=== PATIENT | female | born 1985 | race Caucasian/White ===

== ENCOUNTER 2024-04-17 02:21 | Inpatient (IN) | payer MEDICARE, MEDICAID, SELFPAY ==
[2024-04-17] VITALS (11 sets, daily range): BP systolic 101–150; BP diastolic 64–110; PULSE 50–86; RESP 12–20; TEMP 36.6–36.9; O2SAT 94–100; BMI 24.8
--- NOTE | ~2024-04-17 | XR_ITS ---
EXAMINATION: XR CHEST CLINICAL INFORMATION: Desaturation COMPARISON: None available. TECHNIQUE: AP upright portable (time stamp of 0640 hours) view of the chest was obtained. Clothing artifact overlies. Patient rotated. FINDINGS: No gross focal consolidation or effusion. No pneumothorax. Nonspecific increase in reticular markings predominating centrally, suggesting airways disease. Nonspecific hazy increased density at the bases likely due to overlapping chest wall shadows. Grossly normal heart and mediastinum. No overt pulmonary edema. Nonobstructive gas pattern. No acute osseous finding. XR/XR chest 1V IMPRESSION: Suspect airways disease. Technically limited film. Recommend short-term follow-up. Electronically signed by: Harshil Mcnair MD 04/17/2024 07:31 AM EDT
[2024-04-17 03:17] LABS: Appearance Urine Clear; Color Urine Yellow; Glucose Urine UA Negative (Negative); Leukocyte Esterase Urine Negative (Negative); Nitrite Urine Negative (Negative); PH 5.5 (5.0-9.0); Urine Blood Negative (Negative); Urine Ketones Negative (Negative); Urine Protein Negative (Neg-Trace)
[2024-04-17 03:18] LABS: UPreg QC Valid YES; Urine Pregnancy NEGATIVE (NEGATIVE)
--- NOTE | 2024-04-17 03:19 | PC.NURSE ---
Pt reports she is a difficult stick and requires ultrasound guide for labs/IV.
[2024-04-17 03:26] LABS: Amphetamine Screen Urine Not Detected (Not Detect); Barbiturates, Urine Not Detected (Not Detect); Benzodiazepines Screen Urine Not Detected (Not Detect); Buprenorphine Scr Not Detected (Not Detect); Cannabinoid Screen Urine Not Detected (Not Detect); Cocaine Screen Urine POSITIVE (Not Detect); Fentanyl, urine POSITIVE (Not Detect); Methadone Screen, Urine Positive (Not Detect); Opiate Screen Urine Not Detected (Not Detect); Oxycodone Screen Urine Not Detected (Not Detect); Phencyclidine Screen Urine Not Detected (Not Detect)
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
--- NOTE | 2024-04-17 06:31 | ED.GENADULT ---
HPI - General Adult General Chief complaint: General Medical Stated complaint: SOB/multiple complaints/dc from [facility] Time Seen by Provider: 04/17/24 06:28 Source: patient and EMS Mode of arrival: EMS Limitations: no limitations History of Present Illness ED Provider: Bertha Rhodes PA-C HPI narrative: 38 yo chronically ill female history of polysubstance use, EtOH use, severe hypothyroidism, CKD, recent admission to [facility] with severe hypothyroidism, elevated troponin, hypoxia and RSV bronchitis who presents to the ER via EMS for evaluation of flu-like symptoms, cough, SOB and chest pain. Patient reportedly called EMS from the parking lot of [facility]. She left without treatment there yesterday because the wait was too long. She states she has been having flu-like symptoms and central chest pains along with cough, SOB and not feeling well. She reports bringing up a lot of yellow phlegm. She states she recently had RSV. The pain is in the center of her chest, is constant. It does not radiate. She arrives to the ER lethargic and appears to be under the influence. She was demanding food. MD complaint: Chest pain Onset (ago): unknown Location: chest and lower extremity Radiation: non-radiation Severity: severe Quality: aching Pain Consistency: constant Relieving factors: none Exacerbating factors: none Associated symptoms: shortness of breath Treatments prior to arrival: none Related Data Home Medications ?Medication ?Instructions ?Recorded ?Confirmed methadone 10 mg/mL oral 80 mg PO DAILY 04/17/24 04/17/24 concentrate (Methadone Intensol) Allergies Allergy/AdvReac Type Severity Reaction Status Date / Time sulfamethoxazole Allergy Hives Verified 04/17/24 02:31 [From Bactrim] trimethoprim [From Bactrim] Allergy Hives Verified 04/17/24 02:31 Review of Systems Review of Systems: Yes all other systems are reviewed and are negative PMFSH Social History Social History Smoked in Last 30 Days: Yes Substance Use Type: Crack/Cocaine Advance Directives: No Advance Directives Information Provided: Yes Physical Exam ED Vital Signs: Vital Signs - 24 hr 04/17/24 02:30 04/17/24 04:23 04/17/24 06:00 Temperature 98.3 F 97.9 F 97.9 F Pulse Rate 86 72 69 Respiratory Rate 20 17 16 Blood Pressure 150/107 H 118/85 107/71 Pulse Oximetry 98 95 94 Oxygen Delivery Method Room Air Room Air Room Air Oxygen Flow Rate 04/17/24 07:25 04/17/24 10:00 04/17/24 11:05 Temperature 98.4 F 98.2 F Pulse Rate 59 59 58 Respiratory Rate 12 12 Blood Pressure 110/77 101/74 111/71 Pulse Oximetry 100 94 96 Oxygen Delivery Method Nasal Cannula Nasal Cannula Nasal Cannula Oxygen Flow Rate 2 2 2 04/17/24 12:00 Temperature Pulse Rate 55 Respiratory Rate Blood Pressure 104/64 Pulse Oximetry 95 Oxygen Delivery Method Room Air Oxygen Flow Rate 2 BMI result Body Mass Index 24.8 Appearance: Lethargic, appears older than stated age, chronically ill-appearing Oriented X3. No acute distress. Head: normocephalic, atraumatic. Eyes: Pupils equal, round and reactive to light. ENT: Poor dentition Pharynx normal. No tonsillar swelling or exudate. Neck: Normal inspection. Neck supple. CVS: Normal heart rate and rhythm. Pulses normal. Respiratory: No respiratory distress. Breath sounds coarse throughout, congested cough, no wheezing. Anterior chest wall tenderness Abdomen: Soft and nontender. +BS x4 Skin: Skin warm and dry. Normal skin color. Normal skin turgor. No rashes. Extremities: No lower extremity edema. No joint swelling. Neuro/psych: Oriented X 3. No motor deficit. No sensory deficit. CN II-XII intact. Normal speech and cognition. Medications Administered Discontinued Medications Generic Name Dose Route Start Last Admin Trade Name Freq PRN Reason Stop Dose Admin Levothyroxine Sodium 112 mcg 04/17/24 07:47 04/17/24 08:18 Levothyroxine Sodium 112 Mcg Tablet PO 04/17/24 07:48 112 mcg ONCE ONE Administration Levothyroxine Sodium 50 mcg 04/17/24 12:18 04/17/24 12:28 Levothyroxine Sodium 100 Mcg/5 Ml Vial IVPUSH 04/17/24 12:19 50 mcg ONCE ONE Administration Methadone HCl 80 mg 04/17/24 07:59 04/17/24 09:44 Methadone Hcl 20 Mg/2 Ml Oral.Conc PO 04/17/24 08:00 80 mg ONCE ONE Administration Potassium Chloride 40 meq 04/17/24 07:44 04/17/24 08:18 Potassium Chloride Er 20 Meq Tab.Er.Prt PO 04/17/24 07:45 40 meq ONCE ONE Administration Medical Decision Making Medical Decision Making [facility] Narrative: 38-year-old female with history of polysubstance use including cocaine and alcohol, on methadone maintenance 80 mg per day, history of severe hypothyroidism, who presents to the ER for evaluation of chest pain. She has a very poor historian. She was belligerent and yelling out on arrival demanding food. When sleeping she did drop her oxygen saturations to 87%, requiring 2 L nasal cannula. Lab workup done today shows mild hypokalemia, significantly elevated TSH greater than 100 and a T4 less than 0.42. She has normal thermic with heart rate of 60. She is lethargic however she may be under the influence of drugs and alcohol. Her urine toxicology is positive for fentanyl and methadone along with cocaine. Her alcohol level came back negative. After multiple attempts the recent admission from [facility] was obtained, she was admitted at [facility] from March 16 to March 25. She had severe hypothyroidism at that time, was treated with IV levothyroxine 50 mcg for 3 days and then started on levothyroxine 125 mcg daily. She was not in myxedema coma. She had elevated troponin levels of 200, she was seen by Cardiology. It appears as though she was seen by psych as well for psychosis. She required physical restraints. She was treated with p.r.n. Ativan and Haldol for probable withdrawal. She was also seen by pulmonology for hypoxia. Hypoxia was thought to be due to hypoventilation. There has been several attempts at weaning the patient's off of oxygen however she continues to have desaturations to the low 80s. She is bronchospastic and having coughing fits that she reports result in chest pain and headache. Lungs are coarse but no wheezing. She is afebrile. CBC is still pending, recollect sent. Chest x-ray does not have any evidence of pneumonia. Will hold off on antibiotics at this time. extended viral panel ordered. will admit to the hospital for further evaluation and treatment. Differential Diagnosis Differential Diagnoses: The differential diagnosis associated with the presentation includes Myxedema coma, polysubstance use, intoxication, severe hypothyroidism, pneumonia, viral syndrome, bronchitis, reactive airway disease, Admission/Observation Consideration of admission/observation: Escalation of care including admission/observation considered Consult Healthcare Provider Management of the patient was discussed with: Hospitalist Dr. soriano Lab Data MDM Lab Attestation statement: I reviewed the patient's lab results. Hypokalemia, severely elevated TSH and low free T4 04/17/24 11:56 04/17/24 06:26 Labs: Lab Results 04/17/24 04/17/24 04/17/24 Range/Units 03:04 06:26 06:33 WBC (4.8-10.8) X10*3/uL RBC (4.20-5.50) X10*6/uL Hgb (12.0-16.0) g/dl Hct (37.0-47.0) % MCV (80.0-98.0) fL MCH (27.0-33.0) pg MCHC (31.0-35.0) g/dl RDW (11.0-16.0) % Plt Count (160-400) X10*3/uL MPV (9.4-12.3) fL Immature Gran % (Auto) (0.0-0.4) % Neut % (Auto) (45-73) % Lymph % (Auto) (20-40) % [place] % (Auto) (2-11) % Eos % (Auto) (0-4) % Baso % (Auto) (0-2) % Lymph # (Auto) (1.2-4.9) X10*3/uL [place] # (Auto) (0.1-1.2) X10*3/uL Eos # (Auto) (0.0-0.4) X10*3/uL Baso # (Auto) (0.0-0.2) X10*3/uL Abs Immat Gran (auto) (0.00-0.03) X10*3/uL Absolute Neuts (auto) (2.0-8.3) x10*3/uL Absolute Nucleated RBC (0.0-0.012) X10*3/uL Nucleated RBC % (auto) (0.0-0.2) /100WBC VBG pH 7.45 H (7.32-7.43) VBG pCO2 47 mmHg VBG pO2 197 mmHg VBG HCO3 33 H (22-26) mmol/L VBG O2 Saturation 99.0 % VBG Base Excess 8.8 mmol/L Sodium 136 (135-145) mmol/L Potassium 3.2 L (3.3-5.1) mmol/L Chloride 100 (96-108) mmol/L Carbon Dioxide 26 (22-29) mmol/L Anion Gap 13 (12-20) BUN 14 (9-16) mg/dL Creatinine 1.25 (0.5-1.4) mg/dL Estim Creat Clear Calc 54.7 Estimated GFR 48 Random Glucose 173 H (60-115) mg/dL Calcium 8.8 (8.4-10.2) mg/dL Magnesium 1.9 (1.6-2.6) mg/dL Total Bilirubin 0.2 (0.0-1.0) mg/dL Direct Bilirubin < 0.2 (0.0-0.5) mg/dL AST 27 (5-31) U/L ALT 13 (0-31) U/L Alkaline Phosphatase 68 (39-117) U/L Troponin I High Sens < 2.7 (<3.5-17.0) ng/L B-Natriuretic Peptide 47 (<100) pg/mL Total Protein 6.8 (6.5-8.0) g/dL Albumin 3.7 (3.5-5.0) g/dL TSH > 100.00 H (0.32-4.0) uIU/mL Free T4 < 0.42 L (0.71-1.85) ng/dL Urine Color Yellow Urine Appearance Clear Urine pH 5.5 (5.0-9.0) Ur Specific [place] 1.010 (1.005-1.025) Urine Protein Negative (Neg-Trace) mg/dL Urine Glucose (UA) Negative (Negative) mg/dL Urine Ketones Negative (Negative) mg/dL Urine Blood Negative (Negative) Urine Nitrite Negative (Negative) Ur Leukocyte Esterase Negative (Negative) Urine Test NEGATIVE (NEGATIVE) Urine Opiates Screen Not Detected (Not Detect) Ur Buprenorphine Scrn Not Detected (Not Detect) ng/mL Ur Oxycodone Screen Not Detected (Not Detect) ng/mL Urine Methadone Screen Positive H (Not Detect) ng/mL Urine Fentanyl Screen POSITIVE H (Not Detect) Ur Barbiturates Screen Not Detected (Not Detect) Ur Phencyclidine Scrn Not Detected (Not Detect) Ur Amphetamines Screen Not Detected (Not Detect) U Benzodiazepines Scrn Not Detected (Not Detect) Urine Cocaine Screen POSITIVE H (Not Detect) U Marijuana (THC) Screen Not Detected (Not Detect) Ethyl Alcohol < 10 mg/dL Influenza Type A (PCR) NEGATIVE (Negative) Influenza Type B (PCR) NEGATIVE (Negative) RSV RNA Qual (PCR) NEGATIVE (Negative) SARS-CoV-2 RNA (RT-PCR) NEGATIVE (Negative) 04/17/24 Range/Units 11:56 WBC 7.6 (4.8-10.8) X10*3/uL RBC 3.07 L (4.20-5.50) X10*6/uL Hgb 10.3 L (12.0-16.0) g/dl Hct 30.9 L (37.0-47.0) % MCV 100.7 H (80.0-98.0) fL MCH 33.6 H (27.0-33.0) pg MCHC 33.3 (31.0-35.0) g/dl RDW 13.5 (11.0-16.0) % Plt Count 206 (160-400) X10*3/uL MPV 9.1 L (9.4-12.3) fL Immature Gran % (Auto) 0.4 (0.0-0.4) % Neut % (Auto) 42.3 L (45-73) % Lymph % (Auto) 45.2 H (20-40) % [place] % (Auto) 6.1 (2-11) % Eos % (Auto) 4.8 H (0-4) % Baso % (Auto) 1.2 (0-2) % Lymph # (Auto) 3.4 (1.2-4.9) X10*3/uL [place] # (Auto) 0.5 (0.1-1.2) X10*3/uL Eos # (Auto) 0.4 (0.0-0.4) X10*3/uL Baso # (Auto) 0.1 (0.0-0.2) X10*3/uL Abs Immat Gran (auto) 0.03 (0.00-0.03) X10*3/uL Absolute Neuts (auto) 3.2 (2.0-8.3) x10*3/uL Absolute Nucleated RBC 0.000 (0.0-0.012) X10*3/uL Nucleated RBC % (auto) 0.0 (0.0-0.2) /100WBC VBG pH (7.32-7.43) VBG pCO2 mmHg VBG pO2 mmHg VBG HCO3 (22-26) mmol/L VBG O2 Saturation % VBG Base Excess mmol/L Sodium (135-145) mmol/L Potassium (3.3-5.1) mmol/L Chloride (96-108) mmol/L Carbon Dioxide (22-29) mmol/L Anion Gap (12-20) BUN (9-16) mg/dL Creatinine (0.5-1.4) mg/dL Estim Creat Clear Calc Estimated GFR Random Glucose (60-115) mg/dL Calcium (8.4-10.2) mg/dL Magnesium (1.6-2.6) mg/dL Total Bilirubin (0.0-1.0) mg/dL Direct Bilirubin (0.0-0.5) mg/dL AST (5-31) U/L ALT (0-31) U/L Alkaline Phosphatase (39-117) U/L Troponin I High Sens (<3.5-17.0) ng/L B-Natriuretic Peptide (<100) pg/mL Total Protein (6.5-8.0) g/dL Albumin (3.5-5.0) g/dL TSH (0.32-4.0) uIU/mL Free T4 (0.71-1.85) ng/dL Urine Color Urine Appearance Urine pH (5.0-9.0) Ur Specific [place] (1.005-1.025) Urine Protein (Neg-Trace) mg/dL Urine Glucose (UA) (Negative) mg/dL Urine Ketones (Negative) mg/dL Urine Blood (Negative) Urine Nitrite (Negative) Ur Leukocyte Esterase (Negative) Urine Test (NEGATIVE) Urine Opiates Screen (Not Detect) Ur Buprenorphine Scrn (Not Detect) ng/mL Ur Oxycodone Screen (Not Detect) ng/mL Urine Methadone Screen (Not Detect) ng/mL Urine Fentanyl Screen (Not Detect) Ur Barbiturates Screen (Not Detect) Ur Phencyclidine Scrn (Not Detect) Ur Amphetamines Screen (Not Detect) U Benzodiazepines Scrn (Not Detect) Urine Cocaine Screen (Not Detect) U Marijuana (THC) Screen (Not Detect) Ethyl Alcohol mg/dL Influenza Type A (PCR) (Negative) Influenza Type B (PCR) (Negative) RSV RNA Qual (PCR) (Negative) SARS-CoV-2 RNA (RT-PCR) (Negative) ABG Data ABG Results: Independent Interpretation I performed an independent interpretation of an: EKG and Plain X-Ray Interpretation: EKG with normal sinus rhythm, ventricular rate 63 beats per minute, normal IA interval, normal QTC, no ST segment elevations or depressions. Chest x-ray with some increased reticular opacities at the bases bilaterally, agree with radiology read Radiology Impression Discussion of test interpretation with radiology: I have reviewed the radiologist's reading. Radiologist Impression: XR/XR chest 1V IMPRESSION: Suspect airways disease. Technically limited film. Recommend short-term follow-up. Independent Historian Clinical information obtained from an independent historian. History obtained from or confirmed by: EMS External Record Review External record reviewed: Inpatient record, Outpatient record, Prior outpatient labs and Prior outpatient radiology Tests considered The following testing was considered but not selected: CTA considered however low clinical suspicion for pulmonary embolism Prescription Management I considered prescription management with: Other (Synthroid, Narcan, antibiotics) Chronic Conditions Patient?s care impacted by: Other (Hypothyroidism, polysubstance use) Social Determinants Patient?s care significantly limited by Social Determinants of Health including: Inadequate housing, Alcoholism and drug addiction in family, Problems related to primary support group and Other Social Determinant of Health Critical Care Time Critical Care Time Critical Care Time: Yes Total Critical Care Time: 44 Attestation: I have personally provided critical care time exclusive of time spent on separately billable procedures. Time includes review of lab data, radiology results, discussion with consultants, and monitoring for potential decompensation. Intervention performed as documented. Discharge Plan Discharge Clinical Impression: Severe hypothyroidism, Bronchitis, Hypoxia Patient Disposition: Admitted As Inpatient Print Language: [place]
[2024-04-17 06:41] LABS: VBG Base Excess 8.8 mmol/L; VBG HCO3 33 mmol/L (22-26); VBG pCO2 47 mmHg; VBG pH 7.45 (7.32-7.43); VBG pO2 197 mmHg
[2024-04-17 06:43] LABS: Venous Blood Gas Refer to POC result
--- NOTE | 2024-04-17 06:44 | ECG_ITS ---
Test Reason : CHEST PAIN Blood Pressure : / mmHG Vent. Rate : 063 BPM Atrial Rate : 063 BPM P-R Int : 198 ms QRS Dur : 088 ms QT Int : 294 ms P-R-T Axes : 050 008 054 degrees QTc Int : 300 ms Normal sinus rhythm Nonspecific T wave abnormality Abnormal ECG No previous ECGs available Referred By: Hellen Rhodes Electronically Signed By:KARL MICHELLE
[2024-04-17 06:58] LABS: B Type Natriuretic Peptide 47 pg/mL (<100)
[2024-04-17 07:13] LABS: Alanine Aminotransferase 13 U/L (0-31); Albumin Level 3.7 g/dL (3.5-5.0); Alkaline Phosphatase 68 U/L (39-117); Anion Gap 13 (12-20); Aspartate Amino Transferase 27 U/L (5-31); Bilirubin Direct < 0.2 mg/dL (0.0-0.5); Bilirubin Total 0.2 mg/dL (0.0-1.0); Blood Urea Nitrogen 14 mg/dL (9-16); Calcium 8.8 mg/dL (8.4-10.2); Carbon Dioxide 26 mmol/L (22-29); Chloride 100 mmol/L (96-108); Creatinine Clr Calc Pharmacy 54.7; Estimated Glomerular Filt Rate 48; Ethanol < 10 mg/dL; Glucose Random 173 mg/dL (60-115); Magnesium 1.9 mg/dL (1.6-2.6); Potassium 3.2 mmol/L (3.3-5.1); Sodium 136 mmol/L (135-145); Total Protein 6.8 g/dL (6.5-8.0)
[2024-04-17 07:17] LABS: Influenza A PCR NEGATIVE (Negative); Influenza B PCR NEGATIVE (Negative); Resp Syncy Virus RNA Qual PCR NEGATIVE (Negative); SARS COV2 PCR INHOUSE NEGATIVE (Negative)
--- NOTE | 2024-04-17 07:34 | PC.NURSE ---
patient noted t be satting 87% on room air, patient placed on 2lNC now satting 95%. patient arousable to verbal stimuli, alert and oriented x3. patient drowsy, respirations equal and unlabored, skin noted to have various keith from IVDA- no open wounds noted. pupils equal and reactive.
[2024-04-17 07:41] LABS: TSH reflex Free T4 > 100.00 uIU/mL (0.32-4.0)
[2024-04-17] MEDS: Levothyroxine Sodium 112 MCG TABLET PO (08:18)
[2024-04-17] MEDS: Potassium Chloride ER 20 MEQ TAB.ER.PRT 40 MEQ PO (08:18)
--- NOTE | 2024-04-17 08:28 | HE.PHANOTE ---
RE METHADONE DOSE: LAST DOSE 80 MG AT [facility] ON 04/16/24
--- NOTE | 2024-04-17 08:31 | PC.NURSE ---
patient being verbally abusive to staff, patient educated by this RN that she has to wait to eat due to her medication administration and that she will get a tray soon.
[2024-04-17 08:43] LABS: Free T4 (Free Thyroxine) < 0.42 ng/dL (0.71-1.85)
--- NOTE | 2024-04-17 09:07 | MHC.EDTECH ---
attempt to draw labs couldn't obtain due to pt yelling saying to remove it. Rodrigo Quiñones tried to draw labs again shortly after, pt yelled about getting food and that she was over it . labs not drawn
[2024-04-17] MEDS: methADONE HCl 20 MG/2 ML ORAL.CONC 80 MG PO (09:44)
--- NOTE | 2024-04-17 09:47 | PC.NURSE ---
patient sitting up, awake and alert eating breakfast tray. patient dosed with methadone per MAR.
[2024-04-17 11:16] LABS: Troponin-I High Sensitivity < 2.7 ng/L (<3.5-17.0)
[2024-04-17 11:59] LABS: MANUAL DIFF FLAG NO
[2024-04-17 12:00] LABS: Basophils Absolute Auto 0.1 X10*3/uL (0.0-0.2); Basophils Percent Auto 1.2 % (0-2); Eosinophils Absolute Auto 0.4 X10*3/uL (0.0-0.4); Eosinophils Percent Auto 4.8 % (0-4); Hematocrit 30.9 % (37.0-47.0); Hemoglobin 10.3 g/dl (12.0-16.0); Imm Gran Abs Auto 0.03 X10*3/uL (0.00-0.03); Imm Gran Pct Auto 0.4 % (0.0-0.4); Lymphocytes Absolute Auto 3.4 X10*3/uL (1.2-4.9); Lymphocytes Percent Auto 45.2 % (20-40); Mean Corpuscular HGB Conc 33.3 g/dl (31.0-35.0); Mean Corpuscular Hemoglobin 33.6 pg (27.0-33.0); Mean Corpuscular Volume 100.7 fL (80.0-98.0); Mean Platelet Volume 9.1 fL (9.4-12.3); Monocytes Absolute Auto 0.5 X10*3/uL (0.1-1.2); Monocytes Percent Auto 6.1 % (2-11); Neutrophils Absolute Auto 3.2 x10*3/uL (2.0-8.3); Neutrophils Percent Auto 42.3 % (45-73); Platelet Count 206 X10*3/uL (160-400); Red Blood Count 3.07 X10*6/uL (4.20-5.50); Red Cell Distribution Width 13.5 % (11.0-16.0); White Blood Count 7.6 X10*3/uL (4.8-10.8)
[2024-04-17] MEDS: Levothyroxine Sodium 100 MCG/5 ML VIAL 50 MCG IVPUSH (12:28)
[2024-04-17 12:57] LABS: Procalcitonin 0.05 ng/mL
[2024-04-17 12:57] LABS: Glucose, Whole Blood 140 mg/dL (60-115)
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
--- NOTE | 2024-04-17 13:54 | PHA.MEDREC ---
Addendum entered by Berna Ibarra RPh 04/17/24 14:32: MED REC REVIEWED BY EMANUEL Original Note: Pharmacy Consult ? Medication Reconciliation Pharmacy has completed the medication reconciliation. Spoke with patient to confirm medications. Everything matched claim history she reported to me. She no longer takes olanzapine, ND'ed because she started to hear things, stopped taking about a month or two ago. She did not start or pick remover the lower dose of levothyroxine or antibiotics prescribed yesterday. Her most recent pick remover for levothyroxine was a 125 mcg dose in March so i will enter that dose since patient was unsure.
[2024-04-17] MEDS: Amoxicillin/Potassium Clav 875 MG TABLET PO (14:11)
[2024-04-17] MEDS: clonazePAM 0.5 MG TABLET PO ×2 (14:11→15:12)
[2024-04-17] MEDS: Folic Acid 1 MG TABLET PO (14:11)
[2024-04-17] MEDS: Gabapentin 400 MG CAPSULE PO ×2 (14:11→15:39)
[2024-04-17] MEDS: Thiamine HCL 100 MG TABLET PO (14:11)
[2024-04-17] MEDS: methylPREDNISolone Sod Succ 40 MG/ML VIAL IVPUSH (14:12)
[2024-04-17] MEDS: Potassium Chloride Packet 20 MEQ PACKET 40 MEQ PO (14:12)
[2024-04-17] MEDS: Nicotine 21 MG PATCH.TD24 TRANSDERMA (14:12)
--- NOTE | 2024-04-17 15:05 | PC.NURSE ---
patient belongings searched by this RN and security. patient found to have drug paraphenalia, knife and vape on her. patient belongings taken by security. patient controlled drugs sent to pharmacy. patient has multiple bags of clothes and belongings all searched by security.
[2024-04-17 15:21] LABS: Adenovirus PCR Not Detected (Not Detect.); Bordetella parapertussis PCR Not Detected (Not Detect.); Bordetella pertussis PCR Not Detected (Not Detect.); Chlamydia pneumoniae PCR Not Detected (Not Detect.); Coronavirus 229E PCR Not Detected (Not Detect.); Coronavirus HKU1 PCR Not Detected (Not Detect.); Coronavirus NL63 PCR Not Detected (Not Detect.); Coronavirus OC43 PCR Not Detected (Not Detect.); Human metapneumovirus PCR Not Detected (Not Detect.); Influenza A PCR Not Detected (Not Detect.); Influenza B PCR Not Detected (Not Detect.); Mycoplasma pneumoniae PCR Not Detected (Not Detect.); Parainfluenza 1 PCR Not Detected (Not Detect.); Parainfluenza 2 PCR Not Detected (Not Detect.); Parainfluenza 3 PCR Not Detected (Not Detect.); Parainfluenza 4 PCR Not Detected (Not Detect.); RSV PCR Not Detected (Not Detect.); Rhino/Enterovirus PCR Detected (Not Detect.)
[2024-04-17 15:28] LABS: SARS-CoV-2 PCR Not Detected (Not Detect.)
--- NOTE | 2024-04-17 15:37 | PC.NURSE ---
patient removed oxygen satting 97%
[2024-04-17] MEDS: Albuterol/Iprat 2.5/0.5MG 3 ML AMPUL.NEB INHALE (15:41)
--- NOTE | 2024-04-17 16:36 | PC.NURSE ---
patient states she is feeling as if she is withdrawing from alcohol. patient states she does not want anything to help her threw the withdrawals. patient is belligerent with staff, not following directions of safety. patient told to lay back in her bed, patient did follow directions to lay back in bed. inpatient provider aware.
--- NOTE | 2024-04-17 16:45 | PC.NURSE ---
patient sitting in plastic chair, rocking back and forth where all 4 legs are not on the floor, patient educated that she can not rock on the chair and is an unsafe behavior due to the chair being unsteady and risky of falling. patient now yelling at staff walking by, unredirectable. patient now pacing in room.
[2024-04-17] MEDS: Gabapentin 400 MG CAPSULE 800 MG PO (17:01)
--- NOTE | 2024-04-17 17:07 | PC.NURSE ---
gave patient jello and pudding for a snack. patient sitting quietly in bed, respirations equal and unlabored.
--- NOTE | 2024-04-17 17:35 | PC.NURSE ---
patient sitting on floor, patient asked to sit in chair. patient now sitting in chair in room.
--- NOTE | 2024-04-17 23:29 | PC.NURSE ---
pt sleeping. on continuous cardiac, BP and o2 monitoring. call gustafson within reach.
--- NOTE | 2024-04-17 23:37 | PC.NURSE ---
on heart monitor sinus comfort 44-55 bpm. MD aware no further orders at this time.
[2024-04-18] VITALS (7 sets, daily range): BP systolic 121–180; BP diastolic 89–110; PULSE 51–95; RESP 13–20; TEMP 36.6–37.1; O2SAT 95–100
[2024-04-18] MEDS: Amoxicillin/Potassium Clav 875 MG TABLET PO ×2 (02:01→13:23)
[2024-04-18] MEDS: methylPREDNISolone Sod Succ 40 MG/ML VIAL IVPUSH (02:01)
[2024-04-18 05:11] LABS: MANUAL DIFF FLAG NO
[2024-04-18 05:15] LABS: Basophils Percent Auto 0.2 % (0-2); Hematocrit 31.6 % (37.0-47.0); Hemoglobin 10.3 g/dl (12.0-16.0); Imm Gran Abs Auto 0.08 X10*3/uL (0.00-0.03); Imm Gran Pct Auto 0.6 % (0.0-0.4); Lymphocytes Absolute Auto 1.5 X10*3/uL (1.2-4.9); Lymphocytes Percent Auto 12.2 % (20-40); Mean Corpuscular HGB Conc 32.6 g/dl (31.0-35.0); Mean Corpuscular Hemoglobin 32.9 pg (27.0-33.0); Mean Platelet Volume 9.8 fL (9.4-12.3); Monocytes Absolute Auto 0.2 X10*3/uL (0.1-1.2); Monocytes Percent Auto 1.8 % (2-11); Neutrophils Absolute Auto 10.6 x10*3/uL (2.0-8.3); Neutrophils Percent Auto 85.2 % (45-73); Platelet Count 227 X10*3/uL (160-400); Red Blood Count 3.13 X10*6/uL (4.20-5.50); Red Cell Distribution Width 13.3 % (11.0-16.0); White Blood Count 12.4 X10*3/uL (4.8-10.8)
[2024-04-18 05:35] LABS: Anion Gap 13 (12-20); Blood Urea Nitrogen 13 mg/dL (9-16); Calcium 9.1 mg/dL (8.4-10.2); Carbon Dioxide 29 mmol/L (22-29); Chloride 100 mmol/L (96-108); Creatinine Clr Calc Pharmacy 62.2; Estimated Glomerular Filt Rate 56; Glucose Random 212 mg/dL (60-115); Potassium 4.5 mmol/L (3.3-5.1); Sodium 137 mmol/L (135-145)
[2024-04-18 06:11] LABS: Folate 14.5 ng/mL (> or = 4.0); Vitamin B12 428 pg/mL (200-900)
[2024-04-18] MEDS: Levothyroxine Sodium 100 MCG/5 ML VIAL 50 MCG IVPUSH (06:29)
[2024-04-18] MEDS: Folic Acid 1 MG TABLET PO (08:49)
[2024-04-18] MEDS: Thiamine HCL 100 MG TABLET PO (08:49)
[2024-04-18] MEDS: clonazePAM 1 MG TABLET PO ×3 (08:49→23:38)
[2024-04-18] MEDS: methADONE HCl 20 MG/2 ML ORAL.CONC 80 MG PO (08:50)
[2024-04-18] MEDS: Nicotine 21 MG PATCH.TD24 TRANSDERMA (08:50)
[2024-04-18] MEDS: Gabapentin 400 MG CAPSULE 800 MG PO ×4 (08:57→22:32)
[2024-04-18] MEDS: buPROPion HCL 75 MG TABLET PO (08:57)
[2024-04-18 09:38] LABS: CT PCR NOT DETECTED (Not Detect.); NG PCR NOT DETECTED (Not Detect.)
[2024-04-18] MEDS: Albuterol/Iprat 2.5/0.5MG 3 ML AMPUL.NEB INHALE ×2 (09:46→11:33)
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
--- NOTE | 2024-04-18 12:17 | PC.NURSE ---
patient frequently out of room pacing in hallways, states she does not want to take the steroids anymore as they are making her anxious, offered patient PRN anxiety medications. patient declined insteady asked for her gabapentin, educated patient that she is due for her gabapentin at 1300, patient stating that she is having 10/10 body pain and is asking for something for pain, patient offered PRN tylenol and refused stating she wants something stronger. patient telling this RN that she wants to speak with addiction medicine and social workers, and that she left [facility] because they werent sending her upstairs and they lied to me, i looked it up on the internet, there are beds upstairs, why arent they giving me a room this Rn educated patient that if there are no nurses to staff empty beds then she will not be going to the floor but the plan is still to admit. patient demanding to speak with social workers. demanding pain medications. this rn offered patient hospital stretcher for comfort, initially patient states she wants one, then changed her mind stating i dont want anyone doing all of that for me . yojana LEE will reach out to the admitting provider regariding patient concerns. safety maintained, plan of care ongoing.
--- NOTE | 2024-04-18 15:15 | PC.NURSE ---
pharmacy called for nelly
[2024-04-18] MEDS: Emtricitabin/Tenofovir DF 200/300 TABLET 1 TAB PO (15:25)
[2024-04-18] MEDS: 0.9 % Sodium Chloride Flush 3 ML SYRINGE IVFLUSH ×2 (15:43→23:39)
[2024-04-18] MEDS: cloNIDine HCL 0.2 MG TABLET PO (18:47)
[2024-04-18] MEDS: Raltegravir Potassium 400 MG TABLET PO (22:32)
[2024-04-19] VITALS (9 sets, daily range): BP systolic 117–142; BP diastolic 72–93; PULSE 60–95; RESP 15–20; TEMP 36.3–37.1; O2SAT 92–99
[2024-04-19] MEDS: Amoxicillin/Potassium Clav 875 MG TABLET PO ×2 (01:38→13:44)
[2024-04-19] MEDS: Gabapentin 400 MG CAPSULE 800 MG PO ×4 (06:35→21:59)
[2024-04-19] MEDS: methADONE HCl 20 MG/2 ML ORAL.CONC 80 MG PO (06:36)
[2024-04-19] MEDS: Levothyroxine Sodium 100 MCG/5 ML VIAL 50 MCG IVPUSH (06:37)
--- NOTE | 2024-04-19 07:42 | PC.NURSE ---
Patient admitted from the ED around 20:40 on 04/18/24. Patient is AAOX4 with no complaints. CIWA score=0. NSR on cardiac monitoring. Patient is oriented to unit routine, call light, bed control, Tv, Tel, bathroom, lights etc. Questions and concerns addressed. Patient verbalized understanding.
[2024-04-19] MEDS: Albuterol/Iprat 2.5/0.5MG 3 ML AMPUL.NEB INHALE ×2 (08:05→15:42)
[2024-04-19] MEDS: Nicotine 21 MG PATCH.TD24 TRANSDERMA (08:29)
[2024-04-19] MEDS: Raltegravir Potassium 400 MG TABLET PO ×2 (08:30→21:59)
[2024-04-19] MEDS: Emtricitabin/Tenofovir DF 200/300 TABLET 1 TAB PO (08:30)
[2024-04-19] MEDS: Thiamine HCL 100 MG TABLET PO (08:31)
[2024-04-19] MEDS: methylPREDNISolone Sod Succ 40 MG/ML VIAL IVPUSH (08:31)
[2024-04-19] MEDS: Folic Acid 1 MG TABLET PO (08:31)
[2024-04-19] MEDS: buPROPion HCL 75 MG TABLET PO (08:31)
[2024-04-19] MEDS: 0.9 % Sodium Chloride Flush 3 ML SYRINGE IVFLUSH ×3 (08:33→23:33)
[2024-04-19 08:43] LABS: Syphilis Screen Nonreactive (Nonreactive)
[2024-04-19 09:08] LABS: HBS Num1 289.38 mIU/mL (0-7.99); HBc Num1 0.09 S/CO (0.00-0.79); HBsAGNum1 0.23 S/CO (0.00-0.99); HIV AB/AG Nonreactive (Nonreactive); HIV Num 1 0.05 S/CO (0.00-0.99); Hepatitis B Core Antibody Nonreactive (Nonreactive); Hepatitis B Surface Antigen Negative (Negative); ~HepC Num1 12.42 S/CO (0.00-0.79); ~Hepatitis B Surface Antibody REACTIVE (Nonreactive); ~Hepatitis C Antibody Reactive (Nonreactive)
--- NOTE | 2024-04-19 11:05 | MHC.CM.PN ---
IMM 04/19. Pt reports she is homeless and living on the [address]. Pt states she would like to get into a detox program, recovery nurse in to see pt. This CM provided pt with a 413 resource guide. Educated on HCP's, but declined at this time. Pt has no PCP, declined a local list of PCP's.
--- NOTE | 2024-04-19 12:47 | MHC.RECOVRN ---
Patient seen at bedside, after consult placed for OUD. Patient was asleep with head on desk when I first arrived, needing loud verbal command and touch to rouse. Patient states she has been using heroine daily, and has been improving and decreasing use now that she has a split dose and take home doses from already established clinic. Patient expresses concerns with housing. She acknowledged that sleeping outside makes it hard to stay clean . We talked about harm reduction strategies, and shelters in the area, she acknowledged she has tried and beds are full. She agrees to keep checking in with local shelters and states that she has an social group worker Alonso from [facility] that is helpful with clothing and food. I left information and a backpack with simple clothing supplies at bedside for patient. Reviewed Pt with Krys Awan APRN
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
--- NOTE | 2024-04-19 16:01 | MHC.CM.PN ---
Addendum entered by Evelyne Wilson 04/19/24 16:06: [facility], and was told that there are no available beds there tonight, she was instructed by GELY to call them tomorrow to check on bed availability. Original Note: EMR reviewed and per MD rounds, pt is medically cleared for discharge. This CM met with pt to discuss discharge plan, pt states she will go to a homeless halfway, but does not feel well enough to discharge and would like to see the MD, hospitalist was notified. Per MD, pt would like to appeal the discharge. This CM did call a few local homeless shelters, but was unable to reach anyone to speak to about an available bed. This CM met with pt to discuss her decision to appeal the discharge, and offered the living room as an option for today until she can get into a homeless halfway. Pt decided to move forward with the appeal, this CM showed pt the number to call for [facility], and pt called and filed the appeal.
[2024-04-19] MEDS: clonazePAM 1 MG TABLET PO (22:01)
[2024-04-20] MEDS: Amoxicillin/Potassium Clav 875 MG TABLET PO ×2 (01:51→12:28)
[2024-04-20] MEDS: Melatonin 3 MG TABLET 6 MG PO (01:55)
[2024-04-20 03:35] VITALS: BP 127/76; PULSE 65; RESP 20; TEMP 37.4; O2SAT 95
--- NOTE | 2024-04-20 05:09 | PC.NURSE ---
Patient AAOX4 with complaints of insomnia relieved with 6 mg po of melatonin. CIWA score =0 x 3. NSR on print line tailer.. VS stable: CK=848/76, HR=65, 95% on RA, T=99.4 , R=18. No signs and symptoms of acute distress noted.
[2024-04-20 07:54] VITALS: BP 131/78; PULSE 66; RESP 16; TEMP 36.1; O2SAT 92
[2024-04-20] MEDS: methADONE HCl 20 MG/2 ML ORAL.CONC 80 MG PO (08:06)
[2024-04-20] MEDS: Thiamine HCL 100 MG TABLET PO (08:07)
[2024-04-20] MEDS: buPROPion HCL 75 MG TABLET PO (08:07)
[2024-04-20] MEDS: Gabapentin 400 MG CAPSULE 800 MG PO ×4 (08:08→20:42)
[2024-04-20] MEDS: Emtricitabin/Tenofovir DF 200/300 TABLET 1 TAB PO (08:08)
[2024-04-20] MEDS: Folic Acid 1 MG TABLET PO (08:08)
[2024-04-20] MEDS: clonazePAM 1 MG TABLET PO ×2 (08:08→16:53)
[2024-04-20] MEDS: Raltegravir Potassium 400 MG TABLET PO ×2 (08:08→20:41)
[2024-04-20] MEDS: Nicotine 21 MG PATCH.TD24 TRANSDERMA (08:08)
[2024-04-20] MEDS: 0.9 % Sodium Chloride Flush 3 ML SYRINGE IVFLUSH ×2 (08:10→16:54)
[2024-04-20 09:03] LABS: Triiodothyronine T3 Free 0.7 pg/mL (2.3-4.2)
[2024-04-20] MEDS: Levothyroxine Sodium 112 MCG TABLET PO (09:52)
[2024-04-20 11:25] VITALS: BP 132/90; PULSE 74; RESP 16; TEMP 36.7; O2SAT 96
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
--- NOTE | 2024-04-20 14:08 | MHC.CM.PN ---
Pts appeal was denied, pt has been notified. Alonso from [facility] met with pt today to complete paperwork in order to find her a place to stay, per Alonso he will be in touch with us.
--- NOTE | 2024-04-20 15:00 | CA_ITS ---
Transthoracic Echocardiogram Patient (Last, First, Middle): Delilah Calzada, Gender: Female Date of : 1985 Age: 38 Procedure Date: 04/20/2024 Procedure Type: Transthoracic Echocardiogram [place] [facility] [place] Height: 160.02 cm Weight: 63.5 kg BSA: 1.66 m2 Heart Rate: bpm BP: 132 / 72 mmHg Getter Operator: AN Referring MD: Destiny AGUILAR Insurance Advisor: Enrike Sanchez MD Symptoms: palpitations, intermittent cp, drug abuse Study Quality: Adequate ECG Rhythm: Sinus Conclusions: - Normal study Findings Left Ventricle Normal left ventricular size, thickness, and systolic function. The visually estimated ejection fraction is between 60-65%. Spectral Doppler is indicative of a normal filling pattern. Right Ventricle Normal right ventricular cavity size and systolic function. Atria Both atria are normal in size. There is no evidence of interatrial shunt. Aortic Valve Normal aortic valve structure and function. There is no aortic valve stenosis. There is no aortic valve regurgitation. Mitral Valve Normal mitral valve structure and function. There is trace mitral valve regurgitation. There is no mitral valve stenosis. Pulmonic Valve The pulmonic valve is likely normal. There is trace pulmonic valve regurgitation. Tricuspid Valve Normal tricuspid valve structure. There is trace tricuspid valve regurgitation. The right ventricular systolic pressure is normal. The right ventricular systolic pressure is 20 mmHg. Normal right atrial pressure. There is no evidence of pulmonary hypertension. Great Vessels All visible segments of the aorta are normal in size. The visualized portions of the pulmonary artery and branches are normal. Venous The inferior vena cava is normal in size and collapses greater than 50% with inspiration. Pericardium/Pleural There is no evidence of pericardial effusion. Prior Study Comparison No prior study available for comparison. Measurements 2D Linear Measurements IVSd: 1.01 0.6-0.9/0.6-1.0 cm LVIDd: 4.31 3.9-5.3/4.2-5.9 cm LVIDd Index: 2.60 2.4-3.2/2.2-3.1 cm/m2 LVIDs: 2.72 2.0-3.6 cm LVPWd: 1.23 0.7-1.1 cm LA Diam: 3.50 2.7-3.8/3.0-4.0 cm LAIDs Index: 2.11 1.5-2.3 cm/m2 LV Mass: 208.99 67-162/88-224 g LV Mass Index: 125.90 43-95/49-115 g/m2 LVOT Diam: 2.10 3.0+(-)1.3 cm 2D Systolic Function EF 4C: 60.30 >55% EF 2C: 67.30 >55% EF BiP: 63.00 >55% Mitral Valve MV Pk E: 1.13 MV PK A: 0.96 MV Decel Time: 232.00 E/A: 1.20 E'Lateral: 6.09 E'Medial: 5.66 E/E' Med: 20.00 E/E' Lat: 18.60 PHT: 68.00 MVA PHT: 3.24 Decel Bleckley: 4.87 Aortic Valve AoV Pk Otf: 1.53 AoV Mn Otf: 1.06 AoV VTI: 0.32 AoV Pk Grad: 9.00 Aov Mn Grad: 5.00 ALEJANDRA Cont.VTI: 2.71 LVOT LVOT Pk Otf: 1.20 LVOT Mn Otf: 0.86 LVOT VTI: 0.25 LVOT Pk Grad: 6.00 LVOT Mn Grad: 3.00 LVOT Diam: 2.10 LVOT Area: 3.46 Diastolic Function MV Pk E: 1.13 MV Pk A: 0.96 E/A: 1.20 E'Medial: 5.66 E/E' Med: 20.00 E' Laterial: 6.09 E/E' Lat: 18.60 Right Ventricle TAPSE (mm): 25.60 TVS' Otf: 11.50 Tricuspid Valve TR Pk Otf: 2.07 TR Pk Grad: 17.00 RA Press: 3.00 RVSP: 20.00 Great Vessels Aorta Sinus of Valsalva: 3.38 2.0-3.[address] Ridge: 2.05 1.7-3.4 cm Ao Asc: 3.10 2.1-3.4 cm Updated in Other Vendor System with Status of Final Enrike Sanchez MD electronically signed on 04/21/2024 12:20:28 PM with status of Final
[2024-04-20 15:21] VITALS: BP 132/72; PULSE 64; RESP 16; TEMP 36.1; O2SAT 91
--- NOTE | 2024-04-20 17:02 | PC.NURSE ---
Patient gave permission for pt's sister Maris Pimentel to talk to this RN . Pt's sister reported to RN that Delilah told her that she wants to kill herself. RN went to the pt's room and assessed pt for suicidal plans and ideation. Pt denied SI , pt stated that she would like to talk to somebody from behavioral health . Pt stated that her sister is trying to help her that she cam stay in the hospital longer on the psych unit . All was reported to DR Spangler and JEFF Otero. Order was placed for CARE team and chasity
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
--- NOTE | 2024-04-20 18:35 | PC.NURSE ---
Care team at the bedside
[2024-04-20 18:46] VITALS: BP 137/85; PULSE 73; RESP 16; TEMP 36.9; O2SAT 95
--- NOTE | 2024-04-20 19:11 | PC.NURSE ---
Fred from the CARE team evaluated pt and reported to RN that pt is cleared , that she is not suicidal and she doesn't need a sitter
[2024-04-20 20:42] VITALS: BP 137/85
[2024-04-20] MEDS: cloNIDine HCL 0.2 MG TABLET PO (20:42)
[2024-04-21] VITALS: BP 117/79; PULSE 60; RESP 18; TEMP 37.1; O2SAT 93
[2024-04-21] MEDS: Amoxicillin/Potassium Clav 875 MG TABLET PO (00:52)
[2024-04-21] MEDS: 0.9 % Sodium Chloride Flush 3 ML SYRINGE IVFLUSH (00:53)
[2024-04-21 03:45] VITALS: BP 110/76; PULSE 56; RESP 16; TEMP 36.1; O2SAT 94
[2024-04-21] MEDS: Levothyroxine Sodium 112 MCG TABLET PO (06:22)
[2024-04-21] MEDS: clonazePAM 1 MG TABLET PO ×2 (06:22→14:29)
[2024-04-21 07:36] VITALS: BP 93/55; PULSE 58; RESP 19; TEMP 36.7; O2SAT 96
[2024-04-21] MEDS: buPROPion HCL 75 MG TABLET PO (08:44)
[2024-04-21] MEDS: Nicotine 21 MG PATCH.TD24 TRANSDERMA (08:44)
[2024-04-21] MEDS: Raltegravir Potassium 400 MG TABLET PO (08:44)
[2024-04-21] MEDS: Gabapentin 400 MG CAPSULE 800 MG PO ×2 (08:44→12:07)
[2024-04-21] MEDS: Emtricitabin/Tenofovir DF 200/300 TABLET 1 TAB PO (08:44)
[2024-04-21] MEDS: Folic Acid 1 MG TABLET PO (08:44)
[2024-04-21] MEDS: Thiamine HCL 100 MG TABLET PO (08:44)
[2024-04-21] MEDS: methADONE HCl 20 MG/2 ML ORAL.CONC 80 MG PO (08:45)
--- NOTE | 2024-04-21 10:40 | MHC.CM.PN ---
Addendum entered by Apurva Perez 04/21/24 11:12: CM received a call back from [facility], they said that pt. is not eligible for the medical respite program, and there is a female bed available for this pt at the [facility]. CM gave this information to pt., she said that she is interested in this and was going to [facility] the [facility] herself. Original Note: CM met with pt to assist her at her request with calling [facility] to appeal her DC. Pt. was upset, saying that no one wants to help her, crying. She said she wants to have the recovery nurse, Amara here to help her. She was insisting that I call Amara right away to get her there immediately. I tried to explain that I could assist her with the phone call. She continued to yell. I then left, and messaged Amara, who is not available until later today. I returned to the room and pt said she is on the phone, making the call herself. I also contacted the [facility] medical respite program at [facility] on pt.'s behalf, am awaiting return call. Per rounds, pt. has been medically cleared for DC. She appealed the DC yesterday, it was denied, she is attempting a second appeal.
[2024-04-21 11:57] VITALS: BP 101/72; PULSE 95; RESP 19; TEMP 36.4; O2SAT 95
[2024-04-21] MEDS: cloNIDine HCL 0.2 MG TABLET PO (12:07)
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
--- NOTE | 2024-04-21 13:45 | MHC.CM.PN ---
Pt will DC today to long-term at [facility]. Last dose methadone letter in sealed envelope, bus passes were given to her, Lyft ride was set up for her. Pt very demanding, saying she will call [facility] clinic herself. CM had called and was told that she has to go there in person to complete paperwork. Pt. said she does not think that is correct, phone # to [facility] was given to her.
== END 2024-04-21 15:02 | disposition home or self-care (01) | DRG 202 ==
LOC: HO.ED 12:54 → HO.EDOVER 13:14 → HO.IMC 04-18 19:32
PROVIDERS: Emergency Medicine; Physician Assistant; Admitting Provider Physician Assistant; Emergency Provider Emergency Medicine; Visit Provider Hospitalist
DX: J20.6 Acute bronchitis due to rhinovirus (principal); J96.01 Acute respiratory failure with hypoxia; F11.20 Opioid dependence, uncomplicated; R45.851 Suicidal ideations; Z59.02 Unsheltered homelessness; E03.9 Hypothyroidism, unspecified; N18.30 Chronic kidney disease, stage 3 unspecified; E87.6 Hypokalemia; F19.10 Other psychoactive substance abuse, uncomplicated; F10.90 Alcohol use, unspecified, uncomplicated; D53.9 Nutritional anemia, unspecified; F17.210 Nicotine dependence, cigarettes, uncomplicated; Z20.822 Contact with and (suspected) exposure to COVID-19; T38.1X6A Underdosing of thyroid hormones and substitutes, initial encounter; Z91.128 Patient's intentional underdosing of medication regimen for other reason; Z91.410 Personal history of adult physical and sexual abuse; Z71.6 Tobacco abuse counseling; Z79.890 Hormone replacement therapy; Z79.899 Other long term (current) drug therapy
CPT/HCPCS: 0241U; 36415; 71045; 80048; 80076; 80307; 81003; 81025; 82607; 82746; 82803; 82947; 83735; 83880; 84145; 84439; 84443; 84481; 84484; 85025; 86704; 86706; 86780; 86803; 87340; 87389; 87491; 87591; 87633; 93005; 93306; 94640; 99285; J0651; J1650; J2919; Q9957; S9485

== ENCOUNTER 2024-04-17 12:47 | Outpatient (BNV) | payer MEDICARE, MEDICAID, SELFPAY | END 2024-04-20 15:00 | PROVIDERS: Admitting Provider Physician Assistant; Emergency Provider Emergency Medicine; Visit Provider Internal Medicine Cardiovascular Disease | DX: R07.9 Chest pain, unspecified (principal); R00.2 Palpitations | CPT/HCPCS: 93306 ==

== ENCOUNTER → 2024-04-17 12:47 | Outpatient (BNV) | payer MEDICARE, MEDICAID, SELFPAY | PROVIDERS: Admitting Provider Physician Assistant; Emergency Provider Emergency Medicine; Visit Provider Physician Assistant | DX: J96.01 Acute respiratory failure with hypoxia (principal); J40 Bronchitis, not specified as acute or chronic; E03.9 Hypothyroidism, unspecified | CPT/HCPCS: 99223; 99232; 99239; 99499 ==

== ENCOUNTER 2024-05-13 03:52 | Inpatient (IN) | payer MEDICARE, MEDICAID, SELFPAY ==
[2024-05-13] VITALS (7 sets, daily range): BP systolic 117–163; BP diastolic 91–111; PULSE 59–74; RESP 16–18; TEMP 36.2–36.7; O2SAT 93–97; BMI 28.3; BMI 21.8
--- NOTE | 2024-05-13 | ECG_ITS ---
Test Reason : CHEST PAIN Blood Pressure : / mmHG Vent. Rate : 068 BPM Atrial Rate : 068 BPM P-R Int : 186 ms QRS Dur : 084 ms QT Int : 362 ms P-R-T Axes : 065 013 065 degrees QTc Int : 384 ms Normal sinus rhythm Nonspecific T wave abnormality Abnormal ECG When compared with ECG of 17-APR-2024 06:44, Nonspecific T wave abnormality no longer evident in Inferior leads QT has lengthened Referred By: Sol Chen Electronically Signed By:CORETTA LOUIS MD
--- NOTE | ~2024-05-13 | CT_ITS ---
EXAMINATION: CT ABDOMEN AND PELVIS WITHOUT CONTRAST CLINICAL INFORMATION: Abdominal pain, distention COMPARISON: None available. TECHNIQUE: Multidetector volumetric imaging was performed from the superior aspect of the liver through the pubic symphysis. Sagittal and coronal reformatted images were obtained on the technologist's workstation. This CT examination was performed using dose optimization techniques as appropriate, variously including the following: *Automated exposure control *Adjustment of mA and/or kV according to patient size (this includes techniques or standardized protocols for targeted exams where dose is matched to indication/reason for exam; i.e. extremities or head) *Use of iterative reconstruction technique DLP: 485 mGy-cm FINDINGS: LUNG BASES: The visualized lung bases are unremarkable. LIVER, GALLBLADDER, AND BILIARY TREE: The liver is normal in size, shape, and attenuation. No focal hepatic lesion or biliary ductal dilatation is present. The gallbladder is unremarkable with no evidence of radiopaque gallstones, gallbladder wall thickening, or obvious pericholecystic inflammatory changes. PANCREAS: Numerous calcifications throughout the pancreatic head and body compatible with chronic calcific pancreatitis. No evidence of active pancreatitis or pancreatic pseudocyst. SPLEEN: Unremarkable. ADRENAL GLANDS: Unremarkable. KIDNEYS AND URETERS: The kidneys are normal in size, shape, and attenuation. No hydronephrosis, hydroureter, or calculi seen. No perinephric stranding. BLADDER: Unremarkable. GASTROINTESTINAL TRACT: Formed stool throughout the colon, with areas of mild distention which may represent an ileus. No small bowel dilatation to indicate an obstruction. No focal inflammatory process. The appendix is not definitively identified. No evidence to suggest appendicitis. ABDOMINAL WALL: Small fat-containing periumbilical hernia with adjacent subcutaneous inflammatory stranding. LYMPH NODES: Normal. VASCULAR: Unremarkable. PELVIC VISCERA: Unremarkable. OSSEOUS STRUCTURES: Unremarkable. CT/CT abdomen pelvis wo IV con IMPRESSION: 1. Formed stool throughout the colon with areas of mild distention which may represent an ileus. No small bowel dilatation to indicate an obstruction. 2. Chronic calcific pancreatitis. No evidence of active pancreatitis. 3. Small fat-containing periumbilical hernia with adjacent subcutaneous inflammatory stranding. Fleischner guidelines were followed. Electronically signed by: Sammy Angelo MD 05/23/2024 06:20 PM EDT
--- NOTE | ~2024-05-13 | XR_ITS ---
EXAMINATION: XR CHEST CLINICAL INFORMATION: Productive cough COMPARISON: Chest radiograph 04/17/2024. TECHNIQUE: Frontal view of the chest was obtained. FINDINGS: Normal appearance of the cardiomediastinal structures. No effusions or pneumothoraces. No focal pulmonary consolidation. Normal pattern of pulmonary vasculature. XR/XR chest 1V IMPRESSION: No cardiopulmonary abnormalities identified. Lungs clear. Electronically signed by: Heraclio Vences MD 05/13/2024 05:56 AM EDT
--- NOTE | 2024-05-13 04:14 | ED.GENADULT ---
HPI - General Adult General Chief complaint: Dyspnea Stated complaint: etoh Time Seen by Provider: 05/13/24 04:03 Source: patient and EMS Mode of arrival: EMS Limitations: no limitations History of Present Illness ED Provider: Dr. Sol Chen HPI narrative: Patient comes to the emergency room via ambulance. Patient complaining of shortness of breath and wheezing. Patient denies chest pain. Patient states that she feels very cold. Patient has been wandering out in the rain. Related Data Home Medications ?Medication ?Instructions ?Recorded ?Confirmed bupropion HCl 75 mg tablet 75 mg PO DAILY 04/17/24 05/13/24 clonazepam 1 mg tablet 1 mg PO TID PRN Agitation 04/17/24 05/13/24 clonidine HCl 0.2 mg tablet 0.2 mg PO TID PRN panic attack 04/17/24 05/13/24 gabapentin 800 mg tablet 800 mg PO QID 04/17/24 05/13/24 hydroxyzine HCl 25 mg tablet 25 mg PO BID PRN anxiety 04/17/24 04/17/24 levothyroxine 125 mcg tablet 125 mcg PO DAILY 04/17/24 05/13/24 methadone 10 mg/mL oral 80 mg PO DAILY 04/17/24 04/17/24 concentrate (Methadone Intensol) Previous Rx's ?Medication ?Instructions ?Recorded albuterol sulfate 90 mcg/actuation 2 inh inhalation Q6H PRN shortness 04/19/24 aerosol inhaler of breath or wheezing #8.5 grams emtricitabine 200 mg-tenofovir 1 tab PO DAILY #26 tabs 04/19/24 disoproxil fumarate 300 mg tablet (Truvada) raltegravir 400 mg tablet 400 mg PO BID #52 tabs 04/19/24 (Isentress) albuterol sulfate 90 mcg/actuation 2 puff inhalation Q4-6H PRN 05/13/24 aerosol inhaler shortness of breath or wheezing #8.5 grams ibuprofen 600 mg tablet 600 mg PO TID PRN fever or pain 05/13/24 #20 tabs prednisone 50 mg tablet 50 mg PO DAILY #5 tabs 05/13/24 Allergies Allergy/AdvReac Type Severity Reaction Status Date / Time sulfamethoxazole Allergy Hives Verified 05/13/24 04:13 [From Bactrim] trimethoprim [From Bactrim] Allergy Hives Verified 05/13/24 04:13 Review of Systems Review of Systems: Constitutional : No Weight loss, No Fever, No Chills, No Night Sweats, No Fatigue, No Malaise ENT/Mouth : No Hearing loss, No Ear Pain, No Nasal Congestion, No Sinus Pain, No Hoarseness, No sore throat, No Rhinorrhea, No Swallowing Difficulty Eyes: No Eye Pain, No Swelling, No Redness, No Foreign Body, No Discharge, No Vision Changes Cardiovascular : No Chest Pain, No SOB, No Dyspnea on Exertion, No Orthopnea, No Edema, No Palpitations Respiratory : Complaining of cough, wheezing and shortness of breath Gastrointestinal : No Nausea, No Vomiting, No Diarrhea, No Constipation, No abdominal Pain, No Hematochezia, No Melena Genitourinary : no irregular bleeding, No Dysuria, No Urinary Frequency, No Hematuria, No Urinary Incontinence, No Urgency, No Flank Pain, No Urinary Flow Changes, No Hesitancy Musculoskeletal : No joint pain, No Myalgias, No Joint Swelling Skin : No Skin Lesions, No rash Neuro : No Weakness, No Numbness, No Paresthesias, No Loss of Consciousness, No Dizziness, No Headache Psych : No Anxiety/Panic, No Depression, No SI/HI/AH/VH, No Social Issues, Heme/Lymph: No Bruising, No Bleeding,No Lymphadenopathy Endocrine : No Polyuria, No Polydipsia, No Temperature Intolerance [facility] Past Medical History Medical History Alcohol use disorder Polysubstance abuse Hypothyroidism Social History Social History Household Members: None Housing: Homeless Do you presently have visiting nurse or other home services: No Unable to assess alcohol history related to: Refusing to respond Patient Tobacco Use Status: Current everyday Tobacco user Tobacco use type: Cigarette Cigarette Packs Per Day: 1 Cigarettes Per Day: 20.0 Smoked in Last 30 Days: Yes e-Cigarette/Vaping Use: Never Used Use of substances other than those prescribed or required for medical reasons: Refusing to respond Substance Use Type: Crack/Cocaine Advance Directives: No Advance Directives Information Provided: Yes Do you have a plan to hurt others: No Plan Patient : No service: No Physical Exam ED Vital Signs: Vital Signs - 24 hr 05/13/24 04:10 05/13/24 05:13 Temperature 97.9 F 97.1 F Pulse Rate 74 63 Respiratory Rate 18 17 Blood Pressure 140/103 H 125/100 H Pulse Oximetry 93 96 Oxygen Delivery Method Room Air Room Air BMI result Body Mass Index 28.3 Const Other: Appearance: Alert. Oriented X3. No acute distress. Disheveled Eyes: Pupils equal, round and reactive to light. ENT: Pharynx normal. Neck: Normal inspection. Neck supple. No lymph nodes noted. No crepitus CVS: Normal heart rate and rhythm. Pulses normal. Normal S1 and S2 Respiratory: No respiratory distress. Bilateral wheezing, fairly good air movement Abdomen: Soft and nontender. No rigidity. No distention. Skin: Skin warm and dry. Normal skin color. Normal skin turgor. Extremities: No lower extremity edema. No Lacerations. No Rash Neuro: Oriented X 3. No motor deficit. No sensory deficit. Moving all extremities. No slurred speech. CN 2 through 12 grossly intact Psych: calm, cooperative, normal affect Course Course Course Narrative: Patient receiving an albuterol treatment, p.o. prednisone -chest x-ray and COVID swabs pending Medications Administered Discontinued Medications Generic Name Dose Route Start Last Admin Trade Name Freq PRN Reason Stop Dose Admin Albuterol/Ipratropium 3 ml 05/13/24 04:54 05/13/24 04:59 Albuterol/Iprat 2.5/0.5mg 3 Ml Ampul.Neb INHALE 05/13/24 04:55 Not Given ONCE ONE Nicotine 7 mg 05/13/24 06:12 05/13/24 06:22 Nicotine 7 Mg Patch.Td24 TRANSDERMA 05/13/24 06:13 7 mg ONCE ONE Administration Prednisone 60 mg 05/13/24 04:13 05/13/24 04:37 Prednisone 20 Mg Tablet PO 05/13/24 04:14 Not Given ONCE ONE Medical Decision Making Medical Decision Making MDM Narrative: Interpretation of EKG: Normal sinus rhythm, heart rate 68, no ST segment depression or elevation, no T-wave inversion, QTC 384 -I was informed by the patient nurses that patient refused to take prednisone -my interpretation of labs, normal white blood cell count, at baseline hemoglobin and hematocrit and platelets, no electrolyte abnormality, serology positive for COVID-19 -my interpretation of chest x-ray, no obvious infiltrates -patient's vitals stable. Oxygen saturation 96% on room air. Patient was able to ambulate to the bathroom, no oxygen desaturation, steady 96% on above. Patient ready for discharge - Differential Diagnosis Differential Diagnoses: The differential diagnosis associated with the presentation includes Admission/Observation Consideration of admission/observation: Escalation of care including admission/observation considered (Given patient's presentation, social situation, observation was considered.) Lab Data MDM Lab Attestation statement: I reviewed the patient's lab results. Labs: Lab Results 05/13/24 Range/Units 04:22 Influenza Type A (PCR) NEGATIVE (Negative) Influenza Type B (PCR) NEGATIVE (Negative) RSV RNA Qual (PCR) NEGATIVE (Negative) SARS-CoV-2 RNA (RT-PCR) POSITIVE A (Negative) Independent Interpretation I performed an independent interpretation of an: Plain X-Ray Radiology Impression Discussion of test interpretation with radiology: I have reviewed the radiologist's reading. Radiologist Impression: Normal appearance of the cardiomediastinal structures. No effusions or pneumothoraces. No focal pulmonary consolidation. Normal pattern of pulmonary vasculature. XR/XR chest 1V IMPRESSION: No cardiopulmonary abnormalities identified. Lungs clear. Critical Care Time Critical Care Time Critical Care Time: Yes Total Critical Care Time: 45 Attestation: I have personally provided critical care time. Time includes review of lab data, radiology results, discussion with consultants, and monitoring for potential decompensation. Intervention performed as documented. Discharge Plan Discharge Clinical Impression: COVID, Asthma Patient Disposition: Home, Self-Care Instructions: Asthma (ED), COVID-19 (Coronavirus Disease 2019) (ED) Additional Instructions: Please follow-up with your primary care physician tomorrow. If you have any worsening or new symptoms, please return to the emergency room or call 911 Prescriptions: New albuterol sulfate 90 mcg/actuation HFA aerosol inhaler 2 puff inhalation Q4-6H PRN (Reason: shortness of breath or wheezing) Qty: 8.5 1RF prednisone 50 mg tablet 50 mg PO DAILY Qty: 5 0RF ibuprofen 600 mg tablet 600 mg PO TID PRN (Reason: fever or pain) Qty: 20 0RF No Action methadone [Methadone Intensol] 10 mg/mL Concentrate 80 mg PO DAILY clonazepam 1 mg tablet 1 mg PO TID PRN (Reason: Agitation) clonidine HCl 0.2 mg tablet 0.2 mg PO TID PRN (Reason: panic attack) gabapentin 800 mg tablet 800 mg PO QID levothyroxine 125 mcg tablet 125 mcg PO DAILY bupropion HCl 75 mg tablet 75 mg PO DAILY hydroxyzine HCl 25 mg tablet 25 mg PO BID PRN (Reason: anxiety) emtricitabine-tenofovir (TDF) [Truvada] 200-300 mg Tablet 1 tab PO DAILY Qty: 26 0RF Isentress 400 mg Tablet 400 mg PO BID Qty: 52 0RF albuterol sulfate 90 mcg/actuation HFA aerosol inhaler 2 inh inhalation Q6H PRN (Reason: shortness of breath or wheezing) Qty: 8.5 0RF Print Language: Slovak
[2024-05-13 05:04] LABS: Influenza A PCR NEGATIVE (Negative); Influenza B PCR NEGATIVE (Negative); Resp Syncy Virus RNA Qual PCR NEGATIVE (Negative); SARS COV2 PCR INHOUSE POSITIVE (Negative)
[2024-05-13] MEDS: Nicotine 7 MG PATCH.TD24 TRANSDERMA (06:22)
--- NOTE | 2024-05-13 07:30 | MHC.EDTECH ---
patient incontinent of urine. Clean and change patient, as well as her linen.
[2024-05-13] MEDS: methADONE HCl 20 MG/2 ML ORAL.CONC 40 MG PO (09:51)
--- NOTE | 2024-05-13 10:45 | MHC.EDTECH ---
Patient rang to go to the bathroom. Ambulated to bathroom.
[2024-05-13 11:45] LABS: MANUAL DIFF FLAG NO
[2024-05-13 11:47] LABS: Basophils Absolute Auto 0.1 X10*3/uL (0.0-0.2); Basophils Percent Auto 0.9 % (0-2); Eosinophils Absolute Auto 0.2 X10*3/uL (0.0-0.4); Eosinophils Percent Auto 2.6 % (0-4); Hematocrit 34.8 % (37.0-47.0); Hemoglobin 11.9 g/dl (12.0-16.0); Imm Gran Abs Auto 0.02 X10*3/uL (0.00-0.03); Imm Gran Pct Auto 0.3 % (0.0-0.4); Lymphocytes Absolute Auto 2.1 X10*3/uL (1.2-4.9); Lymphocytes Percent Auto 36.6 % (20-40); Mean Corpuscular HGB Conc 34.2 g/dl (31.0-35.0); Mean Corpuscular Hemoglobin 32.9 pg (27.0-33.0); Mean Corpuscular Volume 96.1 fL (80.0-98.0); Monocytes Absolute Auto 0.4 X10*3/uL (0.1-1.2); Monocytes Percent Auto 6.6 % (2-11); Neutrophils Absolute Auto 3.1 x10*3/uL (2.0-8.3); Platelet Count 258 X10*3/uL (160-400); Red Blood Count 3.62 X10*6/uL (4.20-5.50); White Blood Count 5.8 X10*3/uL (4.8-10.8)
[2024-05-13 12:08] LABS: Alanine Aminotransferase 92 U/L (0-31); Albumin Level 4.1 g/dL (3.5-5.0); Alkaline Phosphatase 146 U/L (39-117); Anion Gap 11 (12-20); Aspartate Amino Transferase 251 U/L (5-31); Bilirubin Total 0.5 mg/dL (0.0-1.0); Blood Urea Nitrogen 13 mg/dL (9-16); Calcium 9.3 mg/dL (8.4-10.2); Carbon Dioxide 28 mmol/L (22-29); Chloride 97 mmol/L (96-108); Creatinine Clr Calc Pharmacy 57.1; Estimated Glomerular Filt Rate 54; Ethanol < 10 mg/dL; Glucose Random 148 mg/dL (60-115); Potassium 3.4 mmol/L (3.3-5.1); Sodium 133 mmol/L (135-145); Total Protein 7.6 g/dL (6.5-8.0)
[2024-05-13 13:06] LABS: T4 Thyroxine < 3.0 ug/dL (4.5-12.0); Thyroid Stimulating Hormone > 100.00 uIU/mL (0.32-4.0)
--- NOTE | 2024-05-13 15:42 | MHC.CARE ---
Pt seen by CARE team and will be a dual diagnosis bed search.
--- NOTE | 2024-05-13 16:21 | PC.NURSE ---
Assumed care of patient at 1615, patient demanding this RN bring her blankets and provide her with the TV remote. Patient aware that remote is shared between pts and can only be utilized by staff. Pt then demanded this RN get her medications. pt provided with warm blankets and TV turned on for pt
--- NOTE | 2024-05-13 18:01 | PHA.MEDREC ---
Addendum entered by Terence Sena 05/13/24 18:14: reviewed Original Note: Pharmacy Consult ? Medication Reconciliation Pharmacy has reviewed the medication reconciliation done by nursing.
--- NOTE | 2024-05-13 18:16 | HE.PHANOTE ---
Addendum entered by April Dunham RPh 05/13/24 18:51: Nursing never returned [place] Text request, asking for more information. This clinical writer called [facility], pt received from [facility]. Last dose was 05/05/24 @ 0943 for 80mg, 90 mg total dose on 05/05/24. (Pt received 80mg in the morning, and received a take home bottle of 10mg). This was a guest dose, as patient does not typically receive from there, and they are not her home facility. Not sure where the information the Nurse wrote on the methadone verification sheet came from. Original Note: Receives from [facility] ([phone]). Pt's home dose of 90mg. Pt was given 04/05/24 take home bottles. Waiting to hear from RN when pt last took take home bottle.
[2024-05-13] MEDS: clonazePAM 1 MG TABLET PO (20:20)
[2024-05-13] MEDS: Gabapentin 600 MG TABLET PO (20:20)
--- NOTE | 2024-05-13 22:32 | PC.NURSE ---
Nurse to nurse given to m3 RN
[2024-05-14 00:21] VITALS: BP 142/88; PULSE 57; RESP 18; TEMP 36.2; O2SAT 95
--- NOTE | 2024-05-14 00:39 | PC.NURSE ---
Delilah Calzada is a 38 year old female admitted to at 2255 on May 13. She is a CV on 5 minutes checks due to SI. She is COVID positive, and has a past medical history of asthma, severe hypothyroidism, alcohol use disorder, and polysubstance abuse. She is on Q shift COWS and Q4 hour CIWAs. Safety check completed; skin check unremarkable. Assessment was limited due to the patient's level of fatigue, exacerbated by medications given at approximately 2000; she refused further assessment part way through admission. Lola is in the anteroom due to her COVID positive status.
[2024-05-14 04:15] VITALS: BP 140/91; PULSE 63; RESP 12; TEMP 36.3; O2SAT 94
[2024-05-14] MEDS: clonazePAM 1 MG TABLET PO ×2 (05:50→09:48)
[2024-05-14 09:05] VITALS: BP 119/75; PULSE 70; RESP 16; TEMP 36.4; O2SAT 99
[2024-05-14] MEDS: buPROPion HCL 75 MG TABLET PO (09:08)
[2024-05-14] MEDS: Gabapentin 600 MG TABLET PO ×3 (09:08→21:31)
[2024-05-14] MEDS: Levothyroxine Sodium 125 MCG TABLET PO (09:08)
[2024-05-14 09:10] VITALS: PULSE 70
--- NOTE | 2024-05-14 09:26 | PC.NURSE ---
Declined flu vaccine offered, med education provided.
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
[2024-05-14] MEDS: Emtricitabin/Tenofovir DF 200/300 TABLET 1 TAB PO (09:48)
[2024-05-14] MEDS: methADONE HCl 20 MG/2 ML ORAL.CONC 50 MG PO (09:48)
[2024-05-14] MEDS: Nicotine 21 MG PATCH.TD24 TRANSDERMA (11:28)
[2024-05-14 13:57] LABS: Amphetamine Screen Urine Not Detected (Not Detect); Barbiturates, Urine Not Detected (Not Detect); Benzodiazepines Screen Urine Not Detected (Not Detect); Buprenorphine Scr Not Detected (Not Detect); Cannabinoid Screen Urine Not Detected (Not Detect); Cocaine Screen Urine POSITIVE (Not Detect); Fentanyl, urine POSITIVE (Not Detect); Methadone Screen, Urine Positive (Not Detect); Opiate Screen Urine POSITIVE (Not Detect); Oxycodone Screen Urine Not Detected (Not Detect); Phencyclidine Screen Urine Not Detected (Not Detect)
[2024-05-14 17:17] VITALS: PULSE 92
[2024-05-14 21:30] VITALS: BP 116/74; PULSE 80; RESP 18; TEMP 36.7; O2SAT 95
[2024-05-14] MEDS: clonazePAM 0.5 MG TABLET PO (21:37)
[2024-05-15] MEDS: Levothyroxine Sodium 125 MCG TABLET PO (07:06)
[2024-05-15] MEDS: methADONE HCl 20 MG/2 ML ORAL.CONC 40 MG PO (07:06)
[2024-05-15] MEDS: clonazePAM 0.5 MG TABLET PO ×4 (07:11→23:47)
[2024-05-15] MEDS: Gabapentin 600 MG TABLET PO ×3 (08:38→20:23)
[2024-05-15] MEDS: buPROPion HCL 75 MG TABLET PO (08:38)
[2024-05-15] MEDS: Nicotine 21 MG PATCH.TD24 TRANSDERMA (08:38)
[2024-05-15] MEDS: Nicotine Polacrilex Lozenge 4 MG LOZENGE BUCCAL ×4 (08:43→23:48)
[2024-05-15 12:30] VITALS: BP 143/68; PULSE 78; RESP 18; TEMP 37.3; O2SAT 98
[2024-05-15 14:45] LABS: COVID-19 Test Positive (Negative); IDNOW Serial# 152EDE1D
[2024-05-15] MEDS: methADONE HCl 20 MG/2 ML ORAL.CONC 10 MG PO (15:02)
--- NOTE | 2024-05-15 19:39 | P.PNPSI_ITS ---
Subjective Subjective Date of Service: 05/15/24 Reason For Visit: si Interim History: intense, irritable, demanding, entitled. critical of medication mgmt decisions, asking to increase methadone, klonopin, gabapentin. tempers expectations, reminds patient of the degree of sedation she was experiencing yesterday. agreement made to give an extra 10 of methadone today, and if pt tolerates it well increase gabapentin. per staff, COVIS POS. dep/anx. withdrawn. CIWA 8, 0, 0. taking meds. upset at klonopin reduction. Mental Status Exam Mental Status Exam Narrative: disheveled, hospital [facility]. cooperative. no PMA/PMR. cooperative. speech nml rate and amount, loudness. decr latency. thoughts linear, logical. affect constricted, normo-intense, min-labile. mood irritable. no SI/SIBI/HI/AVH expressed. Diagnostics Vital Signs (24Hr): Vital Signs - 24 hr 05/14/24 21:30 05/15/24 12:30 Temperature 98.0 F 99.1 F Pulse Rate 80 78 Respiratory Rate 18 18 Blood Pressure 116/74 143/68 H Pulse Oximetry 95 98 Oxygen Delivery Method Room Air Room Air BMI result Body Mass Index 21.8 Labs 05/13/24 11:38 05/13/24 11:38 Labs: Laboratory Results - last 48 hr 05/14/24 05/15/24 13:29 14:02 Urine Opiates Screen POSITIVE H Ur Buprenorphine Scrn Not Detected Ur Oxycodone Screen Not Detected Urine Methadone Screen Positive H Urine Fentanyl Screen POSITIVE H Ur Barbiturates Screen Not Detected Ur Phencyclidine Scrn Not Detected Ur Amphetamines Screen Not Detected U Benzodiazepines Scrn Not Detected Urine Cocaine Screen POSITIVE H U Marijuana (THC) Screen Not Detected COVID-19 ([facility]DA) Positive A COVID-19 Clin Com See Note Imaging Radiology Impressions: ITS Impressions Chest X-Ray 05/13/24 04:38 IMPRESSION: No cardiopulmonary abnormalities identified. Lungs clear. Electronically signed by: Heraclio Vences MD 05/13/2024 05:56 AM EDT Medications Medications Current Medications Acetaminophen (Acetaminophen 325 Mg Tablet) 650 mg PO Q6H PRN PRN Reason: Headache/Pain Mild Scale (1-3) Al Hydroxide/Mg Hydroxide (Magnesium Hydrox/Alum Hydrox 30 Ml Oral.Susp) 30 ml PO Q6H PRN PRN Reason: Heartburn/Nausea Bupropion HCl (Bupropion Hcl 75 Mg Tablet) 75 mg PO DAILY [facility] Last Admin: 05/15/24 08:38 Dose: 75 mg Clonazepam (Clonazepam 0.5 Mg Tablet) 0.5 mg PO TID PRN PRN Reason: Agitation Last Admin: 05/15/24 18:23 Dose: 0.5 mg Clonidine HCl (Clonidine Hcl 0.2 Mg Tablet) 0.2 mg PO TID PRN; Protocol PRN Reason: panic attack Gabapentin (Gabapentin 600 Mg Tablet) 600 mg PO TID [facility] Last Admin: 05/15/24 14:45 Dose: 600 mg Hydroxyzine HCl (Hydroxyzine Hcl 25 Mg Tablet) 25 mg PO Q6H PRN PRN Reason: Anxiety Levothyroxine Sodium (Levothyroxine Sodium 125 Mcg Tablet) 125 mcg PO DAILY@0600 [facility] Last Admin: 05/15/24 07:06 Dose: 125 mcg Lorazepam (Lorazepam 1 Mg Tablet) 1 mg PO Q2H PRN PRN Reason: CIWA > 16 Magnesium Hydroxide (Milk Of Magnesia 30 Ml Oral.Susp) 30 ml PO DAILY PRN PRN Reason: Constipation Methadone HCl (Methadone Hcl 20 Mg/2 Ml Oral.Conc) 40 mg PO DAILY@0600 [facility] Last Admin: 05/15/24 07:06 Dose: 40 mg Nicotine (Nicotine 21 Mg Patch.Td24) 21 mg TRANSDERMA DAILY [facility] Last Admin: 05/15/24 08:38 Dose: 21 mg Nicotine Polacrilex (Nicotine Polacrilex Lozenge 4 Mg Lozenge) 4 mg BUCCAL Q1H PRN PRN Reason: Nicotine Cravings Last Admin: 05/15/24 18:23 Dose: 4 mg Trazodone HCl (Trazodone Hcl 50 Mg Tablet) 50 mg PO BEDTIME MRX1 PRN PRN Reason: Insomnia Allergies Allergies Allergy/AdvReac Type Severity Reaction Status Date / Time sulfamethoxazole Allergy Hives Verified 05/13/24 04:13 [From Bactrim] trimethoprim [From Bactrim] Allergy Hives Verified 05/13/24 04:13 Assessment & Plan Assessment & Plan (1) Homeless single person: Status: Acute Code(s): Z59.00 - Homelessness unspecified (2) Severe hypothyroidism: Status: Acute Code(s): E03.9 - Hypothyroidism, unspecified (3) Cocaine use disorder: Status: Acute Code(s): F14.10 - Cocaine abuse, uncomplicated (4) Opioid use disorder: Status: Acute Code(s): F11.90 - Opioid use, unspecified, uncomplicated (5) Tobacco use disorder: Status: Acute Code(s): F17.200 - Nicotine dependence, unspecified, uncomplicated (6) Depressive disorder: Status: Acute Code(s): F32.A - Depression, unspecified Plan 05/14: restart most home meds, some at reduced dosing. titrate methadone as tolerated and indicated. comfort meds for withdrawal. ativan per CIWA protocol for alcohol withdrawal. 05/15: napped after additional 10 of methadone in the afternoon. increase methadone to 45 mg tomorrow, increase gabapentin to 600 QID. DC CIWA and ativan PRNs as no longer warranted. COVID POS again today. Reason for continued inpatient stay Substantial Risk for: harm to self, inability to function and rapid decompensation Time Spent With Patient Time: Total time managing care of this patient today __35__ minutes.
[2024-05-15 20:15] VITALS: BP 123/81; PULSE 75; RESP 16; TEMP 36.9; O2SAT 95
[2024-05-15] MEDS: Acetaminophen 325 MG TABLET 650 MG PO (20:23)
[2024-05-16] MEDS: methADONE HCl 20 MG/2 ML ORAL.CONC 45 MG PO (07:15)
[2024-05-16] MEDS: Levothyroxine Sodium 125 MCG TABLET PO (07:15)
[2024-05-16] MEDS: Acetaminophen 325 MG TABLET 650 MG PO ×2 (07:24→17:13)
[2024-05-16] MEDS: clonazePAM 0.5 MG TABLET PO ×3 (07:25→22:10)
[2024-05-16 07:33] VITALS: BP 145/95; PULSE 83; RESP 14; TEMP 36.7; O2SAT 97
[2024-05-16] MEDS: Nicotine Polacrilex Lozenge 4 MG LOZENGE BUCCAL ×3 (07:35→18:01)
[2024-05-16] MEDS: Gabapentin 600 MG TABLET PO ×4 (08:56→22:09)
[2024-05-16] MEDS: Nicotine 21 MG PATCH.TD24 TRANSDERMA (08:56)
[2024-05-16] MEDS: buPROPion HCL 75 MG TABLET PO (08:56)
[2024-05-16] MEDS: methADONE HCl 20 MG/2 ML ORAL.CONC 5 MG PO (12:49)
--- NOTE | 2024-05-16 17:27 | P.PNPSI_ITS ---
Subjective Subjective Date of Service: 05/16/24 Reason For Visit: si Interim History: labile, hyper-intense, demanding increases in controlled substances and gabapentin. c/o withdrawal Sx, demanding any number of accommodations due to her being in COVID isolation. per staff, de/anx, irritable. asking for clonidine. slept 8 hours. Mental Status Exam Mental Status Exam Narrative: disheveled, own attire. cooperative. mild PMA of rocking. cooperative. speech incr rate, amount, loudness. decr latency. thoughts linear, illogical. affect constricted, hyper-intense, min-labile. mood irritable. no SI/SIBI/HI/AVH expressed. Diagnostics Vital Signs (24Hr): Vital Signs - 24 hr 05/15/24 20:15 05/16/24 07:33 Temperature 98.4 F 98.0 F Pulse Rate 75 83 Respiratory Rate 16 14 Blood Pressure 123/81 145/95 H Pulse Oximetry 95 97 Oxygen Delivery Method Room Air Room Air BMI result Body Mass Index 21.8 Labs 05/13/24 11:38 05/13/24 11:38 Labs: Laboratory Results - last 48 hr 05/15/24 14:02 COVID-19 ([facility]DA) Positive A COVID-19 Clin Com See Note Imaging Radiology Impressions: ITS Impressions Chest X-Ray 05/13/24 04:38 IMPRESSION: No cardiopulmonary abnormalities identified. Lungs clear. Electronically signed by: Heraclio Vences MD 05/13/2024 05:56 AM EDT RP Medications Medications Current Medications Acetaminophen (Acetaminophen 325 Mg Tablet) 650 mg PO Q6H PRN PRN Reason: Headache/Pain Mild Scale (1-3) Last Admin: 05/16/24 17:13 Dose: 650 mg Al Hydroxide/Mg Hydroxide (Magnesium Hydrox/Alum Hydrox 30 Ml Oral.Susp) 30 ml PO Q6H PRN PRN Reason: Heartburn/Nausea Bupropion HCl (Bupropion Hcl 75 Mg Tablet) 75 mg PO DAILY [facility] Last Admin: 05/16/24 08:56 Dose: 75 mg Clonazepam (Clonazepam 0.5 Mg Tablet) 0.5 mg PO TID PRN PRN Reason: Agitation Last Admin: 05/16/24 17:13 Dose: 0.5 mg Clonidine HCl (Clonidine Hcl 0.2 Mg Tablet) 0.2 mg PO TID PRN; Protocol PRN Reason: panic attack Gabapentin (Gabapentin 600 Mg Tablet) 600 mg PO QID [facility] Last Admin: 05/16/24 17:14 Dose: 600 mg Hydroxyzine HCl (Hydroxyzine Hcl 25 Mg Tablet) 25 mg PO Q6H PRN PRN Reason: Anxiety Levothyroxine Sodium (Levothyroxine Sodium 125 Mcg Tablet) 125 mcg PO DAILY@0600 [facility] Last Admin: 05/16/24 07:15 Dose: 125 mcg Magnesium Hydroxide (Milk Of Magnesia 30 Ml Oral.Susp) 30 ml PO DAILY PRN PRN Reason: Constipation Methadone HCl (Methadone Hcl 20 Mg/2 Ml Oral.Conc) 50 mg PO DAILY@0600 [facility] Nicotine (Nicotine 21 Mg Patch.Td24) 21 mg TRANSDERMA DAILY [facility] Last Admin: 05/16/24 08:56 Dose: 21 mg Nicotine Polacrilex (Nicotine Polacrilex Lozenge 4 Mg Lozenge) 4 mg BUCCAL Q1H PRN PRN Reason: Nicotine Cravings Last Admin: 05/16/24 08:56 Dose: 4 mg Trazodone HCl (Trazodone Hcl 50 Mg Tablet) 50 mg PO BEDTIME MRX1 PRN PRN Reason: Insomnia Allergies Allergies Allergy/AdvReac Type Severity Reaction Status Date / Time fish derived Allergy Hives Verified 05/16/24 09:01 shellfish derived Allergy Anaphylaxis Verified 05/16/24 09:00 sulfamethoxazole Allergy Hives Verified 05/13/24 04:13 [From Bactrim] trimethoprim [From Bactrim] Allergy Hives Verified 05/13/24 04:13 Assessment & Plan Assessment & Plan (1) Homeless single person: Status: Acute Code(s): Z59.00 - Homelessness unspecified (2) Severe hypothyroidism: Status: Acute Code(s): E03.9 - Hypothyroidism, unspecified (3) Cocaine use disorder: Status: Acute Code(s): F14.10 - Cocaine abuse, uncomplicated (4) Opioid use disorder: Status: Acute Code(s): F11.90 - Opioid use, unspecified, uncomplicated (5) Tobacco use disorder: Status: Acute Code(s): F17.200 - Nicotine dependence, unspecified, uncomplicated (6) Depressive disorder: Status: Acute Code(s): F32.A - Depression, unspecified Plan 05/14: restart most home meds, some at reduced dosing. titrate methadone as tolerated and indicated. comfort meds for withdrawal. ativan per CIWA protocol for alcohol withdrawal. 05/15: napped after additional 10 of methadone in the afternoon. increase methadone to 45 mg tomorrow, increase gabapentin to 600 QID. DC CIWA and ativan PRNs as no longer warranted. COVID POS again today. 05/16: methadone 50 today; c/o withdrawal Sx. otherwise continue current mgmt. check COVID again tomorrow. Reason for continued inpatient stay Substantial Risk for: inability to function and rapid decompensation Time Spent With Patient Time: Total time managing care of this patient today __25__ minutes.
[2024-05-16 22:00] VITALS: BP 117/72; PULSE 69; RESP 16; TEMP 36.9; O2SAT 96
[2024-05-16 22:16] VITALS: BP 117/72
[2024-05-16] MEDS: cloNIDine HCL 0.2 MG TABLET PO (22:16)
[2024-05-16] MEDS: Ibuprofen 400 MG TABLET PO (22:45)
[2024-05-17] MEDS: Levothyroxine Sodium 125 MCG TABLET PO (06:27)
[2024-05-17] MEDS: methADONE HCl 20 MG/2 ML ORAL.CONC 50 MG PO (06:28)
[2024-05-17] MEDS: clonazePAM 0.5 MG TABLET PO ×3 (06:31→22:42)
[2024-05-17] MEDS: Ibuprofen 400 MG TABLET PO ×3 (06:31→22:32)
[2024-05-17 07:43] VITALS: BP 120/89; PULSE 73; RESP 16; TEMP 36.7; O2SAT 98
[2024-05-17] MEDS: buPROPion HCL 75 MG TABLET PO (08:05)
[2024-05-17] MEDS: Nicotine 21 MG PATCH.TD24 TRANSDERMA (08:05)
[2024-05-17] MEDS: Gabapentin 600 MG TABLET PO ×2 (08:05→12:00)
--- NOTE | 2024-05-17 10:04 | P.CONHOSP_ITS ---
History of Present Illness Data of Consult Service Date: 05/17/24 Requesting physician: Tony Lewis Primary Care Provider: Unknown Physician HPI Reason for consult: right jaw swelling/pain 38 yo f with a pmhx of Hashimotos, CKD III, and polysubstance abuse, consulted on adult psych for right sided jaw pain and swelling. currently has COVID and is in separate isolation room. asx from [facility]. she reports this right sided jaw pain is intermittent and likely due to her wisdom tooth. she will get severe swelling and need to go to the ED for abx to help with the swelling and pain. she has not seen a dentist for this. no warmth to the area, or drainage. ibuprofen helps with the pain. she also is concerned about her TSH >100 and hx of hasimotos. she reports she is immune to levothyroxine and when she is hospitalized she requires IV levothyroxine . she also reports swelling in her hands. she has been elevating her legs at night and has no LE edema. no cough or SOB. no documented hx of CHF. Review of Systems 2 Constitutional: Constitutional: Denies chills and Denies fever(s) ENT: Reports as per HPI, Denies nasal congestion, Denies nasal discharge and Denies post nasal drip Cardiovascular: Cardiovascular: Denies chest pain, Denies leg edema and Denies lightheadedness Respiratory: Respiratory: Reports cough ( chronic from smoking ) Gastrointestinal: Gastrointestinal: Denies constipation, Denies diarrhea, Denies nausea and Denies vomiting Musculoskeletal: Musculoskeletal: Denies myalgias Integumentary/Breasts: Skin/Breast: Denies rash [facility], [facility] Medical History (Updated 05/17/24 @ 10:28 by Kiesha Villarreal PA-C) Alcohol use disorder Polysubstance abuse Hypothyroidism Social History Household Members: Unknown / Unable to assess Housing: Homeless Do you presently have visiting nurse or other home services: No Unable to assess alcohol history related to: Refusing to respond Comment: Pt is not high fall risk Patient Tobacco Use Status: Current everyday Tobacco user Tobacco use type: Cigarette Cigarette Packs Per Day: 1 Cigarettes Per Day: 20.0 Smoked in Last 30 Days: Yes e-Cigarette/Vaping Use: Never Used Patient Interested in Nicotine Replacement: Yes Patient Given Instructions on How to Stop Smoking: Yes Date Education Initiated: 05/13/24 Use of substances other than those prescribed or required for medical reasons: Unknown Substance Use Type: Crack/Cocaine Currently Displaying Signs/Symptoms of Drug Intoxication Withdrawal: No Advance Directives: No Advance Directives Information Provided: Yes Do you have thoughts of harming others: None Do you have a plan to hurt others: No Plan Recently lost weight without trying: Unsure Nutrition Risks: Dental problems Patient : No : No Poor oral hygiene: Yes service: No Sexual orientation: Straight/Heterosexual Meds Allergies Allergy/AdvReac Type Severity Reaction Status Date / Time fish derived Allergy Hives Verified 05/16/24 09:01 shellfish derived Allergy Anaphylaxis Verified 05/16/24 09:00 sulfamethoxazole Allergy Hives Verified 05/13/24 04:13 [From Bactrim] trimethoprim [From Bactrim] Allergy Hives Verified 05/13/24 04:13 Active Medications: Current Medications Acetaminophen (Acetaminophen 325 Mg Tablet) 650 mg PO Q6H PRN PRN Reason: Headache/Pain Mild Scale (1-3) Last Admin: 05/16/24 17:13 Dose: 650 mg Al Hydroxide/Mg Hydroxide (Magnesium Hydrox/Alum Hydrox 30 Ml Oral.Susp) 30 ml PO Q6H PRN PRN Reason: Heartburn/Nausea Bupropion HCl (Bupropion Hcl 75 Mg Tablet) 75 mg PO DAILY [facility] Last Admin: 05/17/24 08:05 Dose: 75 mg Clonazepam (Clonazepam 0.5 Mg Tablet) 0.5 mg PO TID PRN PRN Reason: Agitation Last Admin: 05/17/24 06:31 Dose: 0.5 mg Clonidine HCl (Clonidine Hcl 0.2 Mg Tablet) 0.2 mg PO TID PRN; Protocol PRN Reason: panic attack Last Admin: 05/16/24 22:16 Dose: 0.2 mg Gabapentin (Gabapentin 600 Mg Tablet) 600 mg PO QID [facility] Last Admin: 05/17/24 08:05 Dose: 600 mg Hydroxyzine HCl (Hydroxyzine Hcl 25 Mg Tablet) 25 mg PO Q6H PRN PRN Reason: Anxiety Ibuprofen (Ibuprofen 400 Mg Tablet) 400 mg PO Q4H PRN PRN Reason: Pain, Moderate(Pain Scale 4-6) Last Admin: 05/17/24 06:31 Dose: 400 mg Levothyroxine Sodium (Levothyroxine Sodium 125 Mcg Tablet) 125 mcg PO DAILY@0600 [facility] Last Admin: 05/17/24 06:27 Dose: 125 mcg Magnesium Hydroxide (Milk Of Magnesia 30 Ml Oral.Susp) 30 ml PO DAILY PRN PRN Reason: Constipation Methadone HCl (Methadone Hcl 20 Mg/2 Ml Oral.Conc) 50 mg PO DAILY@0600 [facility] Last Admin: 05/17/24 06:28 Dose: 50 mg Nicotine (Nicotine 21 Mg Patch.Td24) 21 mg TRANSDERMA DAILY [facility] Last Admin: 05/17/24 08:05 Dose: 21 mg Nicotine Polacrilex (Nicotine Polacrilex Lozenge 4 Mg Lozenge) 4 mg BUCCAL Q1H PRN PRN Reason: Nicotine Cravings Last Admin: 05/16/24 18:01 Dose: 4 mg Trazodone HCl (Trazodone Hcl 50 Mg Tablet) 50 mg PO BEDTIME MRX1 PRN PRN Reason: Insomnia Home Medications ?Medication ?Instructions ?Recorded ?Confirmed ?Last Taken ?Type bupropion HCl 75 mg tablet 75 mg PO DAILY 04/17/24 05/13/24 Unknown History clonazepam 1 mg tablet 1 mg PO TID PRN Agitation 04/17/24 05/13/24 Unknown History clonidine HCl 0.2 mg tablet 0.2 mg PO TID PRN panic attack 04/17/24 05/13/24 Unknown History gabapentin 800 mg tablet 800 mg PO QID 04/17/24 05/13/24 Unknown History hydroxyzine HCl 25 mg tablet 25 mg PO BID PRN anxiety 04/17/24 05/13/24 Unknown History levothyroxine 125 mcg tablet 125 mcg PO DAILY 04/17/24 05/13/24 Unknown History methadone 10 mg/mL oral 90 mg PO DAILY 04/17/24 05/13/24 05/05/24 History concentrate (Methadone Intensol) olanzapine 5 mg tablet 5 mg PO BEDTIME 05/13/24 05/13/24 Unknown History Physical Exam 2 Vital Signs and Narrative: Vital Signs: Last Vital Signs Temp 98.0 F 05/17/24 07:43 Pulse 73 05/17/24 07:43 Resp 16 05/17/24 07:43 BP 120/89 05/17/24 07:43 Pulse Ox 98 05/17/24 07:43 O2 Del Method Room Air 05/17/24 07:43 BMI result Body Mass Index 21.8 General: AOx3, no acute distress ENT: poor dental hygiene, right bottom molar pushing forward, pt reports it is loose. mild swelling right mandibular region, not fluctuant, no pain with palpation Resp: CTA bilaterally CVS: S1, S2, RRR Skin: Warm, dry Neuro: Cranial nerves II-XII grossly intact bilaterally. Motor grossly intact bilaterally Extremities: mild edema in R hand, has 3 hair ties around wrist, edema improved when hair ties removed Psych: Appropriate affect Results Labs 05/13/24 11:38 05/13/24 11:38 Assessment and Plan (1) Abscess: Status: Acute Plan 38 yo f with a pmhx of Hashimotos, CKD III, and polysubstance abuse, consulted on adult psych for right sided jaw pain and swelling. hx of right sided perioral abscess recently seen at [facility] - has not seen oral surg yet - restart augmentin - will need outpt f/u with oral surgeon, referral was already given by [facility] - no leukocytosis or fever (taking ibuprofen and tylenol) - continue alternating ibuprofen and tylenol for pain hypothyroidism - chronic in nature non-compliant with medication, recent admission in April with similar labs upper extremity edema - no documented CHF - avoid any constricting wristbands or hair ties - continue to monitor for edema or SOB Thank you for allowing me to participate in the pt's care. Please contact the medical team if any questions or concerns.
[2024-05-17 10:17] LABS: COVID-19 Test Positive (Negative); IDNOW Serial# 152EDE1D
[2024-05-17] MEDS: Amoxicillin/Potassium Clav 875 MG TABLET PO ×2 (12:00→22:32)
[2024-05-17] MEDS: methADONE HCl 20 MG/2 ML ORAL.CONC 5 MG PO (12:22)
[2024-05-17] MEDS: Gabapentin 100 MG CAPSULE 200 MG PO (12:23)
[2024-05-17] MEDS: Gabapentin 400 MG CAPSULE 800 MG PO ×2 (17:02→22:31)
--- NOTE | 2024-05-17 18:09 | P.PNPSI_ITS ---
Subjective Subjective Date of Service: 05/17/24 Reason For Visit: si Interim History: labile, histrionic, demanding, entitled. demanding her klonopin and gabapentin and methadone dosing increases. agrees to increase methadone to 55 today and also gabapentin to 800 QID. reporting insomnia, anger/irritability, skin crawling, pain/aches, hot and cold, and diarrhea. per staff, slept about 10 hours (she reports insomnia). Mental Status Exam Mental Status Exam Narrative: disheveled, own attire. cooperative. PMA of rocking, yelling, crying. quasi- cooperative. speech incr rate, amount, loudness. decr latency. thoughts linear, illogical. affect constricted, hyper-intense, labile. mood irritable. no SI/SIBI/HI/AVH expressed. Diagnostics Vital Signs (24Hr): Vital Signs - 24 hr 05/16/24 22:00 05/16/24 22:16 05/17/24 07:43 Temperature 98.4 F 98.0 F Pulse Rate 69 73 Respiratory Rate 16 16 Blood Pressure 117/72 117/72 120/89 Pulse Oximetry 96 98 Oxygen Delivery Method Room Air Room Air BMI result Body Mass Index 21.8 Labs 05/13/24 11:38 05/13/24 11:38 Labs: Laboratory Results - last 48 hr 05/17/24 09:50 COVID-19 ([facility]) Positive A COVID-19 Clin Com See Note Imaging Radiology Impressions: ITS Impressions Chest X-Ray 05/13/24 04:38 IMPRESSION: No cardiopulmonary abnormalities identified. Lungs clear. Electronically signed by: Heraclio Vences MD 05/13/2024 05:56 AM EDT Medications Medications Current Medications Acetaminophen (Acetaminophen 325 Mg Tablet) 650 mg PO Q6H PRN PRN Reason: Headache/Pain Mild Scale (1-3) Last Admin: 05/16/24 17:13 Dose: 650 mg Al Hydroxide/Mg Hydroxide (Magnesium Hydrox/Alum Hydrox 30 Ml Oral.Susp) 30 ml PO Q6H PRN PRN Reason: Heartburn/Nausea Amoxicillin/Clavulanate Potassium (Amoxicillin/Potassium Clav 875 Mg Tablet) 875 mg PO BID [facility] Last Admin: 05/17/24 12:00 Dose: 875 mg Bupropion HCl (Bupropion Hcl 75 Mg Tablet) 75 mg PO DAILY [facility] Last Admin: 05/17/24 08:05 Dose: 75 mg Clonazepam (Clonazepam 0.5 Mg Tablet) 0.5 mg PO TID PRN PRN Reason: Agitation Last Admin: 05/17/24 12:00 Dose: 0.5 mg Clonidine HCl (Clonidine Hcl 0.2 Mg Tablet) 0.2 mg PO TID PRN; Protocol PRN Reason: panic attack Last Admin: 05/16/24 22:16 Dose: 0.2 mg Gabapentin (Gabapentin 400 Mg Capsule) 800 mg PO QID [facility] Last Admin: 05/17/24 17:02 Dose: 800 mg Hydroxyzine HCl (Hydroxyzine Hcl 25 Mg Tablet) 25 mg PO Q6H PRN PRN Reason: Anxiety Ibuprofen (Ibuprofen 400 Mg Tablet) 400 mg PO Q4H PRN PRN Reason: Pain, Moderate(Pain Scale 4-6) Last Admin: 05/17/24 17:03 Dose: 400 mg Levothyroxine Sodium (Levothyroxine Sodium 125 Mcg Tablet) 125 mcg PO DAILY@0600 [facility] Last Admin: 05/17/24 06:27 Dose: 125 mcg Magnesium Hydroxide (Milk Of Magnesia 30 Ml Oral.Susp) 30 ml PO DAILY PRN PRN Reason: Constipation Methadone HCl (Methadone Hcl 20 Mg/2 Ml Oral.Conc) 55 mg PO DAILY@0600 [facility] Nicotine (Nicotine 21 Mg Patch.Td24) 21 mg TRANSDERMA DAILY [facility] Last Admin: 05/17/24 08:05 Dose: 21 mg Nicotine Polacrilex (Nicotine Polacrilex Lozenge 4 Mg Lozenge) 4 mg BUCCAL Q1H PRN PRN Reason: Nicotine Cravings Last Admin: 05/16/24 18:01 Dose: 4 mg Trazodone HCl (Trazodone Hcl 50 Mg Tablet) 50 mg PO BEDTIME MRX1 PRN PRN Reason: Insomnia Allergies Allergies Allergy/AdvReac Type Severity Reaction Status Date / Time fish derived Allergy Hives Verified 05/16/24 09:01 shellfish derived Allergy Anaphylaxis Verified 05/16/24 09:00 sulfamethoxazole Allergy Hives Verified 05/13/24 04:13 [From Bactrim] trimethoprim [From Bactrim] Allergy Hives Verified 05/13/24 04:13 Assessment & Plan Assessment & Plan (1) Abscess: Status: Acute Code(s): L02.91 - Cutaneous abscess, unspecified Assessment and Plan: 38 yo f with a pmhx of Hashimotos, CKD III, and polysubstance abuse, consulted on adult psych for right sided jaw pain and swelling. hx of right sided perioral abscess recently seen at [facility] - has not seen oral surg yet - restart augmentin - will need outpt f/u with oral surgeon, referral was already given by [facility] - no leukocytosis or fever (taking ibuprofen and tylenol) - continue alternating ibuprofen and tylenol for pain hypothyroidism - chronic in nature non-compliant with medication, recent admission in April with similar labs upper extremity edema - no documented CHF - avoid any constricting wristbands or hair ties - continue to monitor for edema or SOB (2) CKD (chronic kidney disease), stage III: Status: Acute Code(s): N18.30 - Chronic kidney disease, stage 3 unspecified (3) Depressive disorder: Status: Acute Code(s): F32.A - Depression, unspecified (4) Opioid use disorder: Status: Acute Code(s): F11.90 - Opioid use, unspecified, uncomplicated (5) Cocaine use disorder: Status: Acute Code(s): F14.10 - Cocaine abuse, uncomplicated (6) Homeless single person: Status: Acute Code(s): Z59.00 - Homelessness unspecified (7) COVID: Status: Acute Code(s): U07.1 - COVID-19 (8) Severe hypothyroidism: Status: Acute Code(s): E03.9 - Hypothyroidism, unspecified Plan 05/14: restart most home meds, some at reduced dosing. titrate methadone as tolerated and indicated. comfort meds for withdrawal. ativan per CIWA protocol for alcohol withdrawal. 05/15: napped after additional 10 of methadone in the afternoon. increase methadone to 45 mg tomorrow, increase gabapentin to 600 QID. DC CIWA and ativan PRNs as no longer warranted. COVID POS again today. 05/16: methadone 50 today; c/o withdrawal Sx. otherwise continue current mgmt. check COVID again tomorrow. 05/17: COVID POS. increase methadone to 55 mg daily, gabapentin to 800 QID. per hospitalist, restart augmentin for perioral abscess. will need to F/U with oral surgeon, [facility] has already made the referral. Reason for continued inpatient stay Substantial Risk for: inability to function and rapid decompensation Time Spent With Patient Time: Total time managing care of this patient today __25__ minutes.
[2024-05-17 22:00] VITALS: BP 127/69; PULSE 69; RESP 16; TEMP 36.6; O2SAT 97
[2024-05-17] MEDS: traZODone HCL 50 MG TABLET PO (22:32)
[2024-05-17 22:39] VITALS: BP 127/69
[2024-05-17] MEDS: cloNIDine HCL 0.2 MG TABLET PO (22:39)
[2024-05-17] MEDS: Nicotine Polacrilex Lozenge 4 MG LOZENGE BUCCAL (22:42)
[2024-05-18] MEDS: methADONE HCl 20 MG/2 ML ORAL.CONC 55 MG PO (06:17)
[2024-05-18] MEDS: Levothyroxine Sodium 125 MCG TABLET PO (06:21)
[2024-05-18] MEDS: Ibuprofen 400 MG TABLET PO ×2 (06:35→13:43)
[2024-05-18 08:00] VITALS: BP 108/64; PULSE 67; RESP 18; TEMP 36.4; O2SAT 92
[2024-05-18] MEDS: Amoxicillin/Potassium Clav 875 MG TABLET PO ×2 (08:45→21:39)
[2024-05-18] MEDS: Gabapentin 400 MG CAPSULE 800 MG PO ×4 (08:45→21:39)
[2024-05-18] MEDS: buPROPion HCL 75 MG TABLET PO (08:45)
[2024-05-18] MEDS: Nicotine 21 MG PATCH.TD24 TRANSDERMA (08:46)
[2024-05-18] MEDS: clonazePAM 0.5 MG TABLET PO ×3 (08:58→21:39)
[2024-05-18] MEDS: Nicotine Polacrilex Lozenge 4 MG LOZENGE BUCCAL ×2 (08:59→13:43)
--- NOTE | 2024-05-18 14:46 | PC.NURSE ---
Delilah reported back and hip pain that she states she forgot to report to the medical doctor. She relates this to a vacuuming of her hips when she stands up causing her abdomen to pop out. She denies possibility of it being from odd sleeping positions, as these sleeping positions (eg hunched over in a chair for elongated periods of time) are congenital. Angelika Begum MD notified. No further recommendations made.
--- NOTE | 2024-05-18 15:39 | P.PNPSI_ITS ---
Subjective Subjective Date of Service: 05/18/24 Reason For Visit: si Interim History: pt found sprawled supine limbs akimbo on her bed, at an angle, asleep. once awakened, irritable, labile, demanding, entitled. demanding a second opinion remigio KINGSTON declines to increase her klonopin. MD informs her that due to sedation today, methadone dosing will be kept at 55 mg for tomorrow. gabapentin already at max dose. c/o cramping, agrees to start Mg supplement. per staff, c/o insomnia. c/o dep/anx. angry, labile. Mental Status Exam Mental Status Exam Narrative: disheveled, own attire. PMA of rocking, yelling, crying. quasi-cooperative. speech incr rate, amount, loudness. decr latency. thoughts linear, illogical. affect constricted, hyper-intense, labile. mood irritable. no SI/SIBI/HI/AVH expressed. Diagnostics Vital Signs (24Hr): Vital Signs - 24 hr 05/17/24 22:00 05/17/24 22:39 05/18/24 08:00 Temperature 98 F 97.5 F Pulse Rate 69 67 Respiratory Rate 16 18 Blood Pressure 127/69 127/69 108/64 Pulse Oximetry 97 92 Oxygen Delivery Method Room Air Room Air BMI result Body Mass Index 21.8 Labs 05/13/24 11:38 05/13/24 11:38 Labs: Laboratory Results - last 48 hr 05/17/24 09:50 COVID-19 ([facility]) Positive A COVID-19 Clin Com See Note Imaging Radiology Impressions: ITS Impressions Chest X-Ray 05/13/24 04:38 IMPRESSION: No cardiopulmonary abnormalities identified. Lungs clear. Electronically signed by: Heraclio Vences MD 05/13/2024 05:56 AM EDT RP Medications Medications Current Medications Acetaminophen (Acetaminophen 325 Mg Tablet) 650 mg PO Q6H PRN PRN Reason: Headache/Pain Mild Scale (1-3) Last Admin: 05/16/24 17:13 Dose: 650 mg Al Hydroxide/Mg Hydroxide (Magnesium Hydrox/Alum Hydrox 30 Ml Oral.Susp) 30 ml PO Q6H PRN PRN Reason: Heartburn/Nausea Amoxicillin/Clavulanate Potassium (Amoxicillin/Potassium Clav 875 Mg Tablet) 875 mg PO BID [facility] Last Admin: 05/18/24 08:45 Dose: 875 mg Bupropion HCl (Bupropion Hcl 75 Mg Tablet) 75 mg PO DAILY [facility] Last Admin: 05/18/24 08:45 Dose: 75 mg Clonazepam (Clonazepam 0.5 Mg Tablet) 0.5 mg PO TID PRN PRN Reason: Agitation Last Admin: 05/18/24 15:05 Dose: 0.5 mg Clonidine HCl (Clonidine Hcl 0.2 Mg Tablet) 0.2 mg PO TID PRN; Protocol PRN Reason: panic attack Last Admin: 05/17/24 22:39 Dose: 0.2 mg Gabapentin (Gabapentin 400 Mg Capsule) 800 mg PO QID [facility] Last Admin: 05/18/24 13:40 Dose: 800 mg Hydroxyzine HCl (Hydroxyzine Hcl 25 Mg Tablet) 25 mg PO Q6H PRN PRN Reason: Anxiety Ibuprofen (Ibuprofen 400 Mg Tablet) 400 mg PO Q4H PRN PRN Reason: Pain, Moderate(Pain Scale 4-6) Last Admin: 05/18/24 13:43 Dose: 400 mg Levothyroxine Sodium (Levothyroxine Sodium 125 Mcg Tablet) 125 mcg PO DAILY@0600 [facility] Last Admin: 05/18/24 06:21 Dose: 125 mcg Magnesium Hydroxide (Milk Of Magnesia 30 Ml Oral.Susp) 30 ml PO DAILY PRN PRN Reason: Constipation Methadone HCl (Methadone Hcl 20 Mg/2 Ml Oral.Conc) 55 mg PO DAILY@0600 [facility] Last Admin: 05/18/24 06:17 Dose: 55 mg Nicotine (Nicotine 21 Mg Patch.Td24) 21 mg TRANSDERMA DAILY [facility] Last Admin: 05/18/24 08:46 Dose: 21 mg Nicotine Polacrilex (Nicotine Polacrilex Lozenge 4 Mg Lozenge) 4 mg BUCCAL Q1H PRN PRN Reason: Nicotine Cravings Last Admin: 05/18/24 13:43 Dose: 4 mg Trazodone HCl (Trazodone Hcl 50 Mg Tablet) 50 mg PO BEDTIME MRX1 PRN PRN Reason: Insomnia Last Admin: 05/17/24 22:32 Dose: 50 mg Allergies Allergies Allergy/AdvReac Type Severity Reaction Status Date / Time fish derived Allergy Hives Verified 05/16/24 09:01 shellfish derived Allergy Anaphylaxis Verified 05/16/24 09:00 sulfamethoxazole Allergy Hives Verified 05/13/24 04:13 [From Bactrim] trimethoprim [From Bactrim] Allergy Hives Verified 05/13/24 04:13 Assessment & Plan Assessment & Plan (1) Abscess: Status: Acute Code(s): L02.91 - Cutaneous abscess, unspecified Assessment and Plan: 38 yo f with a pmhx of Hashimotos, CKD III, and polysubstance abuse, consulted on adult psych for right sided jaw pain and swelling. hx of right sided perioral abscess recently seen at [facility] - has not seen oral surg yet - restart augmentin - will need outpt f/u with oral surgeon, referral was already given by [facility] - no leukocytosis or fever (taking ibuprofen and tylenol) - continue alternating ibuprofen and tylenol for pain hypothyroidism - chronic in nature non-compliant with medication, recent admission in April with similar labs upper extremity edema - no documented CHF - avoid any constricting wristbands or hair ties - continue to monitor for edema or SOB (2) CKD (chronic kidney disease), stage III: Status: Acute Code(s): N18.30 - Chronic kidney disease, stage 3 unspecified (3) Depressive disorder: Status: Acute Code(s): F32.A - Depression, unspecified (4) Opioid use disorder: Status: Acute Code(s): F11.90 - Opioid use, unspecified, uncomplicated (5) Cocaine use disorder: Status: Acute Code(s): F14.10 - Cocaine abuse, uncomplicated (6) Homeless single person: Status: Acute Code(s): Z59.00 - Homelessness unspecified (7) COVID: Status: Acute Code(s): U07.1 - COVID-19 (8) Severe hypothyroidism: Status: Acute Code(s): E03.9 - Hypothyroidism, unspecified Plan 05/14: restart most home meds, some at reduced dosing. titrate methadone as tolerated and indicated. comfort meds for withdrawal. ativan per CIWA protocol for alcohol withdrawal. 05/15: napped after additional 10 of methadone in the afternoon. increase methadone to 45 mg tomorrow, increase gabapentin to 600 QID. DC CIWA and ativan PRNs as no longer warranted. COVID POS again today. 05/16: methadone 50 today; c/o withdrawal Sx. otherwise continue current mgmt. check COVID again tomorrow. 05/17: COVID POS. increase methadone to 55 mg daily, gabapentin to 800 QID. per hospitalist, restart augmentin for perioral abscess. will need to F/U with oral surgeon, [facility] has already made the referral. 05/18: various somatic complaints. start Mg supplementation. do NOT increase klonopin dosing. titrate methadone up as tolerated. sedated mid-morning 05/18, dosing for 05/19 not increased from the present 55 mg daily. Reason for continued inpatient stay Substantial Risk for: inability to function and rapid decompensation Time Spent With Patient Time: Total time managing care of this patient today __25__ minutes.
[2024-05-18] MEDS: Magnesium Oxide 400 MG TABLET PO (18:00)
[2024-05-18 21:38] VITALS: BP 102/60; PULSE 73; RESP 18; TEMP 36.7; O2SAT 98
[2024-05-18] MEDS: traZODone HCL 50 MG TABLET PO (21:39)
[2024-05-18] MEDS: cloNIDine HCL 0.2 MG TABLET PO (21:42)
[2024-05-19] MEDS: methADONE HCl 20 MG/2 ML ORAL.CONC 55 MG PO (06:12)
[2024-05-19] MEDS: Ibuprofen 400 MG TABLET PO ×2 (06:15→20:47)
[2024-05-19] MEDS: Levothyroxine Sodium 125 MCG TABLET PO (06:15)
[2024-05-19] MEDS: buPROPion HCL 75 MG TABLET PO (08:37)
[2024-05-19] MEDS: Magnesium Oxide 400 MG TABLET PO ×2 (08:38→16:59)
[2024-05-19] MEDS: Gabapentin 400 MG CAPSULE 800 MG PO ×4 (08:38→20:46)
[2024-05-19] MEDS: Amoxicillin/Potassium Clav 875 MG TABLET PO ×2 (08:39→20:47)
--- NOTE | 2024-05-19 09:18 | P.PNPSI_ITS ---
Subjective Subjective Date of Service: 05/19/24 Reason For Visit: si Subjective Notes: Conditional Voluntary Interim History: Pt reports sleeping better. She initially reports concern in terms of hip pain for the past 4 years. She reports comes and goes. She also reports tooth pain- currently on augmentin- recommend she sees dentist on discharge. Pt upset about the fact that methadone has not been increased. Pt remided of observation in terms of oversedation, which she disagrees with. Discussed that primary team can revisit increasing methadone assuring other medications such as benzos and gabapentin not contributing to severe sedation. Pt encouraged to discuss with attending tomorrow. Medication Compliance: Yes Review of Systems Review of Systems Constitutional : No Weight loss, No Fever, No Chills, No Night Sweats, No Fatigue, No Malaise ENT/Mouth : No Hearing loss, No Ear Pain, No Nasal Congestion, No Sinus Pain, No Hoarseness, No sore throat, No Rhinorrhea, No Swallowing Difficulty Eyes: No Eye Pain, No Swelling, No Redness, No Foreign Body, No Discharge, No Vision Changes Cardiovascular : No Chest Pain, No SOB, No Dyspnea on Exertion, No Orthopnea, No Edema, No Palpitations Respiratory : Complaining of cough, wheezing and shortness of breath Gastrointestinal : No Nausea, No Vomiting, No Diarrhea, No Constipation, No abdominal Pain, No Hematochezia, No Melena Genitourinary : no irregular bleeding, No Dysuria, No Urinary Frequency, No Hematuria, No Urinary Incontinence, No Urgency, No Flank Pain, No Urinary Flow Changes, No Hesitancy Musculoskeletal : No joint pain, No Myalgias, No Joint Swelling Skin : No Skin Lesions, No rash Neuro : No Weakness, No Numbness, No Paresthesias, No Loss of Consciousness, No Dizziness, No Headache Psych : No Anxiety/Panic, No Depression, No SI/HI/AH/VH, No Social Issues, Heme/Lymph: No Bruising, No Bleeding,No Lymphadenopathy Endocrine : No Polyuria, No Polydipsia, No Temperature Intolerance Constitutional: Denies chills and Denies fever(s) Reports as per HPI, Denies nasal congestion, Denies nasal discharge and Denies post nasal drip Cardiovascular: Denies chest pain, Denies leg edema and Denies lightheadedness Respiratory: Reports cough ( chronic from smoking ) Gastrointestinal: Denies constipation, Denies diarrhea, Denies nausea and Denies vomiting Musculoskeletal: Denies myalgias Skin/Breast: Denies rash Mental Status Exam Mental Status Exam Narrative: Improved hygiene. speech incr rate, amount, loudness. decr latency. TC: wanting increase in methadone and benzo. TP: mostly linear. affect dysphoric. mood irritable. no SI/SIBI/HI/AVH expressed. Diagnostics Vital Signs (24Hr): Vital Signs - 24 hr 05/18/24 21:38 Temperature 98.1 F Pulse Rate 73 Respiratory Rate 18 Blood Pressure 102/60 Pulse Oximetry 98 BMI result Body Mass Index 21.8 Labs 05/13/24 11:38 05/13/24 11:38 Labs: Laboratory Results - last 48 hr 05/17/24 09:50 COVID-19 (LINDA) Positive A COVID-19 Clin Com See Note Imaging Radiology Impressions: ITS Impressions Chest X-Ray 05/13/24 04:38 IMPRESSION: No cardiopulmonary abnormalities identified. Lungs clear. Electronically signed by: Heraclio Vences MD 05/13/2024 05:56 AM EDT Medications Medications Current Medications Acetaminophen (Acetaminophen 325 Mg Tablet) 650 mg PO Q6H PRN PRN Reason: Headache/Pain Mild Scale (1-3) Last Admin: 05/16/24 17:13 Dose: 650 mg Al Hydroxide/Mg Hydroxide (Magnesium Hydrox/Alum Hydrox 30 Ml Oral.Susp) 30 ml PO Q6H PRN PRN Reason: Heartburn/Nausea Amoxicillin/Clavulanate Potassium (Amoxicillin/Potassium Clav 875 Mg Tablet) 875 mg PO BID [facility] Last Admin: 05/19/24 08:39 Dose: 875 mg Bupropion HCl (Bupropion Hcl 75 Mg Tablet) 75 mg PO DAILY [facility] Last Admin: 05/19/24 08:37 Dose: 75 mg Clonazepam (Clonazepam 0.5 Mg Tablet) 0.5 mg PO TID PRN PRN Reason: Agitation Last Admin: 05/18/24 21:39 Dose: 0.5 mg Clonidine HCl (Clonidine Hcl 0.2 Mg Tablet) 0.2 mg PO TID PRN; Protocol PRN Reason: panic attack Last Admin: 05/18/24 21:42 Dose: 0.2 mg Gabapentin (Gabapentin 400 Mg Capsule) 800 mg PO QID [facility] Last Admin: 05/19/24 08:38 Dose: 800 mg Hydroxyzine HCl (Hydroxyzine Hcl 25 Mg Tablet) 25 mg PO Q6H PRN PRN Reason: Anxiety Ibuprofen (Ibuprofen 400 Mg Tablet) 400 mg PO Q4H PRN PRN Reason: Pain, Moderate(Pain Scale 4-6) Last Admin: 05/19/24 06:15 Dose: 400 mg Levothyroxine Sodium (Levothyroxine Sodium 125 Mcg Tablet) 125 mcg PO DAILY@0600 [facility] Last Admin: 05/19/24 06:15 Dose: 125 mcg Magnesium Hydroxide (Milk Of Magnesia 30 Ml Oral.Susp) 30 ml PO DAILY PRN PRN Reason: Constipation Magnesium Oxide (Magnesium Oxide 400 Mg Tablet) 400 mg PO BIDPC [facility] Last Admin: 05/19/24 08:38 Dose: 400 mg Methadone HCl (Methadone Hcl 20 Mg/2 Ml Oral.Conc) 55 mg PO DAILY@0600 [facility] Last Admin: 05/19/24 06:12 Dose: 55 mg Nicotine (Nicotine 21 Mg Patch.Td24) 21 mg TRANSDERMA DAILY [facility] Last Admin: 05/18/24 08:46 Dose: 21 mg Nicotine Polacrilex (Nicotine Polacrilex Lozenge 4 Mg Lozenge) 4 mg BUCCAL Q1H PRN PRN Reason: Nicotine Cravings Last Admin: 05/18/24 13:43 Dose: 4 mg Trazodone HCl (Trazodone Hcl 50 Mg Tablet) 50 mg PO BEDTIME MRX1 PRN PRN Reason: Insomnia Last Admin: 05/18/24 21:39 Dose: 50 mg Allergies Allergies Allergy/AdvReac Type Severity Reaction Status Date / Time fish derived Allergy Hives Verified 05/16/24 09:01 shellfish derived Allergy Anaphylaxis Verified 05/16/24 09:00 sulfamethoxazole Allergy Hives Verified 05/13/24 04:13 [From Bactrim] trimethoprim [From Bactrim] Allergy Hives Verified 05/13/24 04:13 Assessment & Plan Assessment & Plan (1) Depressive disorder: Status: Acute Code(s): F32.A - Depression, unspecified (2) Opioid use disorder: Status: Acute Code(s): F11.90 - Opioid use, unspecified, uncomplicated (3) Cocaine use disorder: Status: Acute Code(s): F14.10 - Cocaine abuse, uncomplicated (4) Homeless single person: Status: Acute Code(s): Z59.00 - Homelessness unspecified (5) COVID: Status: Acute Code(s): U07.1 - COVID-19 (6) Severe hypothyroidism: Status: Acute Code(s): E03.9 - Hypothyroidism, unspecified Plan 05/14: restart most home meds, some at reduced dosing. titrate methadone as tolerated and indicated. comfort meds for withdrawal. ativan per CIWA protocol for alcohol withdrawal. 05/15: napped after additional 10 of methadone in the afternoon. increase methadone to 45 mg tomorrow, increase gabapentin to 600 QID. DC CIWA and ativan PRNs as no longer warranted. COVID POS again today. 05/16: methadone 50 today; c/o withdrawal Sx. otherwise continue current mgmt. check COVID again tomorrow. 05/17: COVID POS. increase methadone to 55 mg daily, gabapentin to 800 QID. per hospitalist, restart augmentin for perioral abscess. will need to F/U with oral surgeon, [facility] has already made the referral. 05/18: various somatic complaints. start Mg supplementation. do NOT increase klonopin dosing. titrate methadone up as tolerated. sedated mid-morning 05/18, dosing for 05/19 not increased from the present 55 mg daily. 05/19 continue current tx. hospitalist consult for hip pain -although chronic per pt with no prior follow up. Reason for continued inpatient stay Substantial Risk for: harm to self and inability to function Time Spent With Patient Time: Total time managing care of this patient today ____ minutes.
[2024-05-19] MEDS: Nicotine 21 MG PATCH.TD24 TRANSDERMA (09:40)
[2024-05-19] MEDS: Nicotine Polacrilex Lozenge 4 MG LOZENGE BUCCAL (10:00)
[2024-05-19] MEDS: Acetaminophen 325 MG TABLET 650 MG PO (17:35)
[2024-05-19] MEDS: clonazePAM 0.5 MG TABLET PO ×3 (18:00→23:41)
[2024-05-19 20:00] VITALS: BP 100/60; PULSE 76; RESP 16; TEMP 36.1; O2SAT 97
[2024-05-19 23:28] VITALS: BP 120/58
[2024-05-19] MEDS: cloNIDine HCL 0.2 MG TABLET PO (23:28)
[2024-05-20] MEDS: methADONE HCl 20 MG/2 ML ORAL.CONC 55 MG PO (06:24)
[2024-05-20] MEDS: Ibuprofen 400 MG TABLET PO ×3 (06:43→20:41)
[2024-05-20] MEDS: Levothyroxine Sodium 125 MCG TABLET PO (06:43)
[2024-05-20 07:00] VITALS: BMI 26.3
[2024-05-20 08:00] VITALS: BP 112/68; PULSE 78; RESP 18; TEMP 36.8; O2SAT 98
[2024-05-20] MEDS: buPROPion HCL 75 MG TABLET PO (08:51)
[2024-05-20] MEDS: Gabapentin 400 MG CAPSULE 800 MG PO ×4 (08:52→20:41)
[2024-05-20] MEDS: Magnesium Oxide 400 MG TABLET PO ×2 (08:52→18:01)
[2024-05-20] MEDS: Amoxicillin/Potassium Clav 875 MG TABLET PO ×2 (08:52→20:40)
[2024-05-20] MEDS: Nicotine 21 MG PATCH.TD24 TRANSDERMA (08:53)
[2024-05-20] MEDS: clonazePAM 0.5 MG TABLET PO ×2 (09:04→20:40)
[2024-05-20 09:39] LABS: TSH reflex Free T4 > 100.00 uIU/mL (0.32-4.0)
[2024-05-20 10:41] LABS: Free T4 (Free Thyroxine) < 0.42 ng/dL (0.71-1.85)
--- NOTE | 2024-05-20 15:12 | P.PNPSI_ITS ---
Subjective Subjective Date of Service: 05/20/24 Reason For Visit: si Interim History: irritable, reactive, variably sedated, defensive, argumentative, entitled, demanding. c/o being in withdrawal from opioids; presentation and VS not c/w withdrawal. asking for more methadone. informs pt we will restart the COWs and see how she scores. per staff, dep/anx 9. lots of PRNs. sedated. Mental Status Exam Mental Status Exam Narrative: Improved hygiene. speech incr rate, amount, loudness. decr latency. TC: wanting increase in methadone and benzo. TP: mostly linear. affect dysphoric. mood irritable. no SI/SIBI/HI/AVH expressed. Diagnostics Vital Signs (24Hr): Vital Signs - 24 hr 05/19/24 20:00 05/19/24 23:28 05/20/24 08:00 Temperature 97 F 98.2 F Pulse Rate 76 78 Respiratory Rate 16 18 Blood Pressure 100/60 120/58 L 112/68 Pulse Oximetry 97 98 Oxygen Delivery Method Room Air Room Air BMI result Body Mass Index 21.8 Labs 05/13/24 11:38 05/13/24 11:38 Labs: Laboratory Results - last 48 hr 05/20/24 07:52 TSH > 100.00 H Free T4 < 0.42 L Imaging Radiology Impressions: ITS Impressions Chest X-Ray 05/13/24 04:38 IMPRESSION: No cardiopulmonary abnormalities identified. Lungs clear. Electronically signed by: Heraclio Vences MD 05/13/2024 05:56 AM EDT Medications Medications Current Medications Acetaminophen (Acetaminophen 325 Mg Tablet) 650 mg PO Q6H PRN PRN Reason: Headache/Pain Mild Scale (1-3) Last Admin: 05/19/24 17:35 Dose: 650 mg Al Hydroxide/Mg Hydroxide (Magnesium Hydrox/Alum Hydrox 30 Ml Oral.Susp) 30 ml PO Q6H PRN PRN Reason: Heartburn/Nausea Amoxicillin/Clavulanate Potassium (Amoxicillin/Potassium Clav 875 Mg Tablet) 875 mg PO BID [facility] Last Admin: 05/20/24 08:52 Dose: 875 mg Bupropion HCl (Bupropion Hcl 75 Mg Tablet) 75 mg PO DAILY [facility] Last Admin: 05/20/24 08:51 Dose: 75 mg Clonazepam (Clonazepam 0.5 Mg Tablet) 0.5 mg PO TID PRN PRN Reason: Agitation Last Admin: 05/20/24 09:04 Dose: 0.5 mg Clonidine HCl (Clonidine Hcl 0.2 Mg Tablet) 0.2 mg PO TID PRN; Protocol PRN Reason: panic attack Last Admin: 05/19/24 23:28 Dose: 0.2 mg Gabapentin (Gabapentin 400 Mg Capsule) 800 mg PO QID [facility] Last Admin: 05/20/24 15:02 Dose: 800 mg Hydroxyzine HCl (Hydroxyzine Hcl 25 Mg Tablet) 25 mg PO Q6H PRN PRN Reason: Anxiety Ibuprofen (Ibuprofen 400 Mg Tablet) 400 mg PO Q4H PRN PRN Reason: Pain, Moderate(Pain Scale 4-6) Last Admin: 05/20/24 06:43 Dose: 400 mg Levothyroxine Sodium (Levothyroxine Sodium 125 Mcg Tablet) 125 mcg PO DAILY@0600 [facility] Last Admin: 05/20/24 06:43 Dose: 125 mcg Magnesium Hydroxide (Milk Of Magnesia 30 Ml Oral.Susp) 30 ml PO DAILY PRN PRN Reason: Constipation Magnesium Oxide (Magnesium Oxide 400 Mg Tablet) 400 mg PO BIDPC [facility] Last Admin: 05/20/24 08:52 Dose: 400 mg Methadone HCl (Methadone Hcl 20 Mg/2 Ml Oral.Conc) 55 mg PO DAILY@0600 [facility] Last Admin: 05/20/24 06:24 Dose: 55 mg Nicotine (Nicotine 21 Mg Patch.Td24) 21 mg TRANSDERMA DAILY [facility] Last Admin: 05/20/24 08:53 Dose: 21 mg Nicotine Polacrilex (Nicotine Polacrilex Lozenge 4 Mg Lozenge) 4 mg BUCCAL Q1H PRN PRN Reason: Nicotine Cravings Last Admin: 05/19/24 10:00 Dose: 4 mg Trazodone HCl (Trazodone Hcl 50 Mg Tablet) 50 mg PO BEDTIME MRX1 PRN PRN Reason: Insomnia Last Admin: 05/18/24 21:39 Dose: 50 mg Allergies Allergies Allergy/AdvReac Type Severity Reaction Status Date / Time fish derived Allergy Hives Verified 05/16/24 09:01 shellfish derived Allergy Anaphylaxis Verified 05/16/24 09:00 sulfamethoxazole Allergy Hives Verified 05/13/24 04:13 [From Bactrim] trimethoprim [From Bactrim] Allergy Hives Verified 05/13/24 04:13 Assessment & Plan Assessment & Plan (1) Depressive disorder: Status: Acute Code(s): F32.A - Depression, unspecified (2) Opioid use disorder: Status: Acute Code(s): F11.90 - Opioid use, unspecified, uncomplicated (3) Cocaine use disorder: Status: Acute Code(s): F14.10 - Cocaine abuse, uncomplicated (4) Homeless single person: Status: Acute Code(s): Z59.00 - Homelessness unspecified (5) COVID: Status: Acute Code(s): U07.1 - COVID-19 (6) Severe hypothyroidism: Status: Acute Code(s): E03.9 - Hypothyroidism, unspecified Plan 05/14: restart most home meds, some at reduced dosing. titrate methadone as tolerated and indicated. comfort meds for withdrawal. ativan per CIWA protocol for alcohol withdrawal. 05/15: napped after additional 10 of methadone in the afternoon. increase methadone to 45 mg tomorrow, increase gabapentin to 600 QID. DC CIWA and ativan PRNs as no longer warranted. COVID POS again today. 05/16: methadone 50 today; c/o withdrawal Sx. otherwise continue current mgmt. check COVID again tomorrow. 05/17: COVID POS. increase methadone to 55 mg daily, gabapentin to 800 QID. per hospitalist, restart augmentin for perioral abscess. will need to F/U with oral surgeon, [facility] has already made the referral. 05/18: various somatic complaints. start Mg supplementation. do NOT increase klonopin dosing. titrate methadone up as tolerated. sedated mid-morning 05/18, dosing for 05/19 not increased from the present 55 mg daily. 05/19 continue current tx. hospitalist consult for hip pain -although chronic per pt with no prior follow up. 05/20: continues overtly sedated variably throughout the day. c/o opioid withdrawal despite lack of objective symptoms and signs. restart COWS for quantitative approach. continue current mgmt. Reason for continued inpatient stay Substantial Risk for: harm to self and inability to function Time Spent With Patient Time: Total time managing care of this patient today __25__ minutes.
[2024-05-20 16:00] VITALS: PULSE 88
[2024-05-20 20:05] VITALS: BP 130/85; PULSE 87; RESP 18; TEMP 36.9; O2SAT 97
[2024-05-21] MEDS: methADONE HCl 20 MG/2 ML ORAL.CONC 55 MG PO (06:38)
[2024-05-21] MEDS: Levothyroxine Sodium 125 MCG TABLET PO (06:38)
[2024-05-21] MEDS: Ibuprofen 400 MG TABLET PO ×3 (06:38→22:05)
[2024-05-21 07:44] VITALS: BP 99/59; PULSE 70; RESP 18; TEMP 36.6; O2SAT 93
[2024-05-21 08:00] VITALS: PULSE 83
[2024-05-21] MEDS: Nicotine 21 MG PATCH.TD24 TRANSDERMA (09:06)
[2024-05-21] MEDS: buPROPion HCL 75 MG TABLET PO (09:07)
[2024-05-21] MEDS: Magnesium Oxide 400 MG TABLET PO ×2 (09:07→16:51)
[2024-05-21] MEDS: Gabapentin 400 MG CAPSULE 800 MG PO ×4 (09:08→21:54)
[2024-05-21] MEDS: Amoxicillin/Potassium Clav 875 MG TABLET PO ×2 (09:08→21:55)
[2024-05-21 09:12] VITALS: BP 139/81; PULSE 83
[2024-05-21] MEDS: clonazePAM 0.5 MG TABLET PO ×3 (14:08→22:19)
--- NOTE | 2024-05-21 15:08 | HO.PSYCHPN ---
Subjective Subjective Date of Service: 05/21/24 Reason For Visit: si Interim History: less irritable and labile than prior. doesn't mention klonopin today. c/o being in opioid withdrawal asking for more methadone. per staff, c/o dep/anx. taking meds. attended a couple groups. perseverative re wanting meds increased. sleeping in chair. Mental Status Exam Mental Status Exam Narrative: Improved hygiene. speech incr rate, amount, loudness. decr latency. TC: wanting increase in methadone. TP: mostly linear. affect dysphoric. mood irritable. no SI/SIBI/HI/AVH expressed. Diagnostics Vital Signs (24Hr): Vital Signs - 24 hr 05/20/24 20:05 05/21/24 07:44 05/21/24 09:12 Temperature 98.5 F 97.9 F Pulse Rate 87 70 83 Respiratory Rate 18 18 Blood Pressure 130/85 99/59 L 139/81 Pulse Oximetry 97 93 Oxygen Delivery Method Room Air Room Air BMI result Body Mass Index 26.3 Labs 05/13/24 11:38 05/13/24 11:38 Labs: Laboratory Results - last 48 hr 05/20/24 07:52 TSH > 100.00 H Free T4 < 0.42 L Imaging Radiology Impressions: ITS Impressions Chest X-Ray 05/13/24 04:38 IMPRESSION: No cardiopulmonary abnormalities identified. Lungs clear. Electronically signed by: Heraclio Vences MD 05/13/2024 05:56 AM EDT Medications Medications Current Medications Acetaminophen (Acetaminophen 325 Mg Tablet) 650 mg PO Q6H PRN PRN Reason: Headache/Pain Mild Scale (1-3) Last Admin: 05/19/24 17:35 Dose: 650 mg Al Hydroxide/Mg Hydroxide (Magnesium Hydrox/Alum Hydrox 30 Ml Oral.Susp) 30 ml PO Q6H PRN PRN Reason: Heartburn/Nausea Amoxicillin/Clavulanate Potassium (Amoxicillin/Potassium Clav 875 Mg Tablet) 875 mg PO BID [facility] Last Admin: 05/21/24 09:08 Dose: 875 mg Bupropion HCl (Bupropion Hcl 75 Mg Tablet) 75 mg PO DAILY [facility] Last Admin: 05/21/24 09:07 Dose: 75 mg Clonazepam (Clonazepam 0.5 Mg Tablet) 0.5 mg PO TID PRN PRN Reason: Agitation Last Admin: 05/21/24 14:08 Dose: 0.5 mg Clonidine HCl (Clonidine Hcl 0.2 Mg Tablet) 0.2 mg PO TID PRN; Protocol PRN Reason: panic attack Last Admin: 05/19/24 23:28 Dose: 0.2 mg Gabapentin (Gabapentin 400 Mg Capsule) 800 mg PO QID [facility] Last Admin: 05/21/24 14:08 Dose: 800 mg Hydroxyzine HCl (Hydroxyzine Hcl 25 Mg Tablet) 25 mg PO Q6H PRN PRN Reason: Anxiety Ibuprofen (Ibuprofen 400 Mg Tablet) 400 mg PO Q4H PRN PRN Reason: Pain, Moderate(Pain Scale 4-6) Last Admin: 05/21/24 06:38 Dose: 400 mg Levothyroxine Sodium (Levothyroxine Sodium 125 Mcg Tablet) 125 mcg PO DAILY@0600 [facility] Last Admin: 05/21/24 06:38 Dose: 125 mcg Magnesium Hydroxide (Milk Of Magnesia 30 Ml Oral.Susp) 30 ml PO DAILY PRN PRN Reason: Constipation Magnesium Oxide (Magnesium Oxide 400 Mg Tablet) 400 mg PO BIDPC [facility] Last Admin: 05/21/24 09:07 Dose: 400 mg Methadone HCl (Methadone Hcl 20 Mg/2 Ml Oral.Conc) 60 mg PO DAILY@0600 [facility] Nicotine (Nicotine 21 Mg Patch.Td24) 21 mg TRANSDERMA DAILY [facility] Last Admin: 05/21/24 09:06 Dose: 21 mg Nicotine Polacrilex (Nicotine Polacrilex Lozenge 4 Mg Lozenge) 4 mg BUCCAL Q1H PRN PRN Reason: Nicotine Cravings Last Admin: 05/19/24 10:00 Dose: 4 mg Trazodone HCl (Trazodone Hcl 50 Mg Tablet) 50 mg PO BEDTIME MRX1 PRN PRN Reason: Insomnia Last Admin: 05/18/24 21:39 Dose: 50 mg Allergies Allergies Allergy/AdvReac Type Severity Reaction Status Date / Time fish derived Allergy Hives Verified 05/16/24 09:01 shellfish derived Allergy Anaphylaxis Verified 05/16/24 09:00 sulfamethoxazole Allergy Hives Verified 05/13/24 04:13 [From Bactrim] trimethoprim [From Bactrim] Allergy Hives Verified 05/13/24 04:13 Assessment & Plan Assessment & Plan (1) Depressive disorder: Status: Acute Code(s): F32.A - Depression, unspecified (2) Opioid use disorder: Status: Acute Code(s): F11.90 - Opioid use, unspecified, uncomplicated (3) Cocaine use disorder: Status: Acute Code(s): F14.10 - Cocaine abuse, uncomplicated (4) Homeless single person: Status: Acute Code(s): Z59.00 - Homelessness unspecified (5) COVID: Status: Acute Code(s): U07.1 - COVID-19 (6) Severe hypothyroidism: Status: Acute Code(s): E03.9 - Hypothyroidism, unspecified Plan 05/14: restart most home meds, some at reduced dosing. titrate methadone as tolerated and indicated. comfort meds for withdrawal. ativan per CIWA protocol for alcohol withdrawal. 05/15: napped after additional 10 of methadone in the afternoon. increase methadone to 45 mg tomorrow, increase gabapentin to 600 QID. DC CIWA and ativan PRNs as no longer warranted. COVID POS again today. 05/16: methadone 50 today; c/o withdrawal Sx. otherwise continue current mgmt. check COVID again tomorrow. 05/17: COVID POS. increase methadone to 55 mg daily, gabapentin to 800 QID. per hospitalist, restart augmentin for perioral abscess. will need to F/U with oral surgeon, [facility] has already made the referral. 05/18: various somatic complaints. start Mg supplementation. do NOT increase klonopin dosing. titrate methadone up as tolerated. sedated mid-morning 05/18, dosing for 05/19 not increased from the present 55 mg daily. 05/19 continue current tx. hospitalist consult for hip pain -although chronic per pt with no prior follow up. 05/20: continues overtly sedated variably throughout the day. c/o opioid withdrawal despite lack of objective symptoms and signs. restart COWS for quantitative approach. continue current mgmt. 05/21: COWS 5 yesterday afternoon. increase methadone by 5 mg daily to 60 mg daily as of today. otherwise continue current mgmt. Reason for continued inpatient stay Substantial Risk for: inability to function and rapid decompensation Time Spent With Patient Time: Total time managing care of this patient today _35___ minutes.
[2024-05-21] MEDS: methADONE HCl 20 MG/2 ML ORAL.CONC 5 MG PO (15:49)
[2024-05-21 16:00] VITALS: PULSE 80
--- NOTE | 2024-05-21 16:15 | PM.EVENT ---
Event Note Date of Service: 05/21/24 Event Note: Patient is a 38-year-old female with a PMH significant for Renato's who was seen for follow-up for hypothyroidism. Patient's repeat labs on 05/20/2024 significant for TSH >100.00 and Free T4 <0.42 despite being on levothyroxine 125 mcg since 05/14. Patient has had similar labs in the past requiring IV levothyroxine. Patient reports she does not have a prescription for levothyroxine outpatient as she has yet to establish with a PCP due to difficulties with transportation. It is unclear how long patient has been without p.o. thyroid medication. Contacted Dr. Cassidy in endocrinology and plan is to give IV levothyroxine 75 mcg today and tomorrow while trending free T4. Once T4 starts improving can resume 125 mcg p.o. daily. Patient currently is asymptomatic. If patient becomes bradycardic, hypothermic, or with acute encephalopathy, please contact hospitalists and will evaluate to bring to the floor for myxedema coma. Time Spent With Patient Time: Total time managing care of this patient today ____ minutes.
[2024-05-21] MEDS: Levothyroxine Sodium 100 MCG/5 ML VIAL 75 MCG IVPUSH (17:16)
[2024-05-21 20:00] VITALS: BP 136/88; PULSE 73; RESP 14; TEMP 36.6; O2SAT 96
[2024-05-21] MEDS: Acetaminophen 325 MG TABLET 650 MG PO (22:06)
[2024-05-21 23:19] VITALS: BP 137/107
[2024-05-21] MEDS: cloNIDine HCL 0.2 MG TABLET PO (23:19)
[2024-05-22] MEDS: methADONE HCl 20 MG/2 ML ORAL.CONC 60 MG PO (06:23)
[2024-05-22 08:00] VITALS: PULSE 59
[2024-05-22 08:11] VITALS: BP 121/74; PULSE 59; RESP 16; TEMP 36.9; O2SAT 94
[2024-05-22] MEDS: Amoxicillin/Potassium Clav 875 MG TABLET PO ×2 (09:01→20:12)
[2024-05-22] MEDS: clonazePAM 0.5 MG TABLET PO ×3 (09:02→20:13)
[2024-05-22] MEDS: buPROPion HCL 75 MG TABLET PO (09:02)
[2024-05-22] MEDS: Ibuprofen 400 MG TABLET PO (09:02)
[2024-05-22] MEDS: Gabapentin 400 MG CAPSULE 800 MG PO ×4 (09:03→20:13)
[2024-05-22 09:04] LABS: Free T4 (Free Thyroxine) 0.49 ng/dL (0.71-1.85)
[2024-05-22] MEDS: Nicotine 21 MG PATCH.TD24 TRANSDERMA (09:07)
[2024-05-22] MEDS: methADONE HCl 20 MG/2 ML ORAL.CONC 5 MG PO (09:20)
--- NOTE | 2024-05-22 09:29 | HO.PSYCHPN ---
Subjective Subjective Date of Service: 05/22/24 Reason For Visit: si Interim History: The nursing staff reported the patient had been on 5 minute checks, she is irritable, hyperverbal intrusive at times. She slept 7 hours. On interview the patient was advocating to get more methadone since she reports withdrawal symptoms. Yesterday she received 60 mg her usual dose and 5 in the afternoon. We discussed options and she agreed to take 65 mg during the day. Yesterday she received her IV levothyroxine. Mental Status Exam Mental Status Exam Patient Appearance: Appropriate Patient Orientation: Person and Situation Level of Consciousness: Awake Patient Behavior: Guarded Mood Description: Withdrawn Affect Description: Constricted Ability to Follow Directions: Fair Speech Pattern: Clear and Rapid Hallucinations: None Delusions: Ideas of Reference Thought Process: Racing and Distracted Thought Content: positive for [place], positive for [place] Oriented and positive for Perseveration Judgement: Poor Diagnostics Vital Signs (24Hr): Vital Signs - 24 hr 05/21/24 20:00 05/21/24 23:19 05/22/24 08:11 Temperature 97.8 F 98.5 F Pulse Rate 73 59 Respiratory Rate 14 16 Blood Pressure 136/88 137/107 H 121/74 Pulse Oximetry 96 94 Oxygen Delivery Method Room Air Room Air BMI result Body Mass Index 26.3 Labs 05/13/24 11:38 05/13/24 11:38 Labs: Laboratory Results - last 48 hr 05/20/24 05/22/24 07:52 08:02 TSH > 100.00 H Free T4 < 0.42 L 0.49 L Imaging Radiology Impressions: ITS Impressions Chest X-Ray 05/13/24 04:38 IMPRESSION: No cardiopulmonary abnormalities identified. Lungs clear. Electronically signed by: Heraclio Vences MD 05/13/2024 05:56 AM EDT Medications Medications Current Medications Acetaminophen (Acetaminophen 325 Mg Tablet) 650 mg PO Q6H PRN PRN Reason: Headache/Pain Mild Scale (1-3) Last Admin: 05/21/24 22:06 Dose: 650 mg Al Hydroxide/Mg Hydroxide (Magnesium Hydrox/Alum Hydrox 30 Ml Oral.Susp) 30 ml PO Q6H PRN PRN Reason: Heartburn/Nausea Amoxicillin/Clavulanate Potassium (Amoxicillin/Potassium Clav 875 Mg Tablet) 875 mg PO BID [facility] Last Admin: 05/22/24 09:01 Dose: 875 mg Bupropion HCl (Bupropion Hcl 75 Mg Tablet) 75 mg PO DAILY [facility] Last Admin: 05/22/24 09:02 Dose: 75 mg Clonazepam (Clonazepam 0.5 Mg Tablet) 0.5 mg PO TID PRN PRN Reason: Agitation Last Admin: 05/22/24 09:02 Dose: 0.5 mg Clonidine HCl (Clonidine Hcl 0.2 Mg Tablet) 0.2 mg PO TID PRN; Protocol PRN Reason: panic attack Last Admin: 05/21/24 23:19 Dose: 0.2 mg Gabapentin (Gabapentin 400 Mg Capsule) 800 mg PO QID [facility] Last Admin: 05/22/24 09:03 Dose: 800 mg Hydroxyzine HCl (Hydroxyzine Hcl 25 Mg Tablet) 25 mg PO Q6H PRN PRN Reason: Anxiety Ibuprofen (Ibuprofen 400 Mg Tablet) 400 mg PO Q4H PRN PRN Reason: Pain, Moderate(Pain Scale 4-6) Last Admin: 05/22/24 09:02 Dose: 400 mg Levothyroxine Sodium (Levothyroxine Sodium 125 Mcg Tablet) 125 mcg PO DAILY@0600 [facility] Last Admin: 05/21/24 06:38 Dose: 125 mcg Levothyroxine Sodium (Levothyroxine Sodium 100 Mcg/5 Ml Vial) 75 mcg IVPUSH ONCE ONE Stop: 05/22/24 12:01 Magnesium Hydroxide (Milk Of Magnesia 30 Ml Oral.Susp) 30 ml PO DAILY PRN PRN Reason: Constipation [facility] ([facility] 400 Mg [facility]) [facility] Last Admin: 05/21/24 16:51 Dose: 400 mg Methadone HCl (Methadone Hcl 20 Mg/2 Ml Oral.Conc) 65 mg PO DAILY@0600 [facility] Nicotine (Nicotine 21 Mg Patch.Td24) 21 mg TRANSDERMA DAILY [facility] Last Admin: 05/22/24 09:07 Dose: 21 mg Nicotine Polacrilex (Nicotine Polacrilex Lozenge 4 Mg Lozenge) 4 mg BUCCAL Q1H PRN PRN Reason: Nicotine Cravings Last Admin: 05/19/24 10:00 Dose: 4 mg Trazodone HCl (Trazodone Hcl 50 Mg Tablet) 50 mg PO BEDTIME MRX1 PRN PRN Reason: Insomnia Last Admin: 05/18/24 21:39 Dose: 50 mg Allergies Allergies Allergy/AdvReac Type Severity Reaction Status Date / Time fish derived Allergy Hives Verified 05/16/24 09:01 shellfish derived Allergy Anaphylaxis Verified 05/16/24 09:00 sulfamethoxazole Allergy Hives Verified 05/13/24 04:13 [From Bactrim] trimethoprim [From Bactrim] Allergy Hives Verified 05/13/24 04:13 Assessment & Plan Assessment & Plan (1) Depressive disorder: Status: Acute Code(s): F32.A - Depression, unspecified (2) Opioid use disorder: Status: Acute Code(s): F11.90 - Opioid use, unspecified, uncomplicated (3) Cocaine use disorder: Status: Acute Code(s): F14.10 - Cocaine abuse, uncomplicated (4) Homeless single person: Status: Acute Code(s): Z59.00 - Homelessness unspecified (5) COVID: Status: Acute Code(s): U07.1 - COVID-19 (6) Severe hypothyroidism: Status: Acute Code(s): E03.9 - Hypothyroidism, unspecified Plan 05/14: restart most home meds, some at reduced dosing. titrate methadone as tolerated and indicated. comfort meds for withdrawal. ativan per CIWA protocol for alcohol withdrawal. 05/15: napped after additional 10 of methadone in the afternoon. increase methadone to 45 mg tomorrow, increase gabapentin to 600 QID. DC CIWA and ativan PRNs as no longer warranted. COVID POS again today. 05/16: methadone 50 today; c/o withdrawal Sx. otherwise continue current mgmt. check COVID again tomorrow. 05/17: COVID POS. increase methadone to 55 mg daily, gabapentin to 800 QID. per hospitalist, restart augmentin for perioral abscess. will need to F/U with oral surgeon, [facility] has already made the referral. 05/18: various somatic complaints. start Mg supplementation. do NOT increase klonopin dosing. titrate methadone up as tolerated. sedated mid-morning 05/18, dosing for 05/19 not increased from the present 55 mg daily. 05/19 continue current tx. hospitalist consult for hip pain -although chronic per pt with no prior follow up. 05/20: continues overtly sedated variably throughout the day. c/o opioid withdrawal despite lack of objective symptoms and signs. restart COWS for quantitative approach. continue current mgmt. 05/21: COWS 5 yesterday afternoon. increase methadone by 5 mg daily to 60 mg daily as of today. otherwise continue current mgmt. 05/22 methadone 65 mg daily. Rest the same continue same treatment Reason for continued inpatient stay Substantial Risk for: inability to function, rapid decompensation and med/psych decompensation Time Spent With Patient Time: Total time managing care of this patient today __20__ minutes.
[2024-05-22] MEDS: Levothyroxine Sodium 100 MCG/5 ML VIAL 75 MCG IVPUSH (12:37)
[2024-05-22] MEDS: Acetaminophen 325 MG TABLET 650 MG PO ×2 (12:51→20:13)
[2024-05-22] MEDS: 0.9 % Sodium Chloride Flush 3 ML SYRINGE IVFLUSH (15:44)
[2024-05-22 16:00] VITALS: PULSE 60
[2024-05-22] MEDS: Magnesium Oxide 400 MG TABLET PO (17:14)
[2024-05-22 20:20] VITALS: BP 114/77; PULSE 70; RESP 16; TEMP 36.8; O2SAT 95
[2024-05-23] VITALS: PULSE 65
[2024-05-23] MEDS: 0.9 % Sodium Chloride Flush 3 ML SYRINGE IVFLUSH ×2 (00:22→08:37)
[2024-05-23] MEDS: methADONE HCl 20 MG/2 ML ORAL.CONC 65 MG PO (06:55)
[2024-05-23 08:00] VITALS: BP 148/93; PULSE 78; TEMP 36.4; O2SAT 98
--- NOTE | 2024-05-23 08:03 | P.PNPSI_ITS ---
Subjective Subjective Date of Service: 05/23/24 Reason For Visit: si Interim History: The nursing staff reported the patient had been sedated in the afternoon, she was falling sleeping for aunt of his food. She requested to change her methadone to b.i.d. but unfortunately she took already are 65 mg in the morning. She also requested a hospitalist consult yesterday since she was stating that her gallbladder was not feeling well. On interview the patient denies new symptoms demanding several consults and care. Mental Status Exam Mental Status Exam Patient Appearance: Appropriate Patient Orientation: Person and Situation Level of Consciousness: Awake Patient Behavior: Guarded and Restless Mood Description: Calm Affect Description: Constricted and Labile Ability to Follow Directions: Fair Speech Pattern: Clear Hallucinations: None Delusions: Ideas of Reference Thought Process: Distracted and Slowed Thinking Thought Content: positive for [place] and positive for Circumstantial Judgement: Poor Diagnostics Vital Signs (24Hr): Vital Signs - 24 hr 05/22/24 08:11 05/22/24 20:20 Temperature 98.5 F 98.2 F Pulse Rate 59 70 Respiratory Rate 16 16 Blood Pressure 121/74 114/77 Pulse Oximetry 94 95 Oxygen Delivery Method Room Air Room Air BMI result Body Mass Index 26.3 Labs 05/13/24 11:38 05/13/24 11:38 Labs: Laboratory Results - last 48 hr 05/22/24 08:02 Free T4 0.49 L Imaging Radiology Impressions: ITS Impressions Chest X-Ray 05/13/24 04:38 IMPRESSION: No cardiopulmonary abnormalities identified. Lungs clear. Electronically signed by: Heraclio Vences MD 05/13/2024 05:56 AM EDT Medications Medications Current Medications Acetaminophen (Acetaminophen 325 Mg Tablet) 650 mg PO Q6H PRN PRN Reason: Headache/Pain Mild Scale (1-3) Last Admin: 05/22/24 20:13 Dose: 650 mg Al Hydroxide/Mg Hydroxide (Magnesium Hydrox/Alum Hydrox 30 Ml Oral.Susp) 30 ml PO Q6H PRN PRN Reason: Heartburn/Nausea Amoxicillin/Clavulanate Potassium (Amoxicillin/Potassium Clav 875 Mg Tablet) 875 mg PO BID [facility] Last Admin: 05/22/24 20:12 Dose: 875 mg Bupropion HCl (Bupropion Hcl 75 Mg Tablet) 75 mg PO DAILY [facility] Last Admin: 05/22/24 09:02 Dose: 75 mg Clonazepam (Clonazepam 0.5 Mg Tablet) 0.5 mg PO TID PRN PRN Reason: Agitation Last Admin: 05/22/24 20:13 Dose: 0.5 mg Clonidine HCl (Clonidine Hcl 0.2 Mg Tablet) 0.2 mg PO TID PRN; Protocol PRN Reason: panic attack Last Admin: 05/21/24 23:19 Dose: 0.2 mg Gabapentin (Gabapentin 400 Mg Capsule) 800 mg PO QID [facility] Last Admin: 05/22/24 20:13 Dose: 800 mg Hydroxyzine HCl (Hydroxyzine Hcl 25 Mg Tablet) 25 mg PO Q6H PRN PRN Reason: Anxiety Ibuprofen (Ibuprofen 400 Mg Tablet) 400 mg PO Q4H PRN PRN Reason: Pain, Moderate(Pain Scale 4-6) Last Admin: 05/22/24 09:02 Dose: 400 mg Levothyroxine Sodium (Levothyroxine Sodium 125 Mcg Tablet) 125 mcg PO DAILY@0600 [facility] Last Admin: 05/21/24 06:38 Dose: 125 mcg Magnesium Hydroxide (Milk Of Magnesia 30 Ml Oral.Susp) 30 ml PO DAILY PRN PRN Reason: Constipation Magnesium Oxide (Magnesium Oxide 400 Mg Tablet) 400 mg PO BIDPC [facility] Last Admin: 05/22/24 17:14 Dose: 400 mg Methadone HCl (Methadone Hcl 20 Mg/2 Ml Oral.Conc) 65 mg PO DAILY@0600 [facility] Last Admin: 05/23/24 06:55 Dose: 65 mg Nicotine (Nicotine 21 Mg Patch.Td24) 21 mg TRANSDERMA DAILY [facility] Last Admin: 05/22/24 09:07 Dose: 21 mg Nicotine Polacrilex (Nicotine Polacrilex Lozenge 4 Mg Lozenge) 4 mg BUCCAL Q1H PRN PRN Reason: Nicotine Cravings Last Admin: 05/19/24 10:00 Dose: 4 mg Sodium Chloride (0.9 % Sodium Chloride Flush 3 Ml Syringe) 3 ml IVFLUSH QSHIFT [facility] Last Admin: 05/23/24 00:22 Dose: 3 ml Trazodone HCl (Trazodone Hcl 50 Mg Tablet) 50 mg PO BEDTIME MRX1 PRN PRN Reason: Insomnia Last Admin: 05/18/24 21:39 Dose: 50 mg Allergies Allergies Allergy/AdvReac Type Severity Reaction Status Date / Time fish derived Allergy Hives Verified 05/16/24 09:01 shellfish derived Allergy Anaphylaxis Verified 05/16/24 09:00 sulfamethoxazole Allergy Hives Verified 05/13/24 04:13 [From Bactrim] trimethoprim [From Bactrim] Allergy Hives Verified 05/13/24 04:13 Assessment & Plan Assessment & Plan (1) Depressive disorder: Status: Acute Code(s): F32.A - Depression, unspecified (2) Opioid use disorder: Status: Acute Code(s): F11.90 - Opioid use, unspecified, uncomplicated (3) Cocaine use disorder: Status: Acute Code(s): F14.10 - Cocaine abuse, uncomplicated (4) Homeless single person: Status: Acute Code(s): Z59.00 - Homelessness unspecified (5) COVID: Status: Acute Code(s): U07.1 - COVID-19 (6) Severe hypothyroidism: Status: Acute Code(s): E03.9 - Hypothyroidism, unspecified Plan 05/14: restart most home meds, some at reduced dosing. titrate methadone as tolerated and indicated. comfort meds for withdrawal. ativan per CIWA protocol for alcohol withdrawal. 05/15: napped after additional 10 of methadone in the afternoon. increase methadone to 45 mg tomorrow, increase gabapentin to 600 QID. DC CIWA and ativan PRNs as no longer warranted. COVID POS again today. 05/16: methadone 50 today; c/o withdrawal Sx. otherwise continue current mgmt. check COVID again tomorrow. 05/17: COVID POS. increase methadone to 55 mg daily, gabapentin to 800 QID. per hospitalist, restart augmentin for perioral abscess. will need to F/U with oral surgeon, [facility] has already made the referral. 05/18: various somatic complaints. start Mg supplementation. do NOT increase klonopin dosing. titrate methadone up as tolerated. sedated mid-morning 05/18, dosing for 05/19 not increased from the present 55 mg daily. 05/19 continue current tx. hospitalist consult for hip pain -although chronic per pt with no prior follow up. 05/20: continues overtly sedated variably throughout the day. c/o opioid withdrawal despite lack of objective symptoms and signs. restart COWS for quantitative approach. continue current mgmt. 05/21: COWS 5 yesterday afternoon. increase methadone by 5 mg daily to 60 mg daily as of today. otherwise continue current mgmt. 05/22 methadone 65 mg daily. Rest the same continue same treatment. 05/23 keep same treatment. Yesterday we put a hospitalist consult and today we are going to add an addiction medicine consult. Reason for continued inpatient stay Substantial Risk for: inability to function, rapid decompensation and med/psych decompensation Time Spent With Patient Time: Total time managing care of this patient today __20__ minutes.
[2024-05-23] MEDS: Ibuprofen 400 MG TABLET PO (08:36)
[2024-05-23] MEDS: Amoxicillin/Potassium Clav 875 MG TABLET PO ×2 (08:37→22:52)
[2024-05-23] MEDS: buPROPion HCL 75 MG TABLET PO (08:37)
[2024-05-23] MEDS: Gabapentin 400 MG CAPSULE 800 MG PO ×4 (08:37→22:52)
[2024-05-23] MEDS: Magnesium Oxide 400 MG TABLET PO ×2 (08:37→18:00)
[2024-05-23] MEDS: Nicotine 21 MG PATCH.TD24 TRANSDERMA (08:37)
[2024-05-23] MEDS: clonazePAM 0.5 MG TABLET PO ×3 (08:37→22:51)
[2024-05-23] MEDS: Acetaminophen 325 MG TABLET 650 MG PO (11:58)
--- NOTE | 2024-05-23 13:30 | PM.EVENT ---
Event Note Date of Service: 05/23/24 Event Note: Patient is a 38-year-old female with PMH significant for Renato's, CKD 3, polysubstance use disorder, IVDU, and depression who is admitted to [facility] for increasing depression, hopelessness, and vague SI. Hospitalist consult for abdominal pain and question cholecystitis. Patient seen and examined in her room where she is seen sitting comfortably in a chair and eating her 2nd tray of food for lunch. When asked what medical complaints she had, she replied ?where do I start?. Patient then endorses a long and diffuse list complaints, including headache, toothache, difficulty swallowing, throat swelling, back pain leg pain, abdominal distention, diffuse abdominal pain, as well as ?gallbladder pain?. Patient denies nausea, vomiting, diarrhea. Last bowel movement was earlier this morning. Patient also was able to and tolerate her breakfast this morning. Vital signs have been stable and WNL. Patient also reports she ?almost? had her gallbladder removed twice before. Physical exam: General: AOx3, no acute distress GI: +BS, diffuse abd tenderness, especially to RUQ and epigastric region. Negative Mariano sign Skin: Warm, dry Neuro: Cranial nerves II-XII grossly intact bilaterally. Motor grossly intact bilaterally Extremities: No edema Psych: Somatically fixated Clinically patient does not appear in any acute distress. Coupled with the fact patient has been able to eat and tolerate her diet without nausea, vomiting, or diarrhea, and has had recent bowel movement this morning, these are all reassuring that patient does not have an acute abdomen. Patient appears somatically oriented and repeatedly asks for narcotic pain meds. However, will err on the side of caution and get a dry CT of abdomen and pelvis to rule out acute abdomen. Pain management as per Psychiatry and/or Addiction medicine. As for question of dysphagia, patient was seen to eat and drink on the unit without difficulties. Time Spent With Patient Time: Total time managing care of this patient today ____ minutes.
[2024-05-23 14:25] LABS: Free T4 (Free Thyroxine) 0.59 ng/dL (0.71-1.85); HCG Quantitative < 2 mIU/mL
--- NOTE | 2024-05-23 14:38 | PM.EVENT ---
Event Note Date of Service: 05/23/24 Event Note: Follow-up for patient admitted on [facility] psych unit for T4 monitoring. Patient has been noncompliant with her levothyroxine while in the community, and was admitted to [facility] with undetectable free T4 levels. Patient has been given levothyroxine IV 75 mcg x2 doses with improvement to T4 levels, which increased to 0.49 yesterday and 0.59 today. Will administer 1 more dose levothyroxine IV 75 mcg, and resume patient's p.o. 125 mcg tomorrow. Patient's IV can be removed after administering today's dose. Will repeat free T4 in 5 day's time. Pt needs to followup outpatient with PCP and/or endocrinology for proper management of her Renato's. Patient has a long history of noncompliance in the community that has required hospital-administered IV levothyroxine. No hx of myxedema coma, but is high risk for this if continues to be noncompliant. Time Spent With Patient Time: Total time managing care of this patient today ____ minutes.
[2024-05-23] MEDS: Levothyroxine Sodium 100 MCG/5 ML VIAL 75 MCG IVPUSH (15:52)
--- NOTE | 2024-05-23 15:58 | PC.NURSE ---
Addendum entered by Antonietta Marmolejo RN 05/23/24 16:41: Correction: IV removed from right forearm Original Note: IV removed from left forearm after 75mcg levothyroxine administration, per Ashkan AGUILAR, via tiger text.
[2024-05-23 16:00] VITALS: PULSE 76
[2024-05-23 19:47] VITALS: BP 124/81; PULSE 69; TEMP 36.9; O2SAT 94
[2024-05-23 23:00] VITALS: BP 121/75
[2024-05-23] MEDS: cloNIDine HCL 0.2 MG TABLET PO (23:00)
[2024-05-24] MEDS: Levothyroxine Sodium 125 MCG TABLET PO (06:48)
[2024-05-24] MEDS: methADONE HCl 20 MG/2 ML ORAL.CONC 65 MG PO (06:50)
[2024-05-24 08:00] VITALS: PULSE 78; RESP 18
[2024-05-24] MEDS: Nicotine 21 MG PATCH.TD24 TRANSDERMA (08:46)
[2024-05-24] MEDS: Gabapentin 400 MG CAPSULE 800 MG PO (08:47)
[2024-05-24] MEDS: Magnesium Oxide 400 MG TABLET PO ×2 (08:48→18:11)
[2024-05-24] MEDS: buPROPion HCL 75 MG TABLET PO (08:48)
[2024-05-24] MEDS: Amoxicillin/Potassium Clav 875 MG TABLET PO ×2 (08:48→20:46)
[2024-05-24] MEDS: Ibuprofen 400 MG TABLET PO ×2 (08:56→18:14)
[2024-05-24] MEDS: clonazePAM 0.5 MG TABLET PO ×3 (08:56→18:14)
--- NOTE | 2024-05-24 10:23 | PM.EVENT ---
Event Note Date of Service: 05/24/24 Event Note: checked in with nursing regarding pt saw pt walking on the unit. no complaints of abd pain or constipation. pt appeared A+Ox3, in no acute distress. Time Spent With Patient Time: Total time managing care of this patient today ____ minutes.
[2024-05-24] MEDS: Gabapentin 300 MG CAPSULE 600 MG PO ×3 (13:07→20:47)
--- NOTE | 2024-05-24 15:12 | P.PNPSI_ITS ---
Subjective Subjective Date of Service: 05/24/24 Reason For Visit: si Interim History: irritable, labile. upset methadone dosing not being increased. states she is experiencing withdrawal and MD is not treating her properly. per staff, slept well. falling asleep in her cereal at dining table yesterday morning, nodding off in her food tray on friday. Mental Status Exam Mental Status Exam Narrative: Improved hygiene. speech incr rate, amount, loudness. decr latency. TC: wanting increase in methadone. TP: mostly linear. affect dysphoric. mood irritable. no SI/SIBI/HI/AVH expressed. Diagnostics Vital Signs (24Hr): Vital Signs - 24 hr 05/23/24 19:47 05/23/24 23:00 05/24/24 08:00 Temperature 98.5 F Pulse Rate 69 78 Respiratory Rate 18 Blood Pressure 124/81 121/75 Pulse Oximetry 94 Oxygen Delivery Method Room Air BMI result Body Mass Index 26.3 Labs 05/13/24 11:38 05/13/24 11:38 Labs: Laboratory Results - last 48 hr 05/22/24 05/23/24 08:02 13:32 Free T4 0.59 L Beta HCG, Quant Cancelled < 2 Imaging Radiology Impressions: ITS Impressions Chest X-Ray 05/13/24 04:38 IMPRESSION: No cardiopulmonary abnormalities identified. Lungs clear. Electronically signed by: Heraclio Vences MD 05/13/2024 05:56 AM EDT Abdomen/Pelvis CT 05/23/24 14:55 IMPRESSION: 1. Formed stool throughout the colon with areas of mild distention which may represent an ileus. No small bowel dilatation to indicate an obstruction. 2. Chronic calcific pancreatitis. No evidence of active pancreatitis. 3. Small fat-containing periumbilical hernia with adjacent subcutaneous inflammatory stranding. Fleischner guidelines were followed. Electronically signed by: Sammy Angelo MD 05/23/2024 06:20 PM EDT Medications Medications Current Medications Acetaminophen (Acetaminophen 325 Mg Tablet) 650 mg PO Q6H PRN PRN Reason: Headache/Pain Mild Scale (1-3) Last Admin: 05/23/24 11:58 Dose: 650 mg Al Hydroxide/Mg Hydroxide (Magnesium Hydrox/Alum Hydrox 30 Ml Oral.Susp) 30 ml PO Q6H PRN PRN Reason: Heartburn/Nausea Amoxicillin/Clavulanate Potassium (Amoxicillin/Potassium Clav 875 Mg Tablet) 875 mg PO BID [facility] Last Admin: 05/24/24 08:48 Dose: 875 mg Bupropion HCl (Bupropion Hcl 75 Mg Tablet) 75 mg PO DAILY [facility] Last Admin: 05/24/24 08:48 Dose: 75 mg Clonazepam (Clonazepam 0.5 Mg Tablet) 0.5 mg PO TID PRN PRN Reason: Agitation Last Admin: 05/24/24 13:09 Dose: 0.5 mg Clonidine HCl (Clonidine Hcl 0.2 Mg Tablet) 0.2 mg PO TID PRN; Protocol PRN Reason: panic attack Last Admin: 05/23/24 23:00 Dose: 0.2 mg Gabapentin (Gabapentin 300 Mg Capsule) 600 mg PO QID [facility] Last Admin: 05/24/24 13:07 Dose: 600 mg Hydroxyzine HCl (Hydroxyzine Hcl 25 Mg Tablet) 25 mg PO Q6H PRN PRN Reason: Anxiety Ibuprofen (Ibuprofen 400 Mg Tablet) 400 mg PO Q4H PRN PRN Reason: Pain, Moderate(Pain Scale 4-6) Last Admin: 05/24/24 08:56 Dose: 400 mg Levothyroxine Sodium (Levothyroxine Sodium 125 Mcg Tablet) 125 mcg PO DAILY@0600 [facility] Last Admin: 05/24/24 06:48 Dose: 125 mcg Magnesium Hydroxide (Milk Of Magnesia 30 Ml Oral.Susp) 30 ml PO DAILY PRN PRN Reason: Constipation Magnesium Oxide ([facility] 400 Mg Tablet) [facility] Last Admin: 05/24/24 08:48 Dose: 400 mg Methadone HCl (Methadone Hcl 20 Mg/2 Ml Oral.Conc) 60 mg PO DAILY@0600 [facility] Nicotine (Nicotine 21 Mg Patch.Td24) 21 mg TRANSDERMA DAILY [facility] Last Admin: 05/24/24 08:46 Dose: 21 mg Nicotine Polacrilex (Nicotine Polacrilex Lozenge 4 Mg Lozenge) 4 mg BUCCAL Q1H PRN PRN Reason: Nicotine Cravings Last Admin: 05/19/24 10:00 Dose: 4 mg Trazodone HCl (Trazodone Hcl 50 Mg Tablet) 50 mg PO BEDTIME MRX1 PRN PRN Reason: Insomnia Last Admin: 05/18/24 21:39 Dose: 50 mg Allergies Allergies Allergy/AdvReac Type Severity Reaction Status Date / Time fish derived Allergy Hives Verified 05/16/24 09:01 shellfish derived Allergy Anaphylaxis Verified 05/16/24 09:00 sulfamethoxazole Allergy Hives Verified 05/13/24 04:13 [From Bactrim] trimethoprim [From Bactrim] Allergy Hives Verified 05/13/24 04:13 Assessment & Plan Assessment & Plan (1) Depressive disorder: Status: Acute Code(s): F32.A - Depression, unspecified (2) Opioid use disorder: Status: Acute Code(s): F11.90 - Opioid use, unspecified, uncomplicated (3) Cocaine use disorder: Status: Acute Code(s): F14.10 - Cocaine abuse, uncomplicated (4) Homeless single person: Status: Acute Code(s): Z59.00 - Homelessness unspecified (5) COVID: Status: Acute Code(s): U07.1 - COVID-19 (6) Severe hypothyroidism: Status: Acute Code(s): E03.9 - Hypothyroidism, unspecified Plan 05/14: restart most home meds, some at reduced dosing. titrate methadone as tolerated and indicated. comfort meds for withdrawal. ativan per CIWA protocol for alcohol withdrawal. 05/15: napped after additional 10 of methadone in the afternoon. increase methadone to 45 mg tomorrow, increase gabapentin to 600 QID. DC CIWA and ativan PRNs as no longer warranted. COVID POS again today. 05/16: methadone 50 today; c/o withdrawal Sx. otherwise continue current mgmt. check COVID again tomorrow. 05/17: COVID POS. increase methadone to 55 mg daily, gabapentin to 800 QID. per hospitalist, restart augmentin for perioral abscess. will need to F/U with oral surgeon, [facility] has already made the referral. 05/18: various somatic complaints. start Mg supplementation. do NOT increase klonopin dosing. titrate methadone up as tolerated. sedated mid-morning 05/18, dosing for 05/19 not increased from the present 55 mg daily. 05/19 continue current tx. hospitalist consult for hip pain -although chronic per pt with no prior follow up. 10/17: continues overtly sedated variably throughout the day. c/o opioid withdrawal despite lack of objective symptoms and signs. restart COWS for quantitative approach. continue current mgmt. 05/21: COWS 5 yesterday afternoon. increase methadone by 5 mg daily to 60 mg daily as of today. otherwise continue current mgmt. 05/22 methadone 65 mg daily. Rest the same continue same treatment. 05/23 keep same treatment. Yesterday we put a hospitalist consult and today we are going to add an addiction medicine consult. 05/24: decrease methadone back to 60 mg daily due to continued oversedation throughout the day. decrease gabapentin from 800 QID to 600 QID for the same reason. Reason for continued inpatient stay Substantial Risk for: inability to function and rapid decompensation Time Spent With Patient Time: Total time managing care of this patient today __25__ minutes.
--- NOTE | 2024-05-24 15:48 | MHC.RECOVRN ---
Met with pt on M3 (sensory room) after receiving Addiction Medicine Consult for recovery resources. Pt reports prior to admission she was using heroin/fentanyl, 2 bundles daily, IV; cocaine, $100 daily, INH; alcohol, 6 24 ounce beers plus 1/2 pint vodka. Pt has been restarted on methadone, currently at 60 mg daily. Pt reports she had missed days at her [facility]TP prior to admission so was restarted here. Pt reports she had been comfortable with a split dose, 80 mg/50 mg. Pt reports her dose needs to be increased due to withdrawal. Pt does not appear to be experiencing withdrawal symptoms, appears comfortable. 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 Pt reports she has applications in to [employer], among others and has completed phone intakes. Pt reports she is advocating for placement upon discharge. Discussed other recovery resources and supports and provided written information. Pt denies other questions or concerns at this time. Provided with t/w contact information if needed. Discussed with Krys Awan APRN.
[2024-05-24 16:00] VITALS: PULSE 75
[2024-05-24 20:12] VITALS: BP 127/87; PULSE 74; RESP 16; TEMP 36.4; O2SAT 98
[2024-05-24] MEDS: Acetaminophen 325 MG TABLET 650 MG PO (20:47)
[2024-05-24] MEDS: Nicotine Polacrilex Lozenge 4 MG LOZENGE BUCCAL (20:47)
[2024-05-24] MEDS: cloNIDine HCL 0.2 MG TABLET PO (20:47)
[2024-05-24] MEDS: traZODone HCL 50 MG TABLET PO (20:47)
[2024-05-25] MEDS: Levothyroxine Sodium 125 MCG TABLET PO (06:34)
[2024-05-25] MEDS: methADONE HCl 20 MG/2 ML ORAL.CONC 60 MG PO (06:35)
[2024-05-25 08:00] VITALS: BP 115/66; PULSE 60; RESP 14; TEMP 36.8; O2SAT 95
[2024-05-25] MEDS: Magnesium Oxide 400 MG TABLET PO (08:47)
[2024-05-25] MEDS: Gabapentin 300 MG CAPSULE 600 MG PO ×2 (08:47→13:23)
[2024-05-25] MEDS: Amoxicillin/Potassium Clav 875 MG TABLET PO (08:47)
[2024-05-25] MEDS: Nicotine 21 MG PATCH.TD24 TRANSDERMA (08:47)
[2024-05-25] MEDS: buPROPion HCL 75 MG TABLET PO (08:47)
[2024-05-25] MEDS: clonazePAM 0.5 MG TABLET PO (09:00)
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
[2024-05-25] MEDS: Ibuprofen 400 MG TABLET PO (13:25)
== END 2024-05-25 14:45 | disposition home or self-care (01) | DRG 881 ==
LOC: HO.ED 16:16 → HO.PADLT16 17:21
PROVIDERS: Physician Assistant Medical; Student in an Organized Health Care Education/Training Program; Admitting Provider Psychiatry & Neurology Psychiatry; Emergency Provider Emergency Medicine; Visit Provider Psychiatry & Neurology Psychiatry
DX: F32.A Depression, unspecified (principal); U07.1 COVID-19; R45.851 Suicidal ideations; F11.20 Opioid dependence, uncomplicated; Z59.02 Unsheltered homelessness; F14.10 Cocaine abuse, uncomplicated; E06.3 Autoimmune thyroiditis; N18.30 Chronic kidney disease, stage 3 unspecified; F19.10 Other psychoactive substance abuse, uncomplicated; F17.210 Nicotine dependence, cigarettes, uncomplicated; Z91.51 Personal history of suicidal behavior; Z71.6 Tobacco abuse counseling; Z79.890 Hormone replacement therapy; Z79.899 Other long term (current) drug therapy
CPT/HCPCS: 0241U; 36415; 71045; 74176; 80053; 80307; 84436; 84439; 84443; 84702; 85025; 87635; 93005; 99285; J0651; S9485

== ENCOUNTER → 2024-05-13 04:08 | Outpatient (BNV) | payer MEDICARE, MEDICAID, SELFPAY | PROVIDERS: Emergency Provider Emergency Medicine; Visit Provider Internal Medicine Cardiovascular Disease | DX: R94.31 Abnormal electrocardiogram [ECG] [EKG] (principal) | CPT/HCPCS: 93010 ==

== ENCOUNTER → 2024-05-13 17:15 | Outpatient (BNV) | payer MEDICARE, MEDICAID, SELFPAY | PROVIDERS: Admitting Provider Psychiatry & Neurology Psychiatry; Emergency Provider Emergency Medicine; Visit Provider Student in an Organized Health Care Education/Training Program | DX: Z02.2 Encounter for examination for admission to residential institution (principal) | CPT/HCPCS: 99429; 99499 ==

== ENCOUNTER → 2024-05-13 17:15 | Outpatient (BNV) | payer MEDICARE, MEDICAID, SELFPAY | PROVIDERS: Admitting Provider Psychiatry & Neurology Psychiatry; Emergency Provider Emergency Medicine; Visit Provider Psychiatry & Neurology Psychiatry | DX: F32.2 Major depressive disorder, single episode, severe without psychotic features (principal); F14.10 Cocaine abuse, uncomplicated; F11.90 Opioid use, unspecified, uncomplicated; Z59.00 Homelessness unspecified | CPT/HCPCS: 90792; 99231; 99232; 99239 ==

== ENCOUNTER 2025-03-16 12:07 | Inpatient (IN) | payer MEDICARE, MEDICAID, SELFPAY ==
[2025-03-16] VITALS (8 sets, daily range): BP systolic 145–164; BP diastolic 91–105; PULSE 51–78; RESP 16–20; TEMP 37–37.1; O2SAT 85–98; BMI 24.6
--- NOTE | ~2025-03-16 | XR_ITS ---
EXAMINATION: XR CHEST CLINICAL INFORMATION: Cough, shortness of breath, R/O pneumonia COMPARISON: May 13, 2024 TECHNIQUE: Frontal view of the chest was obtained. FINDINGS: No hyperinflation. No consolidation, pleural effusion or pneumothorax. Cardiomediastinal silhouette size is normal. Osseous structures are grossly intact with limited field of view of the thoracic spine. XR/XR chest 1V IMPRESSION: No acute airspace disease. Stable chest. Electronically signed by: Luis Singh MD 03/16/2025 02:31 PM EDT
--- NOTE | ~2025-03-16 | CT_ITS ---
CLINICAL HISTORY: Hypoxia, chest pain, SOB, IV drug use CT ANGIOGRAPHY CHEST WITH CONTRAST. 3D POSTPROCESSING. Comparison: None provided Findings: The heart is normal size. RV/LV ratio is normal. Unremarkable thoracic aorta and great vessels. No aneurysm. No acute pulmonary embolus. The thyroid gland is not well-visualized and may be atrophic. No lymphadenopathy. Nonspecific [id number] gaseous distention of the esophagus. No significant wall thickening. There is bilateral central/paracentral and lower lobe bronchial wall thickening. No consolidation, pleural effusion or pneumothorax. There are dense parenchymal calcifications in the pancreas which can be seen with chronic pancreatitis. No acute fractures. IMPRESSION: 1. No pulmonary embolus. 2. Bronchial wall thickening, which can be seen with asthma, reactive airways process or viral illness. 3. No superimposed infiltrate or consolidation. This document has been electronically signed by: Candy Gross DO on 03/16/2025 19:51:04
--- NOTE | 2025-03-16 12:28 | ED_ITS ---
HPI - Psych General Chief Complaint: ETOH/Substance Use Stated Complaint: CP/SOB X2D,BENZO/HEROIN WITHDRAWAL PER EMS Time Seen by Provider: 03/16/25 12:19 Source: patient Mode of arrival: EMS Limitations: no limitations History of Present Illness ED Provider: Dr. Mc Cook HPI Narrative: 39-year-old female with a history of congestive heart failure, COPD, hypothyroidism, atrial fibrillation, heroin use disorder, alcohol use disorder, DTs, withdrawal seizures who presents emergency department for evaluation of opiate and alcohol withdrawal. Patient states that she has been injecting 40 bags of heroin per day. Her last dose was yesterday. She states that she has also drinks daily with her last drink being last night. She states she feels like she is ?dope sick?. She also states she feels like she is withdrawing from alcohol. Patient states she was in a methadone program but he has not received methadone in over a month. She states she would be interested in getting back into a methadone program. Patient states she is feeling suicidal and that she does not want to live anymore. She does not have a plan to kill herself. She states however she needs to go into the psychiatric service. Patient states that she was at the [facility] in [place] 1 month prior for SI and depression. She states she has had delirium tremors with the hallucinations and withdrawal seizures in the past. She believes that she may have had 2 seizures yesterday. While she was waiting to be seen in the emergency department, she became agitated and put her head down and ran into a wall. She did strike her head on the wall but had no loss of consciousness. Patient states she has been noncompliant with the medications however she did come to the emergency department with all of her medication bottles. Related Data Home Medications ?Medication ?Instructions ?Recorded ?Confirmed clonazepam 1 mg tablet 1 mg PO TID PRN anxiety corinna ck 03/17/25 03/17/25 clonidine HCl 0.2 mg tablet 0.2 mg PO TID PRN panic at tack 03/17/25 03/17/25 gabapentin 800 mg tablet 800 mg PO QID depressive dis order 03/17/25 03/17/25 Allergies Allergy/AdvReac Type Severity Reaction Status Date / Time sulfamethoxazole (From Allergy Hives Verified 03/16/25 12:19 Bactrim) trimethoprim (From Bactrim) Allergy Hives Verified 03/16/25 12:19 [facility] Social History Social History Alcohol intake: current Alcohol intake frequency: 3 or more drinks per day Alcohol type: beer and hard liquor Use of substances other than those prescribed or required for medical reasons: Yes Substance Use Type: Heroin Advance Directives: No Advance Directives Information Provided: No Physical Exam 2 Vital Signs: Vital Signs: Last Vital Signs Temp 98.7 F 03/16/25 16:03 Pulse 53 03/17/25 04:00 Resp 19 03/17/25 04:00 BP 136/94 H 03/17/25 04:22 Pulse Ox 90 L 03/17/25 04:00 O2 Del Method Nasal Cannula 03/17/25 04:00 O2 Flow Rate 4 03/17/25 04:00 BMI result Body Mass Index 24.6 Vital signs revealed an elevated blood pressure of 150/102 otherwise unremarkable Exam: General: Awake, agitated, diaphoretic, would not stay in the stretcher, disheveled Head: Normocephalic, atraumatic EENT: PERRL, Lids normal, sclera normal, conjunctiva normal, nose normal , ears normal, throat without erythema or exudates Neck: Supple, no adenopathy Lung: breath sounds symmetric, no wheezing, rales or rhonchi Chest: symmetric movement, nontender Heart: regular rate and rhythm, normal S1, S2 no murmurs or rubs Abdomen: soft, non-tender, nondistended, normal bowel sounds Back: no vertebral tenderness, no CVAT Extremities: no deformities, moves all extremities symmetrically Skin: Multiple track keith on her arms, no cellulitis Neuro: Awake, alert, oriented, normal speech, cranial nerves intact, moves all extremities symmetrically Psych: Agitated Medications Administered Generic Name Dose Route Start Last Admin Trade Name Freq PRN Reason Stop Dose Admin Acetaminophen 975 mg 03/16/25 21:22 03/16/25 22:06 Acetaminophen 325 Mg Tablet PO 975 mg Q6H PRN Administration Pain, Mild 1-3,fever,headache Potassium Chloride/Dextrose/Sod Cl 40 meq in 1,000 mls @ 150 mls/hr 03/16/25 22:00 03/16/25 22:22 Kcl 40 Meq In 5% Dex/0.9% Sod IVCONT 03/17/25 04:39 150 mls/hr .Q6H40M GREGOR Administration Ondansetron HCl 4 mg 03/16/25 21:53 03/16/25 22:06 Ondansetron Hcl 4 Mg/2 Ml Vial IVPUSH 4 mg Q6H PRN Administration Nausea and Vomiting Sodium Chloride 3 ml 03/17/25 00:00 03/17/25 00:01 0.9 % Sodium Chloride Flush 3 Ml Syringe IVFLUSH Not Given QSHIFT GREGOR Discontinued Medications Generic Name Dose Route Start Last Admin Trade Name Freq PRN Reason Stop Dose Admin Clonidine HCl 0.2 mg 03/16/25 18:15 03/16/25 18:20 Clonidine Hcl 0.2 Mg Tablet PO 03/16/25 18:16 0.2 mg ONCE ONE Administration Protocol Gabapentin 800 mg 03/16/25 17:51 03/16/25 17:59 Gabapentin 400 Mg Capsule PO 03/16/25 17:52 800 mg ONCE ONE Administration Lactated Ringer's 1,000 mls @ 150 mls/hr 03/16/25 21:30 03/16/25 22:40 Lr IVCONT 03/17/25 04:09 Infused .Q6H40M GREGOR Infusion Thiamine HCl 100 mg/ Sodium 101 mls @ 202 mls/hr 03/16/25 21:52 03/16/25 22:27 Chloride IV 03/16/25 22:21 Infused ONCE STA Infusion Iohexol 65 ml 03/16/25 19:12 03/16/25 19:13 Iohexol 350 Mg/Ml 100 Ml Infus..Btl IV 03/16/25 19:13 65 ml ONCE ONE Administration Levothyroxine Sodium 100 mcg 03/16/25 21:24 03/16/25 21:38 Levothyroxine Sodium 100 Mcg/5 Ml Vial IVPUSH 03/16/25 21:25 100 mcg ONCE STA Administration Methadone HCl 40 mg 03/16/25 12:28 03/16/25 12:38 Methadone Hcl 20 Mg/2 Ml Oral.Conc PO 03/16/25 12:29 40 mg ONCE ONE Administration Nicotine 21 mg 03/16/25 17:20 03/16/25 17:27 Nicotine 21 Mg Patch.Td24 TRANSDERMA 03/16/25 17:21 21 mg ONCE ONE Administration Medical Decision Making Medical Decision Making MDM Narrative: 39-year-old female with a history of congestive heart failure, COPD, hypothyroidism, atrial fibrillation, heroin use disorder, alcohol use disorder, DTs, withdrawal seizures who presents emergency department for evaluation of opiate and alcohol withdrawal. Patient states that she has been injecting 40 bags of heroin per day. Her last dose was yesterday. She states that she has also drinks daily with her last drink being last night. She states she feels like she is ?dope sick?. She also states she feels like she is withdrawing from alcohol. Patient states she was in a methadone program but he has not received methadone in over a month. She states she would be interested in getting back into a methadone program. Patient states she is feeling suicidal and that she does not want to live anymore. She does not have a plan to kill herself. She states however she needs to go into the psychiatric service. Patient states that she was at the [facility] in [place] 1 [place] prior for SI and depression. She states she has had delirium tremors with the hallucinations and withdrawal seizures in the past. She believes that she may have had 2 seizures yesterday. While she was waiting to be seen in the emergency department, she became agitated and put her head down and ran into a wall. She did strike her head on the wall but had no loss of consciousness. Vital signs revealed an elevated blood pressure. Patient was diaphoretic and agitated. The patient did have track keith on her arms but no evidence of cellulitis. Differential diagnosis: ?Includes but is not limited to opiate withdrawal, alcohol withdrawal, polysubstance use disorder, anxiety, depression, suicidal ideation, noncompliance with the medications Course: 16:03 Given the patient's daily heroin use, I did think that she was withdrawing from opiates therefore she was given methadone 40 mg orally here in the emergency department. This significantly improved the patient's symptoms and she has been resting comfortably. While the patient is sleeping her O2 saturation did drop to 88% and she was placed on 2 L of oxygen via nasal cannula with O2 saturations in the 92-96 range. My independent interpretation patient's laboratory evaluation is as follows: CBC was normal. Potassium was low 3.2. AST elevated 42. Alk-phos elevated 208. Magnesium was normal. Quantitative beta-hCG was below detectable limits. Chest x-ray revealed no acute disease. The patient is awake and alert. Drug screen urine is pending collection but the patient states she will give us a sample now. The patient is medically cleared and I will put in a care team/recovery team consult. I did add a TSH with reflex T4 to her blood work. 17:20 nursing staff reported that the patient had episodes of hypoxia with O2 saturation dropping below 88% therefore she was placed on oxygen 2 L via nasal cannula O2 saturation chest x-ray did not reveal any clear cause for her hypoxia therefore I or CT pulmonary angiogram PE protocol. 18:20 Patient was evaluated by the care team and met inpatient level of care. The patient told the care team that I don't want to live anymore and I feel I'ld be better of . Care Team recommended inpatient level of care bed, however the patient is not medically cleared yet pending CT pulmonary angiogram for persistent hypoxia. 20:21 Patient's TSH was high at 53.38 with undetectable T4, this is most likely secondary to her hypothyroidism and noncompliance with her medications. Patient's urine tox screen was positive for opiates, methadone, fentanyl, cocaine The patient's CT pulmonary angiogram did not reveal any acute findings except for bronchial wall thickening which does not explain her hypoxia. On room air the patient's O2 saturation dropped to 85%. Given this new hypoxia, I do not think that the patient can be medically cleared to be treated on an inpatient psychiatric service. therefore the patient for further workup of her hypoxia. I did inform the care team regarding the patient's requirement for inpatient medical evaluation prior to considering psychiatric admission. The patient will need to remain on a one-to-one observation on the medical service. Patient was placed on a Section 12. I did discuss admission with the covering hospitalist, Dr.Gomez De Paz and the patient will be admitted for further workup of her hypoxia. Admission/Observation Consideration of admission/observation: Escalation of care including admission/observation considered (Yes) Consult Healthcare Provider Management of the patient was discussed with: [employer] (Care team and recovery team) and Behavioral Health Provider Lab Data MDM Lab Attestation statement: I reviewed the patient's lab results. 03/16/25 13:29 03/16/25 13:29 Labs: Lab Results 03/16/25 03/16/25 03/16/25 Range/Units 13: 16:06 21:15 WBC 8.0 (4.8-10.8) X10*3/uL RBC 3.97 L (4.20-5.50) X10*6/uL Hgb 12.4 (12.0-16.0) g/dl Hct 37.1 (37.0-47.0) % MCV 93.5 (80.0-98.0) fL MCH 31.2 (27.0-33.0) pg MCHC 33.4 (31.0-35.0) g/dl RDW 13.3 (11.0-16.0) % Plt Count 215 (160-400) X10*3/uL MPV 9.4 (9.4-12.3) fL Immature Gran % (Auto) 0.4 (0.0-0.4) % Neut % (Auto) 72.6 (45-73) % Lymph % (Auto) 20.2 (20-40) % [place] % (Auto) 5.1 (2-11) % Eos % (Auto) 0.9 (0-4) % Baso % (Auto) 0.8 (0-2) % Lymph # (Auto) 1.6 (1.2-4.9) X10*3/uL [place] # (Auto) 0.4 (0.1-1.2) X10*3/uL Eos # (Auto) 0.1 (0.0-0.4) X10*3/uL Baso # (Auto) 0.1 (0.0-0.2) X10*3/uL Abs Immat Gran (auto) 0.03 (0.00-0.03) X10*3/uL Absolute Neuts (auto) 5.8 (2.0-8.3) x10*3/uL Absolute Nucleated RBC 0.000 (0.0-0.012) X10*3/uL Nucleated RBC % (auto) 0.0 (0.0-0.2) /100WBC VBG pH 7.51 H (7.32-7.43) VBG pCO2 44 mmHg VBG pO2 85 mmHg VBG HCO3 35 H (22-26) mmol/L VBG O2 Saturation 98.0 % VBG Base Excess 11.2 mmol/L Sodium 140 (135-145) mmol/L Potassium 3.2 L (3.3-5.1) mmol/L Chloride 99 (96-108) mmol/L Carbon Dioxide 25 (22-29) mmol/L Anion Gap 19 (12-20) BUN 11 (9-16) mg/dL Creatinine 1.04 (0.5-1.4) mg/dL Estim Creat Clear Calc 62.6 Estimated GFR 59 Random Glucose 99 (60-115) mg/dL Calcium 9.2 (8.4-10.2) mg/dL Magnesium 2.0 (1.6-2.6) mg/dL Total Bilirubin 0.4 (0.0-1.0) mg/dL AST 42 H (5-31) U/L ALT 21 (0-31) U/L Alkaline Phosphatase 208 H (39-117) U/L Total Protein 8.0 (6.5-8.0) g/dL Albumin 4.6 (3.5-5.0) g/dL Lipase 4 L (8-78) U/L TSH 53.38 H (0.32-4.0) uIU/mL Free T4 < 0.42 L (0.71-1.85) ng/dL Beta HCG, Quant < 2 mIU/mL Urine Opiates Screen POSITIVE H (Not Detect) Ur Buprenorphine Scrn Not Detected (Not Detect) ng/mL Ur Oxycodone Screen Not Detected (Not Detect) ng/mL Urine Methadone Screen Positive H (Not Detect) ng/mL Urine Fentanyl Screen POSITIVE H (Not Detect) Ur Barbiturates Screen Not Detected (Not Detect) Ur Phencyclidine Scrn Not Detected (Not Detect) Ur Amphetamines Screen Not Detected (Not Detect) U Benzodiazepines Scrn Not Detected (Not Detect) Urine Cocaine Screen POSITIVE H (Not Detect) U Marijuana (THC) Screen Not Detected (Not Detect) Ethyl Alcohol < 10 mg/dL Independent Interpretation I performed an independent interpretation of an: Plain X-Ray Interpretation: My independent interpretation patient's one-view chest x-ray is as follows: No acute disease Radiology Impression Discussion of test interpretation with radiology: I have reviewed the radiologist's reading. Radiologist Impression: XR chest 1V IMPRESSION: No acute airspace disease. Stable chest. Electronically signed by: Luis Singh MD 03/16/2025 02:[address] ANGIOGRAPHY CHEST WITH CONTRAST. 3D POSTPROCESSING. Comparison: None provided Findings: The heart is normal size. RV/LV ratio is normal. Unremarkable thoracic aorta and great vessels. No aneurysm. No acute pulmonary embolus. The thyroid gland is not well-visualized and may be atrophic. No lymphadenopathy. Nonspecific [id number] gaseous distention of the esophagus. No significant wall thickening. There is bilateral central/paracentral and lower lobe bronchial wall thickening. No consolidation, pleural effusion or pneumothorax. There are dense parenchymal calcifications in the pancreas which can be seen with chronic pancreatitis. No acute fractures. IMPRESSION: 1. No pulmonary embolus. 2. Bronchial wall thickening, which can be seen with asthma, reactive airways process or viral illness. 3. No superimposed infiltrate or consolidation. This document has been electronically signed by: Candy Gross DO on 03/16/2025 19:51:04 Chronic Conditions Patient?s care impacted by: Other (COPD, congestive heart failure, hypothyroidism, polysubstance use disorder) Critical Care Time Critical Care Time Critical Care Time: Yes Total Critical Care Time: 85 Attestation: Critical Care: The patient was critically ill with a high probability of imminent or life threatening deterioration. I spent greater than 30 minutes of discontinuous time evaluating the patient,delivering critical care at the bedside, discussing and evaluating pertinent data with consultants. Critical care time does not include time spent performing separately billable procedures or teaching. Total time spent performing critical care was 85 minutes. Discharge Plan Discharge Clinical Impression: Hypoxia, Opiate withdrawal, Cocaine use disorder, Suicidal ideation Hypothyroidism Qualifiers: Hypothyroidism type: unspecified Qualified Code(s): E03.9 - Hypothyroidism, unspecified Patient Disposition: Admitted As Inpatient
--- NOTE | 2025-03-16 12:29 | ECG_ITS ---
Test Reason : ETOH Blood Pressure : */* mmHG Vent. Rate : 64 BPM Atrial Rate : 64 BPM P-R Int : 170 ms QRS Dur : 94 ms QT Int : 402 ms P-R-T Axes : 47 31 35 degrees QTcB Int : 414 ms Normal sinus rhythm with sinus arrhythmia T wave abnormality, consider anterior ischemia Abnormal ECG No previous ECGs available Referred By: Mc Cook Electronically Signed By: Beto Biggs
[2025-03-16] MEDS: methADONE HCl 20 MG/2 ML ORAL.CONC 40 MG PO (12:38)
[2025-03-16 13:34] LABS: MANUAL DIFF FLAG NO
[2025-03-16 13:36] LABS: Hematocrit 37.1 % (37.0-47.0); Hemoglobin 12.4 g/dl (12.0-16.0); Imm Gran Abs Auto 0.03 X10*3/uL (0.00-0.03); Imm Gran Pct Auto 0.4 % (0.0-0.4); Lymphocytes Absolute Auto 1.6 X10*3/uL (1.2-4.9); Mean Corpuscular HGB Conc 33.4 g/dl (31.0-35.0); Mean Corpuscular Hemoglobin 31.2 pg (27.0-33.0); Mean Corpuscular Volume 93.5 fL (80.0-98.0); NRBC Abs Auto 0.000 X10*3/uL (0.0-0.012); NRBC Pct Auto 0.0 /100WBC (0.0-0.2); Platelet Count 215 X10*3/uL (160-400); Red Blood Count 3.97 X10*6/uL (4.20-5.50); White Blood Count 8.0 X10*3/uL (4.8-10.8)
[2025-03-16 13:55] LABS: Alanine Aminotransferase 21 U/L (0-31); Albumin Level 4.6 g/dL (3.5-5.0); Alkaline Phosphatase 208 U/L (39-117); Anion Gap 19 (12-20); Aspartate Amino Transferase 42 U/L (5-31); Blood Urea Nitrogen 11 mg/dL (9-16); Calcium 9.2 mg/dL (8.4-10.2); Carbon Dioxide 25 mmol/L (22-29); Chloride 99 mmol/L (96-108); Creatinine Clr Calc Pharmacy 62.6; Estimated Glomerular Filt Rate 59; Lipase 4 U/L (8-78); Magnesium 2.0 mg/dL (1.6-2.6); Potassium 3.2 mmol/L (3.3-5.1); Sodium 140 mmol/L (135-145); Total Protein 8.0 g/dL (6.5-8.0)
--- NOTE | 2025-03-16 14:07 | PC.NURSE ---
pt was hypoxic on RA while sleeping. Pt put on 2l NC with EtCO2 monitoring. Improvement to low 90s,
--- NOTE | 2025-03-16 16:12 | PC.NURSE ---
pt O2 level continues to dip when sleeping. plan to trial off O2 and get pt something to eat. Pt stating she has all over body pain
[2025-03-16 16:22] LABS: Cannabinoid Screen Urine Not Detected (Not Detect)
[2025-03-16] MEDS: Nicotine 21 MG PATCH.TD24 TRANSDERMA (17:27)
[2025-03-16 18:07] LABS: Free T4 (Free Thyroxine) < 0.42 ng/dL (0.71-1.85)
[2025-03-16] MEDS: iohexoL 350 MG/ML 100 ML INFUS..BTL 65 ML IV (19:13)
--- NOTE | 2025-03-16 20:21 | PC.NURSE ---
pt MD trial on room air, pt dropped to 85% while resting with eyes closed. placed back on 2L NC. back above 90%. primary RN made aware
[2025-03-16 21:19] LABS: Venous Blood Gas Refer to POC result
[2025-03-16 21:21] LABS: VBG HCO3 35 mmol/L (22-26); VBG O2 % Saturation 98.0 %
[2025-03-16] MEDS: Lactated Ringers 1,000 ML 150 ML IVCONT (21:38)
--- NOTE | 2025-03-16 21:41 | P.HPHOSP_ITS ---
History of Present Illness Date of Service: 03/16/25 Attending physician on admission: Man De Paz Chief Complaint: Withdrawal Delilah Calzada is a 39 years old woman with past medical history significant for hypothyroidism, polysubstance abuse/IVDU heroin, alcohol abuse presents to the emergency department for evaluation of opiate and alcohol withdrawal symptoms. It was very difficult to obtain the HPI the early from the patient since she was quite sedated after receiving treatment with gabapentin and methadone in the emergency department. According to ED provider patient drinks daily and injects 40 bags of heroin daily -last dose was yesterday. She was experiencing diaphoresis and agitation. Subsequently it was noted that her oxygen saturation dropped to 85% and currently is requiring 2 L/min supplemental oxygen via nasal cannula. It was also mentioned that the patient has a history of delirium tremens with a hallucination withdrawal seizures and that believed that she may have 2 seizures yesterday. In the ED, she was found to have stable vital signs except for low O2 saturation 85%. Blood workup showed no leukocytosis. Hemoglobin and platelets are normal. VBG shows pH of 7.51, pCO2 44 and HC03 35. There is mild hypokalemia, 3.1 but no other electrolyte imbalances. Renal function is normal. AST is 42, ALT 21 alk-phos 208 and normal bilirubin. Lipase is 4. TSH is 53.38 and free T4 < 0.42. Chest CTA showed no PE, bronchial wall thickening which can be seen with asthma, reactive airway process or viral illness. There are no superimposed infiltrates or consolidations. ECG showed normal sinus rhythm with sinus arrhythmia and nonspecific T-wave abnormalities. ED tx: Methadone 40 mg p.o., nicotine 20 mg transdermal Neurontin 800 mg and clonidine 0.2 mg p.o. Review of Systems 2 Review of Systems: Yes Unobtainable due to mental status PMFSH Social History Alcohol intake: current Alcohol intake frequency: 3 or more drinks per day Alcohol type: beer and hard liquor Use of substances other than those prescribed or required for medical reasons: Yes Substance Use Type: Heroin Advance Directives: No Advance Directives Information Provided: No Meds Allergies Allergy/AdvReac Type Severity Reaction Status Date / Time sulfamethoxazole (From Allergy Hives Verified 03/16/25 12:19 Bactrim) trimethoprim (From Bactrim) Allergy Hives Verified 03/16/25 12:19 Active Medications: Current Medications Acetaminophen (Acetaminophen 325 Mg Tablet) 975 mg PO Q6H PRN PRN Reason: Pain, Mild 1-3,fever,headache Calcium Carbonate (Calcium Carbonate 750 Mg Tab.Chew) 750 mg PO Q4H PRN PRN Reason: Heartburn Enoxaparin Sodium (Enoxaparin Sodium 40 Mg/0.4 Ml Syringe) 40 mg SUBCUT Q24H [facility] Lactated Ringer's (Lr) 1,000 mls @ 150 mls/hr IVCONT .Q6H40M [facility] Stop: 03/17/25 04:09 Last Admin: 03/16/25 21:38 Dose: 150 mls/hr Magnesium Hydroxide (Milk Of Magnesia 30 Ml Oral.Susp) 30 ml PO DAILY PRN PRN Reason: Constipation Sodium Chloride (0.9 % Sodium Chloride Flush 3 Ml Syringe) 3 ml IVFLUSH QSHIFT [facility] Physical Exam 2 Vital Signs and Narrative: Vital Signs: Last Vital Signs Temp 98.7 F 03/16/25 16:03 Pulse 60 03/16/25 16:03 Resp 16 03/16/25 16:03 BP 164/105 H 03/16/25 18:20 Pulse Ox 85 L 03/16/25 20:20 O2 Del Method Room Air 03/16/25 20:20 BMI result Body Mass Index 24.6 Constitutional - Lethargic. Sedated. HEENT - PER, normal oropharynx, moist oral mucosa. Heart - RRR, No murmurs. Lungs - Normal lung expansion, poor respiratory effort, No respiratory distress, CTA bilaterally Abdomen - NT / ND; +BS; No rebound or guarding Extremities - no calf tenderness bilaterally, no swelling Musculoskeletal - Normal inspection, normal ROM Skin - Warm/Dry Neurological - lethargic, awakes upon calling her name. No facial droop noted. Psychological - Appropriate affect Results Labs 03/16/25 13:29 03/16/25 13:29 Labs: Laboratory Results - last 24 hr 03/16/25 03/16/25 03/16/25 13:29 16:06 21:15 MCV 93.5 MCH 31.2 MCHC 33.4 RDW 13.3 Plt Count 215 MPV 9.4 Immature Gran % (Auto) 0.4 Neut % (Auto) 72.6 Lymph % (Auto) 20.2 [place] % (Auto) 5.1 Eos % (Auto) 0.9 Baso % (Auto) 0.8 Lymph # (Auto) 1.6 [place] # (Auto) 0.4 Eos # (Auto) 0.1 Baso # (Auto) 0.1 Abs Immat Gran (auto) 0.03 Absolute Neuts (auto) 5.8 Absolute Nucleated RBC 0.000 Nucleated RBC % (auto) 0.0 VBG pH 7.51 H VBG pCO2 44 VBG pO2 85 VBG HCO3 35 H VBG O2 Saturation 98.0 VBG Base Excess 11.2 Anion Gap 19 Estim Creat Clear Calc 62.6 Estimated GFR 59 Random Glucose 99 Calcium 9.2 Magnesium 2.0 Total Bilirubin 0.4 AST 42 H ALT 21 Alkaline Phosphatase 208 H Total Protein 8.0 Albumin 4.6 Lipase 4 L TSH 53.38 H Free T4 < 0.42 L Beta HCG, Quant < 2 Urine Opiates Screen POSITIVE H Ur Buprenorphine Scrn Not Detected Ur Oxycodone Screen Not Detected Urine Methadone Screen Positive H Urine Fentanyl Screen POSITIVE H Ur Barbiturates Screen Not Detected Ur Phencyclidine Scrn Not Detected Ur Amphetamines Screen Not Detected U Benzodiazepines Scrn Not Detected Urine Cocaine Screen POSITIVE H U Marijuana (THC) Screen Not Detected Ethyl Alcohol < 10 Imaging Radiologist's Impressions: Impressions Chest X-Ray 03/16/25 14:08 IMPRESSION: No acute airspace disease. Stable chest. Electronically signed by: Luis Singh MD 03/16/2025 02:31 PM EDT RP Assessment and Plan (1) Hypoxia: Status: Acute (2) Hypothyroidism: Qualifiers: Hypothyroidism type: unspecified Qualified Code(s): E03.9 - Hypothyroidism, unspecified Status: Acute (3) Opiate withdrawal: Status: Acute (4) Cocaine use disorder: Status: Acute (5) Suicidal ideation: Status: Acute Plan Delilah Calzada is a 39 y/o woman presents with: Lethargy and hypoxia due to medications --> hypoventilation. Aspiration precautions. NPO until mental status improves. Telemetry. Pulse oximetry. Continue supplemental O2 to keep O2 sats > 90%. Alcohol withdrawal syndrome. Alcohol abstinence. CIWA. Thiamine IV now. IV fluid with D5. Folic acid and multivitamins when able. Phenobarbital protocol as needed. Social work consult. Mild hypokalemia, secondary to above. IV KCl. Continue to monitor K level. Polysubstance abuse: Cocaine + heroin. Supportive therapy/symptom control. COWS q shift. Received methadone in ED. Addiction medicine consult. Suicide ideation. Observation one-to-one. Sectioned 12 by ED. Care team consult placed by ED. Elevated LFTs secondary to alcohol abuse. Continue to monitor. Check lipid panel. Overt hypothyroidism. Noncompliant with medications. Levothyroxine 100 mcg IV now then continue levothyroxine per home doses. Tobacco dependence. Tobacco cessation education. Nicotine patch. DVT prophylaxis: Lovenox Code status: Full Patient needs hospitalization for at least 2 midnights for hypoxia secondary to hypoventilation due to medications and continuous monitoring of symptoms and vital signs. Quality Stroke Does the patient have a stroke diagnosis?: No VTE Prior VTE?: No VTE Risk Level:: Medical - moderate - high VTE Device Contraindication: Treatment Not Indicated VTE Drug Contraindication: N/A - Med Ordered
--- NOTE | 2025-03-16 21:43 | PC.NURSE ---
pt medicated per HOLGER, sitter at bedside, CIWA at a 3.
[2025-03-16] MEDS: Thiamine HCL 100 MG in 0.9 % Sodium Chloride 100 ML 202 MG IV (22:07)
[2025-03-16] MEDS: KCl 40 mEq in 5% Dex/0.9% Sod 40 MEQ/1,000 ML IV.SOLN 150 MEQ IVCONT (22:22)
--- NOTE | 2025-03-16 22:41 | PC.NURSE ---
LR d/c per order, new fluids hung.
[2025-03-17] VITALS (8 sets, daily range): BP systolic 94–150; BP diastolic 66–97; PULSE 53–66; RESP 14–20; TEMP 36.8; O2SAT 90–95
--- NOTE | 2025-03-17 04:29 | PM.EVENT ---
Event Note Date of Service: 03/17/25 Event Note: Patient just workup and seems to be very agitated. Constantly requesting her home medications: Clonazepam, gabapentin and clonidine. She is also asking for food. Diet has been ordered. She was informed about the plan and aware that she has been sectioned 12. Time Spent With Patient Time: Total time managing care of this patient today ____ minutes.
[2025-03-17] MEDS: diazePAM 10 MG/2 ML CARTRIDGE 5 MG IVPUSH (04:55)
--- NOTE | 2025-03-17 04:59 | PC.NURSE ---
pt medicated per MAR.
--- NOTE | 2025-03-17 05:25 | PC.NURSE ---
pt medicated per mar.
--- NOTE | 2025-03-17 06:01 | PC.NURSE ---
pt b/p elevated (see vitals), provider Dr Chen advised.
--- NOTE | 2025-03-17 07:53 | PHA.MEDREC ---
Pharmacy Consult ? Medication Reconciliation Pharmacy has completed the medication reconciliation. Spoke to patient at bedside, she was drowsy but able to tell me her meds, she didn't really states the doses. There were only recent claims for Gabapentin and Clonazepam on PDMP. States she hasn't taken her meds in a couple of days.
[2025-03-17 08:32] LABS: MANUAL DIFF FLAG NO
[2025-03-17 08:33] LABS: Hematocrit 37.4 % (37.0-47.0); Hemoglobin 12.6 g/dl (12.0-16.0); Imm Gran Abs Auto 0.03 X10*3/uL (0.00-0.03); Imm Gran Pct Auto 0.3 % (0.0-0.4); Lymphocytes Absolute Auto 2.6 X10*3/uL (1.2-4.9); Mean Corpuscular HGB Conc 33.7 g/dl (31.0-35.0); Mean Corpuscular Hemoglobin 31.7 pg (27.0-33.0); Mean Corpuscular Volume 94.2 fL (80.0-98.0); NRBC Abs Auto 0.000 X10*3/uL (0.0-0.012); NRBC Pct Auto 0.0 /100WBC (0.0-0.2); Platelet Count 213 X10*3/uL (160-400); Red Blood Count 3.97 X10*6/uL (4.20-5.50); White Blood Count 10.7 X10*3/uL (4.8-10.8)
[2025-03-17] MEDS: methADONE HCl 20 MG/2 ML ORAL.CONC 40 MG PO (08:50)
[2025-03-17] MEDS: Nicotine 21 MG PATCH.TD24 TRANSDERMA (08:54)
[2025-03-17 08:57] LABS: Blood Urea Nitrogen 10 mg/dL (9-16); Calcium 8.5 mg/dL (8.4-10.2); Cholesterol 175 mg/dL (<200); Creatinine Clr Calc Pharmacy 54.3; Estimated Glomerular Filt Rate 50; HDL Cholesterol 59 mg/dL (>40); Triglycerides 89 mg/dL (<150)
[2025-03-17 09:08] LABS: Anion Gap 12 (12-20); Carbon Dioxide 28 mmol/L (22-29); Chloride 103 mmol/L (96-108); Potassium 3.8 mmol/L (3.3-5.1); Sodium 139 mmol/L (135-145)
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
[2025-03-17] MEDS: methADONE HCl 20 MG/2 ML ORAL.CONC 15 MG PO (10:16)
[2025-03-17] MEDS: 0.9 % Sodium Chloride Flush 3 ML SYRINGE IVFLUSH ×2 (10:20→16:33)
[2025-03-17 10:27] LABS: Reflex LDLD? No
--- NOTE | 2025-03-17 11:23 | P.PNIM_ITS ---
Subjective Subjective Date of Service: 03/17/25 Interval History: cough, sob Physical Exam 2 Exam: Exam: General: AO X 3, flat Resp: mild exp wheezes bilateral, no accessory muscles used CVS: S1,S2,RRR GI: soft, non tender, non distended Neuro: motor grossly intact, alert Psych: flat affect, appropriate insight Vital Signs: Vital Signs: Last Vital Signs Temp 98.3 F 03/17/25 05:59 Pulse 58 03/17/25 07:04 Resp 20 03/17/25 07:04 BP 94/66 03/17/25 07:04 Pulse Ox 95 03/17/25 07:04 O2 Del Method Nasal Cannula 03/17/25 07:04 O2 Flow Rate 2 03/17/25 07:04 BMI result Body Mass Index 24.6 Objective Data Active Medications Acetaminophen (Acetaminophen 325 Mg Tablet) 975 mg PO Q6H PRN PRN Reason: Pain, Mild 1-3,fever,headache Last Admin: 03/16/25 22:06 Dose: 975 mg Documented By: RENE Albuterol Sulfate (Albuterol Sulfate 90 Mcg 8 Gm Inhaler) 1 puff INHALE QID PRN PRN Reason: shortness of breath or wheezing Bupropion HCl (Bupropion Hcl 75 Mg Tablet) 75 mg PO DAILY [facility] Last Admin: 03/17/25 08:56 Dose: Not Given Documented By: CULLEN Non-Admin Reason: Patient Refused Calcium Carbonate (Calcium Carbonate 750 Mg Tab.Chew) 750 mg PO Q4H PRN PRN Reason: Heartburn Clonazepam (Clonazepam 1 Mg Tablet) 1 mg PO TID PRN PRN Reason: anxiety attack Last Admin: 03/17/25 08:57 Dose: 1 mg Documented By: CULLEN Clonidine HCl (Clonidine Hcl 0.2 Mg Tablet) 0.2 mg PO TID PRN; Protocol PRN Reason: panic attack Last Admin: 03/17/25 05:20 Dose: 0.2 mg Documented By: RENE Enoxaparin Sodium (Enoxaparin Sodium 40 Mg/0.4 Ml Syringe) 40 mg SUBCUT Q24H [facility] Last Admin: 03/17/25 08:55 Dose: Not Given Documented By: CULLEN Non-Admin Reason: Patient Refused Folic Acid (Folic Acid 1 Mg Tablet) 1 mg PO DAILY [facility] Last Admin: 03/17/25 08:51 Dose: 1 mg Documented By: CULLEN Gabapentin (Gabapentin 400 Mg Capsule) 800 mg PO QID [facility] Last Admin: 03/17/25 05:19 Dose: 800 mg Documented By: RENE Hydroxyzine HCl (Hydroxyzine Hcl 25 Mg Tablet) 25 mg PO BID PRN PRN Reason: Anxiety Last Admin: 03/17/25 08:57 Dose: 25 mg Documented By: CULLEN Levothyroxine Sodium (Levothyroxine Sodium 125 Mcg Tablet) 125 mcg PO DAILY@0600 [facility] Last Admin: 03/17/25 10:14 Dose: 125 mcg Documented By: CULLEN Magnesium Hydroxide (Milk Of Magnesia 30 Ml Oral.Susp) 30 ml PO DAILY PRN PRN Reason: Constipation Methadone HCl (Methadone Hcl 20 Mg/2 Ml Oral.Conc) 40 mg PO DAILY@0800 [facility] Last Admin: 03/17/25 08:50 Dose: 40 mg Documented By: CULLEN Co-signed By: ALESSIA Multivitamins/Vitamin C (Multivitamin Tablet) 1 tab PO DAILY [facility] Last Admin: 03/17/25 08:51 Dose: 1 tab Documented By: CULLEN Multivitamins/Vitamin C (Multivitamin Tablet) 1 tab PO DAILY [facility] Last Admin: 03/17/25 09:01 Dose: Not Given Documented By: CULLEN Non-Admin Reason: Duplicate Order Nicotine (Nicotine 21 Mg Patch.Td24) 21 mg TRANSDERMA DAILY [facility] Last Admin: 03/17/25 08:54 Dose: 21 mg Documented By: CULLEN Nicotine Polacrilex (Nicotine Polacrilex Lozenge 4 Mg Lozenge) 4 mg BUCCAL Q1H PRN PRN Reason: Nicotine Cravings Ondansetron HCl (Ondansetron Hcl 4 Mg/2 Ml Vial) 4 mg IVPUSH Q6H PRN PRN Reason: Nausea and Vomiting Last Admin: 03/16/25 22:06 Dose: 4 mg Documented By: RENE Sodium Chloride (0.9 % Sodium Chloride Flush 3 Ml Syringe) 3 ml IVFLUSH QSHIFT [facility] Last Admin: 03/17/25 10:20 Dose: 3 ml Documented By: CULLEN Trazodone HCl (Trazodone Hcl 50 Mg Tablet) 50 mg PO BEDTIME PRN PRN Reason: Insomnia Labs 03/17/25 08:20 03/17/25 08:20 Labs: Laboratory Results - last 24 hr 03/16/25 03/16/25 03/16/25 13:29 16:06 21:15 MCV 93.5 MCH 31.2 MCHC 33.4 RDW 13.3 Plt Count 215 MPV 9.4 Immature Gran % (Auto) 0.4 Neut % (Auto) 72.6 Lymph % (Auto) 20.2 [place] % (Auto) 5.1 Eos % (Auto) 0.9 Baso % (Auto) 0.8 Lymph # (Auto) 1.6 [place] # (Auto) 0.4 Eos # (Auto) 0.1 Baso # (Auto) 0.1 Abs Immat Gran (auto) 0.03 Absolute Neuts (auto) 5.8 Absolute Nucleated RBC 0.000 Nucleated RBC % (auto) 0.0 VBG pH 7.51 H VBG pCO2 44 VBG pO2 85 VBG HCO3 35 H VBG O2 Saturation 98.0 VBG Base Excess 11.2 Anion Gap 19 Estim Creat Clear Calc 62.6 Estimated GFR 59 Random Glucose 99 Calcium 9.2 Magnesium 2.0 Total Bilirubin 0.4 AST 42 H ALT 21 Alkaline Phosphatase 208 H Total Protein 8.0 Albumin 4.6 Triglycerides Cholesterol LDL Cholesterol, Calc HDL Cholesterol Lipase 4 L TSH 53.38 H Free T4 < 0.42 L Beta HCG, Quant < 2 Urine Opiates Screen POSITIVE H Ur Buprenorphine Scrn Not Detected Ur Oxycodone Screen Not Detected Urine Methadone Screen Positive H Urine Fentanyl Screen POSITIVE H Ur Barbiturates Screen Not Detected Ur Phencyclidine Scrn Not Detected Ur Amphetamines Screen Not Detected U Benzodiazepines Scrn Not Detected Urine Cocaine Screen POSITIVE H U Marijuana (THC) Screen Not Detected Ethyl Alcohol < 10 03/17/25 08:20 MCV 94.2 MCH 31.7 MCHC 33.7 RDW 13.3 Plt Count 213 MPV 9.9 Immature Gran % (Auto) 0.3 Neut % (Auto) 66.5 Lymph % (Auto) 24.6 [place] % (Auto) 4.3 Eos % (Auto) 3.8 Baso % (Auto) 0.5 Lymph # (Auto) 2.6 [place] # (Auto) 0.5 Eos # (Auto) 0.4 Baso # (Auto) 0.1 Abs Immat Gran (auto) 0.03 Absolute Neuts (auto) 7.1 Absolute Nucleated RBC 0.000 Nucleated RBC % (auto) 0.0 VBG pH VBG pCO2 VBG pO2 VBG HCO3 VBG O2 Saturation VBG Base Excess Anion Gap 12 Estim Creat Clear Calc 54.3 Estimated GFR 50 Random Glucose 97 Calcium 8.5 D Magnesium Total Bilirubin AST ALT Alkaline Phosphatase Total Protein Albumin Triglycerides 89 Cholesterol 175 LDL Cholesterol, Calc 99 HDL Cholesterol 59 Lipase TSH Free T4 Beta HCG, Quant Urine Opiates Screen Ur Buprenorphine Scrn Ur Oxycodone Screen Urine Methadone Screen Urine Fentanyl Screen Ur Barbiturates Screen Ur Phencyclidine Scrn Ur Amphetamines Screen U Benzodiazepines Scrn Urine Cocaine Screen U Marijuana (THC) Screen Ethyl Alcohol Assessment and Plan (1) Opiate withdrawal: Status: Acute Plan 39F PMH mood disorder, polysubstance dependence including IV drug use and alcohol, hypothyroid with noncompliance presented with shortness breath, cough, symptoms of withdrawal Acute bronchitis Prednisone, DuoNebs, doxy Polysubstance dependence with withdrawal Methadone, addiction eval Hypokalemia Acute, replace and monitor Suicide ideation Sectioned 12, care team prior to discharge Hypothyroid Due to noncompliance, restart levothyroxine DVT prophylaxis Lovenox Full Code reason for continued hospitalization: Withdrawal Quality Stroke Does the patient have a stroke diagnosis?: No VTE Prior VTE?: No VTE Risk Level:: Medical - moderate - high VTE Device Contraindication: Treatment Not Indicated VTE Drug Contraindication: N/A - Med Ordered
--- NOTE | 2025-03-17 12:32 | PC.NURSE ---
Pt with increase lethargy. VSS. Arouses to verbal stimuli. Will hold off on gabapentin for now. Plan of care ongoing.
--- NOTE | 2025-03-17 13:24 | PC.NURSE ---
1:1 at bedside, patient remains drowsy but arousable to verbal stimulation.
--- NOTE | 2025-03-17 14:22 | MHC.CM.PN ---
IMM 03/17/25, Pt. is homeless, she said she goes to [facility] in [facility] for PCP, she does not remember which provider. She has gone to [facility] in [place] for Methadone in the past, she was not currently going there, and she said she will be able to go back there. She said she is here looking to get into [facility] and from there a program. Pt. to be evaluated by Care team to help determine disposition. CM to follow for DC needs.
--- NOTE | 2025-03-17 19:30 | PC.NURSE ---
assumed care of pt, 1:1 present. Pt sleeping. Respirations even and unlabored.
--- NOTE | 2025-03-17 23:19 | PC.NURSE ---
02 dropped to 88 on RA, pt placed on 2 L nasal canula
--- NOTE | 2025-03-17 23:38 | PC.NURSE ---
pt medicated per OCT. pt extremely sleepy.
--- NOTE | 2025-03-17 23:50 | PC.NURSE ---
pt now placed on 4L as pt was not responding to 2 L, provider advised.
[2025-03-18] VITALS (8 sets, daily range): BP systolic 116–144; BP diastolic 79–99; PULSE 56–67; RESP 16–21; TEMP 36.2–36.8; O2SAT 84–95; BMI 28.0
--- NOTE | 2025-03-18 02:43 | PC.NURSE ---
pt sleeping, able to answer questions for CIWA and COWS, states mild anxiety and pain. Back to sleep immediately after questions finished. 1:1 at bedside
[2025-03-18] MEDS: 0.9 % Sodium Chloride Flush 3 ML SYRINGE IVFLUSH (03:22)
[2025-03-18 04:23] LABS: Anion Gap 16 (12-20); Blood Urea Nitrogen 18 mg/dL (9-16); Calcium 8.7 mg/dL (8.4-10.2); Carbon Dioxide 23 mmol/L (22-29); Chloride 100 mmol/L (96-108); Creatinine Clr Calc Pharmacy 62.1; Estimated Glomerular Filt Rate 58; Magnesium 2.2 mg/dL (1.6-2.6); Potassium 4.9 mmol/L (3.3-5.1); Sodium 134 mmol/L (135-145)
[2025-03-18 07:22] LABS: Hematocrit 36.8 % (37.0-47.0); Hemoglobin 11.8 g/dl (12.0-16.0); Mean Corpuscular HGB Conc 32.1 g/dl (31.0-35.0); Mean Corpuscular Hemoglobin 31.0 pg (27.0-33.0); Mean Corpuscular Volume 96.6 fL (80.0-98.0); NRBC Abs Auto 0.000 X10*3/uL (0.0-0.012); NRBC Pct Auto 0.0 /100WBC (0.0-0.2); Platelet Count 188 X10*3/uL (160-400); Red Blood Count 3.81 X10*6/uL (4.20-5.50); White Blood Count 8.1 X10*3/uL (4.8-10.8)
[2025-03-18 08:05] LABS: Hemoglobin A1C 115.9016 umol/L; Total Hemoglobin (HGBA1C) 3090.7831 umol/L
[2025-03-18] MEDS: methADONE HCl 20 MG/2 ML ORAL.CONC 50 MG PO (08:35)
[2025-03-18] MEDS: Nicotine 21 MG PATCH.TD24 TRANSDERMA (08:37)
--- NOTE | 2025-03-18 08:44 | PC.NURSE ---
Pt is awake, sitting up eating. Was arousable to light touch. skin PWD. nsr on monitor. Pt requesting PRN klonapin. speech clear. nad. sitter at bedside.
--- NOTE | 2025-03-18 09:02 | PC.NURSE ---
pt still endorses SI by stating goran suicidal given PRN klonapin at her request.
--- NOTE | 2025-03-18 11:13 | P.PNIM_ITS ---
Subjective Subjective Date of Service: 03/18/25 Review of Systems Review of Systems: Yes Unobtainable due to mental condition Physical Exam 2 Exam: Exam: General: AO X 3, flat Resp: mild exp wheezes bilateral, no accessory muscles used CVS: S1,S2,RRR GI: soft, non tender, non distended Neuro: motor grossly intact, alert Psych: flat affect, appropriate insight Vital Signs: Vital Signs: Last Vital Signs Temp 98.3 F 03/18/25 01:05 Pulse 60 03/18/25 01:05 Resp 17 03/18/25 01:05 BP 116/86 03/18/25 01:05 Pulse Ox 92 03/18/25 01:05 O2 Del Method Nasal Cannula 03/18/25 01:05 O2 Flow Rate 4 03/18/25 01:05 BMI result Body Mass Index 24.6 Objective Data Active Medications Acetaminophen (Acetaminophen 325 Mg Tablet) 975 mg PO Q6H PRN PRN Reason: Pain, Mild 1-3,fever,headache Last Admin: 03/16/25 22:06 Dose: 975 mg Documented By: RENE Albuterol Sulfate (Albuterol Sulfate 90 Mcg 8 Gm Inhaler) 1 puff INHALE QID PRN PRN Reason: shortness of breath or wheezing Albuterol/Ipratropium (Albuterol/Iprat 2.5/0.5mg 3 Ml Ampul.Neb) 3 ml INHALE RQ4H WHILE AWAKE PRN PRN Reason: sob Bupropion HCl (Bupropion Hcl 75 Mg Tablet) 75 mg PO DAILY [facility] Last Admin: 03/18/25 08:38 Dose: 75 mg Documented By: BEAR Calcium Carbonate (Calcium Carbonate 750 Mg Tab.Chew) 750 mg PO Q4H PRN PRN Reason: Heartburn Clonazepam (Clonazepam 1 Mg Tablet) 1 mg PO TID PRN PRN Reason: anxiety attack Last Admin: 03/18/25 09:00 Dose: 1 mg Documented By: BEAR Clonidine HCl (Clonidine Hcl 0.2 Mg Tablet) 0.2 mg PO TID PRN; Protocol PRN Reason: panic attack Last Admin: 03/17/25 22:04 Dose: 0.2 mg Documented By: RENE Doxycycline Monohydrate (Doxycycline Monohydrate 100 Mg Capsule) 100 mg PO Q12H [facility] Last Admin: 03/17/25 23:35 Dose: 100 mg Documented By: RENE Enoxaparin Sodium (Enoxaparin Sodium 40 Mg/0.4 Ml Syringe) 40 mg SUBCUT Q24H [facility] Last Admin: 03/18/25 08:39 Dose: Not Given Documented By: BEAR Non-Admin Reason: Patient Refused Folic Acid (Folic Acid 1 Mg Tablet) 1 mg PO DAILY [facility] Last Admin: 03/18/25 08:38 Dose: 1 mg Documented By: BEAR Gabapentin (Gabapentin 400 Mg Capsule) 800 mg PO QID [facility] Last Admin: 03/18/25 08:41 Dose: 800 mg Documented By: BEAR Hydroxyzine HCl (Hydroxyzine Hcl 25 Mg Tablet) 25 mg PO BID PRN PRN Reason: Anxiety Last Admin: 03/17/25 08:57 Dose: 25 mg Documented By: CULLEN Levothyroxine Sodium (Levothyroxine Sodium 125 Mcg Tablet) 125 mcg PO DAILY@0600 [facility] Last Admin: 03/18/25 06:15 Dose: 125 mcg Documented By: RENE Magnesium Hydroxide (Milk Of Magnesia 30 Ml Oral.Susp) 30 ml PO DAILY PRN PRN Reason: Constipation Methadone HCl (Methadone Hcl 20 Mg/2 Ml Oral.Conc) 50 mg PO DAILY@0800 [facility] Last Admin: 03/18/25 08:35 Dose: 50 mg Documented By: BEAR Co-signed By: ALDAIR Multivitamins/Vitamin C (Multivitamin Tablet) 1 tab PO DAILY [facility] Last Admin: 03/18/25 08:38 Dose: 1 tab Documented By: BEAR Multivitamins/Vitamin C (Multivitamin Tablet) 1 tab PO DAILY [facility] Last Admin: 03/18/25 08:39 Dose: Not Given Documented By: BEAR Non-Admin Reason: Duplicate Order Nicotine (Nicotine 21 Mg Patch.Td24) 21 mg TRANSDERMA DAILY [facility] Last Admin: 03/18/25 08:37 Dose: 21 mg Documented By: BEAR Nicotine Polacrilex (Nicotine Polacrilex Lozenge 4 Mg Lozenge) 4 mg BUCCAL Q1H PRN PRN Reason: Nicotine Cravings Ondansetron HCl (Ondansetron Hcl 4 Mg/2 Ml Vial) 4 mg IVPUSH Q6H PRN PRN Reason: Nausea and Vomiting Last Admin: 03/16/25 22:06 Dose: 4 mg Documented By: RENE Prednisone (Prednisone 20 Mg Tablet) 40 mg PO DAILY [facility] Last Admin: 03/18/25 08:38 Dose: 40 mg Documented By: BEAR Sodium Chloride (0.9 % Sodium Chloride Flush 3 Ml Syringe) 3 ml IVFLUSH QSHIFT [facility] Last Admin: 03/18/25 08:34 Dose: Not Given Documented By: BEAR Non-Admin Reason: Med Not Available Trazodone HCl (Trazodone Hcl 50 Mg Tablet) 50 mg PO BEDTIME PRN PRN Reason: Insomnia Last Admin: 03/17/25 22:04 Dose: 50 mg Documented By: RENE Labs 03/18/25 07:02 03/18/25 03:51 Labs: Laboratory Results - last 24 hr 03/18/25 03/18/25 03:51 07:02 MCV 96.6 MCH 31.0 MCHC 32.1 RDW 13.6 Plt Count 188 MPV 10.2 Absolute Nucleated RBC 0.000 Nucleated RBC % (auto) 0.0 Anion Gap 16 Estim Creat Clear Calc 62.1 Estimated GFR 58 Random Glucose 243 H Estimat Average Glucose 114 Hemoglobin A1c % 5.6 Calcium 8.7 Magnesium 2.2 Assessment and Plan (1) Opiate withdrawal: Status: Acute Plan 39F PMH mood disorder, polysubstance dependence including IV drug use and alcohol, hypothyroid with noncompliance presented with shortness breath, cough, symptoms of withdrawal acute hypoxic respiratory failure due to Acute bronchitis Prednisone, DuoNebs, doxy, wean o2 Polysubstance dependence with withdrawal Methadone, addiction eval Hypokalemia Acute, replace and monitor Suicide ideation Sectioned 12, care team prior to discharge Hypothyroid Due to noncompliance, restarted levothyroxine DVT prophylaxis Lovenox Full Code reason for continued hospitalization: Withdrawal Quality Stroke Does the patient have a stroke diagnosis?: No VTE Prior VTE?: No VTE Risk Level:: Medical - moderate - high VTE Device Contraindication: Treatment Not Indicated VTE Drug Contraindication: N/A - Med Ordered
--- NOTE | 2025-03-18 15:54 | PC.NURSE ---
Pt repeatedly removed O2. Drops to mid 80's while asleep.
--- NOTE | 2025-03-18 17:25 | MHC.RECOVRN ---
TW attempted to meet with pt several times today. On approach pt is obtunded, in no apparent distress, respirations are even and unlabored. PT has 1:1 staff at bedside who reports pt has remained sleeping for most of the day, only briefly waking to consume small portions of her meals. TW available for questions or concerns and to offer support & resources as needed ACS staff to attempt to meet with pt later in the day or tomorrow.
--- NOTE | 2025-03-18 18:40 | MHC.RECOVRN ---
TW met with pt in 457 for consult to Addiction Medicine for alcohol and opioid use and to offer support and resources. On approach pt was laying in bed w/ eyes closed. Pt awoke to name being called and was agreeable to meeting. Pt was initially pleasant but became increasingly agitated when her meal arrived as she reports It's not what I ordered . Pt also agitated when she explained her phone was missing. Her belongings were located at her bedside and she reports looking through them but stated, my phone isnt here, I looked already . Pt noted to be mildly tremulous and diaphoretic. She reports experiencing alcohol withdrawal symptoms of nausea, headache, crawling out of my skin and was visible anxious and irritable. Pt reports drinking alcohol since the age of 88 years old. She states she was most recently consuming 1-2 pinks of vodka daily and 5-6 22oz [employer]'s . 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 She reports she's has 2 previous overdoses requiring the use of Narcan. Pt states states she's had numerous lengths of abstinence from all substances and has attended AA and attended several programs including [facility], [facility], [facility] & [facility]. 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 Pt goes on to state her entire family, aunts, uncles, and 30+ cousins all have JOHN and she has suffered from delirium tremens and withdrawals seizures in the past. Pt's phone was locatedi n her belongings by her assigned nurse but taken from room as pt is currently on 1:1 for safety concerns. ACS team is available for further quetions, concerns, and support and will visit pt again in the morning for follow-up
[2025-03-18] MEDS: Nicotine Polacrilex Lozenge 4 MG LOZENGE BUCCAL (21:28)
[2025-03-19 08:00] VITALS: BP 130/87; PULSE 59; PULSE 67; RESP 16; TEMP 36.3; O2SAT 93
[2025-03-19 08:12] LABS: Hematocrit 35.2 % (37.0-47.0); Hemoglobin 11.3 g/dl (12.0-16.0); Mean Corpuscular HGB Conc 32.1 g/dl (31.0-35.0); Mean Corpuscular Hemoglobin 31.2 pg (27.0-33.0); Mean Corpuscular Volume 97.2 fL (80.0-98.0); NRBC Abs Auto 0.000 X10*3/uL (0.0-0.012); NRBC Pct Auto 0.0 /100WBC (0.0-0.2); Platelet Count 218 X10*3/uL (160-400); Red Blood Count 3.62 X10*6/uL (4.20-5.50); White Blood Count 12.0 X10*3/uL (4.8-10.8)
[2025-03-19] MEDS: methADONE HCl 20 MG/2 ML ORAL.CONC 50 MG PO (08:27)
[2025-03-19] MEDS: Nicotine 21 MG PATCH.TD24 TRANSDERMA (08:28)
[2025-03-19 08:43] LABS: Anion Gap 18 (12-20); Blood Urea Nitrogen 21 mg/dL (9-16); Calcium 9.1 mg/dL (8.4-10.2); Carbon Dioxide 28 mmol/L (22-29); Chloride 97 mmol/L (96-108); Creatinine Clr Calc Pharmacy 45.9; Estimated Glomerular Filt Rate 35; Potassium 3.7 mmol/L (3.3-5.1); Sodium 139 mmol/L (135-145)
--- NOTE | 2025-03-19 08:58 | P.PNIM_ITS ---
Subjective Subjective Date of Service: 03/19/25 Review of Systems Review of Systems: Yes Unobtainable due to mental condition Physical Exam 2 Exam: Exam: General: AO X 3, flat Resp: mild exp wheezes bilateral, no accessory muscles used CVS: S1,S2,RRR GI: soft, non tender, non distended Neuro: motor grossly intact, alert Psych: flat affect, appropriate insight Vital Signs: Vital Signs: Last Vital Signs Temp 97.4 F 03/19/25 08:00 Pulse 59 03/19/25 08:00 Resp 16 03/19/25 08:00 BP 130/87 03/19/25 08:00 Pulse Ox 93 03/19/25 08:00 O2 Del Method Room Air 03/19/25 08:00 O2 Flow Rate 2 03/18/25 20:00 BMI result Body Mass Index 28.0 Objective Data Active Medications Acetaminophen (Acetaminophen 325 Mg Tablet) 975 mg PO Q6H PRN PRN Reason: Pain, Mild 1-3,fever,headache Last Admin: 03/16/25 22:06 Dose: 975 mg Documented By: RENE Albuterol Sulfate (Albuterol Sulfate 90 Mcg 8 Gm Inhaler) 1 puff INHALE QID PRN PRN Reason: shortness of breath or wheezing Albuterol/Ipratropium (Albuterol/Iprat 2.5/0.5mg 3 Ml Ampul.Neb) 3 ml INHALE RQ4H WHILE AWAKE PRN PRN Reason: sob Bupropion HCl (Bupropion Hcl 75 Mg Tablet) 75 mg PO DAILY [facility] Last Admin: 03/19/25 08:27 Dose: 75 mg Documented By: TAMMI Calcium Carbonate (Calcium Carbonate 750 Mg Tab.Chew) 750 mg PO Q4H PRN PRN Reason: Heartburn Clonazepam (Clonazepam 1 Mg Tablet) 1 mg PO TID PRN PRN Reason: anxiety attack Last Admin: 03/19/25 06:35 Dose: 1 mg Documented By: ISAI Clonidine HCl (Clonidine Hcl 0.2 Mg Tablet) 0.2 mg PO TID PRN; Protocol PRN Reason: panic attack Last Admin: 03/19/25 08:30 Dose: 0.2 mg Documented By: TAMMI Doxycycline Monohydrate (Doxycycline Monohydrate 100 Mg Capsule) 100 mg PO Q12H [facility] Last Admin: 03/19/25 00:42 Dose: 100 mg Documented By: ISAI Enoxaparin Sodium (Enoxaparin Sodium 40 Mg/0.4 Ml Syringe) 40 mg SUBCUT Q24H [facility] Last Admin: 03/19/25 08:37 Dose: Not Given Documented By: TAMMI Non-Admin Reason: Patient Refused Folic Acid (Folic Acid 1 Mg Tablet) 1 mg PO DAILY [facility] Last Admin: 03/19/25 08:27 Dose: 1 mg Documented By: TAMMI Gabapentin (Gabapentin 400 Mg Capsule) 800 mg PO QID [facility] Last Admin: 03/19/25 08:27 Dose: 800 mg Documented By: TAMMI Hydroxyzine HCl (Hydroxyzine Hcl 25 Mg Tablet) 25 mg PO BID PRN PRN Reason: Anxiety Last Admin: 03/18/25 17:12 Dose: 25 mg Documented By: LAM Levothyroxine Sodium (Levothyroxine Sodium 125 Mcg Tablet) 125 mcg PO DAILY@0600 [facility] Last Admin: 03/19/25 06:35 Dose: 125 mcg Documented By: ISAI Magnesium Hydroxide (Milk Of Magnesia 30 Ml Oral.Susp) 30 ml PO DAILY PRN PRN Reason: Constipation Methadone HCl (Methadone Hcl 20 Mg/2 Ml Oral.Conc) 50 mg PO DAILY@0800 [facility] Last Admin: 03/19/25 08:27 Dose: 50 mg Documented By: TAMMI Co-signed By: PHILIPPE Methadone HCl (Methadone Hcl 20 Mg/2 Ml Oral.Conc) 10 mg PO DAILY PRN PRN Reason: Opiate Withdrawal Multivitamins/Vitamin C (Multivitamin Tablet) 1 tab PO DAILY [facility] Last Admin: 03/19/25 08:27 Dose: 1 tab Documented By: TAMMI Multivitamins/Vitamin C (Multivitamin Tablet) 1 tab PO DAILY [facility] Last Admin: 03/19/25 08:37 Dose: Not Given Documented By: TAMMI Non-Admin Reason: Duplicate Order Nicotine (Nicotine 21 Mg Patch.Td24) 21 mg TRANSDERMA DAILY [facility] Last Admin: 03/19/25 08:28 Dose: 21 mg Documented By: TAMMI Nicotine Polacrilex (Nicotine Polacrilex Lozenge 4 Mg Lozenge) 4 mg BUCCAL Q1H PRN PRN Reason: Nicotine Cravings Last Admin: 03/18/25 21:28 Dose: 4 mg Documented By: ISAI Ondansetron HCl (Ondansetron Hcl 4 Mg/2 Ml Vial) 4 mg IVPUSH Q6H PRN PRN Reason: Nausea and Vomiting Last Admin: 03/16/25 22:06 Dose: 4 mg Documented By: RENE Prednisone (Prednisone 20 Mg Tablet) 40 mg PO DAILY [facility] Last Admin: 03/19/25 08:27 Dose: 40 mg Documented By: TAMMI Sodium Chloride (0.9 % Sodium Chloride Flush 3 Ml Syringe) 3 ml IVFLUSH QSHIFT [facility] Last Admin: 03/19/25 08:36 Dose: Not Given Documented By: TAMMI Non-Admin Reason: No Access Trazodone HCl (Trazodone Hcl 50 Mg Tablet) 50 mg PO BEDTIME PRN PRN Reason: Insomnia Last Admin: 03/18/25 21:29 Dose: 50 mg Documented By: ISAI Labs 03/19/25 07:23 03/19/25 07:23 Labs: Laboratory Results - last 24 hr 03/19/25 07:23 MCV 97.2 MCH 31.2 MCHC 32.1 RDW 13.5 Plt Count 218 MPV 10.7 Absolute Nucleated RBC 0.000 Nucleated RBC % (auto) 0.0 Anion Gap 18 Estim Creat Clear Calc 45.9 Estimated GFR 35 Random Glucose 155 H Calcium 9.1 Assessment and Plan (1) Suicidal ideation: Status: Acute (2) Opiate withdrawal: Status: Acute Plan 39F PMH mood disorder, polysubstance dependence including IV drug use and alcohol, hypothyroid with noncompliance presented with shortness breath, cough, symptoms of withdrawal acute hypoxic respiratory failure due to Acute bronchitis Prednisone, DuoNebs, doxy, wean o2 trini will start ivf, monitor Polysubstance dependence with withdrawal Methadone, addiction eval Hypokalemia Acute, replace and monitor Suicide ideation Sectioned 12, care team prior to discharge Hypothyroid Due to noncompliance, restarted levothyroxine DVT prophylaxis Lovenox Full Code reason for continued hospitalization: trini Quality Stroke Does the patient have a stroke diagnosis?: No VTE Prior VTE?: No VTE Risk Level:: Medical - moderate - high VTE Device Contraindication: Treatment Not Indicated VTE Drug Contraindication: N/A - Med Ordered
[2025-03-19] MEDS: methADONE HCl 20 MG/2 ML ORAL.CONC 10 MG PO (10:54)
--- NOTE | 2025-03-19 11:29 | MHC.RECOVRN ---
Met with Delilah for follow-up. Pt was laying in bed calmly and 1:1 patient observer present d/t SI statements previously expressed. Pt is currently on 50mg of methadone daily and reported feeling that her dose is insufficient/requested a higher amount. She was informed that the Addiction Medicine provider Dora Awan had prescribed an additional 10mg PRN dose of methadone that she would have to request from her primary RN should she felt like she needed it. Pt verbalized understanding. Pt expressed that she wants to be admitted to [facility] ([facility]) and that she had a positive experience there in the past. Pt stated that she was told she may get a bed on [facility] on Friday. Pt was provided with recovery resources, educational materials, and a recovery workbook for support. Pt was receptive and engaged in discussion. No acute distress was noted. No other questions or concerns offered at this time. Will continue to monitor and follow up with pt as needed. Discussed with Dora Awan NP.
--- NOTE | 2025-03-19 11:40 | MHC.RECOVRN ---
Met with Delilah for follow-up. Pt was laying in bed calmly and 1:1 patient observer present d/t SI statements previously expressed. Pt is currently on 50mg of methadone daily and reported feeling that her dose is insufficient/requested a higher amount. Pt was informed that the Addiction Medicine provider Dora Awan had prescribed an additional 10mg PRN dose of methadone that she would have to request from her primary RN should she felt like she needed it. Pt verbalized understanding. Pt expressed that she wants to be admitted to [facility] ([facility]) and that she had a positive experience there in the past. Pt stated that she was told she may get a bed on [facility] on Friday. Pt was provided with recovery resources, educational materials, and a recovery workbook for support. Pt was receptive and engaged in discussion. No acute distress noted. No other questions or concerns offered at this time. Will continue to monitor and follow up with pt as needed. Discussed with Dora Awan NP.
[2025-03-19 12:00] VITALS: BP 153/99; PULSE 69; RESP 20; TEMP 36.2; O2SAT 96
[2025-03-19 15:34] VITALS: BP 140/92; PULSE 60; RESP 20; TEMP 36.3; O2SAT 96
[2025-03-19 16:45] VITALS: BP 154/68
[2025-03-19] MEDS: 0.9 % Sodium Chloride Flush 3 ML SYRINGE IVFLUSH (16:45)
--- NOTE | 2025-03-19 19:51 | PC.NURSE ---
Notified Overnight ROSA Felipe taking over care, the patient refused the 219 mg IM once dose of Phenobarbital.
[2025-03-19 21:19] VITALS: BP 160/99; PULSE 57; RESP 17; TEMP 36.9; O2SAT 94
[2025-03-19 21:20] VITALS: BP 160/99
[2025-03-19] MEDS: Nicotine Polacrilex Lozenge 4 MG LOZENGE BUCCAL (21:20)
[2025-03-19] MEDS: PHENobarbitaL sodium 130 MG/ML IM ONCE 219 MG IM (21:45)
[2025-03-20] VITALS: BP 157/95; PULSE 56; PULSE 68; RESP 18; TEMP 36.7; O2SAT 90
[2025-03-20] MEDS: 0.9 % Sodium Chloride Flush 3 ML SYRINGE IVFLUSH ×3 (00:26→20:43)
[2025-03-20] MEDS: PHENobarbitaL sodium 130 MG/ML VIAL IM Q3Hx2 164 MG IM ×2 (00:58→04:20)
[2025-03-20 03:05] VITALS: BP 115/77; PULSE 61; RESP 18; TEMP 36.4; O2SAT 96
[2025-03-20 07:30] VITALS: BP 140/82; PULSE 62; RESP 17; TEMP 36.3; O2SAT 98
[2025-03-20 07:52] LABS: Hematocrit 36.8 % (37.0-47.0); Hemoglobin 11.6 g/dl (12.0-16.0); Mean Corpuscular HGB Conc 31.5 g/dl (31.0-35.0); Mean Corpuscular Hemoglobin 30.9 pg (27.0-33.0); Mean Corpuscular Volume 98.1 fL (80.0-98.0); NRBC Abs Auto 0.000 X10*3/uL (0.0-0.012); NRBC Pct Auto 0.0 /100WBC (0.0-0.2); Platelet Count 227 X10*3/uL (160-400); Red Blood Count 3.75 X10*6/uL (4.20-5.50); White Blood Count 12.6 X10*3/uL (4.8-10.8)
[2025-03-20 08:13] LABS: Anion Gap 16 (12-20); Blood Urea Nitrogen 24 mg/dL (9-16); Calcium 9.2 mg/dL (8.4-10.2); Carbon Dioxide 25 mmol/L (22-29); Chloride 102 mmol/L (96-108); Creatinine Clr Calc Pharmacy 59.1; Estimated Glomerular Filt Rate 47; Potassium 3.9 mmol/L (3.3-5.1); Sodium 139 mmol/L (135-145)
[2025-03-20] MEDS: methADONE HCl 20 MG/2 ML ORAL.CONC 60 MG PO (08:41)
[2025-03-20] MEDS: Nicotine 21 MG PATCH.TD24 TRANSDERMA (08:44)
[2025-03-20 11:11] VITALS: BP 141/83; PULSE 63; RESP 18; TEMP 36.4; O2SAT 94
--- NOTE | 2025-03-20 11:16 | HO.PM.IMPN ---
Subjective Subjective Date of Service: 03/20/25 Interval History: non participatory Physical Exam Exam: Exam: General: AO X 3, no acute distress Resp: CTA bilateral, no accessory muscles used CVS: S1,S2,RRR GI: soft, non tender, non distended Neuro: motor grossly intact, alert Vital Signs: Vital Signs: Last Vital Signs Temp 97.5 F 03/20/25 11:11 Pulse 63 03/20/25 11:11 Resp 18 03/20/25 11:11 BP 141/83 H 03/20/25 11:11 Pulse Ox 94 03/20/25 11:11 O2 Del Method Room Air 03/20/25 11:11 O2 Flow Rate 2 03/18/25 20:00 BMI result Body Mass Index 28.0 Objective Data Active Medications Acetaminophen (Acetaminophen 325 Mg Tablet) 975 mg PO Q6H PRN PRN Reason: Pain, Mild 1-3,fever,headache Last Admin: 03/16/25 22:06 Dose: 975 mg Documented By: RENE Albuterol Sulfate (Albuterol Sulfate 90 Mcg 8 Gm Inhaler) 1 puff INHALE QID PRN PRN Reason: shortness of breath or wheezing Albuterol/Ipratropium (Albuterol/Iprat 2.5/0.5mg 3 Ml Ampul.Neb) 3 ml INHALE RQ4H WHILE AWAKE PRN PRN Reason: sob Bupropion HCl (Bupropion Hcl 75 Mg Tablet) 75 mg PO DAILY [facility] Last Admin: 03/20/25 08:41 Dose: 75 mg Documented By: LARISSA Calcium Carbonate (Calcium Carbonate 750 Mg Tab.Chew) 750 mg PO Q4H PRN PRN Reason: Heartburn Clonazepam (Clonazepam 1 Mg Tablet) 1 mg PO TID PRN PRN Reason: anxiety attack Last Admin: 03/19/25 21:21 Dose: 1 mg Documented By: ISAI Clonidine HCl (Clonidine Hcl 0.2 Mg Tablet) 0.2 mg PO TID PRN; Protocol PRN Reason: panic attack Last Admin: 03/19/25 21:20 Dose: 0.2 mg Documented By: ISAI Doxycycline Monohydrate (Doxycycline Monohydrate 100 Mg Capsule) 100 mg PO Q12H [facility] Last Admin: 03/20/25 00:26 Dose: 100 mg Documented By: ISAI Enoxaparin Sodium (Enoxaparin Sodium 40 Mg/0.4 Ml Syringe) 40 mg SUBCUT Q24H [facility] Last Admin: 03/20/25 08:55 Dose: Not Given Documented By: LARISSA Non-Admin Reason: Patient Refused Folic Acid (Folic Acid 1 Mg Tablet) 1 mg PO DAILY [facility] Last Admin: 03/20/25 08:43 Dose: 1 mg Documented By: LARISSA Gabapentin (Gabapentin 400 Mg Capsule) 800 mg PO QID [facility] Last Admin: 03/20/25 08:42 Dose: 800 mg Documented By: LARISSA Hydroxyzine HCl (Hydroxyzine Hcl 25 Mg Tablet) 25 mg PO BID PRN PRN Reason: Anxiety Last Admin: 03/20/25 01:03 Dose: 25 mg Documented By: ISAI Levothyroxine Sodium (Levothyroxine Sodium 125 Mcg Tablet) 125 mcg PO DAILY@0600 [facility] Last Admin: 03/20/25 05:59 Dose: 125 mcg Documented By: ISAI Magnesium Hydroxide (Milk Of Magnesia 30 Ml Oral.Susp) 30 ml PO DAILY PRN PRN Reason: Constipation Methadone HCl (Methadone Hcl 20 Mg/2 Ml Oral.Conc) 60 mg PO DAILY@0800 [facility] Last Admin: 03/20/25 08:41 Dose: 60 mg Documented By: LARISSA Co-signed By: PHILIPPE Methadone HCl (Methadone Hcl 20 Mg/2 Ml Oral.Conc) 10 mg PO DAILY@1600 [facility] Multivitamins/Vitamin C (Multivitamin Tablet) 1 tab PO DAILY [facility] Last Admin: 03/20/25 08:42 Dose: 1 tab Documented By: LARISSA Multivitamins/Vitamin C (Multivitamin Tablet) 1 tab PO DAILY [facility] Last Admin: 03/20/25 09:59 Dose: 1 tab Documented By: LARISSA Nicotine (Nicotine 21 Mg Patch.Td24) 21 mg TRANSDERMA DAILY [facility] Last Admin: 03/20/25 08:44 Dose: 21 mg Documented By: LARISSA Nicotine Polacrilex (Nicotine Polacrilex Lozenge 4 Mg Lozenge) 4 mg BUCCAL Q1H PRN PRN Reason: Nicotine Cravings Last Admin: 03/19/25 21:20 Dose: 4 mg Documented By: ISAI Ondansetron HCl (Ondansetron Hcl 4 Mg/2 Ml Vial) 4 mg IVPUSH Q6H PRN PRN Reason: Nausea and Vomiting Last Admin: 03/16/25 22:06 Dose: 4 mg Documented By: RENE Pharmacy Consult (Consult Rx Etoh Phenob Im/Po) 1 each MISCELLANE ONCE PRN; Protocol PRN Reason: Consult order Phenobarbital (Phenobarbital 15 Mg Tablet) 45 mg PO BID [facility]; Protocol Stop: 03/21/25 21:01 Last Admin: 03/20/25 08:42 Dose: 45 mg Documented By: LARISSA Phenobarbital (Phenobarbital 15 Mg Tablet) 15 mg PO BID [facility]; Protocol Stop: 03/23/25 21:01 Phenobarbital (Phenobarbital 15 Mg Tablet) 15 mg PO DAILY [facility]; Protocol Stop: 03/25/25 09:01 Prednisone (Prednisone 20 Mg Tablet) 40 mg PO DAILY [facility] Last Admin: 03/20/25 08:43 Dose: 40 mg Documented By: LARISSA Sodium Chloride (0.9 % Sodium Chloride Flush 3 Ml Syringe) 3 ml IVFLUSH QSHIFT [facility] Last Admin: 03/20/25 09:38 Dose: Not Given Documented By: LARISSA Non-Admin Reason: IV Running Trazodone HCl (Trazodone Hcl 50 Mg Tablet) 50 mg PO BEDTIME PRN PRN Reason: Insomnia Last Admin: 03/19/25 21:20 Dose: 50 mg Documented By: ISAI Labs 03/20/25 07:22 03/20/25 07:22 Labs: Laboratory Results - last 24 hr 03/20/25 07:22 MCV 98.1 H MCH 30.9 MCHC 31.5 RDW 13.4 Plt Count 227 MPV 10.3 Absolute Nucleated RBC 0.000 Nucleated RBC % (auto) 0.0 Anion Gap 16 Estim Creat Clear Calc 59.1 Estimated GFR 47 Random Glucose 163 H Calcium 9.2 Assessment and Plan (1) Suicidal ideation: Status: Acute (2) Opiate withdrawal: Status: Acute Plan 39F PMH mood disorder, polysubstance dependence including IV drug use and alcohol, hypothyroid with noncompliance presented with shortness breath, cough, symptoms of withdrawal acute hypoxic respiratory failure due to Acute bronchitis Prednisone, DuoNebs, doxy, now on room air trini Resolved with IV fluids Polysubstance dependence with withdrawal Methadone, addiction eval, phenobarb Hypokalemia Acute, replace and monitor Suicide ideation Sectioned 12, care team recommending inpatient psych Hypothyroid Due to noncompliance, restarted levothyroxine DVT prophylaxis Lovenox Full Code reason for continued hospitalization: Medically cleared awaiting for psych bed Quality Stroke Does the patient have a stroke diagnosis?: No VTE Prior VTE?: No VTE Risk Level:: Medical - moderate - high VTE Device Contraindication: Treatment Not Indicated VTE Drug Contraindication: N/A - Med Ordered
--- NOTE | 2025-03-20 15:12 | P.PNADD_ITS ---
Subjective Subjective Date of Service: 03/20/25 Reason For Visit: Hypoxia,opiate withdrawal Interim History: Patient seen in follow up for OUD and AUD Patient sleeping soundly when seen by this senior underwriter Per RN, patient has periods of being awake, irritable, somewhat demanding AM klonopin held due to level sedation observed --difficulty remaining awake while eating breakfast Review of Systems Constitutional: Reports as per HPI (patient sleeping--appeared comfortable) Mental Status Exam Mental Status Exam Level of Consciousness: Drowsy Diagnostics Vital Signs (24Hr): Vital Signs - 24 hr 03/19/25 15:34 03/19/25 16:45 03/19/25 21:19 Temperature 97.4 F 98.4 F Pulse Rate 60 57 Respiratory Rate 20 17 Blood Pressure 140/92 H 154/68 H 160/99 H Pulse Oximetry 96 94 Oxygen Delivery Method Room Air Room Air 03/19/25 21:20 03/20/25 00:00 03/20/25 03:05 Temperature 98.0 F 97.5 F Pulse Rate 56 61 Respiratory Rate 18 18 Blood Pressure 160/99 H 157/95 H 115/77 Pulse Oximetry 90 L 96 Oxygen Delivery Method Room Air Room Air 03/20/25 07:30 03/20/25 11:11 Temperature 97.3 F 97.5 F Pulse Rate 62 63 Respiratory Rate 17 18 Blood Pressure 140/82 H 141/83 H Pulse Oximetry 98 94 Oxygen Delivery Method Room Air Room Air BMI result Body Mass Index 28.0 Labs 03/20/25 07:22 03/20/25 07:22 Labs: Laboratory Results - last 48 hr 03/19/25 03/20/25 07:23 07:22 WBC 12.0 H 12.6 H RBC 3.62 L 3.75 L Hgb 11.3 L 11.6 L Hct 35.2 L 36.8 L MCV 97.2 98.1 H MCH 31.2 30.9 MCHC 32.1 31.5 RDW 13.5 13.4 Plt Count 218 227 MPV 10.7 10.3 Absolute Nucleated RBC 0.000 0.000 Nucleated RBC % (auto) 0.0 0.0 Sodium 139 139 Potassium 3.7 D 3.9 Chloride 97 102 Carbon Dioxide 28 25 Anion Gap 18 16 BUN 21 H 24 H Creatinine 1.62 H 1.26 Estim Creat Clear Calc 45.9 59.1 Estimated GFR 35 47 Random Glucose 155 H 163 H Calcium 9.1 9.2 Imaging Radiology Impressions: ITS Impressions Chest X-Ray 03/16/25 14:08 IMPRESSION: No acute airspace disease. Stable chest. Electronically signed by: Luis Singh MD 03/16/2025 02:31 PM EDT RP Medications Medications Current Medications Acetaminophen (Acetaminophen 325 Mg Tablet) 975 mg PO Q6H PRN PRN Reason: Pain, Mild 1-3,fever,headache Last Admin: 03/16/25 22:06 Dose: 975 mg Albuterol Sulfate (Albuterol Sulfate 90 Mcg 8 Gm Inhaler) 1 puff INHALE QID PRN PRN Reason: shortness of breath or wheezing Albuterol/Ipratropium (Albuterol/Iprat 2.5/0.5mg 3 Ml Ampul.Neb) 3 ml INHALE RQ4H WHILE AWAKE PRN PRN Reason: sob Bupropion HCl (Bupropion Hcl 75 Mg Tablet) 75 mg PO DAILY [facility] Last Admin: 03/20/25 08:41 Dose: 75 mg Calcium Carbonate (Calcium Carbonate 750 Mg Tab.Chew) 750 mg PO Q4H PRN PRN Reason: Heartburn Clonazepam (Clonazepam 1 Mg Tablet) 1 mg PO TID PRN PRN Reason: anxiety attack Last Admin: 03/19/25 21:21 Dose: 1 mg Clonidine HCl (Clonidine Hcl 0.2 Mg Tablet) 0.2 mg PO TID PRN; Protocol PRN Reason: panic attack Last Admin: 03/19/25 21:20 Dose: 0.2 mg Doxycycline Monohydrate (Doxycycline Monohydrate 100 Mg Capsule) 100 mg PO Q12H [facility] Last Admin: 03/20/25 12:57 Dose: 100 mg Enoxaparin Sodium (Enoxaparin Sodium 40 Mg/0.4 Ml Syringe) 40 mg SUBCUT Q24H [facility] Last Admin: 03/20/25 08:55 Dose: Not Given Folic Acid (Folic Acid 1 Mg Tablet) 1 mg PO DAILY [facility] Last Admin: 03/20/25 08:43 Dose: 1 mg Gabapentin (Gabapentin 400 Mg Capsule) 800 mg PO QID [facility] Last Admin: 03/20/25 15:08 Dose: Not Given Hydroxyzine HCl (Hydroxyzine Hcl 25 Mg Tablet) 25 mg PO BID PRN PRN Reason: Anxiety Last Admin: 03/20/25 01:03 Dose: 25 mg Levothyroxine Sodium (Levothyroxine Sodium 125 Mcg Tablet) 125 mcg PO DAILY@0600 [facility] Last Admin: 03/20/25 05:59 Dose: 125 mcg Magnesium Hydroxide (Milk Of Magnesia 30 Ml Oral.Susp) 30 ml PO DAILY PRN PRN Reason: Constipation Methadone HCl (Methadone Hcl 20 Mg/2 Ml Oral.Conc) 60 mg PO DAILY@0800 [facility] Last Admin: 03/20/25 08:41 Dose: 60 mg Methadone HCl (Methadone Hcl 20 Mg/2 Ml Oral.Conc) 10 mg PO DAILY@1600 [facility] Multivitamins/Vitamin C (Multivitamin Tablet) 1 tab PO DAILY [facility] Last Admin: 03/20/25 08:42 Dose: 1 tab Multivitamins/Vitamin C (Multivitamin Tablet) 1 tab PO DAILY [facility] Last Admin: 03/20/25 09:59 Dose: 1 tab Nicotine (Nicotine 21 Mg Patch.Td24) 21 mg TRANSDERMA DAILY [facility] Last Admin: 03/20/25 08:44 Dose: 21 mg Nicotine Polacrilex (Nicotine Polacrilex Lozenge 4 Mg Lozenge) 4 mg BUCCAL Q1H PRN PRN Reason: Nicotine Cravings Last Admin: 03/19/25 21:20 Dose: 4 mg Ondansetron HCl (Ondansetron Hcl 4 Mg/2 Ml Vial) 4 mg IVPUSH Q6H PRN PRN Reason: Nausea and Vomiting Last Admin: 03/16/25 22:06 Dose: 4 mg Pharmacy Consult (Consult Rx Etoh Phenob Im/Po) 1 each MISCELLANE ONCE PRN; Protocol PRN Reason: Consult order Phenobarbital (Phenobarbital 15 Mg Tablet) 45 mg PO BID [facility]; Protocol Stop: 03/21/25 21:01 Last Admin: 03/20/25 08:42 Dose: 45 mg Phenobarbital (Phenobarbital 15 Mg Tablet) 15 mg PO BID [facility]; Protocol Stop: 03/23/25 21:01 Phenobarbital (Phenobarbital 15 Mg Tablet) 15 mg PO DAILY [facility]; Protocol Stop: 03/25/25 09:01 Prednisone (Prednisone 20 Mg Tablet) 40 mg PO DAILY [facility] Last Admin: 03/20/25 08:43 Dose: 40 mg Sodium Chloride (0.9 % Sodium Chloride Flush 3 Ml Syringe) 3 ml IVFLUSH QSHIFT [facility] Last Admin: 03/20/25 09:38 Dose: Not Given Trazodone HCl (Trazodone Hcl 50 Mg Tablet) 50 mg PO BEDTIME PRN PRN Reason: Insomnia Last Admin: 03/19/25 21:20 Dose: 50 mg Allergies Allergies Allergy/AdvReac Type Severity Reaction Status Date / Time fish derived Allergy Hives Verified 03/17/25 06:55 shellfish derived Allergy Anaphylaxis Verified 03/17/25 06:55 sulfamethoxazole (From Allergy Hives Verified 03/17/25 06:55 Bactrim) trimethoprim (From Bactrim) Allergy Hives Verified 03/17/25 06:55 Assessment & Plan Assessment & Plan (1) Opioid use disorder: Status: Acute Code(s): F11.90 - Opioid use, unspecified, uncomplicated Assessment and Plan: * methadone 50mg AM and 10mg late afternoon ---home dosing was previously 75mg AM and 25mg evening * titration to continue as tolerated by patient * pending admission Total time managing care of this patient today _15___ minutes.
[2025-03-20 15:35] VITALS: BP 141/89; PULSE 65; RESP 19; TEMP 36.4; O2SAT 93
[2025-03-20 20:00] VITALS: BP 143/98; PULSE 61; RESP 16; TEMP 36.3; O2SAT 92
[2025-03-21] VITALS: BP 158/110; PULSE 59; RESP 18; TEMP 36.3; O2SAT 98
[2025-03-21 04:00] VITALS: BP 158/100; PULSE 69; RESP 18; TEMP 36.8; O2SAT 97
[2025-03-21] MEDS: methADONE HCl 20 MG/2 ML ORAL.CONC 60 MG PO (05:29)
[2025-03-21 07:12] VITALS: BP 160/100; PULSE 58; RESP 20; TEMP 36.4; O2SAT 94
[2025-03-21 08:00] VITALS: BP 137/84; PULSE 61
[2025-03-21] MEDS: Nicotine 21 MG PATCH.TD24 TRANSDERMA (09:55)
[2025-03-21] MEDS: 0.9 % Sodium Chloride Flush 3 ML SYRINGE IVFLUSH (09:57)
[2025-03-21 10:23] VITALS: PULSE 61
--- NOTE | 2025-03-21 10:27 | P.PNIM_ITS ---
Subjective Subjective Date of Service: 03/21/25 Interval History: non participatory Physical Exam 2 Exam: Exam: General: AO X 3, no acute distress Resp: CTA bilateral, no accessory muscles used CVS: S1,S2,RRR GI: soft, non tender, non distended Neuro: motor grossly intact, alert Vital Signs: Vital Signs: Last Vital Signs Temp 97.5 F 03/21/25 07:12 Pulse 58 03/21/25 07:12 Resp 20 03/21/25 07:12 BP 160/100 H 03/21/25 07:12 Pulse Ox 94 03/21/25 07:12 O2 Del Method Room Air 03/21/25 07:12 O2 Flow Rate 2 03/18/25 20:00 BMI result Body Mass Index 28.0 Objective Data Active Medications Acetaminophen (Acetaminophen 325 Mg Tablet) 975 mg PO Q6H PRN PRN Reason: Pain, Mild 1-3,fever,headache Last Admin: 03/21/25 04:00 Dose: 975 mg Documented By: SEEMA Albuterol Sulfate (Albuterol Sulfate 90 Mcg 8 Gm Inhaler) 1 puff INHALE QID PRN PRN Reason: shortness of breath or wheezing Albuterol/Ipratropium (Albuterol/Iprat 2.5/0.5mg 3 Ml Ampul.Neb) 3 ml INHALE RQ4H WHILE AWAKE PRN PRN Reason: sob Bupropion HCl (Bupropion Hcl 75 Mg Tablet) 75 mg PO DAILY [facility] Last Admin: 03/21/25 09:48 Dose: Not Given Documented By: LANA Non-Admin Reason: Patient Refused Calcium Carbonate (Calcium Carbonate 750 Mg Tab.Chew) 750 mg PO Q4H PRN PRN Reason: Heartburn Clonazepam (Clonazepam 1 Mg Tablet) 1 mg PO TID PRN PRN Reason: anxiety attack Last Admin: 03/20/25 20:40 Dose: 1 mg Documented By: SEEMA Clonidine HCl (Clonidine Hcl 0.2 Mg Tablet) 0.2 mg PO TID PRN; Protocol PRN Reason: panic attack Last Admin: 03/20/25 20:41 Dose: 0.2 mg Documented By: SEEMA Doxycycline Monohydrate (Doxycycline Monohydrate 100 Mg Capsule) 100 mg PO Q12H [facility] Last Admin: 03/21/25 01:15 Dose: Not Given Documented By: SEEMA Non-Admin Reason: Patient Refused Enoxaparin Sodium (Enoxaparin Sodium 40 Mg/0.4 Ml Syringe) 40 mg SUBCUT Q24H [facility] Last Admin: 03/21/25 09:59 Dose: Not Given Documented By: LANA Non-Admin Reason: Patient Refused Folic Acid (Folic Acid 1 Mg Tablet) 1 mg PO DAILY [facility] Last Admin: 03/21/25 09:48 Dose: 1 mg Documented By: LANA Gabapentin (Gabapentin 400 Mg Capsule) 800 mg PO QID [facility] Last Admin: 03/21/25 09:48 Dose: 800 mg Documented By: LANA Hydroxyzine HCl (Hydroxyzine Hcl 25 Mg Tablet) 25 mg PO BID PRN PRN Reason: Anxiety Last Admin: 03/20/25 01:03 Dose: 25 mg Documented By: ISAI Levothyroxine Sodium (Levothyroxine Sodium 125 Mcg Tablet) 125 mcg PO DAILY@0600 [facility] Last Admin: 03/21/25 04:01 Dose: 125 mcg Documented By: SEEMA Magnesium Hydroxide (Milk Of Magnesia 30 Ml Oral.Susp) 30 ml PO DAILY PRN PRN Reason: Constipation Methadone HCl (Methadone Hcl 20 Mg/2 Ml Oral.Conc) 60 mg PO DAILY@0800 [facility] Last Admin: 03/21/25 05:29 Dose: 60 mg Documented By: SEEMA Co-signed By: JEYSON Comments: PT. REQUESTING METHADONE NOW; STATES HAS BODY/JOINTS ACHING. PER DR. HILARIO GIVE NOW. 05/13 PER PT. METHADONE WILL HELP . Methadone HCl (Methadone Hcl 20 Mg/2 Ml Oral.Conc) 10 mg PO DAILY@1600 [facility] Last Admin: 03/20/25 17:12 Dose: Not Given Documented By: LARISSA Non-Admin Reason: Patient Asleep Multivitamins/Vitamin C (Multivitamin Tablet) 1 tab PO DAILY [facility] Last Admin: 03/21/25 09:48 Dose: 1 tab Documented By: LANA Multivitamins/Vitamin C (Multivitamin Tablet) 1 tab PO DAILY [facility] Last Admin: 03/21/25 09:52 Dose: Not Given Documented By: LANA Non-Admin Reason: Duplicate Order Nicotine (Nicotine 21 Mg Patch.Td24) 21 mg TRANSDERMA DAILY [facility] Last Admin: 03/21/25 09:55 Dose: 21 mg Documented By: LANA Nicotine Polacrilex (Nicotine Polacrilex Lozenge 4 Mg Lozenge) 4 mg BUCCAL Q1H PRN PRN Reason: Nicotine Cravings Last Admin: 03/19/25 21:20 Dose: 4 mg Documented By: ISAI Ondansetron HCl (Ondansetron Hcl 4 Mg/2 Ml Vial) 4 mg IVPUSH Q6H PRN PRN Reason: Nausea and Vomiting Last Admin: 03/16/25 22:06 Dose: 4 mg Documented By: RENE Pharmacy Consult (Consult Rx Etoh Phenob Im/Po) 1 each MISCELLANE ONCE PRN; Protocol PRN Reason: Consult order Phenobarbital (Phenobarbital 15 Mg Tablet) 45 mg PO BID [facility]; Protocol Stop: 03/21/25 21:01 Last Admin: 03/21/25 09:51 Dose: 45 mg Documented By: LANA Phenobarbital (Phenobarbital 15 Mg Tablet) 15 mg PO BID [facility]; Protocol Stop: 03/23/25 21:01 Phenobarbital (Phenobarbital 15 Mg Tablet) 15 mg PO DAILY [facility]; Protocol Stop: 03/25/25 09:01 Prednisone (Prednisone 20 Mg Tablet) 40 mg PO DAILY [facility] Last Admin: 03/21/25 09:48 Dose: 40 mg Documented By: LANA Sodium Chloride (0.9 % Sodium Chloride Flush 3 Ml Syringe) 3 ml IVFLUSH QSHIFT [facility] Last Admin: 03/21/25 09:57 Dose: 3 ml Documented By: LANA Trazodone HCl (Trazodone Hcl 50 Mg Tablet) 50 mg PO BEDTIME PRN PRN Reason: Insomnia Last Admin: 03/19/25 21:20 Dose: 50 mg Documented By: ISAI Labs 03/20/25 07:22 03/20/25 07:22 Assessment and Plan (1) Suicidal ideation: Status: Acute (2) Opiate withdrawal: Status: Acute Plan 39F PMH mood disorder, polysubstance dependence including IV drug use and alcohol, hypothyroid with noncompliance presented with shortness breath, cough, symptoms of withdrawal acute hypoxic respiratory failure due to Acute bronchitis Prednisone, DuoNebs, doxy, now on room air trini Resolved with IV fluids Polysubstance dependence with withdrawal Methadone, addiction eval, phenobarb Hypokalemia Acute, replace and monitor Suicide ideation Sectioned 12, care team recommending inpatient psych Hypothyroid Due to noncompliance, restarted levothyroxine DVT prophylaxis Lovenox Full Code reason for continued hospitalization: Medically cleared awaiting for psych bed Quality Stroke Does the patient have a stroke diagnosis?: No VTE Prior VTE?: No VTE Risk Level:: Medical - moderate - high VTE Device Contraindication: Treatment Not Indicated VTE Drug Contraindication: N/A - Med Ordered
--- NOTE | 2025-03-21 10:27 | PC.NURSE ---
Patient sitting up in chair - falling asleep mid-conversation and sentences, sitting up in chair. Insisted to patient to lay in bed, but patient refused at this time. Patient requesting Clonazepam, but due to sleepiness nursing is holding at this time. 1:[address]
[2025-03-21 11:11] VITALS: BP 123/84; PULSE 66; RESP 18; TEMP 36.7; O2SAT 95
--- NOTE | 2025-03-21 12:05 | MHC.CM.PN ---
Addendum entered by Adrianne Lees 03/21/25 12:56: Patient is medically cleared for dc to [facility]. CM attempted to meet with Patient at bedside but she was sound asleep; IMM was left at bedside. Original Note: Per ROUNDS discussion, Patient is medically cleared for dc, pending the availability of an [facility] bed. CM will follow.
--- NOTE | 2025-03-21 12:42 | PM.DS ---
DS: Providers Provider Date of Service: 03/21/25 Date of admission: 03/16/25 21:22 Date of discharge: 03/21/25 Primary care physician: Unknown Physician Consults: 03/16/25 16:01 ED CARE Team Crisis Consult Stat Comment: Reason for consultation: Polysubstance use, SI, opiate withdrawal, given methadone 40 mg orally ED Recovery Team Consult Stat Comment: Reason for consultation: Polysubstance use, SI, opiate withdrawal, given methadone 40 mg orally 03/16/25 22:15 Addiction Medicine Provider Routine Consulting Provider: Addiction Covering Reason for consultation: Alcohol and heroin abuse Has provider been notified: No 03/18/25 17:22 Addiction Medicine Provider Routine Consulting Provider: Addiction Covering Reason for consultation: alcohol drug withdrawel 03/19/25 14:28 Inpt CARE Team Crisis Consult Routine Comment: Reason for consultation: medically cleared, SI DS: Diagnosis Discharge Diagnosis (1) Suicidal ideation: Status: Acute (2) Opiate withdrawal: Status: Acute DS: Summary Hospital Course Hospital Course: from initial hpi: 39 years old woman with past medical history significant for hypothyroidism, polysubstance abuse/IVDU heroin, alcohol abuse presents to the emergency department for evaluation of opiate and alcohol withdrawal symptoms. It was very difficult to obtain the HPI the early from the patient since she was quite sedated after receiving treatment with gabapentin and methadone in the emergency department. According to ED provider patient drinks daily and injects 40 bags of heroin daily -last dose was yesterday. She was experiencing diaphoresis and agitation. Subsequently it was noted that her oxygen saturation dropped to 85% and currently is requiring 2 L/min supplemental oxygen via nasal cannula. It was also mentioned that the patient has a history of delirium tremens with a hallucination withdrawal seizures and that believed that she may have 2 seizures yesterday. In the ED, she was found to have stable vital signs except for low O2 saturation 85%. Blood workup showed no leukocytosis. Hemoglobin and platelets are normal. VBG shows pH of 7.51, pCO2 44 and HC03 35. There is mild hypokalemia, 3.1 but no other electrolyte imbalances. Renal function is normal. AST is 42, ALT 21 alk-phos 208 and normal bilirubin. Lipase is 4. TSH is 53.38 and free T4 < 0.42. Chest CTA showed no PE, bronchial wall thickening which can be seen with asthma, reactive airway process or viral illness. There are no superimposed infiltrates or consolidations. ECG showed normal sinus rhythm with sinus arrhythmia and nonspecific T-wave abnormalities. ED tx: Methadone 40 mg p.o., nicotine 20 mg transdermal Neurontin 800 mg and clonidine 0.2 mg p.o. hospital course: Patient was admitted for acute hypoxic respiratory failure due to acute bronchitis. Was treated prednisone DuoNebs and doxycycline and was weaned to room air feeling much better will be discharged on 2 more days of prednisone and doxycycline. Course complicated by acute kidney injury which resolved with IV fluids. For polysubstance dependence with withdrawal was treated with methadone and phenobarbital protocol. Patient is no longer in withdrawal. For acute hypokalemia received replacement. For suicide ideation was admitted under section 12 was seen by care team who recommended inpatient psychiatric admission to which patient will be discharged. For hypothyroid patient noted to have elevated TSH due to noncompliance. She has been restarted on levothyroxine and TSH should be repeated in 3 weeks. Time Attestation Discharge Coordination Time (in mins): 37 Quality: Safe Use of Opioids Does Pt have an Active Cancer Diagnosis on the Problem List?: No Quality: Stroke Does the patient have a stroke diagnosis?: No Physical Exam Exam: Exam: General: AO X 3, no acute distress Resp: CTA bilateral, no accessory muscles used CVS: S1,S2,RRR GI: soft, non tender, non distended Neuro: motor grossly intact, alert Vital Signs: Vital Signs: Last Vital Signs Temp 98.0 F 03/21/25 11:11 Pulse 66 03/21/25 11:11 Resp 18 03/21/25 11:11 BP 123/84 03/21/25 11:11 Pulse Ox 95 03/21/25 11:11 O2 Del Method Room Air 03/21/25 11:11 O2 Flow Rate 2 03/18/25 20:00 BMI result Body Mass Index 28.0 Discharge Plan Discharge Anticipated Discharge Date/Time: 03/21/25 12:37 Patient Disposition: Xfer Psychiatric Hosp Discharge Diagnosis: bronchitis, si Referrals: [facility] [Other] - 1 Week Physician,Unknown J [Primary Care Provider, Medical] - 1 Week Discharge Medications: New multivitamin [Daily-Boris] Tablet 1 tab PO DAILY Qty: 0 0RF prednisone 20 mg Tablet 40 mg PO DAILY 2 Days Qty: 4 0RF doxycycline monohydrate 100 mg Capsule 100 mg PO Q12H 2 Days Qty: 0 0RF folic acid 1 mg Tablet 1 mg PO DAILY Qty: 0 0RF gabapentin 400 mg Capsule 400 mg PO QID Qty: 90 0RF Continued clonazepam 1 mg tablet 1 mg PO TID PRN (Reason: anxiety attack) gabapentin 800 mg tablet 800 mg PO QID clonidine HCl 0.2 mg tablet 0.2 mg PO TID PRN (Reason: panic attack) levothyroxine 125 mcg tablet 125 mcg PO DAILY@0600 ibuprofen 600 mg tablet 600 mg PO TID PRN (Reason: fever or pain) Qty: 20 0RF nicotine 21 mg/24 hr Patch 24 Hour 21 mg transdermal DAILY 28 Days Qty: 28 0RF nicotine (polacrilex) 4 mg Lozenge 4 mg buccal Q1H PRN (Reason: Nicotine Cravings) 30 Days Qty: 108 0RF methadone [Methadose] 10 mg/mL Concentrate 60 mg PO DAILY@0600 Qty: 0 0RF Rx Instructions: Partial Fill upon patient request. albuterol sulfate 90 mcg/actuation HFA aerosol inhaler 1 inh inhalation QID PRN (Reason: shortness of breath or wheezing) 30 Days Qty: 6.7 0RF trazodone 50 mg Tablet 50 mg PO BEDTIME PRN (Reason: Insomnia) 30 Days Qty: 30 0RF vitamin B complex Capsule 1 cap PO DAILY 30 Days Qty: 30 0RF bupropion HCl 75 mg tablet 75 mg PO DAILY 30 Days Qty: 30 0RF hydroxyzine HCl 25 mg tablet 25 mg PO BID PRN (Reason: anxiety) 30 Days Qty: 60 0RF Discharge Orders: Discharge Order (Routine); Ordered 03/21/25 Ordered By: Paco Garduno Diet: Advance to usual diet Activity on Discharge: As tolerated Stand Alone Forms: Patient Portal Discharge page Print Language: Nigerien Care Plan Goals: recovery Health Concerns: bronchitis, si Plan of Treatment: 2 more days prednisone, doxy Assessment: see above
--- NOTE | 2025-03-21 13:31 | P.PNADD_ITS ---
Subjective Subjective Date of Service: 03/21/25 Reason For Visit: Hypoxia,opiate withdrawal Interim History: Patient seen in follow up Wakes briefly, then falls back to sleep Nursing documentation reviewed --patient continues to present as sedated Review of Systems Medical Review of Systems: unchanged Mental Status Exam Mental Status Exam Level of Consciousness: Drowsy and Sedated Diagnostics Vital Signs (24Hr): Vital Signs - 24 hr 03/20/25 15:35 03/20/25 20:00 03/21/25 00:00 Temperature 97.5 F 97.3 F 97.3 F Pulse Rate 65 61 59 Respiratory Rate 19 16 18 Blood Pressure 141/89 H 143/98 H 158/110 H Pulse Oximetry 93 92 98 Oxygen Delivery Method Room Air Room Air Room Air 03/21/25 04:00 03/21/25 07:12 03/21/25 08:00 Temperature 98.2 F 97.5 F Pulse Rate 69 58 61 Respiratory Rate 18 20 Blood Pressure 158/100 H 160/100 H 137/84 Pulse Oximetry 97 94 Oxygen Delivery Method Room Air Room Air 03/21/25 11:11 Temperature 98.0 F Pulse Rate 66 Respiratory Rate 18 Blood Pressure 123/84 Pulse Oximetry 95 Oxygen Delivery Method Room Air BMI result Body Mass Index 28.0 Labs 03/20/25 07:22 03/20/25 07:22 Labs: Laboratory Results - last 48 hr 03/20/25 07:22 WBC 12.6 H RBC 3.75 L Hgb 11.6 L Hct 36.8 L MCV 98.1 H MCH 30.9 MCHC 31.5 RDW 13.4 Plt Count 227 MPV 10.3 Absolute Nucleated RBC 0.000 Nucleated RBC % (auto) 0.0 Sodium 139 Potassium 3.9 Chloride 102 Carbon Dioxide 25 Anion Gap 16 BUN 24 H Creatinine 1.26 Estim Creat Clear Calc 59.1 Estimated GFR 47 Random Glucose 163 H Calcium 9.2 Imaging Radiology Impressions: ITS Impressions Chest X-Ray 03/16/25 14:08 IMPRESSION: No acute airspace disease. Stable chest. Electronically signed by: Luis Singh MD 03/16/2025 02:31 PM EDT Medications Medications Current Medications Acetaminophen (Acetaminophen 325 Mg Tablet) 975 mg PO Q6H PRN PRN Reason: Pain, Mild 1-3,fever,headache Last Admin: 03/21/25 04:00 Dose: 975 mg Albuterol Sulfate (Albuterol Sulfate 90 Mcg 8 Gm Inhaler) 1 puff INHALE QID PRN PRN Reason: shortness of breath or wheezing Albuterol/Ipratropium (Albuterol/Iprat 2.5/0.5mg 3 Ml Ampul.Neb) 3 ml INHALE RQ4H WHILE AWAKE PRN PRN Reason: sob Bupropion HCl (Bupropion Hcl 75 Mg Tablet) 75 mg PO DAILY [facility] Last Admin: 03/21/25 09:48 Dose: Not Given Calcium Carbonate (Calcium Carbonate 750 Mg Tab.Chew) 750 mg PO Q4H PRN PRN Reason: Heartburn Clonazepam (Clonazepam 1 Mg Tablet) 1 mg PO TID PRN PRN Reason: anxiety attack Last Admin: 03/20/25 20:40 Dose: 1 mg Clonidine HCl (Clonidine Hcl 0.2 Mg Tablet) 0.2 mg PO TID PRN; Protocol PRN Reason: panic attack Last Admin: 03/20/25 20:41 Dose: 0.2 mg Doxycycline Monohydrate (Doxycycline Monohydrate 100 Mg Capsule) 100 mg PO Q12H [facility] Last Admin: 03/21/25 13:02 Dose: 100 mg Enoxaparin Sodium (Enoxaparin Sodium 40 Mg/0.4 Ml Syringe) 40 mg SUBCUT Q24H [facility] Last Admin: 03/21/25 09:59 Dose: Not Given Folic Acid (Folic Acid 1 Mg Tablet) 1 mg PO DAILY [facility] Last Admin: 03/21/25 09:48 Dose: 1 mg Gabapentin (Gabapentin 400 Mg Capsule) 800 mg PO QID [facility] Last Admin: 03/21/25 13:02 Dose: 800 mg Hydroxyzine HCl (Hydroxyzine Hcl 25 Mg Tablet) 25 mg PO BID PRN PRN Reason: Anxiety Last Admin: 03/20/25 01:03 Dose: 25 mg Levothyroxine Sodium (Levothyroxine Sodium 125 Mcg Tablet) 125 mcg PO DAILY@0600 [facility] Last Admin: 03/21/25 04:01 Dose: 125 mcg Magnesium Hydroxide (Milk Of Magnesia 30 Ml Oral.Susp) 30 ml PO DAILY PRN PRN Reason: Constipation Methadone HCl (Methadone Hcl 20 Mg/2 Ml Oral.Conc) 60 mg PO DAILY@0800 [facility] Last Admin: 03/21/25 05:29 Dose: 60 mg Methadone HCl (Methadone Hcl 20 Mg/2 Ml Oral.Conc) 10 mg PO DAILY@1600 [facility] Last Admin: 03/20/25 17:12 Dose: Not Given Multivitamins/Vitamin C (Multivitamin Tablet) 1 tab PO DAILY [facility] Last Admin: 03/21/25 09:48 Dose: 1 tab Multivitamins/Vitamin C (Multivitamin Tablet) 1 tab PO DAILY [facility] Last Admin: 03/21/25 09:52 Dose: Not Given Nicotine (Nicotine 21 Mg Patch.Td24) 21 mg TRANSDERMA DAILY [facility] Last Admin: 03/21/25 09:55 Dose: 21 mg Nicotine Polacrilex (Nicotine Polacrilex Lozenge 4 Mg Lozenge) 4 mg BUCCAL Q1H PRN PRN Reason: Nicotine Cravings Last Admin: 03/19/25 21:20 Dose: 4 mg Ondansetron HCl (Ondansetron Hcl 4 Mg/2 Ml Vial) 4 mg IVPUSH Q6H PRN PRN Reason: Nausea and Vomiting Last Admin: 03/16/25 22:06 Dose: 4 mg Pharmacy Consult (Consult Rx Etoh Phenob Im/Po) 1 each MISCELLANE ONCE PRN; Protocol PRN Reason: Consult order Phenobarbital (Phenobarbital 15 Mg Tablet) 45 mg PO BID [facility]; Protocol Stop: 03/21/25 21:01 Last Admin: 03/21/25 09:51 Dose: 45 mg Phenobarbital (Phenobarbital 15 Mg Tablet) 15 mg PO BID [facility]; Protocol Stop: 03/23/25 21:01 Phenobarbital (Phenobarbital 15 Mg Tablet) 15 mg PO DAILY [facility]; Protocol Stop: 03/25/25 09:01 Prednisone (Prednisone 20 Mg Tablet) 40 mg PO DAILY [facility] Last Admin: 03/21/25 09:48 Dose: 40 mg Sodium Chloride (0.9 % Sodium Chloride Flush 3 Ml Syringe) 3 ml IVFLUSH QSHIFT [facility] Last Admin: 03/21/25 09:57 Dose: 3 ml Trazodone HCl (Trazodone Hcl 50 Mg Tablet) 50 mg PO BEDTIME PRN PRN Reason: Insomnia Last Admin: 03/19/25 21:20 Dose: 50 mg Allergies Allergies Allergy/AdvReac Type Severity Reaction Status Date / Time fish derived Allergy Hives Verified 03/17/25 06:55 shellfish derived Allergy Anaphylaxis Verified 03/17/25 06:55 sulfamethoxazole (From Allergy Hives Verified 03/17/25 06:55 Bactrim) trimethoprim (From Bactrim) Allergy Hives Verified 03/17/25 06:55 Assessment & Plan Assessment & Plan (1) Opioid use disorder: Status: Acute Code(s): F11.90 - Opioid use, unspecified, uncomplicated Assessment and Plan: * no change to methadone dose * rec: decreasing gabapentin dose as it is currently 800mg QID Total time managing care of this patient today __15__ minutes.
--- NOTE | 2025-03-21 13:55 | PC.NURSE ---
Report given to ROSA Almonte for psychiatric unit via telephone.
--- NOTE | 2025-03-21 14:50 | PC.NURSE ---
PAtient being discharged to [facility] - IV removed - 3 bags of belongings from locker room handed to ROSA Almonte. Patient escorted off unit with [facility] staff.
== END 2025-03-21 14:54 | DRG 202 ==
LOC: HO.ED 20:34 → HO.EDOVER 22:12 → HO.IMC 03-18 15:59
PROVIDERS: Admitting Provider Internal Medicine; Emergency Provider Emergency Medicine Emergency Medical Services; Visit Provider Internal Medicine
DX: J20.9 Acute bronchitis, unspecified (principal); J96.01 Acute respiratory failure with hypoxia; F10.139 Alcohol abuse with withdrawal, unspecified; F11.20 Opioid dependence, uncomplicated; Z59.02 Unsheltered homelessness; R45.851 Suicidal ideations; N17.9 Acute kidney failure, unspecified; F19.239 Other psychoactive substance dependence with withdrawal, unspecified; N18.30 Chronic kidney disease, stage 3 unspecified; E87.6 Hypokalemia; E03.9 Hypothyroidism, unspecified; F17.210 Nicotine dependence, cigarettes, uncomplicated; Z71.6 Tobacco abuse counseling; Z91.148 Patient's other noncompliance with medication regimen for other reason; Z79.890 Hormone replacement therapy; Z79.899 Other long term (current) drug therapy
CPT/HCPCS: 36415; 71045; 71275; 80048; 80053; 80061; 80307; 82803; 83036; 83690; 83735; 84439; 84443; 84702; 85025; 85027; 93005; 99285; J0651; J1650; J2405; J2560; J3360; J3411; J3480; J7120; Q9967; S9485

== ENCOUNTER → 2025-03-16 12:29 | Outpatient (BNV) | payer MEDICARE, MEDICAID, SELFPAY | PROVIDERS: Admitting Provider Internal Medicine; Emergency Provider Emergency Medicine Emergency Medical Services; Visit Provider Internal Medicine Cardiovascular Disease | DX: I49.9 Cardiac arrhythmia, unspecified (principal) | CPT/HCPCS: 93010 ==

== ENCOUNTER → 2025-03-16 14:01 | Outpatient (BNV) | payer MEDICARE, MEDICAID, SELFPAY | PROVIDERS: Emergency Provider Emergency Medicine Emergency Medical Services; Visit Provider Radiology Diagnostic Radiology | DX: J45.909 Unspecified asthma, uncomplicated (principal); R05.9 Cough, unspecified | CPT/HCPCS: 71045 ==

== ENCOUNTER → 2025-03-16 21:22 | Outpatient (BNV) | payer MEDICARE, MEDICAID, SELFPAY | PROVIDERS: Admitting Provider Internal Medicine; Emergency Provider Emergency Medicine Emergency Medical Services; Visit Provider Internal Medicine | DX: R45.851 Suicidal ideations (principal); F11.93 Opioid use, unspecified with withdrawal; J96.01 Acute respiratory failure with hypoxia; J20.9 Acute bronchitis, unspecified | CPT/HCPCS: 99232 ==

== ENCOUNTER → 2025-03-16 21:22 | Outpatient (BNV) | payer MEDICARE, MEDICAID, SELFPAY | PROVIDERS: Admitting Provider Internal Medicine; Emergency Provider Emergency Medicine Emergency Medical Services; Visit Provider Nurse Practitioner Psychiatric/Mental Health | DX: F11.90 Opioid use, unspecified, uncomplicated (principal) | CPT/HCPCS: 99231 ==

== ENCOUNTER 2025-03-21 14:57 | Inpatient (IN) | payer MEDICARE, MEDICAID, SELFPAY ==
[2025-03-21 15:10] VITALS: BP 167/90; PULSE 67; RESP 18; TEMP 36.4; O2SAT 95
--- NOTE | 2025-03-21 18:27 | PC.ADMIT ---
Delilah comes to , on a CV, after being medically hospitalized on the [facility] for acute hypoxic respiratory failure, bronchitis, acute kidney injury & treatment of polysubstance withdrawal. She was brought in by EMS five days ago for evaluation/treatment of opiate & alcohol withdrawal. Delilah has an extensive medical history including hypothyroidism, CKD, CHF, COPD & withdrawal seizures. Today she is medically cleared and now admitted to for treatment of suicidal ideation. Delilah denies current SI/HI/AVH and is able to contract for safety here on the unit. She is A&O x 4, calm and cooperative with the admission process. Delilah is homeless & feeling hopeless, stating that she needs a program to become sober again, stating ?I was sober once for six years.? She endorses daily use of alcohol, cocaine & heroin. Skin check is remarkable for dry scaly feet with extremely thick, long toenails which are curling around into the skin. THESE NEED TO BE TAKEN CARE OF! Delilah states that she used to see a laboratory sampler & doesn?t have one anymore. She was oriented to the unit & placed on 15 min safety checks.
[2025-03-21] MEDS: methADONE HCl 20 MG/2 ML ORAL.CONC 10 MG PO (19:03)
[2025-03-21 20:09] VITALS: BP 176/106; PULSE 71; RESP 16; TEMP 37.1; O2SAT 97
[2025-03-21 20:52] VITALS: BP 176/104
[2025-03-21 21:16] VITALS: BP 176/106; PULSE 71; RESP 16; TEMP 37.1; O2SAT 98
[2025-03-22] MEDS: methADONE HCl 20 MG/2 ML ORAL.CONC 60 MG PO (05:07)
[2025-03-22 08:33] LABS: Hemoglobin A1C 121.0541 umol/L; Total Hemoglobin (HGBA1C) 3082.8318 umol/L
[2025-03-22] MEDS: Nicotine 21 MG PATCH.TD24 TRANSDERMA (08:39)
[2025-03-22 08:42] LABS: Alanine Aminotransferase 24 U/L (0-31); Albumin Level 4.2 g/dL (3.5-5.0); Alkaline Phosphatase 157 U/L (39-117); Anion Gap 14 (12-20); Aspartate Amino Transferase 23 U/L (5-31); Blood Urea Nitrogen 31 mg/dL (9-16); Calcium 8.8 mg/dL (8.4-10.2); Carbon Dioxide 29 mmol/L (22-29); Chloride 98 mmol/L (96-108); Cholesterol 183 mg/dL (<200); Estimated Glomerular Filt Rate 48; HDL Cholesterol 63 mg/dL (>40); Potassium 4.2 mmol/L (3.3-5.1); Sodium 137 mmol/L (135-145); Total Protein 7.4 g/dL (6.5-8.0); Triglycerides 318 mg/dL (<150)
[2025-03-22 08:46] VITALS: BP 134/96; PULSE 76; TEMP 36.9; O2SAT 97
[2025-03-22 09:37] LABS: Free T4 (Free Thyroxine) 0.54 ng/dL (0.71-1.85)
--- NOTE | 2025-03-22 10:13 | PM.EVENT ---
Event Note Date of Service: 03/22/25 Event Note: hypothyroid due to non compliance, has been restarted on levothryoxine, recheck in 3 weeks Time Spent With Patient Time: Total time managing care of this patient today ____ minutes.
[2025-03-22 12:04] VITALS: BP 143/86; PULSE 67; RESP 20; TEMP 36.8; O2SAT 98
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
[2025-03-22 16:00] VITALS: BP 162/86; PULSE 70; RESP 16; TEMP 36.6; O2SAT 96
--- NOTE | 2025-03-22 16:37 | PM.EVENT ---
Event Note Date of Service: 03/22/25 Event Note: Addiction follow up: Case discussed with attending provider on and chart reviewed -advised provider that recommendation was made to decrease gababpentin due level of sedation -noted that CIWA in place and PRN lorazepam ordered--patient completed pheno taper on medical floor. no need for lorazepam or CIWA. -no change to methadone dose at this time. can revisit once sedation improves. Time Spent With Patient Time: Total time managing care of this patient today ____ minutes.
[2025-03-22] MEDS: methADONE HCl 20 MG/2 ML ORAL.CONC 10 MG PO (17:01)
[2025-03-22 20:00] VITALS: BP 145/89; PULSE 73; RESP 16; TEMP 37.1; O2SAT 97
[2025-03-23] MEDS: methADONE HCl 20 MG/2 ML ORAL.CONC 60 MG PO (06:15)
[2025-03-23 08:47] VITALS: BP 147/90; PULSE 65; RESP 16; TEMP 36.3; O2SAT 94
[2025-03-23] MEDS: Nicotine 21 MG PATCH.TD24 TRANSDERMA (08:53)
--- NOTE | 2025-03-23 10:01 | HO.PSYCHPN ---
Subjective Subjective Date of Service: 03/23/25 Reason For Visit: SI Subjective Notes: Conditional Voluntary Healthcare Proxy: No Guardianship: No Medical Problems Affecting Mental Status: No Interim History: CIWA, Lorazepam discontinued. Pt is perseverative that she is detoxing from phenobarbital and needing lorazepam. Asks for Levoxyl, not syntrhoid and gabapentin tablet, not capsule, however, these are not available at this time per pharmacy discussion. Team reports she still appears somewhat overmedicated Several requests addressed by team Continue to allow pt time to clear. Medication Compliance: Yes Side effects from medications: Yes (believes she is in phenobarbital withdrawal) Attending Groups: Intermittent Review of Systems Medical Review of Systems: unchanged Review of Systems Review of Systems pt feels she continues to detox. We are cutting meds due to sedation and mild confusion Mental Status Exam Mental Status Exam Patient Appearance: Fatigued and Disheveled Patient Orientation: Person, Place, Time and Situation Level of Consciousness: Sedated and Alert Patient Behavior: Talkative, Cooperative, Anxious and Crying Mood Description: Sad Affect Description: Flat Patient Cognition Impaired: No Ability to Follow Directions: Good Speech Pattern: Spontaneous Speech Memory Description: Episodic Impaired Hallucinations: None Delusions: Not Present Perceptual Disturbances: Depersonalization and Derealization Thought Process: Rumination Thought Content: positive for Circumstantial, positive for Perseveration, positive for Tangential and positive for Suicidal Ideation (denies) Depressive Symptoms: Increased Anxiety, Diff. Making Decisions, Increased Irritability, Crying Spells, Unhappiness, Increased Fatigue, Thoughts of /Suicide (denies), Low Self Esteem and Loss of Energy Judgement: Poor Diagnostics Vital Signs (24Hr): Vital Signs - 24 hr 03/22/25 12:04 03/22/25 16:00 03/22/25 20:00 Temperature 98.2 F 98 F 98.8 F Pulse Rate 67 70 73 Respiratory Rate 20 16 16 Blood Pressure 143/86 H 162/86 H 145/89 H Pulse Oximetry 98 96 97 Oxygen Delivery Method Room Air Room Air Room Air 03/23/25 08:47 Temperature 97.3 F Pulse Rate 65 Respiratory Rate 16 Blood Pressure 147/90 H Pulse Oximetry 94 Oxygen Delivery Method Room Air Labs 03/22/25 07:56 Labs: Laboratory Results - last 48 hr 03/22/25 07:56 Sodium 137 Potassium 4.2 Chloride 98 Carbon Dioxide 29 Anion Gap 14 BUN 31 H Creatinine 1.25 Estim Creat Clear Calc TNP Estimated GFR 48 Random Glucose 77 Estimat Average Glucose 117 Hemoglobin A1c % 5.7 Calcium 8.8 Total Bilirubin 0.2 AST 23 ALT 24 Alkaline Phosphatase 157 H Total Protein 7.4 Albumin 4.2 Triglycerides 318 H Cholesterol 183 LDL Cholesterol, Calc 57 HDL Cholesterol 63 TSH > 100.00 H Free T4 0.54 L Medications Medications Current Medications Acetaminophen (Acetaminophen 325 Mg Tablet) 650 mg PO Q6H PRN PRN Reason: Headache/Pain, Scale 1-10 Al Hydroxide/Mg Hydroxide (Magnesium Hydrox/Alum Hydrox 30 Ml Oral.Susp) 30 ml PO Q6H PRN PRN Reason: Heartburn/Nausea Albuterol Sulfate (Albuterol Sulfate 90 Mcg 8 Gm Inhaler) 1 puff INHALE QID PRN PRN Reason: shortness of breath or wheezing Bupropion HCl (Bupropion Hcl 75 Mg Tablet) 75 mg PO DAILY [facility] Last Admin: 03/23/25 08:50 Dose: Not Given Clonazepam (Clonazepam 1 Mg Tablet) 1 mg PO TID PRN PRN Reason: anxiety attack Last Admin: 03/22/25 19:32 Dose: 1 mg Clonidine HCl (Clonidine Hcl 0.2 Mg Tablet) 0.2 mg PO TID PRN; Protocol PRN Reason: panic attack Last Admin: 03/21/25 20:52 Dose: 0.2 mg Doxycycline Monohydrate (Doxycycline Monohydrate 100 Mg Capsule) 100 mg PO Q12H [facility] Last Admin: 03/23/25 06:14 Dose: 100 mg Folic Acid (Folic Acid 1 Mg Tablet) 1 mg PO DAILY [facility] Last Admin: 03/23/25 08:51 Dose: 1 mg Gabapentin (Gabapentin 400 Mg Capsule) 800 mg PO QID [facility] Last Admin: 03/23/25 08:50 Dose: 800 mg Hydroxyzine HCl (Hydroxyzine Hcl 25 Mg Tablet) 25 mg PO Q6H PRN PRN Reason: mild anxiety Hydroxyzine HCl (Hydroxyzine Hcl 25 Mg Tablet) 25 mg PO BID PRN PRN Reason: Anxiety Ibuprofen (Ibuprofen 600 Mg Tablet) 600 mg PO TID PRN PRN Reason: fever or pain Levothyroxine Sodium (Levothyroxine Sodium 125 Mcg Tablet) 125 mcg PO DAILY@0600 [facility] Last Admin: 03/23/25 06:14 Dose: 125 mcg Magnesium Hydroxide (Milk Of Magnesia 30 Ml Oral.Susp) 30 ml PO DAILY PRN PRN Reason: Constipation Methadone HCl (Methadone Hcl 20 Mg/2 Ml Oral.Conc) 60 mg PO DAILY@0600 [facility] Last Admin: 03/23/25 06:15 Dose: 60 mg Methadone HCl (Methadone Hcl 20 Mg/2 Ml Oral.Conc) 10 mg PO 1600 [facility] Last Admin: 03/22/25 17:01 Dose: 10 mg Multivitamins/Vitamin C (Multivitamin Tablet) 1 tab PO DAILY [facility] Last Admin: 03/23/25 08:51 Dose: 1 tab Nicotine (Nicotine 21 Mg Patch.Td24) 21 mg TRANSDERMA DAILY [facility] Last Admin: 03/23/25 08:53 Dose: 21 mg Nicotine Polacrilex (Nicotine Polacrilex 2 Mg Gum) 4 mg BUCCAL Q2H PRN PRN Reason: Nicotine Cravings Nicotine Polacrilex (Nicotine Polacrilex Lozenge 4 Mg Lozenge) 4 mg BUCCAL Q1H PRN PRN Reason: Nicotine Cravings Olanzapine (Olanzapine 5 Mg Tablet) 5 mg PO TID PRN PRN Reason: agitation Prednisone (Prednisone 20 Mg Tablet) 40 mg PO DAILY [facility] Last Admin: 03/23/25 08:51 Dose: 40 mg Thiamine HCl (Thiamine Hcl 100 Mg Tablet) 100 mg PO DAILY [facility] Last Admin: 03/23/25 08:50 Dose: 100 mg Trazodone HCl (Trazodone Hcl 50 Mg Tablet) 50 mg PO BEDTIME MRX1 PRN PRN Reason: Insomnia Last Admin: 03/21/25 20:52 Dose: 50 mg Trazodone HCl (Trazodone Hcl 50 Mg Tablet) 50 mg PO BEDTIME PRN PRN Reason: Insomnia Last Admin: 03/22/25 20:30 Dose: 50 mg Allergies Allergies Allergy/AdvReac Type Severity Reaction Status Date / Time fish derived Allergy Hives Verified 03/17/25 06:55 shellfish derived Allergy Anaphylaxis Verified 03/17/25 06:55 sulfamethoxazole (From Allergy Hives Verified 03/17/25 06:55 Bactrim) trimethoprim (From Bactrim) Allergy Hives Verified 03/17/25 06:55 Assessment & Plan Assessment & Plan (1) Depressive disorder: Status: Acute Code(s): F32.A - Depression, unspecified (2) Polysubstance abuse: Status: Acute Code(s): F19.10 - Other psychoactive substance abuse, uncomplicated (3) Opioid use disorder: Status: Acute Code(s): F11.90 - Opioid use, unspecified, uncomplicated (4) Cocaine use disorder: Status: Acute Code(s): F14.10 - Cocaine abuse, uncomplicated Plan Admit to [facility], CV, 15 minute checks Medical Mgt of current issues Collateral contact Diagnostics as indicated Medication adjustments as care progresses- today, continue current regime. On 03/23, DC CIWA and Lorazepam Pt is looking to be placed in a [facility] container terminal rehab 03/23: DC CIWA DC Lorazepam Reason for continued inpatient stay Substantial Risk for: rapid decompensation and med/psych decompensation Time Spent With Patient Time: Total time managing care of this patient today ____ minutes.
[2025-03-23] MEDS: methADONE HCl 20 MG/2 ML ORAL.CONC 10 MG PO (16:04)
[2025-03-23 20:00] VITALS: BP 150/86; PULSE 82; RESP 16; TEMP 36.4; O2SAT 97
[2025-03-23 21:39] VITALS: BP 150/86
[2025-03-24] MEDS: methADONE HCl 20 MG/2 ML ORAL.CONC 60 MG PO (06:20)
[2025-03-24 08:00] VITALS: BP 136/88; PULSE 72; RESP 16; TEMP 36.5; O2SAT 97
[2025-03-24] MEDS: Nicotine 21 MG PATCH.TD24 TRANSDERMA (08:25)
--- NOTE | 2025-03-24 12:44 | P.PNPSI_ITS ---
Subjective Subjective Date of Service: 03/24/25 Reason For Visit: SI Subjective Notes: Conditional Voluntary Healthcare Proxy: No Guardianship: No Medical Problems Affecting Mental Status: No Interim History: Asked for special order for gabapentin tablets and levoxyl vs synthroid. Asks to use cell to gather more recovery contacts, reports experiencing cravings. Team reports she continues with sedation and at times does appear to be overmedicated. Call to pt's sister Jens to discuss treatment planning-she was unable to discuss, gave a call back time, then did not answer the phone when team called back. Medication Compliance: Yes Side effects from medications: Yes (sedation at times) Attending Groups: Intermittent Review of Systems Acute medical concerns: No Medical Review of Systems: unchanged Review of Systems Review of Systems cravings needing levoxyl vs synthroid, gabapentin tablets vs capsules Mental Status Exam Mental Status Exam Patient Appearance: Fatigued and Disheveled Patient Orientation: Person, Place, Time and Situation Level of Consciousness: Sedated and Alert Patient Behavior: Talkative, Cooperative, Anxious and Crying Mood Description: Sad Affect Description: Flat Patient Cognition Impaired: No Ability to Follow Directions: Good Speech Pattern: Spontaneous Speech Memory Description: Episodic Impaired Hallucinations: None Delusions: Not Present Perceptual Disturbances: Depersonalization and Derealization Thought Process: Rumination Thought Content: positive for Circumstantial, positive for Perseveration, positive for Tangential and positive for Suicidal Ideation (denies) Depressive Symptoms: Increased Anxiety, Diff. Making Decisions, Increased Irritability, Crying Spells, Unhappiness, Increased Fatigue, Thoughts of /Suicide (denies), Low Self Esteem and Loss of Energy Judgement: Poor Diagnostics Vital Signs (24Hr): Vital Signs - 24 hr 03/23/25 20:00 03/23/25 21:39 03/24/25 08:00 Temperature 97.5 F 97.7 F Pulse Rate 82 72 Respiratory Rate 16 16 Blood Pressure 150/86 H 150/86 H 136/88 Pulse Oximetry 97 97 Oxygen Delivery Method Room Air Room [facility] Labs 03/22/25 07:56 Medications Medications Current Medications Acetaminophen (Acetaminophen 325 Mg Tablet) 650 mg PO Q6H PRN PRN Reason: Headache/Pain, Scale 1-10 Al Hydroxide/Mg Hydroxide (Magnesium Hydrox/Alum Hydrox 30 Ml Oral.Susp) 30 ml PO Q6H PRN PRN Reason: Heartburn/Nausea Albuterol Sulfate (Albuterol Sulfate 90 Mcg 8 Gm Inhaler) 1 puff INHALE QID PRN PRN Reason: shortness of breath or wheezing Clonazepam (Clonazepam 1 Mg Tablet) 1 mg PO TID PRN PRN Reason: anxiety attack Last Admin: 03/24/25 08:32 Dose: 1 mg Clonidine HCl (Clonidine Hcl 0.2 Mg Tablet) 0.2 mg PO TID PRN; Protocol PRN Reason: panic attack Last Admin: 03/23/25 21:39 Dose: 0.2 mg Doxycycline Monohydrate (Doxycycline Monohydrate 100 Mg Capsule) 100 mg PO Q12H [facility] Last Admin: 03/24/25 06:20 Dose: 100 mg Folic Acid (Folic Acid 1 Mg Tablet) 1 mg PO DAILY [facility] Last Admin: 03/24/25 08:22 Dose: 1 mg Gabapentin (Gabapentin 400 Mg Capsule) 800 mg PO QID [facility] Last Admin: 03/24/25 08:22 Dose: 800 mg Hydroxyzine HCl (Hydroxyzine Hcl 25 Mg Tablet) 25 mg PO Q6H PRN PRN Reason: mild anxiety Last Admin: 03/23/25 23:18 Dose: 25 mg Hydroxyzine HCl (Hydroxyzine Hcl 25 Mg Tablet) 25 mg PO BID PRN PRN Reason: Anxiety Ibuprofen (Ibuprofen 600 Mg Tablet) 600 mg PO TID PRN PRN Reason: fever or pain Levothyroxine Sodium (Levothyroxine Sodium 125 Mcg Tablet) 125 mcg PO DAILY@0600 [facility] Last Admin: 03/24/25 06:20 Dose: 125 mcg Magnesium Hydroxide (Milk Of Magnesia 30 Ml Oral.Susp) 30 ml PO DAILY PRN PRN Reason: Constipation Methadone HCl (Methadone Hcl 20 Mg/2 Ml Oral.Conc) 60 mg PO DAILY@0600 [facility] Last Admin: 03/24/25 06:20 Dose: 60 mg Methadone HCl (Methadone Hcl 20 Mg/2 Ml Oral.Conc) 10 mg PO 1600 [facility] Last Admin: 03/23/25 16:04 Dose: 10 mg Multivitamins/Vitamin C (Multivitamin Tablet) 1 tab PO DAILY [facility] Last Admin: 03/24/25 08:25 Dose: 1 tab Nicotine (Nicotine 21 Mg Patch.Td24) 21 mg TRANSDERMA DAILY [facility] Last Admin: 03/24/25 08:25 Dose: 21 mg Nicotine Polacrilex (Nicotine Polacrilex 2 Mg Gum) 4 mg BUCCAL Q2H PRN PRN Reason: Nicotine Cravings Nicotine Polacrilex (Nicotine Polacrilex Lozenge 4 Mg Lozenge) 4 mg BUCCAL Q1H PRN PRN Reason: Nicotine Cravings Olanzapine (Olanzapine 5 Mg Tablet) 5 mg PO TID PRN PRN Reason: agitation Prednisone (Prednisone 20 Mg Tablet) 40 mg PO DAILY [facility] Last Admin: 03/24/25 08:24 Dose: 40 mg Thiamine HCl (Thiamine Hcl 100 Mg Tablet) 100 mg PO DAILY [facility] Last Admin: 03/24/25 08:24 Dose: 100 mg Trazodone HCl (Trazodone Hcl 50 Mg Tablet) 50 mg PO BEDTIME MRX1 PRN PRN Reason: Insomnia Last Admin: 03/21/25 20:52 Dose: 50 mg Trazodone HCl (Trazodone Hcl 50 Mg Tablet) 50 mg PO BEDTIME PRN PRN Reason: Insomnia Last Admin: 03/22/25 20:30 Dose: 50 mg Allergies Allergies Allergy/AdvReac Type Severity Reaction Status Date / Time fish derived Allergy Hives Verified 03/17/25 06:55 shellfish derived Allergy Anaphylaxis Verified 03/17/25 06:55 sulfamethoxazole (From Allergy Hives Verified 03/17/25 06:55 Bactrim) trimethoprim (From Bactrim) Allergy Hives Verified 03/17/25 06:55 Assessment & Plan Assessment & Plan (1) Depressive disorder: Status: Acute Code(s): F32.A - Depression, unspecified (2) Polysubstance abuse: Status: Acute Code(s): F19.10 - Other psychoactive substance abuse, uncomplicated (3) Opioid use disorder: Status: Acute Code(s): F11.90 - Opioid use, unspecified, uncomplicated (4) Cocaine use disorder: Status: Acute Code(s): F14.10 - Cocaine abuse, uncomplicated Plan Admit to M5, CV, 15 minute checks Medical Mgt of current issues Collateral contact Diagnostics as indicated Medication adjustments as care progresses- today, continue current regime. 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
--- NOTE | 2025-03-24 13:36 | PC.NURSE ---
Patient requested to get a long sleeve black t-shirt, a pair of sandals, and retrieve telephone numbers from her phone. No black t-shirt or sandals found in her belongings. Patient became upset stating this place always looses my stuff and I want to leave now . Brush Worker then offered to sit with patient while she went through her phone to get numbers. Upon opening her phone, patient immediately opened her face book bernard. Brush Worker re-directed patient and explained that she had permission to retrieve telephone numbers and she needed to access her contacts. After accessing her contacts, she opened then opened sy[place] bernard stating I'm leaving and I need to check if I have money . Patient was re-directed again that she had permission to retrieve telephone numbers and underwriter mortgage loan then returned patients phone to secured belongings area.
[2025-03-24] MEDS: methADONE HCl 20 MG/2 ML ORAL.CONC 10 MG PO (17:08)
[2025-03-24 17:12] VITALS: BP 140/81
[2025-03-24 20:00] VITALS: BP 149/94; PULSE 88; RESP 16; TEMP 36.8; O2SAT 98
[2025-03-25] MEDS: methADONE HCl 20 MG/2 ML ORAL.CONC 60 MG PO (07:15)
[2025-03-25 08:39] VITALS: BP 157/98
[2025-03-25 09:14] VITALS: BP 152/94; PULSE 67; TEMP 36.4; O2SAT 97
--- NOTE | 2025-03-25 09:59 | HO.PSYCHPN ---
Subjective Subjective Date of Service: 03/25/25 Reason For Visit: SI Subjective Notes: Conditional Voluntary Healthcare Proxy: No Guardianship: No Medical Problems Affecting Mental Status: No Interim History: Met with pt and More Guerra LCSW to discuss treatment planning. Team reports pt is med seeking, demanding, continues sedate. She had an episode this a.m. where she told team she was having an MS which was an anxiety attack. Reports her family will not want to be involved in her DC planning, they have had it with me. Reviewed what she will need in a program moving forward-she identife structure, stability, positive reenforcement, consistency and not too many rules . Reports [facility] was very helpful. Medication Compliance: Yes Side effects from medications: Yes (intermittent sedation) Attending Groups: No Review of Systems Acute medical concerns: No Medical Review of Systems: unchanged Review of Systems Review of Systems Cravings Mental Status Exam Mental Status Exam Patient Appearance: Fatigued and Disheveled Patient Orientation: Person, Place, Time and Situation Level of Consciousness: Sedated and Alert Patient Behavior: Talkative, Cooperative and Anxious Mood Description: Constricted Affect Description: Constricted Patient Cognition Impaired: No Ability to Follow Directions: Good Speech Pattern: Spontaneous Speech Memory Description: Episodic Impaired Hallucinations: None Delusions: Not Present Perceptual Disturbances: Depersonalization and Derealization Thought Process: Rumination Thought Content: positive for Circumstantial, positive for Perseveration, positive for Tangential and positive for Suicidal Ideation (denies) Depressive Symptoms: Increased Anxiety, Diff. Making Decisions, Increased Irritability, Crying Spells, Unhappiness, Increased Fatigue, Thoughts of /Suicide (denies), Low Self Esteem and Loss of Energy Judgement: Poor Diagnostics Vital Signs (24Hr): Vital Signs - 24 hr 03/24/25 17:12 03/24/25 20:00 03/25/25 08:39 Temperature 98.2 F Pulse Rate 88 Respiratory Rate 16 Blood Pressure 140/81 H 149/94 H 157/98 H Pulse Oximetry 98 Oxygen Delivery Method Room Air 03/25/25 09:14 Temperature 97.6 F Pulse Rate 67 Respiratory Rate Blood Pressure 152/94 H Pulse Oximetry 97 Oxygen Delivery Method Room Air Labs 03/22/25 07:56 Medications Medications Current Medications Acetaminophen (Acetaminophen 325 Mg Tablet) 650 mg PO Q6H PRN PRN Reason: Headache/Pain, Scale 1-10 Al Hydroxide/Mg Hydroxide (Magnesium Hydrox/Alum Hydrox 30 Ml Oral.Susp) 30 ml PO Q6H PRN PRN Reason: Heartburn/Nausea Albuterol Sulfate (Albuterol Sulfate 90 Mcg 8 Gm Inhaler) 1 puff INHALE QID PRN PRN Reason: shortness of breath or wheezing Clonazepam (Clonazepam 1 Mg Tablet) 1 mg PO TID PRN PRN Reason: anxiety attack Last Admin: 03/25/25 07:22 Dose: 1 mg Clonidine HCl (Clonidine Hcl 0.2 Mg Tablet) 0.2 mg PO TID PRN; Protocol PRN Reason: panic attack Last Admin: 03/25/25 08:39 Dose: 0.2 mg Doxycycline Monohydrate (Doxycycline Monohydrate 100 Mg Capsule) 100 mg PO Q12H [facility] Last Admin: 03/25/25 07:22 Dose: 100 mg Folic Acid (Folic Acid 1 Mg Tablet) 1 mg PO DAILY [facility] Last Admin: 03/25/25 08:38 Dose: 1 mg Gabapentin (Gabapentin 400 Mg Capsule) 800 mg PO QID [facility] Last Admin: 03/25/25 08:37 Dose: 800 mg Hydroxyzine HCl (Hydroxyzine Hcl 25 Mg Tablet) 25 mg PO Q6H PRN PRN Reason: mild anxiety Last Admin: 03/23/25 23:18 Dose: 25 mg Hydroxyzine HCl (Hydroxyzine Hcl 25 Mg Tablet) 25 mg PO BID PRN PRN Reason: Anxiety Ibuprofen (Ibuprofen 600 Mg Tablet) 600 mg PO TID PRN PRN Reason: fever or pain Last Admin: 03/24/25 20:25 Dose: 600 mg Levothyroxine Sodium (Levothyroxine Sodium 125 Mcg Tablet) 125 mcg PO DAILY@0600 [facility] Last Admin: 03/25/25 07:17 Dose: 125 mcg Magnesium Hydroxide (Milk Of Magnesia 30 Ml Oral.Susp) 30 ml PO DAILY PRN PRN Reason: Constipation Methadone HCl (Methadone Hcl 20 Mg/2 Ml Oral.Conc) 60 mg PO DAILY@0600 [facility] Last Admin: 03/25/25 07:15 Dose: 60 mg Methadone HCl (Methadone Hcl 20 Mg/2 Ml Oral.Conc) 10 mg PO 1600 [facility] Last Admin: 03/24/25 17:08 Dose: 10 mg Multivitamins/Vitamin C (Multivitamin Tablet) 1 tab PO DAILY [facility] Last Admin: 03/25/25 08:38 Dose: 1 tab Nicotine (Nicotine 21 Mg Patch.Td24) 21 mg TRANSDERMA DAILY [facility] Last Admin: 03/25/25 08:47 Dose: Not Given Nicotine Polacrilex (Nicotine Polacrilex 2 Mg Gum) 4 mg BUCCAL Q2H PRN PRN Reason: Nicotine Cravings Nicotine Polacrilex (Nicotine Polacrilex Lozenge 4 Mg Lozenge) 4 mg BUCCAL Q1H PRN PRN Reason: Nicotine Cravings Olanzapine (Olanzapine 5 Mg Tablet) 5 mg PO TID PRN PRN Reason: agitation Prednisone (Prednisone 20 Mg Tablet) 40 mg PO DAILY [facility] Last Admin: 03/25/25 08:38 Dose: 40 mg Thiamine HCl (Thiamine Hcl 100 Mg Tablet) 100 mg PO DAILY [facility] Last Admin: 03/25/25 08:37 Dose: 100 mg Trazodone HCl (Trazodone Hcl 50 Mg Tablet) 50 mg PO BEDTIME MRX1 PRN PRN Reason: Insomnia Last Admin: 03/24/25 20:25 Dose: 50 mg Trazodone HCl (Trazodone Hcl 50 Mg Tablet) 50 mg PO BEDTIME PRN PRN Reason: Insomnia Last Admin: 03/22/25 20:30 Dose: 50 mg Allergies Allergies Allergy/AdvReac Type Severity Reaction Status Date / Time fish derived Allergy Hives Verified 03/17/25 06:55 shellfish derived Allergy Anaphylaxis Verified 03/17/25 06:55 sulfamethoxazole (From Allergy Hives Verified 03/17/25 06:55 Bactrim) trimethoprim (From Bactrim) Allergy Hives Verified 03/17/25 06:55 Assessment & Plan Assessment & Plan (1) Depressive disorder: Status: Acute Code(s): F32.A - Depression, unspecified (2) Polysubstance abuse: Status: Acute Code(s): F19.10 - Other psychoactive substance abuse, uncomplicated (3) Opioid use disorder: Status: Acute Code(s): F11.90 - Opioid use, unspecified, uncomplicated (4) Cocaine use disorder: Status: Acute Code(s): F14.10 - Cocaine abuse, uncomplicated Plan Admit to M5, CV, 15 minute checks Medical Mgt of current issues Collateral contact Diagnostics as indicated Medication adjustments as care progresses- today, continue current regime. 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
[2025-03-25] MEDS: methADONE HCl 20 MG/2 ML ORAL.CONC 10 MG PO (16:12)
[2025-03-25 20:23] VITALS: BP 142/81; PULSE 101; RESP 16; TEMP 36.8; O2SAT 97
[2025-03-25 21:23] VITALS: BP 142/81
[2025-03-26] MEDS: methADONE HCl 20 MG/2 ML ORAL.CONC 60 MG PO (06:02)
[2025-03-26 08:17] VITALS: BP 156/97; PULSE 68; TEMP 35.9; O2SAT 96
[2025-03-26] MEDS: Nicotine 21 MG PATCH.TD24 TRANSDERMA (08:59)
--- NOTE | 2025-03-26 09:34 | MHC.RECOVRN ---
late entry: TW attempted to meet w/ pt on M5 on 03/25/25 following consult placed to Addiction Medicine for AA/NA resources and recovery coaching. On approach to the unit, TW met with pt's assigned SW in the hallway. SW relayed that the pt already has a resource recovery specialist and is well aware of many community based resources for AUD/JOHN. TW then entered the unit and spoke to primary RN who stated the pt has been irritable, dismissive, demanding and circumstantial. TW did not meet directly with pt due to pt's reported mental status but is available for further concerns related to addiction and recovery. TW to return today (03/26/25) and provide AA/NA meeting list for pt to utilize at discharge.
--- NOTE | 2025-03-26 10:39 | HO.PSYCHPN ---
Subjective Subjective Date of Service: 03/26/25 Reason For Visit: SI Subjective Notes: Conditional Voluntary Healthcare Proxy: No Guardianship: No Medical Problems Affecting Mental Status: No Interim History: Labile, medicine seeking, angers easily. Poor boundaries with peers, I used to work at [employer], I know more about this than all of you. Discussed her CVA and recovery. Discussed her experiences with illness and how this has helped her to offer advice to others. Encouraged to focus on herself and her plan of care. Medication Compliance: Yes Side effects from medications: No Attending Groups: Intermittent Review of Systems Acute medical concerns: No Medical Review of Systems: unchanged Review of Systems Review of Systems Medication seeking Mental Status Exam Mental Status Exam Patient Appearance: Appropriate Patient Orientation: Person, Place, Time and Situation Level of Consciousness: Sedated and Alert Patient Behavior: Talkative, Cooperative and Anxious Mood Description: Constricted Affect Description: Constricted Patient Cognition Impaired: No Ability to Follow Directions: Good Speech Pattern: Spontaneous Speech Memory Description: Episodic Impaired Hallucinations: None Delusions: Not Present Perceptual Disturbances: Depersonalization and Derealization Thought Process: Rumination Thought Content: positive for Circumstantial, positive for Perseveration, positive for Tangential and positive for Suicidal Ideation (denies) Depressive Symptoms: Increased Anxiety, Diff. Making Decisions, Increased Irritability, Crying Spells, Unhappiness, Thoughts of /Suicide (denies) and Low Self Esteem Judgement: Fair Diagnostics Vital Signs (24Hr): Vital Signs - 24 hr 03/25/25 20:23 03/25/25 21:23 03/26/25 08:17 Temperature 98.2 F 96.7 F L Pulse Rate 101 H 68 Respiratory Rate 16 Blood Pressure 142/81 H 142/81 H 156/97 H Pulse Oximetry 97 96 Oxygen Delivery Method Room Air Room Air Labs 03/27/25 10:28 Medications Medications Current Medications Acetaminophen (Acetaminophen 325 Mg Tablet) 650 mg PO Q6H PRN PRN Reason: Headache/Pain, Scale 1-10 Al Hydroxide/Mg Hydroxide (Magnesium Hydrox/Alum Hydrox 30 Ml Oral.Susp) 30 ml PO Q6H PRN PRN Reason: Heartburn/Nausea Albuterol Sulfate (Albuterol Sulfate 90 Mcg 8 Gm Inhaler) 1 puff INHALE QID PRN PRN Reason: shortness of breath or wheezing Clonazepam (Clonazepam 1 Mg Tablet) 1 mg PO TID PRN PRN Reason: anxiety attack Last Admin: 03/26/25 06:05 Dose: 1 mg Clonidine HCl (Clonidine Hcl 0.2 Mg Tablet) 0.2 mg PO TID PRN; Protocol PRN Reason: panic attack Last Admin: 03/25/25 21:23 Dose: 0.2 mg Doxycycline Monohydrate (Doxycycline Monohydrate 100 Mg Capsule) 100 mg PO Q12H [facility] Last Admin: 03/26/25 06:02 Dose: 100 mg Folic Acid (Folic Acid 1 Mg Tablet) 1 mg PO DAILY [facility] Last Admin: 03/26/25 08:59 Dose: 1 mg Gabapentin (Gabapentin 400 Mg Capsule) 800 mg PO QID [facility] Last Admin: 03/26/25 08:59 Dose: 800 mg Hydroxyzine HCl (Hydroxyzine Hcl 25 Mg Tablet) 25 mg PO Q6H PRN PRN Reason: mild anxiety Last Admin: 03/25/25 21:24 Dose: 25 mg Hydroxyzine HCl (Hydroxyzine Hcl 25 Mg Tablet) 25 mg PO BID PRN PRN Reason: Anxiety Ibuprofen (Ibuprofen 600 Mg Tablet) 600 mg PO TID PRN PRN Reason: fever or pain Last Admin: 03/26/25 06:05 Dose: 600 mg Levothyroxine Sodium (Levothyroxine Sodium 125 Mcg Tablet) 125 mcg PO DAILY@0600 [facility] Last Admin: 03/26/25 06:02 Dose: 125 mcg Magnesium Hydroxide (Milk Of Magnesia 30 Ml Oral.Susp) 30 ml PO DAILY PRN PRN Reason: Constipation Methadone HCl (Methadone Hcl 20 Mg/2 Ml Oral.Conc) 60 mg PO DAILY@0600 [facility] Last Admin: 03/26/25 06:02 Dose: 60 mg Methadone HCl (Methadone Hcl 20 Mg/2 Ml Oral.Conc) 10 mg PO 1600 [facility] Last Admin: 03/25/25 16:12 Dose: 10 mg Multivitamins/Vitamin C (Multivitamin Tablet) 1 tab PO DAILY [facility] Last Admin: 03/26/25 08:59 Dose: 1 tab Nicotine (Nicotine 21 Mg Patch.Td24) 21 mg TRANSDERMA DAILY [facility] Last Admin: 03/26/25 08:59 Dose: 21 mg Nicotine Polacrilex (Nicotine Polacrilex 2 Mg Gum) 4 mg BUCCAL Q2H PRN PRN Reason: Nicotine Cravings Nicotine Polacrilex (Nicotine Polacrilex Lozenge 4 Mg Lozenge) 4 mg BUCCAL Q1H PRN PRN Reason: Nicotine Cravings Olanzapine (Olanzapine 5 Mg Tablet) 5 mg PO TID PRN PRN Reason: agitation Prednisone (Prednisone 20 Mg Tablet) 40 mg PO DAILY [facility] Last Admin: 03/26/25 08:59 Dose: 40 mg Thiamine HCl (Thiamine Hcl 100 Mg Tablet) 100 mg PO DAILY [facility] Last Admin: 03/26/25 08:59 Dose: 100 mg Trazodone HCl (Trazodone Hcl 50 Mg Tablet) 50 mg PO BEDTIME MRX1 PRN PRN Reason: Insomnia Last Admin: 03/24/25 20:25 Dose: 50 mg Trazodone HCl (Trazodone Hcl 50 Mg Tablet) 50 mg PO BEDTIME PRN PRN Reason: Insomnia Last Admin: 03/22/25 20:30 Dose: 50 mg Allergies Allergies Allergy/AdvReac Type Severity Reaction Status Date / Time fish derived Allergy Hives Verified 03/17/25 06:55 shellfish derived Allergy Anaphylaxis Verified 03/17/25 06:55 sulfamethoxazole (From Allergy Hives Verified 03/17/25 06:55 Bactrim) trimethoprim (From Bactrim) Allergy Hives Verified 03/17/25 06:55 Assessment & Plan Assessment & Plan (1) Depressive disorder: Status: Acute Code(s): F32.A - Depression, unspecified (2) Polysubstance abuse: Status: Acute Code(s): F19.10 - Other psychoactive substance abuse, uncomplicated (3) Opioid use disorder: Status: Acute Code(s): F11.90 - Opioid use, unspecified, uncomplicated (4) Cocaine use disorder: Status: Acute Code(s): F14.10 - Cocaine abuse, uncomplicated Plan Admit to M5, CV, 15 minute checks Medical Mgt of current issues Collateral contact Diagnostics as indicated Medication adjustments as care progresses- today, continue current regime. On 03/23, DC CIWA and Lorazepam Pt is looking to be placed in a longterm rehab 03/23: DC CIWA DC Lorazepam 03/24: Continue tx 03/26: Continue tx Disposition planning Reason for continued inpatient stay Substantial Risk for: rapid decompensation Time Spent With Patient Time: Total time managing care of this patient today ____ minutes.
--- NOTE | 2025-03-26 10:53 | MHC.RECOVRN ---
pt provided aa/na meeting lists
[2025-03-26] MEDS: methADONE HCl 20 MG/2 ML ORAL.CONC 10 MG PO (16:51)
[2025-03-26 20:00] VITALS: BP 147/86; PULSE 78; RESP 16; TEMP 36.1; O2SAT 97
[2025-03-26 21:33] VITALS: BP 140/84
[2025-03-27] MEDS: methADONE HCl 20 MG/2 ML ORAL.CONC 60 MG PO (06:11)
[2025-03-27 08:20] VITALS: BP 133/84; PULSE 71; TEMP 36.3; O2SAT 96
[2025-03-27] MEDS: Nicotine 21 MG PATCH.TD24 TRANSDERMA (08:48)
[2025-03-27 11:01] LABS: Alanine Aminotransferase 20 U/L (0-31); Albumin Level 4.5 g/dL (3.5-5.0); Alkaline Phosphatase 138 U/L (39-117); Anion Gap 18 (12-20); Aspartate Amino Transferase 23 U/L (5-31); Blood Urea Nitrogen 41 mg/dL (9-16); Calcium 9.1 mg/dL (8.4-10.2); Carbon Dioxide 26 mmol/L (22-29); Chloride 99 mmol/L (96-108); Estimated Glomerular Filt Rate 53; Potassium 4.7 mmol/L (3.3-5.1); Sodium 138 mmol/L (135-145); Total Protein 7.4 g/dL (6.5-8.0)
--- NOTE | 2025-03-27 13:26 | P.PNPSI_ITS ---
Subjective Subjective Date of Service: 03/27/25 Reason For Visit: SI Subjective Notes: Conditional Voluntary and 3 Day Healthcare Proxy: No Guardianship: No Medical Problems Affecting Mental Status: No Interim History: A difficult day. TDN signed. Pt unable to reach her mother. Other family members have informed her she has declined and may be ready to pass. Pt wanting to leave. She was able to reach her mother later in the evening and was reassured. Several issues today. Does not want a longer rehab program, discussed [facility] with [facility]. Angry about not being able to smoke, different rules. [facility] let me do just what I wanted. Dr. Begum knows I am a professional let me do what I wanted. Angry telephone conversations with family. Intrusive behaviors with peers-advising others on clinical matters. Significant med seeking-benzos, nicotine. This was an uncomfortable day for pt with threats to team if needs were not met immediately. Medication Compliance: Yes Side effects from medications: No Attending Groups: Intermittent Review of Systems Acute medical concerns: No Review of Systems Review of Systems Denies Mental Status Exam Mental Status Exam Patient Appearance: Appropriate Patient Orientation: Person, Place, Time and Situation Level of Consciousness: Alert Patient Behavior: Talkative, Cooperative and Anxious Mood Description: Labile and Angry Affect Description: Labile and Angry Patient Cognition Impaired: No Ability to Follow Directions: Good Speech Pattern: Spontaneous Speech Memory Description: Episodic Impaired Hallucinations: None Delusions: Not Present Perceptual Disturbances: Depersonalization and Derealization Thought Process: Rumination Thought Content: positive for Circumstantial, positive for Perseveration, positive for Tangential and positive for Suicidal Ideation (denies) Depressive Symptoms: Increased Anxiety, Diff. Making Decisions, Increased Irritability, Crying Spells, Unhappiness, Thoughts of /Suicide (denies) and Low Self Esteem Abnormal Motor Activity Signs and Symptoms: Agitation Judgement: Fair Diagnostics Vital Signs (24Hr): Vital Signs - 24 hr 03/26/25 20:00 03/26/25 21:33 03/27/25 08:20 Temperature 97 F 97.3 F Pulse Rate 78 71 Respiratory Rate 16 Blood Pressure 147/86 H 140/84 H 133/84 Pulse Oximetry 97 96 Oxygen Delivery Method Room Air Room Air Labs 03/27/25 10:28 Labs: Laboratory Results - last 48 hr 03/27/25 10:28 Sodium 138 Potassium 4.7 Chloride 99 Carbon Dioxide 26 Anion Gap 18 BUN 41 H Creatinine 1.15 Estim Creat Clear Calc TNP Estimated GFR 53 Random Glucose 111 Calcium 9.1 Total Bilirubin 0.2 AST 23 ALT 20 Alkaline Phosphatase 138 H Total Protein 7.4 Albumin 4.5 Medications Medications Current Medications Acetaminophen (Acetaminophen 325 Mg Tablet) 650 mg PO Q6H PRN PRN Reason: Headache/Pain, Scale 1-10 Al Hydroxide/Mg Hydroxide (Magnesium Hydrox/Alum Hydrox 30 Ml Oral.Susp) 30 ml PO Q6H PRN PRN Reason: Heartburn/Nausea Albuterol Sulfate (Albuterol Sulfate 90 Mcg 8 Gm Inhaler) 1 puff INHALE QID PRN PRN Reason: shortness of breath or wheezing Clonazepam (Clonazepam 1 Mg Tablet) 1 mg PO TID PRN PRN Reason: anxiety attack Last Admin: 03/26/25 21:35 Dose: 1 mg Clonidine HCl (Clonidine Hcl 0.2 Mg Tablet) 0.2 mg PO TID PRN; Protocol PRN Reason: panic attack Last Admin: 03/26/25 21:33 Dose: 0.2 mg Doxycycline Monohydrate (Doxycycline Monohydrate 100 Mg Capsule) 100 mg PO Q12H [facility] Last Admin: 03/27/25 06:13 Dose: 100 mg Folic Acid (Folic Acid 1 Mg Tablet) 1 mg PO DAILY [facility] Last Admin: 03/27/25 08:50 Dose: 1 mg Gabapentin (Gabapentin 400 Mg Capsule) 800 mg PO QID [facility] Last Admin: 03/27/25 12:48 Dose: 800 mg Hydroxyzine HCl (Hydroxyzine Hcl 25 Mg Tablet) 25 mg PO Q6H PRN PRN Reason: mild anxiety Last Admin: 03/25/25 21:24 Dose: 25 mg Hydroxyzine HCl (Hydroxyzine Hcl 25 Mg Tablet) 25 mg PO BID PRN PRN Reason: Anxiety Last Admin: 03/26/25 21:36 Dose: 25 mg Ibuprofen (Ibuprofen 600 Mg Tablet) 600 mg PO TID PRN PRN Reason: fever or pain Last Admin: 03/26/25 06:05 Dose: 600 mg Levothyroxine Sodium (Levothyroxine Sodium 125 Mcg Tablet) 125 mcg PO DAILY@0600 [facility] Last Admin: 03/27/25 06:13 Dose: 125 mcg Magnesium Hydroxide (Milk Of Magnesia 30 Ml Oral.Susp) 30 ml PO DAILY PRN PRN Reason: Constipation Methadone HCl (Methadone Hcl 20 Mg/2 Ml Oral.Conc) 60 mg PO DAILY@0600 [facility] Last Admin: 03/27/25 06:11 Dose: 60 mg Methadone HCl (Methadone Hcl 20 Mg/2 Ml Oral.Conc) 10 mg PO 1600 [facility] Last Admin: 03/26/25 16:51 Dose: 10 mg Multivitamins/Vitamin C (Multivitamin Tablet) 1 tab PO DAILY [facility] Last Admin: 03/27/25 08:50 Dose: 1 tab Nicotine (Nicotine 21 Mg Patch.Td24) 21 mg TRANSDERMA DAILY [facility] Last Admin: 03/27/25 08:48 Dose: 21 mg Nicotine Polacrilex (Nicotine Polacrilex 2 Mg Gum) 4 mg BUCCAL Q2H PRN PRN Reason: Nicotine Cravings Nicotine Polacrilex (Nicotine Polacrilex Lozenge 4 Mg Lozenge) 4 mg BUCCAL Q1H PRN PRN Reason: Nicotine Cravings Olanzapine (Olanzapine 5 Mg Tablet) 5 mg PO TID PRN PRN Reason: agitation Prednisone (Prednisone 20 Mg Tablet) 40 mg PO DAILY [facility] Last Admin: 03/27/25 08:50 Dose: 40 mg Simethicone (Simethicone 80 Mg Tab.Chew) 80 mg PO QIDWMHS [facility] Last Admin: 03/27/25 12:48 Dose: 80 mg Thiamine HCl (Thiamine Hcl 100 Mg Tablet) 100 mg PO DAILY [facility] Last Admin: 03/27/25 08:50 Dose: 100 mg Trazodone HCl (Trazodone Hcl 50 Mg Tablet) 50 mg PO BEDTIME MRX1 PRN PRN Reason: Insomnia Last Admin: 03/26/25 21:36 Dose: 50 mg Trazodone HCl (Trazodone Hcl 50 Mg Tablet) 50 mg PO BEDTIME PRN PRN Reason: Insomnia Last Admin: 03/22/25 20:30 Dose: 50 mg Allergies Allergies Allergy/AdvReac Type Severity Reaction Status Date / Time fish derived Allergy Hives Verified 03/17/25 06:55 shellfish derived Allergy Anaphylaxis Verified 03/17/25 06:55 sulfamethoxazole (From Allergy Hives Verified 03/17/25 06:55 Bactrim) trimethoprim (From Bactrim) Allergy Hives Verified 03/17/25 06:55 Assessment & Plan Assessment & Plan (1) Depressive disorder: Status: Acute Code(s): F32.A - Depression, unspecified (2) Polysubstance abuse: Status: Acute Code(s): F19.10 - Other psychoactive substance abuse, uncomplicated (3) Opioid use disorder: Status: Acute Code(s): F11.90 - Opioid use, unspecified, uncomplicated (4) Cocaine use disorder: Status: Acute Code(s): F14.10 - Cocaine abuse, uncomplicated Plan Admit to M5, CV, 15 minute checks Medical Mgt of current issues Collateral contact Diagnostics as indicated Medication adjustments as care progresses- today, continue current regime. 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 Informed Consent: understands Reason for continued inpatient stay Substantial Risk for: rapid decompensation Time Spent With Patient Time: Total time managing care of this patient today ____ minutes.
[2025-03-27] MEDS: Nicotine 14 MG PATCH.TD24 TRANSDERMA (14:09)
[2025-03-27 14:35] VITALS: BP 136/86
[2025-03-27] MEDS: methADONE HCl 20 MG/2 ML ORAL.CONC 10 MG PO (15:29)
[2025-03-27 19:48] VITALS: BP 136/69; PULSE 81; TEMP 36.4; O2SAT 97
[2025-03-27 22:54] VITALS: BP 142/83
[2025-03-28] MEDS: methADONE HCl 20 MG/2 ML ORAL.CONC 60 MG PO (07:25)
[2025-03-28 08:00] VITALS: BP 146/91; PULSE 76; RESP 18; TEMP 36.6; O2SAT 98
[2025-03-28 08:09] LABS: HBS Num1 200.62 mIU/mL (0-7.99); HBc Num1 0.28 S/CO (0.00-0.79); HBsAGNum1 0.34 S/CO (0.00-0.99); Hepatitis A Antibody IgM 0.18 Index (0-0.79); Hepatitis B Surface Antigen Negative (Negative); ~HepC Num1 10.52 S/CO (0.00-0.79); ~Hepatitis A Antibody IgM Nonreactive (Nonreactive); ~Hepatitis B Surface Antibody REACTIVE (Nonreactive); ~Hepatitis C Antibody Reactive (Nonreactive)
[2025-03-28] MEDS: Nicotine 21 MG PATCH.TD24 TRANSDERMA (08:15)
[2025-03-28] MEDS: Nicotine 14 MG PATCH.TD24 TRANSDERMA (08:16)
[2025-03-28] MEDS: methADONE HCl 20 MG/2 ML ORAL.CONC 10 MG PO (15:56)
--- NOTE | 2025-03-28 18:26 | HO.PSYCHPN ---
Subjective Subjective Date of Service: 03/28/25 Reason For Visit: SI Subjective Notes: Conditional Voluntary and 3 Day Healthcare Proxy: No Guardianship: No Medical Problems Affecting Mental Status: No Interim History: Discharge prepared. Pt asked to cancel discharge as she wants to continue to work on placement. Pt was told she needed to participate in milieu, keep to her boundaries and not offer advice to peers, and begin to call programs. She remains very demanding and cannot accept any answer that does not meet her immediate need. We will cancel DC and offer support. Medication Compliance: Yes Side effects from medications: No Attending Groups: Yes Review of Systems Acute medical concerns: No Medical Review of Systems: unchanged Review of Systems Review of Systems Yes all other systems are reviewed and are negative Mental Status Exam Mental Status Exam Patient Appearance: Appropriate Patient Orientation: Person, Place, Time and Situation Level of Consciousness: Alert Patient Behavior: Talkative, Cooperative and Anxious Mood Description: Labile and Angry Affect Description: Labile and Angry Patient Cognition Impaired: No Ability to Follow Directions: Good Speech Pattern: Spontaneous Speech Memory Description: Episodic Impaired Hallucinations: None Delusions: Not Present Perceptual Disturbances: Depersonalization and Derealization Thought Process: Rumination Thought Content: positive for Circumstantial, positive for Perseveration, positive for Tangential and positive for Suicidal Ideation (denies) Depressive Symptoms: Increased Anxiety, Diff. Making Decisions, Increased Irritability, Crying Spells, Unhappiness, Thoughts of /Suicide (denies) and Low Self Esteem Abnormal Motor Activity Signs and Symptoms: Agitation Judgement: Fair Diagnostics Vital Signs (24Hr): Vital Signs - 24 hr 03/27/25 19:48 03/27/25 22:54 03/28/25 08:00 Temperature 97.5 F 97.9 F Pulse Rate 81 76 Respiratory Rate 18 Blood Pressure 136/69 142/83 H 146/91 H Pulse Oximetry 97 98 Oxygen Delivery Method Room Air Room Air Labs 03/27/25 10:28 Labs: Laboratory Results - last 48 hr 03/27/25 10:28 Sodium 138 Potassium 4.7 Chloride 99 Carbon Dioxide 26 Anion Gap 18 BUN 41 H Creatinine 1.15 Estim Creat Clear Calc TNP Estimated GFR 53 Random Glucose 111 Calcium 9.1 Total Bilirubin 0.2 AST 23 ALT 20 Alkaline Phosphatase 138 H Total Protein 7.4 Albumin 4.5 Hepatitis A IgM Ab Nonreactive Hep Bs Antigen Negative Hep Bs Antibody REACTIVE Hep B Core Total Ab Nonreactive Hepatitis C Ab (EIA) Reactive H Medications Medications Current Medications Acetaminophen (Acetaminophen 325 Mg Tablet) 650 mg PO Q6H PRN PRN Reason: Headache/Pain, Scale 1-10 Al Hydroxide/Mg Hydroxide (Magnesium Hydrox/Alum Hydrox 30 Ml Oral.Susp) 30 ml PO Q6H PRN PRN Reason: Heartburn/Nausea Albuterol Sulfate (Albuterol Sulfate 90 Mcg 8 Gm Inhaler) 1 puff INHALE QID PRN PRN Reason: shortness of breath or wheezing Chlorpromazine HCl (Chlorpromazine Hcl 25 Mg Tablet) 25 mg PO Q6H PRN PRN Reason: agitation Clonazepam (Clonazepam 1 Mg Tablet) 1 mg PO TID PRN PRN Reason: Anxiety Last Admin: 03/28/25 15:59 Dose: 1 mg Clonidine HCl (Clonidine Hcl 0.2 Mg Tablet) 0.2 mg PO TID PRN; Protocol PRN Reason: panic attack Last Admin: 03/27/25 22:54 Dose: 0.2 mg Doxycycline Monohydrate (Doxycycline Monohydrate 100 Mg Capsule) 100 mg PO Q12H [facility] Last Admin: 03/28/25 17:52 Dose: 100 mg Folic Acid (Folic Acid 1 Mg Tablet) 1 mg PO DAILY [facility] Last Admin: 03/28/25 08:12 Dose: 1 mg Gabapentin (Gabapentin 400 Mg Capsule) 800 mg PO QID [facility] Last Admin: 03/28/25 16:58 Dose: 800 mg Hydroxyzine HCl (Hydroxyzine Hcl 25 Mg Tablet) 25 mg PO Q6H PRN PRN Reason: mild anxiety Last Admin: 03/27/25 22:53 Dose: 25 mg Ibuprofen (Ibuprofen 600 Mg Tablet) 600 mg PO TID PRN PRN Reason: fever or pain Last Admin: 03/26/25 06:05 Dose: 600 mg Levothyroxine Sodium (Levothyroxine Sodium 125 Mcg Tablet) 125 mcg PO DAILY@0600 [facility] Last Admin: 03/28/25 07:24 Dose: 125 mcg Magnesium Hydroxide (Milk Of Magnesia 30 Ml Oral.Susp) 30 ml PO DAILY PRN PRN Reason: Constipation Methadone HCl (Methadone Hcl 20 Mg/2 Ml Oral.Conc) 60 mg PO DAILY@0600 [facility] Last Admin: 03/28/25 07:25 Dose: 60 mg Methadone HCl (Methadone Hcl 20 Mg/2 Ml Oral.Conc) 10 mg PO 1600 [facility] Last Admin: 03/28/25 15:56 Dose: 10 mg Multivitamins/Vitamin C (Multivitamin Tablet) 1 tab PO DAILY [facility] Last Admin: 03/28/25 08:12 Dose: 1 tab Nicotine (Nicotine 21 Mg Patch.Td24) 21 mg TRANSDERMA DAILY [facility] Last Admin: 03/28/25 08:15 Dose: 21 mg Nicotine (Nicotine 14 Mg Patch.Td24) 14 mg TRANSDERMA DAILY [facility] Last Admin: 03/28/25 08:16 Dose: 14 mg Olanzapine (Olanzapine 5 Mg Tablet) 5 mg PO TID PRN PRN Reason: agitation Prednisone (Prednisone 20 Mg Tablet) 40 mg PO DAILY [facility] Last Admin: 03/28/25 08:12 Dose: 40 mg Simethicone (Simethicone 80 Mg Tab.Chew) 80 mg PO QIDWMHS [facility] Last Admin: 03/28/25 16:58 Dose: 80 mg Thiamine HCl (Thiamine Hcl 100 Mg Tablet) 100 mg PO DAILY [facility] Last Admin: 03/28/25 08:12 Dose: 100 mg Trazodone HCl (Trazodone Hcl 50 Mg Tablet) 50 mg PO BEDTIME MRX1 PRN PRN Reason: Insomnia Last Admin: 03/27/25 22:48 Dose: 50 mg Trazodone HCl (Trazodone Hcl 50 Mg Tablet) 50 mg PO BEDTIME PRN PRN Reason: Insomnia Last Admin: 03/22/25 20:30 Dose: 50 mg Allergies Allergies Allergy/AdvReac Type Severity Reaction Status Date / Time fish derived Allergy Hives Verified 03/17/25 06:55 shellfish derived Allergy Anaphylaxis Verified 03/17/25 06:55 sulfamethoxazole (From Allergy Hives Verified 03/17/25 06:55 Bactrim) trimethoprim (From Bactrim) Allergy Hives Verified 03/17/25 06:55 Assessment & Plan Assessment & Plan (1) Depressive disorder: Status: Acute Code(s): F32.A - Depression, unspecified (2) Polysubstance abuse: Status: Acute Code(s): F19.10 - Other psychoactive substance abuse, uncomplicated (3) Opioid use disorder: Status: Acute Code(s): F11.90 - Opioid use, unspecified, uncomplicated (4) Cocaine use disorder: Status: Acute Code(s): F14.10 - Cocaine abuse, uncomplicated Plan Admit to M5, CV, 15 minute checks Medical Mgt of current issues Collateral contact Diagnostics as indicated Medication adjustments as care progresses- today, continue current regime. On 03/23, DC CIWA and Lorazepam Pt is [place] be [facility] [place] [facility] 03/23: DC CIWA DC Lorazepam 03/24: Continue tx 03/26: Continue tx- Pt had an extra dose of Ativan today, then reports she believes scheduled Klonopin is more effective DC nicotine gum, patch increased. 03/28: Continue to assist pt in placement Reason for continued inpatient stay Substantial Risk for: rapid decompensation Time Spent With Patient Time: Total time managing care of this patient today ____ minutes.
[2025-03-28 18:47] VITALS: BP 176/104
--- NOTE | 2025-03-28 18:54 | PC.NURSE ---
BP= 176/104 at 6:40pm Clonidine 0.2mg administered. Please recheck in 1 hour.
[2025-03-28 20:00] VITALS: BP 149/89; PULSE 76; RESP 18; TEMP 36.7; O2SAT 99
[2025-03-29] MEDS: methADONE HCl 20 MG/2 ML ORAL.CONC 60 MG PO (06:40)
[2025-03-29 08:00] VITALS: BP 149/89; PULSE 72; TEMP 36.7; O2SAT 98
[2025-03-29] MEDS: Nicotine 14 MG PATCH.TD24 TRANSDERMA (08:33)
[2025-03-29] MEDS: Nicotine 21 MG PATCH.TD24 TRANSDERMA (08:33)
--- NOTE | 2025-03-29 10:40 | HO.PSYCHPN ---
Subjective Subjective Date of Service: 03/29/25 Reason For Visit: SI Subjective Notes: Conditional Voluntary Healthcare Proxy: No Guardianship: No Medical Problems Affecting Mental Status: No Interim History: Several complaints-pt not getting her needs met, demanding of methadone increase, demanding to do an OP telehealth appt with providers which was denied due to this being not acceptable while pt is hospitalized. Argumentative. Team is attempting to file applications with pt for [facility], programs. She is improved in her attentiveness and organization today. Will meet with addictions team to discuss increase in Methadone. Medication Compliance: Yes Side effects from medications: No Attending Groups: Yes Review of Systems Acute medical concerns: No Medical Review of Systems: unchanged Review of Systems Review of Systems denies, asking to increase Methadone Mental Status Exam Mental Status Exam Patient Appearance: Appropriate Patient Orientation: Person, Place, Time and Situation Level of Consciousness: Alert Patient Behavior: Talkative, Cooperative and Anxious Mood Description: Labile and Angry Affect Description: Labile and Angry Patient Cognition Impaired: No Ability to Follow Directions: Good Speech Pattern: Spontaneous Speech Memory Description: Episodic Impaired Hallucinations: None Delusions: Not Present Perceptual Disturbances: Depersonalization and Derealization Thought Process: Rumination Thought Content: positive for Circumstantial, positive for Perseveration, positive for Tangential and positive for Suicidal Ideation (denies) Depressive Symptoms: Increased Anxiety, Diff. Making Decisions, Increased Irritability, Crying Spells, Unhappiness, Thoughts of /Suicide (denies) and Low Self Esteem Abnormal Motor Activity Signs and Symptoms: Agitation Judgement: Fair Diagnostics Vital Signs (24Hr): Vital Signs - 24 hr 03/28/25 18:47 03/28/25 20:00 03/29/25 08:00 Temperature 98.0 F 98.1 F Pulse Rate 76 72 Respiratory Rate 18 Blood Pressure 176/104 H 149/89 H 149/89 H Pulse Oximetry 99 98 Oxygen Delivery Method Room Air Room Air Labs 03/27/25 10:28 Labs: Laboratory Results - last 48 hr 03/27/25 10:28 Sodium 138 Potassium 4.7 Chloride 99 Carbon Dioxide 26 Anion Gap 18 BUN 41 H Creatinine 1.15 Estim Creat Clear Calc TNP Estimated GFR 53 Random Glucose 111 Calcium 9.1 Total Bilirubin 0.2 AST 23 ALT 20 Alkaline Phosphatase 138 H Total Protein 7.4 Albumin 4.5 Hepatitis A IgM Ab Nonreactive Hep Bs Antigen Negative Hep Bs Antibody REACTIVE Hep B Core Total Ab Nonreactive Hepatitis C Ab (EIA) Reactive H Medications Medications Current Medications Acetaminophen (Acetaminophen 325 Mg Tablet) 650 mg PO Q6H PRN PRN Reason: Headache/Pain, Scale 1-10 Al Hydroxide/Mg Hydroxide (Magnesium Hydrox/Alum Hydrox 30 Ml Oral.Susp) 30 ml PO Q6H PRN PRN Reason: Heartburn/Nausea Albuterol Sulfate (Albuterol Sulfate 90 Mcg 8 Gm Inhaler) 1 puff INHALE QID PRN PRN Reason: shortness of breath or wheezing Chlorpromazine HCl (Chlorpromazine Hcl 25 Mg Tablet) 25 mg PO Q6H PRN PRN Reason: agitation Clonazepam (Clonazepam 1 Mg Tablet) 1 mg PO TID PRN PRN Reason: Anxiety Last Admin: 03/29/25 08:51 Dose: 1 mg Clonidine HCl (Clonidine Hcl 0.2 Mg Tablet) 0.2 mg PO TID PRN; Protocol PRN Reason: panic attack Last Admin: 03/28/25 18:47 Dose: 0.2 mg Doxycycline Monohydrate (Doxycycline Monohydrate 100 Mg Capsule) 100 mg PO Q12H [facility] Last Admin: 03/29/25 06:40 Dose: 100 mg Folic Acid (Folic Acid 1 Mg Tablet) 1 mg PO DAILY [facility] Last Admin: 03/29/25 08:35 Dose: 1 mg Gabapentin (Gabapentin 400 Mg Capsule) 800 mg PO QID [facility] Last Admin: 03/29/25 08:35 Dose: 800 mg Hydroxyzine HCl (Hydroxyzine Hcl 25 Mg Tablet) 25 mg PO Q6H PRN PRN Reason: mild anxiety Last Admin: 03/28/25 20:49 Dose: 25 mg Ibuprofen (Ibuprofen 600 Mg Tablet) 600 mg PO TID PRN PRN Reason: fever or pain Last Admin: 03/26/25 06:05 Dose: 600 mg Levothyroxine Sodium (Levothyroxine Sodium 125 Mcg Tablet) 125 mcg PO DAILY@0600 [facility] Last Admin: 03/29/25 06:40 Dose: 125 mcg Magnesium Hydroxide (Milk Of Magnesia 30 Ml Oral.Susp) 30 ml PO DAILY PRN PRN Reason: Constipation Methadone HCl (Methadone Hcl 20 Mg/2 Ml Oral.Conc) 60 mg PO DAILY@0600 [facility] Last Admin: 03/29/25 06:40 Dose: 60 mg Methadone HCl (Methadone Hcl 20 Mg/2 Ml Oral.Conc) 10 mg PO 1600 [facility] Last Admin: 03/28/25 15:56 Dose: 10 mg Multivitamins/Vitamin C (Multivitamin Tablet) 1 tab PO DAILY [facility] Last Admin: 03/29/25 08:35 Dose: 1 tab Nicotine (Nicotine 21 Mg Patch.Td24) 21 mg TRANSDERMA DAILY [facility] Last Admin: 03/29/25 08:33 Dose: 21 mg Nicotine (Nicotine 14 Mg Patch.Td24) 14 mg TRANSDERMA DAILY [facility] Last Admin: 03/29/25 08:33 Dose: 14 mg Olanzapine (Olanzapine 5 Mg Tablet) 5 mg PO TID PRN PRN Reason: agitation Prednisone (Prednisone 20 Mg Tablet) 40 mg PO DAILY [facility] Last Admin: 03/29/25 08:35 Dose: 40 mg Simethicone (Simethicone 80 Mg Tab.Chew) 80 mg PO QIDWMHS [facility] Last Admin: 03/29/25 08:37 Dose: Not Given Thiamine HCl (Thiamine Hcl 100 Mg Tablet) 100 mg PO DAILY [facility] Last Admin: 03/29/25 08:35 Dose: 100 mg Trazodone HCl (Trazodone Hcl 50 Mg Tablet) 50 mg PO BEDTIME MRX1 PRN PRN Reason: Insomnia Last Admin: 03/28/25 20:49 Dose: 50 mg Trazodone HCl (Trazodone Hcl 50 Mg Tablet) 50 mg PO BEDTIME PRN PRN Reason: Insomnia Last Admin: 03/22/25 20:30 Dose: 50 mg Allergies Allergies Allergy/AdvReac Type Severity Reaction Status Date / Time fish derived Allergy Hives Verified 03/17/25 06:55 shellfish derived Allergy Anaphylaxis Verified 03/17/25 06:55 sulfamethoxazole (From Allergy Hives Verified 03/17/25 06:55 Bactrim) trimethoprim (From Bactrim) Allergy Hives Verified 03/17/25 06:55 Assessment & Plan Assessment & Plan (1) Depressive disorder: Status: Acute Code(s): F32.A - Depression, unspecified (2) Polysubstance abuse: Status: Acute Code(s): F19.10 - Other psychoactive substance abuse, uncomplicated (3) Opioid use disorder: Status: Acute Code(s): F11.90 - Opioid use, unspecified, uncomplicated (4) Cocaine use disorder: Status: Acute Code(s): F14.10 - Cocaine abuse, uncomplicated Plan Admit to M5, CV, 15 minute checks Medical Mgt of current issues Collateral contact Diagnostics as indicated Medication adjustments as care progresses- today, continue current regime. On 03/23, DC CIWA and Lorazepam Pt is looking to be placed in a custodial rehab 03/23: DC CIWA DC Lorazepam 03/24: Continue tx 03/26: Continue tx- Pt had an extra dose of Ativan today, then reports she believes scheduled Klonopin is more effective DC nicotine gum, patch increased. 03/29: Daytime methadone dosing to increase to 70 mg .Pt to be seen by addictions today to discuss increase. Reason for continued inpatient stay Substantial Risk for: rapid decompensation Time Spent With Patient Time: Total time managing care of this patient today ____ minutes.
--- NOTE | 2025-03-29 15:01 | MHC.RECOVRN ---
T/W met with pt. in common area following request received for questions on methadone dosing. Pt alert, pleasant and cooperative with meeting. Pt reports that the current dose of methadone (60mg QAM and 10mg QPM) is not enough. She reports that her outpatient dose of methadone was 80mg QAM and 50mg QPM ( maybe even higher ). She reports that after AM dose she experiences W/D including chills, restlessness, constant need to stretch and muscle aches? She then gets the afternoon dose and sx resolve for a brief period but then she wakes up at night and can not sleep due to same sx. She was seen by provider today and note entered to increase AM dose of methadone to 70mg but pt. is also concerned about the pm dose. She denies any feelings of overmedicated and none observed. Nurse also reports that pt. not presenting as sedated. Pt. reports that the day she nodded off in my lunch they gave me my Klonipin at the time my methadone was peaking and it was to much . Denies any further episodes of this and none reported by staff. T/W messaged [employer] OPERATOR Krys Awan with above and requested medication recommendations. T/W available PRN.
--- NOTE | 2025-03-29 15:53 | PM.EVENT ---
Event Note Date of Service: 03/29/25 Event Note: Patient seen in follow up by Recovery Support RN Requesting dose increase--currently at 60mg and 10mg in evening Notes reviewed--excessive sedation resolved, patient awake, alert Plan: -increase evening methadone dose from 10mg to 20mg -increase AM dose 5mg from 60mg to 65mg -discussed with attending provider Time Spent With Patient Time: Total time managing care of this patient today ____ minutes.
[2025-03-29] MEDS: methADONE HCl 20 MG/2 ML ORAL.CONC 10 MG PO ×2 (16:27→17:23)
[2025-03-29 20:00] VITALS: BP 140/86; PULSE 75; RESP 18; TEMP 37.4; O2SAT 97
[2025-03-29 21:00] VITALS: BP 140/86
[2025-03-30] MEDS: methADONE HCl 20 MG/2 ML ORAL.CONC 65 MG PO (06:17)
[2025-03-30 09:04] VITALS: BP 131/87; PULSE 82; TEMP 36.6; O2SAT 97
[2025-03-30] MEDS: Nicotine 21 MG PATCH.TD24 TRANSDERMA (09:14)
[2025-03-30] MEDS: Nicotine 14 MG PATCH.TD24 TRANSDERMA (09:15)
--- NOTE | 2025-03-30 10:06 | HO.PSYCHPN ---
Subjective Subjective Date of Service: 03/30/25 Reason For Visit: SI Subjective Notes: Conditional Voluntary Interim History: Patient states that I'm fucking miserable. I am pissed off because I do not get anything from the interview with this morning with Birgit, for placement. She notes that she could not focus due to ADD and environmental noise. She states that they promised to call back another day. She is also unhappy that her methadone was increased to 65 mg in the morning instead of 70 mg and the night dose was not increase to 20 mg. She reports anxiety and depression. Denies SI/HI/AH/VH. She retracted her 3-day noticed today. Medication Compliance: Yes Side effects from medications: No Attending Groups: Intermittent Review of Systems Acute medical concerns: No Mental Status Exam Mental Status Exam Narrative: Appearance: Casually dressed, adequate hygiene Behavior: Talkative. Hyperverbal. cooperative throughout the interview. Eye contact is appropriate, and there are no signs of psychomotor agitation or retardation Speech: Spontaneous Thought process: Tangential, circumstantial Thought content: No self-harming thoughts Mood: Irritable Affect: Blunted SI:denies HI:denies VH/AH:none Delusions: None Insight/judgment: Fair insight and judgment Memory/cog: Alert, oriented x 4. grossly intact to conversational testing Diagnostics Vital Signs (24Hr): Vital Signs - 24 hr 03/29/25 20:00 03/29/25 21:00 03/30/25 09:04 Temperature 99.4 F 97.9 F Pulse Rate 75 82 Respiratory Rate 18 Blood Pressure 140/86 H 140/86 H 131/87 Pulse Oximetry 97 97 Oxygen Delivery Method Room Air Room Air Labs 03/27/25 10:28 Medications Medications Current Medications Acetaminophen (Acetaminophen 325 Mg Tablet) 650 mg PO Q6H PRN PRN Reason: Headache/Pain, Scale 1-10 Al Hydroxide/Mg Hydroxide (Magnesium Hydrox/Alum Hydrox 30 Ml Oral.Susp) 30 ml PO Q6H PRN PRN Reason: Heartburn/Nausea Albuterol Sulfate (Albuterol Sulfate 90 Mcg 8 Gm Inhaler) 1 puff INHALE QID PRN PRN Reason: shortness of breath or wheezing Chlorpromazine HCl (Chlorpromazine Hcl 25 Mg Tablet) 25 mg PO Q6H PRN PRN Reason: agitation Clonazepam (Clonazepam 1 Mg Tablet) 1 mg PO TID PRN PRN Reason: Anxiety Last Admin: 03/30/25 09:20 Dose: 1 mg Clonidine HCl (Clonidine Hcl 0.2 Mg Tablet) 0.2 mg PO TID PRN; Protocol PRN Reason: panic attack Last Admin: 03/29/25 21:00 Dose: 0.2 mg Doxycycline Monohydrate (Doxycycline Monohydrate 100 Mg Capsule) 100 mg PO Q12H [facility] Last Admin: 03/30/25 06:16 Dose: 100 mg Folic Acid (Folic Acid 1 Mg Tablet) 1 mg PO DAILY [facility] Last Admin: 03/30/25 09:14 Dose: 1 mg Gabapentin (Gabapentin 400 Mg Capsule) 800 mg PO QID [facility] Last Admin: 03/30/25 09:13 Dose: 800 mg Hydroxyzine HCl (Hydroxyzine Hcl 25 Mg Tablet) 25 mg PO Q6H PRN PRN Reason: mild anxiety Last Admin: 03/29/25 21:00 Dose: 25 mg Ibuprofen (Ibuprofen 600 Mg Tablet) 600 mg PO TID PRN PRN Reason: fever or pain Last Admin: 03/26/25 06:05 Dose: 600 mg Levothyroxine Sodium (Levothyroxine Sodium 125 Mcg Tablet) 125 mcg PO DAILY@0600 [facility] Last Admin: 03/30/25 06:16 Dose: 125 mcg Magnesium Hydroxide (Milk Of Magnesia 30 Ml Oral.Susp) 30 ml PO DAILY PRN PRN Reason: Constipation Methadone HCl (Methadone Hcl 20 Mg/2 Ml Oral.Conc) 65 mg PO DAILY@0600 [facility] Last Admin: 03/30/25 06:17 Dose: 65 mg Methadone HCl (Methadone Hcl 20 Mg/2 Ml Oral.Conc) 20 mg PO 1600 [facility] Multivitamins/Vitamin C (Multivitamin Tablet) 1 tab PO DAILY [facility] Last Admin: 03/30/25 09:14 Dose: 1 tab Nicotine (Nicotine 21 Mg Patch.Td24) 21 mg TRANSDERMA DAILY [facility] Last Admin: 03/30/25 09:14 Dose: 21 mg Nicotine (Nicotine 14 Mg Patch.Td24) 14 mg TRANSDERMA DAILY [facility] Last Admin: 03/30/25 09:15 Dose: 14 mg Olanzapine (Olanzapine 5 Mg Tablet) 5 mg PO TID PRN PRN Reason: agitation Prednisone (Prednisone 20 Mg Tablet) 40 mg PO DAILY [facility] Last Admin: 03/30/25 09:13 Dose: 40 mg Simethicone (Simethicone 80 Mg Tab.Chew) 80 mg PO QIDWMHS [facility] Last Admin: 03/30/25 09:14 Dose: 80 mg Thiamine HCl (Thiamine Hcl 100 Mg Tablet) 100 mg PO DAILY [facility] Last Admin: 03/30/25 09:14 Dose: 100 mg Trazodone HCl (Trazodone Hcl 50 Mg Tablet) 50 mg PO BEDTIME MRX1 PRN PRN Reason: Insomnia Last Admin: 03/29/25 21:00 Dose: 50 mg Trazodone HCl (Trazodone Hcl 50 Mg Tablet) 50 mg PO BEDTIME PRN PRN Reason: Insomnia Last Admin: 03/22/25 20:30 Dose: 50 mg Allergies Allergies Allergy/AdvReac Type Severity Reaction Status Date / Time fish derived Allergy Hives Verified 03/17/25 06:55 shellfish derived Allergy Anaphylaxis Verified 03/17/25 06:55 sulfamethoxazole (From Allergy Hives Verified 03/17/25 06:55 Bactrim) trimethoprim (From Bactrim) Allergy Hives Verified 03/17/25 06:55 Assessment & Plan Assessment & Plan (1) Depressive disorder: Status: Acute Code(s): F32.A - Depression, unspecified (2) Polysubstance abuse: Status: Acute Code(s): F19.10 - Other psychoactive substance abuse, uncomplicated (3) Opioid use disorder: Status: Acute Code(s): F11.90 - Opioid use, unspecified, uncomplicated (4) Cocaine use disorder: Status: Acute Code(s): F14.10 - Cocaine abuse, uncomplicated Plan Admit to M5, CV, 15 minute checks Medical Mgt of current issues Collateral contact Diagnostics as indicated Medication adjustments as care progresses- today, continue current regime. On 03/23, DC CIWA and Lorazepam Pt is looking to be placed in a [facility] rehab 03/23: DC CIWA DC Lorazepam 03/24: Continue tx 03/26: Continue tx- Pt had an extra dose of Ativan today, then reports she believes scheduled Klonopin is more effective DC nicotine gum, patch increased. 03/29: Daytime methadone dosing to increase to 70 mg .Pt to be seen by addictions today to discuss increase. 03/30: Morning methadone increased to 65 mg and afternoon dose increased to 20 mg by addiction medicine. Continue current management. Patient educated on: medication risk/benefits and therapeutic strategies Reason for continued inpatient stay Substantial Risk for: rapid decompensation Time Spent With Patient Time: Total time managing care of this patient today ____ minutes.
--- NOTE | 2025-03-30 10:26 | PC.NURSE ---
Delilah retracted her 3 Day Notice & is now on a CV. Team notified.
[2025-03-30] MEDS: methADONE HCl 20 MG/2 ML ORAL.CONC PO (15:57)
[2025-03-30 21:47] VITALS: BP 152/92
[2025-03-31 00:08] VITALS: BP 152/92; PULSE 77; RESP 16; TEMP 36.6; O2SAT 97
--- NOTE | 2025-03-31 07:24 | PC.NURSE ---
TW went to wake up patient to come and take her 6am medications on 3 different occasions, between 6am and 7am. Patient stayed in bed the entire time.
[2025-03-31] MEDS: methADONE HCl 20 MG/2 ML ORAL.CONC 65 MG PO ×2 (07:45→07:46)
[2025-03-31] MEDS: Nicotine 21 MG PATCH.TD24 TRANSDERMA (09:17)
[2025-03-31] MEDS: Nicotine 14 MG PATCH.TD24 TRANSDERMA (09:20)
[2025-03-31 09:27] VITALS: BP 112/72; PULSE 79; RESP 18
--- NOTE | 2025-03-31 10:10 | HO.PSYCHPN ---
Subjective Subjective Date of Service: 03/31/25 Reason For Visit: SI Subjective Notes: Conditional Voluntary Healthcare Proxy: No Guardianship: No Medical Problems Affecting Mental Status: No Interim History: Met with pt and More Segura LCSW. Discussed with team. Pt experiencing difficulty in self mgt-several demands for applications to programs, however, pt has been on their wait list and has not followed up so re-application is not needed. Reports she could not focus on her interview with Birgit on 03/30 as there was too much noise, stimulation and activity. Team reports she was oversedated. Discussed discharge for 04/01. Pt to appeal as she believes not enough has been done to secure housing and treat her mental health-suggests we apply to [facility], [facility] and [facility]. Will not allow team to reschedule med appt with [facility]- you ruined that by not letting me do the appt from here , again discussed that when in hospital pt cannot do an out pt appt- I can everywhere else but here. Reivewed boundary issues and interference in others treatment- I apologize Multiple complaints about not receiving adequate treatment for her mental health. Affirms that she has declined all med changes except Methadone titration, which she demands occur today (discussed with Krys Awan NP who suggests Methadone increase to 75 mg a.m. and 25 mg pm which was implemented). Pt will contact Human Rights Officer to discuss her concerns. Application is completed by team for [facility] Medication Compliance: Yes Side effects from medications: No Attending Groups: Yes Review of Systems Acute medical concerns: No Medical Review of Systems: unchanged Review of Systems Review of Systems Denies Mental Status Exam Mental Status Exam Patient Appearance: Appropriate Patient Orientation: Person, Place, Time and Situation Level of Consciousness: Alert Patient Behavior: Talkative Mood Description: Hostile Affect Description: Hostile Patient Cognition Impaired: No Ability to Follow Directions: Good Speech Pattern: Spontaneous Speech Memory Description: Intact Hallucinations: None Delusions: Not Present Thought Process: Distracted Thought Content: positive for Circumstantial, positive for Perseveration, positive for Suicidal Ideation (denies) and positive for Homicidal Ideation (denies) Depressive Symptoms: Increased Irritability Abnormal Motor Activity Signs and Symptoms: Restlessness Judgement: Good Diagnostics Vital Signs (24Hr): Vital Signs - 24 hr 03/30/25 21:47 03/31/25 00:08 03/31/25 09:27 Temperature 97.8 F Pulse Rate 77 79 Respiratory Rate 16 18 Blood Pressure 152/92 H 152/92 H 112/72 Pulse Oximetry 97 Oxygen Delivery Method Room Air Labs 03/27/25 10:28 Medications Medications Current Medications Acetaminophen (Acetaminophen 325 Mg Tablet) 650 mg PO Q6H PRN PRN Reason: Headache/Pain, Scale 1-10 Al Hydroxide/Mg Hydroxide (Magnesium Hydrox/Alum Hydrox 30 Ml Oral.Susp) 30 ml PO Q6H PRN PRN Reason: Heartburn/Nausea Albuterol Sulfate (Albuterol Sulfate 90 Mcg 8 Gm Inhaler) 1 puff INHALE QID PRN PRN Reason: shortness of breath or wheezing Chlorpromazine HCl (Chlorpromazine Hcl 25 Mg Tablet) 25 mg PO Q6H PRN PRN Reason: agitation Clonazepam (Clonazepam 1 Mg Tablet) 1 mg PO TID PRN PRN Reason: Anxiety Last Admin: 03/31/25 07:51 Dose: 1 mg Clonidine HCl (Clonidine Hcl 0.2 Mg Tablet) 0.2 mg PO TID PRN; Protocol PRN Reason: panic attack Last Admin: 03/30/25 21:47 Dose: 0.2 mg Doxycycline Monohydrate (Doxycycline Monohydrate 100 Mg Capsule) 100 mg PO Q12H [facility] Last Admin: 03/31/25 07:51 Dose: 100 mg Folic Acid (Folic Acid 1 Mg Tablet) 1 mg PO DAILY [facility] Last Admin: 03/31/25 09:20 Dose: 1 mg Gabapentin (Gabapentin 400 Mg Capsule) 800 mg PO QID [facility] Last Admin: 03/31/25 09:20 Dose: 800 mg Hydroxyzine HCl (Hydroxyzine Hcl 25 Mg Tablet) 25 mg PO Q6H PRN PRN Reason: mild anxiety Last Admin: 03/29/25 21:00 Dose: 25 mg Ibuprofen (Ibuprofen 600 Mg Tablet) 600 mg PO TID PRN PRN Reason: fever or pain Last Admin: 03/26/25 06:05 Dose: 600 mg Levothyroxine Sodium (Levothyroxine Sodium 125 Mcg Tablet) 125 mcg PO DAILY@0600 [facility] Last Admin: 03/31/25 07:51 Dose: 125 mcg Loperamide HCl (Loperamide Hcl 2 Mg Capsule) 2 mg PO Q6H PRN PRN Reason: Diarrhea Last Admin: 03/31/25 09:20 Dose: 2 mg Magnesium Hydroxide (Milk Of Magnesia 30 Ml Oral.Susp) 30 ml PO DAILY PRN PRN Reason: Constipation Methadone HCl (Methadone Hcl 20 Mg/2 Ml Oral.Conc) 65 mg PO DAILY@0600 [facility] Last Admin: 03/31/25 07:46 Dose: 65 mg Methadone HCl (Methadone Hcl 20 Mg/2 Ml Oral.Conc) 20 mg PO 1600 [facility] Last Admin: 03/30/25 15:57 Dose: 20 mg Multivitamins/Vitamin C (Multivitamin Tablet) 1 tab PO DAILY [facility] Last Admin: 03/31/25 09:20 Dose: 1 tab Nicotine (Nicotine 21 Mg Patch.Td24) 21 mg TRANSDERMA DAILY [facility] Last Admin: 03/31/25 09:17 Dose: 21 mg Nicotine (Nicotine 14 Mg Patch.Td24) 14 mg TRANSDERMA DAILY [facility] Last Admin: 03/31/25 09:20 Dose: 14 mg Olanzapine (Olanzapine 5 Mg Tablet) 5 mg PO TID PRN PRN Reason: agitation Prednisone (Prednisone 20 Mg Tablet) 40 mg PO DAILY [facility] Last Admin: 03/31/25 09:20 Dose: 40 mg Simethicone (Simethicone 80 Mg Tab.Chew) 80 mg PO QIDWMHS [facility] Last Admin: 03/31/25 07:49 Dose: Not Given Thiamine HCl (Thiamine Hcl 100 Mg Tablet) 100 mg PO DAILY [facility] Last Admin: 03/31/25 09:20 Dose: 100 mg Trazodone HCl (Trazodone Hcl 50 Mg Tablet) 50 mg PO BEDTIME MRX1 PRN PRN Reason: Insomnia Last Admin: 03/30/25 21:47 Dose: 50 mg Trazodone HCl (Trazodone Hcl 50 Mg Tablet) 50 mg PO BEDTIME PRN PRN Reason: Insomnia Last Admin: 03/22/25 20:30 Dose: 50 mg Allergies Allergies Allergy/AdvReac Type Severity Reaction Status Date / Time fish derived Allergy Hives Verified 03/17/25 06:55 shellfish derived Allergy Anaphylaxis Verified 03/17/25 06:55 sulfamethoxazole (From Allergy Hives Verified 03/17/25 06:55 Bactrim) trimethoprim (From Bactrim) Allergy Hives Verified 03/17/25 06:55 Assessment & Plan Assessment & Plan (1) Depressive disorder: Status: Acute Code(s): F32.A - Depression, unspecified (2) Polysubstance abuse: Status: Acute Code(s): F19.10 - Other psychoactive substance abuse, uncomplicated (3) Opioid use disorder: Status: Acute Code(s): F11.90 - Opioid use, unspecified, uncomplicated (4) Cocaine use disorder: Status: Acute Code(s): F14.10 - Cocaine abuse, uncomplicated Plan Admit to , CV, 15 minute checks Medical Mgt of current issues Collateral contact Diagnostics as indicated Medication adjustments as care progresses- today, continue current regime. On 03/23, DC CIWA and Lorazepam Pt is looking to be placed in a senior living rehab 03/23: DC CIWA DC Lorazepam 03/24: Continue tx 03/26: Continue tx- Pt had an extra dose of Ativan today, then reports she believes scheduled Klonopin is more effective DC nicotine gum, patch increased. 03/29: Daytime methadone dosing to increase to 70 mg .Pt to be seen by addictions today to discuss increase. 03/30: Morning methadone increased to 65 mg and afternoon dose increased to 20 mg by addiction medicine. Continue current management. 03/31: Methadone increase to 75mg a.m. 25 mg p.m. Simethacone changed to prn Pepto Bismol prn Reason for continued inpatient stay Substantial Risk for: stable for discharge Time Spent With Patient Time: Total time managing care of this patient today ____ minutes.
[2025-03-31] MEDS: methADONE HCl 20 MG/2 ML ORAL.CONC 25 MG PO (15:33)
[2025-03-31 17:20] VITALS: BP 123/78
[2025-03-31] MEDS: Bismuth Subsalicylate 262 MG TABLET 524 MG PO ×2 (17:21→21:20)
[2025-03-31 20:00] VITALS: BP 128/80; PULSE 123; RESP 16; TEMP 36.8; O2SAT 96
[2025-03-31 21:21] VITALS: BP 131/83
[2025-04-01] MEDS: methADONE HCl 20 MG/2 ML ORAL.CONC 75 MG PO (07:05)
[2025-04-01] MEDS: Bismuth Subsalicylate 262 MG TABLET 524 MG PO (08:50)
--- NOTE | 2025-04-01 09:46 | P.DS_ITS ---
DS: Providers Provider Date of Service: 04/01/25 Date of admission: 03/21/25 14:57 Date of discharge: 04/01/25 Primary care physician: Unknown Physician Admitting clinician: Misty Nieto Attending physician on admission: Bryan Hollingsworth Consults: 03/21/25 16:55 Addiction Medicine Provider Routine Consulting Provider: Addiction Covering Reason for consultation: polysub (patient was seen on [facility]) 03/25/25 12:03 Addiction Medicine Provider Routine Consulting Provider: Addiction Covering Reason for consultation: AA/NA resources, recovery coaching in pt Has provider been notified: No 03/27/25 10:47 Addiction Medicine Provider Routine Consulting Provider: Addiction Covering Reason for consultation: early recovery support Has provider been notified: No Attending physician on discharge: Bryan Hollingsworth Discharging clinician: Misty Nieto DS: Diagnosis Discharge Diagnosis (1) Depressive disorder: Status: Acute (2) Polysubstance abuse: Status: Acute (3) Opioid use disorder: Status: Acute (4) Cocaine use disorder: Status: Acute DS: Medications Discharge Medications Home Medications: Home Medications ?Medication ?Instructions ?Recorded ?Confirmed clonazepam 1 mg tablet 1 mg PO TID PRN anxiety corinna ck 03/17/25 03/21/25 clonidine HCl 0.2 mg tablet 0.2 mg PO TID PRN panic at tack 03/17/25 03/21/25 gabapentin 800 mg tablet 800 mg PO QID depressive dis order 03/17/25 03/21/25 levothyroxine 125 mcg tablet 125 mcg PO DAILY@0600 03/21/25 Previous Rx's ?Medication ?Instructions ?Recorded ibuprofen 600 mg tablet 600 mg PO TID PRN fever or p ain 05/13/24 #20 tabs albuterol sulfate 90 mcg/actuation 1 inh inhalation QI D PRN shortness 05/25/24 aerosol inhaler of breath or wheezing 30 day s #6.7 grams hydroxyzine HCl 25 mg tablet 25 mg PO BID PRN anxiety 30 days 05/25/24 #60 tabs methadone 10 mg/mL oral 60 mg (6 mL) PO DAILY@0600 # 0 mL 05/25/24 concentrate (Methadose) nicotine (polacrilex) 4 mg buccal 4 mg buccal Q1H PRN Nicotine 05/25/24 lozenge Cravings 30 days #108 ea nicotine 21 mg/24 hr daily 21 mg transdermal DAILY 28 days 05/25/24 transdermal patch #28 ea trazodone 50 mg tablet 50 mg PO BEDTIME PRN Insomni a 30 05/25/24 days #30 tabs vitamin B complex 1 cap PO DAILY 30 days #30 c aps 05/25/24 folic acid 1 mg tablet 1 mg PO DAILY #0 tabs multivitamin (Daily-Boris tablet) 1 tab PO DAILY #0 tab s 03/21/25 prednisone 20 mg tablet 40 mg (2 x 20 mg) PO DAILY 2 days 03/21/25 #4 tabs gabapentin 800 mg tablet 800 mg PO QID #120 tabs 03/05 08/28 levothyroxine 125 mcg tablet 125 mcg PO DAILY #30 tabs 03/24/25 (Levoxyl) doxycycline monohydrate 100 mg 100 mg PO Q12H 2 days # 14 caps 03/28/25 capsule simethicone 80 mg chewable tablet 80 mg PO QIDWMHS #0 tabs 03/28/25 Mental Status Exam Mental Status Exam Patient Appearance: Appropriate Patient Orientation: Person, Place, Time and Situation Level of Consciousness: Alert Patient Behavior: Talkative Mood Description: Hostile Affect Description: Hostile Patient Cognition Impaired: No Ability to Follow Directions: Good Speech Pattern: Spontaneous Speech Memory Description: Intact Hallucinations: None Delusions: Not Present Thought Process: Distracted Thought Content: positive for Circumstantial, positive for Perseveration, positive for Suicidal Ideation (denies) and positive for Homicidal Ideation (denies) Depressive Symptoms: Increased Irritability Abnormal Motor Activity Signs and Symptoms: Restlessness Judgement: Good Data Data Completed and Pending Completed studies during hospitalization [Text1]: 03/27/25 10:28 Sodium 138 Potassium 4.7 Chloride 99 Carbon Dioxide 26 Anion Gap 18 BUN 41 H Creatinine 1.15 Estim Creat Clear Calc TNP Estimated GFR 53 Random Glucose 111 Calcium 9.1 Total Bilirubin 0.2 AST 23 ALT 20 Alkaline Phosphatase 138 H Total Protein 7.4 Albumin 4.5 Hepatitis A IgM Ab Nonreactive Hep Bs Antigen Negative Hep Bs Antibody REACTIVE Hep B Core Total Ab Nonreactive Hepatitis C Ab (EIA) Reactive H DS: Summary Hospital Course Hospital Course: Admission in transfer from medicine for polysubstance use disorder, depression, borderline personality disorder. Pt admitted to medicine for mgt of bronchitis, hypokalemia, elevated TSH, COSTA and detox from alcohol and opiates. Once admitted to psychiatry, medications were evaluated and pt declined adjustments, stating she prefers to have her out pt [employer]LA[employer] EX[employer]ACTOR work with these. Pt was offered full milieu to assist her with strengthening coping skills. Pt chose to decline team contact with out side providers, or contact with potential treatment options, citing that they were not acceptable choices for her. Therefore she discharges to return to her out pt provider and will choose services independently upon return to the community. Status at Discharge Functional status at discharge: independent ambulation Overall status at discharge: patient is back to baseline Time Spent with Patient Time attestation: Total time managing care of this patient today ____ minutes. Time spent: Less than 30 minutes Discharge Plan Discharge Anticipated Discharge Date/Time: 04/01/25 11:00 Patient Disposition: Xfer Other Discharge Diagnosis: Polysubstance Use Disorder Cocaine Use Disorder Opiate Use Disorder Major Depression Referrals: Psychiatry with [facility] [Other] - 03/31/25 Referral Note: Delilah declined sw to call and alert the office she was in- patient. Delilah declined sw's offer to call the office for a follow up appointment. [facility] [Other] - 1 Week Referral Note: Please call them weekly as you are on the wait list. [facility] [Other] - 1 Week Referral Note: You can self refer once back in the community. [facility] [Other] - 1 Day Referral Note: A referral has been placed on your behalf and you can follow up in the community. [facility] Referral [Other] - 1 Week Referral Note: There has been a [facility] referral placed on your behalf. You can follow up by calling the number provided. Physician,Unknown J [Primary Care Provider, Medical] - 1 Week Discharge Medications: New levothyroxine [Levoxyl] 125 mcg tablet 125 mcg PO DAILY Qty: 30 0RF gabapentin 800 mg tablet 800 mg PO QID Qty: 120 0RF simethicone 80 mg Tablet,Chewable 80 mg PO QIDWMHS Qty: 0 0RF Continued clonazepam 1 mg tablet 1 mg PO TID PRN (Reason: anxiety attack) gabapentin 800 mg tablet 800 mg PO QID clonidine HCl 0.2 mg tablet 0.2 mg PO TID PRN (Reason: panic attack) levothyroxine 125 mcg tablet 125 mcg PO DAILY@0600 multivitamin [Daily-Boris] Tablet 1 tab PO DAILY Qty: 0 0RF prednisone 20 mg Tablet 40 mg PO DAILY 2 Days Qty: 4 0RF folic acid 1 mg Tablet 1 mg PO DAILY Qty: 0 0RF ibuprofen 600 mg tablet 600 mg PO TID PRN (Reason: fever or pain) Qty: 20 0RF nicotine 21 mg/24 hr Patch 24 Hour 21 mg transdermal DAILY 28 Days Qty: 28 0RF nicotine (polacrilex) 4 mg Lozenge 4 mg buccal Q1H PRN (Reason: Nicotine Cravings) 30 Days Qty: 108 0RF albuterol sulfate 90 mcg/actuation HFA aerosol inhaler 1 inh inhalation QID PRN (Reason: shortness of breath or wheezing) 30 Days Qty: 6.7 0RF trazodone 50 mg Tablet 50 mg PO BEDTIME PRN (Reason: Insomnia) 30 Days Qty: 30 0RF vitamin B complex Capsule 1 cap PO DAILY 30 Days Qty: 30 0RF hydroxyzine HCl 25 mg tablet 25 mg PO BID PRN (Reason: anxiety) 30 Days Qty: 60 0RF doxycycline monohydrate 100 mg Capsule 100 mg PO Q12H 2 Days Qty: 14 0RF Discontinued bupropion HCl 75 mg tablet 75 mg PO DAILY 30 Days Qty: 30 0RF No Action methadone [Methadose] 10 mg/mL concentrate 75 mg PO DAILY@0600 Patient Comments: gets from [facility] Rx Instructions: Partial Fill upon patient request. Discharge Orders: Discharge Order (Routine); Ordered 04/01/25 Ordered By: Misty Nieto Diet: Advance to usual diet Activity on Discharge: As tolerated Stand Alone Forms: Patient Portal Discharge page, Community Support Print Language: [place]ese Care Plan Goals: Abstinence from substances Mood and Behavioral Stabilization Health Concerns: Abstinence from substances Mood and Behavioral Stabilization Plan of Treatment: Attend scheduled appointments Take medications as directed Assessment: Pt has refused contact with OP Providers, [facility] and [facility] She reports she will follow up in the community for further addiction services if she chooses. Prescriptions were not sent as Delilah reports she has a months worth of meds in her belongings and she will see her prescriber on 03/31. Discharge Date/Time: 04/01/25 11:38
[2025-04-01] MEDS: Nicotine 14 MG PATCH.TD24 TRANSDERMA (09:57)
[2025-04-01] MEDS: Nicotine 21 MG PATCH.TD24 TRANSDERMA (09:57)
[2025-04-01] MEDS: methADONE HCl 20 MG/2 ML ORAL.CONC 25 MG PO (11:33)
== END 2025-04-01 11:38 | disposition other institution (70) | DRG 881 ==
PROVIDERS: Admitting Provider Psychiatry & Neurology Psychiatry; Visit Provider Clinical Nurse Specialist Psychiatric/Mental Health, Adult
DX: F32.9 Major depressive disorder, single episode, unspecified (principal); F11.20 Opioid dependence, uncomplicated; R45.851 Suicidal ideations; E03.9 Hypothyroidism, unspecified; F17.210 Nicotine dependence, cigarettes, uncomplicated; Z71.6 Tobacco abuse counseling; F14.10 Cocaine abuse, uncomplicated; Z91.148 Patient's other noncompliance with medication regimen for other reason; Z79.52 Long term (current) use of systemic steroids; Z79.890 Hormone replacement therapy; Z79.899 Other long term (current) drug therapy
CPT/HCPCS: 36415; 80053; 80061; 83036; 84439; 84443; 86704; 86706; 86709; 86803; 87340; 99499

== ENCOUNTER → 2025-03-21 14:57 | Outpatient (BNV) | payer MEDICARE, MEDICAID, SELFPAY | PROVIDERS: Admitting Provider Psychiatry & Neurology Psychiatry; Visit Provider Nurse Practitioner Psychiatric/Mental Health | DX: F32.2 Major depressive disorder, single episode, severe without psychotic features (principal); F19.10 Other psychoactive substance abuse, uncomplicated; F14.10 Cocaine abuse, uncomplicated; F11.90 Opioid use, unspecified, uncomplicated | CPT/HCPCS: 90792; 99499 ==

== ENCOUNTER 2025-04-04 13:46 | Emergency (ER) | payer MEDICARE, MEDICAID, SELFPAY ==
--- NOTE | ~2025-04-04 | XR_ITS ---
CLINICAL HISTORY: CHF? 1 view chest x-ray. Comparison: CR/SR - XR CHEST 1 VIEW - 05/13/24 04:31 EDT Findings: The lungs appear clear. There is no consolidation, effusion, or pneumothorax. Cardiomediastinal silhouette is within normal limits. IMPRESSION: No acute cardiopulmonary abnormality. This document has been electronically signed by: James Perez MD on 04/04/2025 17:08:26
[2025-04-04 13:51] VITALS: BP 166/100; PULSE 103; O2SAT 100
[2025-04-04 14:04] VITALS: BP 158/93; PULSE 92; RESP 18; TEMP 37.1; O2SAT 94; BMI 30.9
--- NOTE | 2025-04-04 14:06 | PC.NURSE ---
Arrived via ems, incont of stool , changed into hospital attire. Patients clothing covered in feces. 6 needles found in patients bra, disposed of in sharps container. Patient wakes briefly stating give me methadone now.
[2025-04-04 14:40] VITALS: BP 131/95; PULSE 96; RESP 22; O2SAT 92
--- NOTE | 2025-04-04 14:53 | ED_ITS ---
HPI - Overdose General Chief Complaint: Overdose Stated Complaint: OVERDOSE Time Seen by Provider: 04/04/25 14:41 Source: EMS and old records reviewed Mode of arrival: EMS Limitations: altered mental status History of Present Illness ED Provider: DR. Redding HPI Narrative: this is a 39-year-old female history of congestive heart failure, COPD, hypothyroidism, AFib, heroin use disorder, alcohol use disorders, DTs, withdrawal seizure who presented to our emergency department by EMS after was found by bystander unresponsive with a high suspicion of drug use, 5 empty syringe were found on the patient, patient received total of 12 mg of Narcan by bystander, patient is lethargic open her eyes to sternal rub, unable to give meaningful history because patient is too sleepy, VSS. Related Data Home Medications ?Medication ?Instructions ?Recorded ?Confirmed clonazepam 1 mg tablet 1 mg PO TID PRN anxiety corinna ck 03/17/25 03/21/25 clonidine HCl 0.2 mg tablet 0.2 mg PO TID PRN panic at tack 03/17/25 03/21/25 gabapentin 800 mg tablet 800 mg PO QID depressive dis order 03/17/25 03/21/25 levothyroxine 125 mcg tablet 125 mcg PO DAILY@0600 03/21/25 Previous Rx's ?Medication ?Instructions ?Recorded ibuprofen 600 mg tablet 600 mg PO TID PRN fever or p ain 05/13/24 #20 tabs albuterol sulfate 90 mcg/actuation 1 inh inhalation QI D PRN shortness 05/25/24 aerosol inhaler of breath or wheezing 30 day s #6.7 grams hydroxyzine HCl 25 mg tablet 25 mg PO BID PRN anxiety 30 days 05/25/24 #60 tabs methadone 10 mg/mL oral 60 mg (6 mL) PO DAILY@0600 # 0 mL 05/25/24 concentrate (Methadose) nicotine (polacrilex) 4 mg buccal 4 mg buccal Q1H PRN Nicotine 05/25/24 lozenge Cravings 30 days #108 ea nicotine 21 mg/24 hr daily 21 mg transdermal DAILY 28 days 05/25/24 transdermal patch #28 ea trazodone 50 mg tablet 50 mg PO BEDTIME PRN Insomni a 30 05/25/24 days #30 tabs vitamin B complex 1 cap PO DAILY 30 days #30 c aps 05/25/24 folic acid 1 mg tablet 1 mg PO DAILY #0 tabs multivitamin (Daily-Boris tablet) 1 tab PO DAILY #0 tab s 03/21/25 prednisone 20 mg tablet 40 mg (2 x 20 mg) PO DAILY 2 days 03/21/25 #4 tabs gabapentin 800 mg tablet 800 mg PO QID #120 tabs 03/05 08/28 levothyroxine 125 mcg tablet 125 mcg PO DAILY #30 tabs 03/24/25 (Levoxyl) doxycycline monohydrate 100 mg 100 mg PO Q12H 2 days # 14 caps 03/28/25 capsule simethicone 80 mg chewable tablet 80 mg PO QIDWMHS #0 tabs 03/28/25 Allergies Allergy/AdvReac Type Severity Reaction Status Date / Time fish derived Allergy Hives Verified 04/04/25 14:06 shellfish derived Allergy Anaphylaxis Verified 04/04/25 14:06 sulfamethoxazole (From Allergy Hives Verified 04/04/25 14:06 Bactrim) trimethoprim (From Bactrim) Allergy Hives Verified 04/04/25 14:06 Review of Systems 2 Review of Systems: Yes Unobtainable due to mental condition ( Overdose on drugs.) [facility] Past Medical History Medical History CKD (chronic kidney disease), stage III Alcohol use disorder Polysubstance abuse Hypothyroidism Social History Social History Household Members: None Housing: Homeless Do you presently have visiting nurse or other home services: No Unable to assess alcohol history related to: Refusing to respond Alcohol intake: current Alcohol intake frequency: 3 or more drinks per day Alcohol type: beer and hard liquor 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 observer Patient Tobacco Use Status: Current everyday Tobacco user Tobacco use type: Cigarette Cigarette Packs Per Day: 1 Cigarettes Per Day: 30 Years Smoked: 30yrs (since 9yr old) e-Cigarette/Vaping Use: Never Used Second Hand Smoke Exposure: No Substance Use Type: Crack/Cocaine and Heroin Advance Directives: No Advance Directives Information Provided: No service: No Sexual orientation: Don't Know Physical Exam 2 Vital Signs: Vital Signs: Last Vital Signs Temp 99 F 04/04/25 15:54 Pulse 93 04/04/25 15:54 Resp 22 H 04/04/25 15:54 BP 134/75 04/04/25 15:54 Pulse Ox 92 04/04/25 15:54 O2 Del Method Room Air 04/04/25 15:54 BMI result Body Mass Index 30.9 Vital signs have been reviewed and appear to be correct. Blood pressure elevated. Heart rate normal. Respiratory rate normal. Temperature normal. Oxygen saturation normal. Appearance: Alert. lethargic only respond to sternal rub, No acute distress. Head: Normal external exam. Normocephalic. Atraumatic. No Moore signs noted. No raccoon eyes noted Eyes: PERRLA. EOMI. Conjunctiva and sclera normal. Eyelids normal. ENT: TM's Normal. Pharynx normal. Uvula midline. Moist mucous membranes. No trismus noted. No drooling noted. No muffled voice noted. Neck: Normal inspection. Neck supple. FROM. No adenopathy. Thyroid Normal. No meningeal signs. No neck mass noted. CVS: Normal heart rate and rhythm. Heart sound normal. No murmurs noted. Pulses normal throughout. Respiratory: No respiratory distress. Painless inspiration. Breath sounds normal. No wheezes/rales/rhonchi noted. Chest nontender. No accessory muscle usage noted or decreased air movement noted. Abdomen: Soft, bloated and distended no apparent tenderness.. Bowel sounds normal in all 4 quadrants. No distention noted. No organomegaly noted. No visible injury noted. Back: No CVA tenderness. Full range of motion noted. Skin: Skin warm and dry. Normal skin color. Normal skin turgor. No rashes/lesions/lacerations noted. Extremities: No lower extremity edema. Extremities exhibit normal range of motion. Extremities nontender. Neuro: Cranial nerve exam: II-XII are grossly intact No motor deficit. No sensory deficit. Reflexes normal. Course Reevaluation(s) Reevaluation #1: patient is awake, Has no chest pain, able to admit that she was using drugs today, patient is awake and alert now is yelling that she wants to leave now because her bag and her while it was left in the street, no SI, no HI, no hallucination. patient now is awake using inappropriate language asking to leave to go get her stuff from the street. Patient is asking for methadone reportedly patient had her methadone earlier at the methadone clinic. Patient insists to leave keep shouting I want to get the F out of here . Time: 17:45 Reevaluation #2: patient agreed to check her troponin signed out to Dr. Landers. Will discharge if no delta change, Time: 20:53 Medical Decision Making Differential Diagnosis Differential Diagnoses: The differential diagnosis associated with the presentation includes ( Acute psychosis, depression, drug overdose, pneumonia, electrolyte derangement, severe anemia, head injury.) Admission/Observation Consideration of admission/observation: Escalation of care including admission/observation considered Lab Data MDM Lab Attestation statement: I reviewed the patient's lab results. 04/04/25 15:46 04/04/25 15:47 Labs: Lab Results 04/04/25 04/04/25 04/04/25 Range/Units 15:46 15:47 16:03 WBC 15.0 H (4.8-10.8) X10*3/uL RBC 4.13 L (4.20-5.50) X10*6/uL Hgb 12.9 (12.0-16.0) g/dl Hct 38.4 (37.0-47.0) % MCV 93.0 (80.0-98.0) fL MCH 31.2 (27.0-33.0) pg MCHC 33.6 (31.0-35.0) g/dl RDW 13.8 (11.0-16.0) % Plt Count 266 (160-400) X10*3/uL MPV 9.2 L (9.4-12.3) fL Immature Gran % (Auto) 0.4 (0.0-0.4) % Neut % (Auto) 65.9 (45-73) % Lymph % (Auto) 24.7 (20-40) % [place] % (Auto) 5.2 (2-11) % Eos % (Auto) 3.4 (0-4) % Baso % (Auto) 0.4 (0-2) % Lymph # (Auto) 3.7 (1.2-4.9) X10*3/uL [place] # (Auto) 0.8 (0.1-1.2) X10*3/uL Eos # (Auto) 0.5 H (0.0-0.4) X10*3/uL Baso # (Auto) 0.1 (0.0-0.2) X10*3/uL Abs Immat Gran (auto) 0.06 H (0.00-0.03) X10*3/uL Absolute Neuts (auto) 9.9 H (2.0-8.3) x10*3/uL Absolute Nucleated RBC 0.000 (0.0-0.012) X10*3/uL Nucleated RBC % (auto) 0.0 (0.0-0.2) /100WBC Sodium 143 (135-145) mmol/L Potassium 3.6 D (3.3-5.1) mmol/L Chloride 104 (96-108) mmol/L Carbon Dioxide 28 (22-29) mmol/L Anion Gap 15 (12-20) BUN 25 H (9-16) mg/dL Creatinine 0.99 (0.5-1.4) mg/dL Estim Creat Clear Calc 78.8 Estimated GFR > 60 Random Glucose 71 (60-115) mg/dL Calcium 9.4 (8.4-10.2) mg/dL Total Bilirubin 0.4 (0.0-1.0) mg/dL Direct Bilirubin 0.1 (0.0-0.5) mg/dL AST 40 H (5-31) U/L ALT 31 (0-31) U/L Alkaline Phosphatase 131 H (39-117) U/L Troponin I High Sens 30.0 H D (<3.5-17.0) ng/L B-Natriuretic Peptide 21 (<100) pg/mL Total Protein 8.2 H (6.5-8.0) g/dL Albumin 5.0 (3.5-5.0) g/dL Lipase 15 (8-78) U/L Beta HCG, Quant < 2 mIU/mL Urine Color Yellow Urine Appearance Clear Urine pH 5.5 (5.0-9.0) Ur Specific Agency 1.020 (1.005-1.025) Urine Protein Trace (Neg-Trace) mg/dL Urine Glucose (UA) Negative (Negative) mg/dL Urine Ketones Negative (Negative) mg/dL Urine Blood Negative (Negative) Urine Nitrite Negative (Negative) Ur Leukocyte Esterase Negative (Negative) Urine Test NEGATIVE (NEGATIVE) Urine Opiates Screen POSITIVE H (Not Detect) Ur Buprenorphine Scrn Not Detected (Not Detect) ng/mL Ur Oxycodone Screen Not Detected (Not Detect) ng/mL Urine Methadone Screen Positive H (Not Detect) ng/mL Urine Fentanyl Screen POSITIVE H (Not Detect) Ur Barbiturates Screen POSITIVE H (Not Detect) Ur Phencyclidine Scrn Not Detected (Not Detect) Ur Amphetamines Screen Not Detected (Not Detect) U Benzodiazepines Scrn Not Detected (Not Detect) Urine Cocaine Screen POSITIVE H (Not Detect) U Marijuana (THC) Screen Not Detected (Not Detect) Ethyl Alcohol < 10 mg/dL 04/04/25 Range/Units 18:12 WBC (4.8-10.8) X10*3/uL RBC (4.20-5.50) X10*6/uL Hgb (12.0-16.0) g/dl Hct (37.0-47.0) % MCV (80.0-98.0) fL MCH (27.0-33.0) pg MCHC (31.0-35.0) g/dl RDW (11.0-16.0) % Plt Count (160-400) X10*3/uL MPV (9.4-12.3) fL Immature Gran % (Auto) (0.0-0.4) % Neut % (Auto) (45-73) % Lymph % (Auto) (20-40) % [place] % (Auto) (2-11) % Eos % (Auto) (0-4) % Baso % (Auto) (0-2) % Lymph # (Auto) (1.2-4.9) X10*3/uL [place] # (Auto) (0.1-1.2) X10*3/uL Eos # (Auto) (0.0-0.4) X10*3/uL Baso # (Auto) (0.0-0.2) X10*3/uL Abs Immat Gran (auto) (0.00-0.03) X10*3/uL Absolute Neuts (auto) (2.0-8.3) x10*3/uL Absolute Nucleated RBC (0.0-0.012) X10*3/uL Nucleated RBC % (auto) (0.0-0.2) /100WBC Sodium (135-145) mmol/L Potassium (3.3-5.1) mmol/L Chloride (96-108) mmol/L Carbon Dioxide (22-29) mmol/L Anion Gap (12-20) BUN (9-16) mg/dL Creatinine (0.5-1.4) mg/dL Estim Creat Clear Calc Estimated GFR Random Glucose (60-115) mg/dL Calcium (8.4-10.2) mg/dL Total Bilirubin (0.0-1.0) mg/dL Direct Bilirubin (0.0-0.5) mg/dL AST (5-31) U/L ALT (0-31) U/L Alkaline Phosphatase (39-117) U/L Troponin I High Sens 35.2 H (<3.5-17.0) ng/L B-Natriuretic Peptide (<100) pg/mL Total Protein (6.5-8.0) g/dL Albumin (3.5-5.0) g/dL Lipase (8-78) U/L Beta HCG, Quant mIU/mL Urine Color Urine Appearance Urine pH (5.0-9.0) Ur Specific Agency (1.005-1.025) Urine Protein (Neg-Trace) mg/dL Urine Glucose (UA) (Negative) mg/dL Urine Ketones (Negative) mg/dL Urine Blood (Negative) Urine Nitrite (Negative) Ur Leukocyte Esterase (Negative) Urine Test (NEGATIVE) Urine Opiates Screen (Not Detect) Ur Buprenorphine Scrn (Not Detect) ng/mL Ur Oxycodone Screen (Not Detect) ng/mL Urine Methadone Screen (Not Detect) ng/mL Urine Fentanyl Screen (Not Detect) Ur Barbiturates Screen (Not Detect) Ur Phencyclidine Scrn (Not Detect) Ur Amphetamines Screen (Not Detect) U Benzodiazepines Scrn (Not Detect) Urine Cocaine Screen (Not Detect) U Marijuana (THC) Screen (Not Detect) Ethyl Alcohol mg/dL Independent Interpretation I performed an independent interpretation of an: Plain X-Ray ( Chest: No acute intrathoracic pathology.) Radiology Impression Discussion of test interpretation with radiology: I have reviewed the radiologist's reading. Discharge Plan Discharge Clinical Impression: Substance abuse Patient Disposition: Home, Self-Care Instructions: Polysubstance Use Disorder (ED) Prescriptions: No Action clonazepam 1 mg tablet 1 mg PO TID PRN (Reason: anxiety attack) gabapentin 800 mg tablet 800 mg PO QID clonidine HCl 0.2 mg tablet 0.2 mg PO TID PRN (Reason: panic attack) levothyroxine 125 mcg tablet 125 mcg PO DAILY@0600 multivitamin [Daily-Boris] Tablet 1 tab PO DAILY Qty: 0 0RF prednisone 20 mg Tablet 40 mg PO DAILY 2 Days Qty: 4 0RF folic acid 1 mg Tablet 1 mg PO DAILY Qty: 0 0RF ibuprofen 600 mg tablet 600 mg PO TID PRN (Reason: fever or pain) Qty: 20 0RF nicotine 21 mg/24 hr Patch 24 Hour 21 mg transdermal DAILY 28 Days Qty: 28 0RF nicotine (polacrilex) 4 mg Lozenge 4 mg buccal Q1H PRN (Reason: Nicotine Cravings) 30 Days Qty: 108 0RF methadone [Methadose] 10 mg/mL Concentrate 60 mg PO DAILY@0600 Qty: 0 0RF Rx Instructions: Partial Fill upon patient request. albuterol sulfate 90 mcg/actuation HFA aerosol inhaler 1 inh inhalation QID PRN (Reason: shortness of breath or wheezing) 30 Days Qty: 6.7 0RF trazodone 50 mg Tablet 50 mg PO BEDTIME PRN (Reason: Insomnia) 30 Days Qty: 30 0RF vitamin B complex Capsule 1 cap PO DAILY 30 Days Qty: 30 0RF hydroxyzine HCl 25 mg tablet 25 mg PO BID PRN (Reason: anxiety) 30 Days Qty: 60 0RF levothyroxine [Levoxyl] 125 mcg tablet 125 mcg PO DAILY Qty: 30 0RF gabapentin 800 mg tablet 800 mg PO QID Qty: 120 0RF simethicone 80 mg Tablet,Chewable 80 mg PO QIDWMHS Qty: 0 0RF doxycycline monohydrate 100 mg Capsule 100 mg PO Q12H 2 Days Qty: 14 0RF Print Language: Panamanian
[2025-04-04 15:51] LABS: MANUAL DIFF FLAG NO
[2025-04-04 15:52] LABS: Hematocrit 38.4 % (37.0-47.0); Hemoglobin 12.9 g/dl (12.0-16.0); Imm Gran Abs Auto 0.06 X10*3/uL (0.00-0.03); Imm Gran Pct Auto 0.4 % (0.0-0.4); Lymphocytes Absolute Auto 3.7 X10*3/uL (1.2-4.9); Mean Corpuscular HGB Conc 33.6 g/dl (31.0-35.0); Mean Corpuscular Hemoglobin 31.2 pg (27.0-33.0); Mean Corpuscular Volume 93.0 fL (80.0-98.0); NRBC Abs Auto 0.000 X10*3/uL (0.0-0.012); NRBC Pct Auto 0.0 /100WBC (0.0-0.2); Platelet Count 266 X10*3/uL (160-400); Red Blood Count 4.13 X10*6/uL (4.20-5.50); White Blood Count 15.0 X10*3/uL (4.8-10.8)
[2025-04-04 15:54] VITALS: BP 134/75; PULSE 93; RESP 22; TEMP 37.2; O2SAT 92
--- NOTE | 2025-04-04 16:11 | PC.NURSE ---
Straight cathed for 950mls, provider aware. Patient responsive to painful stimuli. Pupils dilated, provider aware
[2025-04-04 16:19] LABS: B Type Natriuretic Peptide 21 pg/mL (<100); Troponin-I High Sensitivity 30.0 ng/L (<3.5-17.0)
[2025-04-04 16:19] LABS: Appearance Urine Clear; Glucose Urine UA Negative (Negative); PH 5.5 (5.0-9.0); Specific Gravity - Urine 1.020 (1.005-1.025)
[2025-04-04 16:21] LABS: UPreg QC Valid YES
[2025-04-04 16:25] LABS: Alanine Aminotransferase 31 U/L (0-31); Albumin Level 5.0 g/dL (3.5-5.0); Alkaline Phosphatase 131 U/L (39-117); Anion Gap 15 (12-20); Aspartate Amino Transferase 40 U/L (5-31); Blood Urea Nitrogen 25 mg/dL (9-16); Calcium 9.4 mg/dL (8.4-10.2); Carbon Dioxide 28 mmol/L (22-29); Chloride 104 mmol/L (96-108); Creatinine Clr Calc Pharmacy 78.8; Estimated Glomerular Filt Rate > 60; Lipase 15 U/L (8-78); Potassium 3.6 mmol/L (3.3-5.1); Sodium 143 mmol/L (135-145); Total Protein 8.2 g/dL (6.5-8.0)
[2025-04-04 16:30] LABS: Cannabinoid Screen Urine Not Detected (Not Detect)
--- NOTE | 2025-04-04 16:57 | PC.NURSE ---
Easily arousable to verbal stimuli- when asked if she has pain anywhere shakes head no and goes back to sleep
--- NOTE | 2025-04-04 17:39 | ECG_ITS ---
Test Reason : OD Blood Pressure : */* mmHG Vent. Rate : 79 BPM Atrial Rate : 79 BPM P-R Int : 162 ms QRS Dur : 82 ms QT Int : 370 ms P-R-T Axes : 61 23 67 degrees QTcB Int : 424 ms Normal sinus rhythm Nonspecific T wave abnormality Abnormal ECG When compared with ECG of 13-May-2024 04:08, Non-specific change in ST segment in Anterior leads Referred By: Anuradha Redding Electronically Signed By: Beto Biggs
--- NOTE | 2025-04-04 17:57 | PC.NURSE ---
Into room to do EKG- patient stating no she needs to leave now, and she needs methadone, clonapin, and gabapentin. Provider into room to speakto patient, stating alana discharge patient. Patient requesting lyft back to where she overdosed, supervisor special services aware. Patient provided with pants and shirt, then stating she is not leaving until she has a ride home. Provider aware
[2025-04-04 18:49] LABS: Troponin-I High Sensitivity 35.2 ng/L (<3.5-17.0)
--- NOTE | 2025-04-04 20:44 | MHC.EDTECH ---
@2043 Unable to obtained labs- hard stick x2.
[2025-04-04 21:19] LABS: Troponin-I High Sensitivity 24.5 ng/L (<3.5-17.0)
[2025-04-04 22:28] VITALS: BP 117/73; PULSE 76; TEMP 36.5; O2SAT 97
--- NOTE | 2025-04-04 23:55 | PC.NURSE ---
upon pt awaking, expressed SI, saying she is tired of living and does not care about her life, no plan. denies HI. MD and charge aware.
[2025-04-05] MEDS: Nicotine 21 MG PATCH.TD24 TRANSDERMA (00:25)
[2025-04-05] MEDS: methADONE HCl 20 MG/2 ML ORAL.CONC 30 MG PO (01:14)
--- NOTE | 2025-04-05 06:54 | PC.NURSE ---
attempted twice to reach [facility] where patient states she gets 75mg methadone. twice went to [facility] although online hours appear as open since 529
[2025-04-05] MEDS: methADONE HCl 20 MG/2 ML ORAL.CONC 75 MG PO (07:26)
[2025-04-05] MEDS: Naloxone HCl Nasal TAKE HOME 4 MG SPRAY 8 MG NOSTRILALT (07:35)
[2025-04-05 07:45] VITALS: BP 82/61; PULSE 65; RESP 16; TEMP 36.2; O2SAT 96
--- NOTE | 2025-04-05 07:45 | PC.NURSE ---
assumed care of patient at 0700, patient is awake and alert/oriented x3, noted to be hypotensive, ED provider made aware, patient currently sitting up and eating breakfast, states her bp is low because she is tired. patient sat into semi high fowlers, ED provider requested bp recheck in 20 mins. patient has sitter at bedside
[2025-04-05 08:11] VITALS: BP 99/53
--- NOTE | 2025-04-05 08:16 | PC.NURSE ---
patient began verbally abusing staff because this RN retook patient bp. patient swearing at staff. security called, ED provider at bedside. CARE team at bedside
--- NOTE | 2025-04-05 08:29 | PC.NURSE ---
patient refusing discharge, security at bedside. patient attempting to open last dose letter. patient informed that if she opens last dose letter it will be voided by her clinic. patient screaming at staff that she refuses clothes that were given to her from donation box. previous RN informed this RN that patient bra and shirt were thrown away due to be covered in feces. patient given dc papers and two narcan to take home
== END 2025-04-05 08:49 | disposition home or self-care (01) ==
PROVIDERS: Emergency Medicine; Emergency Provider Emergency Medicine
DX: F19.10 Other psychoactive substance abuse, uncomplicated (principal); R40.4 Transient alteration of awareness; R45.4 Irritability and anger; R45.851 Suicidal ideations; I50.9 Heart failure, unspecified; J44.9 Chronic obstructive pulmonary disease, unspecified; E03.9 Hypothyroidism, unspecified; I48.91 Unspecified atrial fibrillation; N18.30 Chronic kidney disease, stage 3 unspecified; Z79.899 Other long term (current) drug therapy
CPT/HCPCS: 36415; 71045; 80048; 80076; 80307; 81003; 81025; 83690; 83880; 84484; 84702; 85025; 93005; 99285; S9485

== ENCOUNTER → 2025-04-04 15:01 | Outpatient (BNV) | payer MEDICARE, MEDICAID, SELFPAY | PROVIDERS: Emergency Provider Emergency Medicine; Visit Provider Radiology Diagnostic Radiology | DX: Z86.79 Personal history of other diseases of the circulatory system (principal) | CPT/HCPCS: 71045 ==

== ENCOUNTER → 2025-04-04 17:39 | Outpatient (BNV) | payer MEDICARE, MEDICAID, SELFPAY | PROVIDERS: Emergency Provider Emergency Medicine; Visit Provider Internal Medicine Cardiovascular Disease | DX: R94.31 Abnormal electrocardiogram [ECG] [EKG] (principal); R79.89 Other specified abnormal findings of blood chemistry; F14.90 Cocaine use, unspecified, uncomplicated | CPT/HCPCS: 93010 ==

== ENCOUNTER 2025-05-17 09:32 | Inpatient (IN) | payer MEDICARE, MEDICAID, SELFPAY ==
[2025-05-17] VITALS (12 sets, daily range): BP systolic 110–157; BP diastolic 72–104; PULSE 57–80; RESP 12–15; TEMP 36.4–36.9; O2SAT 89–98; BMI 23.3
--- NOTE | ~2025-05-17 | XR_ITS ---
EXAMINATION: XR CHEST 1 VIEW HISTORY: SOB COMPARISON: Comparison is made with the prior examination dated 04/04/2025. FINDINGS: A single AP portable view of the chest performed at 10:58 AM is submitted. There are mild increased markings in the lower lung zones which may be due to overlying soft tissue. There are no focal airspace opacities. There is no pleural effusion, pneumothorax, or pulmonary vascular congestion. The heart is normal in size. The bones are intact. XR/XR chest 1V IMPRESSION: No acute cardiopulmonary abnormality. Electronically signed by: Pancho Simon MD 05/17/2025 11:10 AM EDT
--- NOTE | 2025-05-17 09:46 | ECG_ITS ---
Test Reason : sob Blood Pressure : */* mmHG Vent. Rate : 57 BPM Atrial Rate : 57 BPM P-R Int : 188 ms QRS Dur : 94 ms QT Int : 426 ms P-R-T Axes : 68 19 67 degrees QTcB Int : 414 ms Sinus bradycardia T wave abnormality, consider anterior ischemia Abnormal ECG When compared with ECG of 04-Apr-2025 18:00, Nonspecific T wave abnormality now evident in Inferior leads T wave inversion now evident in Anterior leads Referred By: Dianne Flores Electronically Signed By: Beto Biggs
--- NOTE | 2025-05-17 10:05 | ED_ITS ---
HPI - Chest Pain General Chief Complaint: Chest Pain Stated Complaint: CP,SOB,COUGH PER EMS Time Seen by Provider: 05/17/25 10:05 Source: patient and EMS Mode of arrival: EMS Limitations: no limitations History of Present Illness ED Provider: Dianne Flores PA-C HPI narrative: Patient is a 39 year old assigned female at with a history of IVDA (heroin, last use this morning), CHF, COPD, hypothyroidism, atrial fib, alcohol use disorder (last drink this morning), DTs, and alcohol withdrawal seizure presenting to the emergency department today with chest pain, alcohol use, and requesting detox from alcohol. Patient states that she has been off of her medications for several days and has been drinking / using IV drugs. Patient states that she has had chest pain and a cough. Patient denies any other complaints at this time. Related Data Home Medications ?Medication ?Instructions ?Recorded ?Confirmed clonazepam 1 mg tablet 1 mg PO TID PRN anxiety corinna ck 03/17/25 04/05/25 clonidine HCl 0.2 mg tablet 0.2 mg PO TID PRN panic at tack 03/17/25 04/05/25 gabapentin 800 mg tablet 800 mg PO QID depressive dis order 03/17/25 03/21/25 levothyroxine 125 mcg tablet 125 mcg PO DAILY@0603/21/25 methadone 10 mg/mL oral 75 mg PO DAILY@0604/05/25 04/05/25 concentrate (Methadose) Previous Rx's ?Medication ?Instructions ?Recorded ibuprofen 600 mg tablet 600 mg PO TID PRN fever or p ain 05/13/24 #20 tabs albuterol sulfate 90 mcg/actuation 1 inh inhalation QI D PRN shortness 05/25/24 aerosol inhaler of breath or wheezing 30 day s #6.7 grams hydroxyzine HCl 25 mg tablet 25 mg PO BID PRN anxiety 30 days 05/25/24 #60 tabs nicotine (polacrilex) 4 mg buccal 4 mg buccal Q1H PRN Nicotine 05/25/24 lozenge Cravings 30 days #108 ea nicotine 21 mg/24 hr daily 21 mg transdermal DAILY 28 days 05/25/24 transdermal patch #28 ea trazodone 50 mg tablet 50 mg PO BEDTIME PRN Insomni a 30 05/25/24 days #30 tabs vitamin B complex 1 cap PO DAILY 30 days #30 c aps 05/25/24 folic acid 1 mg tablet 1 mg PO DAILY #0 tabs multivitamin (Daily-Boris tablet) 1 tab PO DAILY #0 tab s 03/21/25 prednisone 20 mg tablet 40 mg (2 x 20 mg) PO DAILY 2 days 03/21/25 #4 tabs gabapentin 800 mg tablet 800 mg PO QID #120 tabs 03/05 08/28 levothyroxine 125 mcg tablet 125 mcg PO DAILY #30 tabs 03/24/25 (Levoxyl) doxycycline monohydrate 100 mg 100 mg PO Q12H 2 days # 14 caps 03/28/25 capsule simethicone 80 mg chewable tablet 80 mg PO QIDWMHS #0 tabs 03/28/25 Allergies Allergy/AdvReac Type Severity Reaction Status Date / Time fish derived Allergy Hives Verified 05/17/25 09:55 shellfish derived Allergy Anaphylaxis Verified 05/17/25 09:55 sulfamethoxazole (From Allergy Hives Verified 05/17/25 09:55 Bactrim) trimethoprim (From Bactrim) Allergy Hives Verified 05/17/25 09:55 Review of Systems 2 Constitutional: Constitutional: Reports as per HPI Eyes: Eyes: Reports as per HPI ENT: Reports as per HPI Cardiovascular: Cardiovascular: Reports as per HPI Respiratory: Respiratory: Reports as per HPI Gastrointestinal: Gastrointestinal: Reports as per HPI Genitourinary: Genitourinary: Reports as per HPI Musculoskeletal: Musculoskeletal: Reports as per HPI Integumentary/Breasts: Skin/Breast: Reports as per HPI Neurologic: Reports as per HPI Psychiatric: Psychiatric: Reports as per HPI Endocrine: Endocrine: Reports as per HPI Hematologic/Lymphatic: Hematologic/Lymphatic: Reports as per HPI Allergic/Immunologic: Allergic/Immunologic: Reports as per HPI PMF Past Medical History Attestation statement: The following information was validated with the patient. Source: old records reviewed and nursing notes reviewed Medical History CKD (chronic kidney disease), stage III Alcohol use disorder Polysubstance abuse Hypothyroidism Social History Social History Household Members: None Housing: Homeless Do you presently have visiting nurse or other home services: No Alcohol intake: current Alcohol intake frequency: 3 or more drinks per day Alcohol type: beer and hard liquor 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 observer Patient Tobacco Use Status: Current everyday Tobacco user Tobacco use type: Cigarette Cigarette Packs Per Day: 1 Cigarettes Per Day: 30 Years Smoked: 30yrs (since 9yr old) Smoked in Last 30 Days: No e-Cigarette/Vaping Use: Never Used Second Hand Smoke Exposure: No Use of substances other than those prescribed or required for medical reasons: Yes Substance Use Type: Heroin and IV Drugs Substance Use Type Other:: benzos Substance Use Frequency: Daily Advance Directives: No Advance Directives Information Provided: Yes Do you have a plan to hurt others: No Plan Patient : No service: No Sexual orientation: Don't Know Physical Exam 2 Vital Signs: Vital Signs: Last Vital Signs Temp 97.5 F 05/17/25 10:02 Pulse 66 05/17/25 10:02 Resp 12 05/17/25 10:02 BP 141/102 H 05/17/25 10:02 Pulse Ox 98 05/17/25 10:02 O2 Del Method Room Air 05/17/25 10:02 BMI result Body Mass Index 23.3 Const: General: cooperative, no acute distress, alert and awake Nutritional Appearance: well nourished Orientation/consciousness: patient oriented x3 HEENT: Head: Yes normal to inspection and Yes atraumatic Ears: hearing grossly normal bilaterally and external ears normal General nose exam: Normal external nose present, no nasal discharge noted and no epistaxis Face and sinus: No abrasion, No laceration and Yes other (face is lo shaped and puffy) Mouth: Normal oral and palatal mucosa present, no drooling and no muffled voice Eyes: General: appearance normal, both eyes and all related structures P eriorbital: periorbital findings normal Eyelids: Yes eyelids normal C onjunctivae: conjunctivae normal Pupils: Equal, round and reactive pupils present EOM: EOMs intact bilaterally Neck: Neck: Yes normal visual inspection and Yes full ROM Resp: Effort & Inspection: normal respiratory effort and able to speak in complete sentences Neuro: General: patient oriented x3, moves all extremities and CN's II-XI intact bilaterally Cranial nerves: Yes Equal, round and reactive pupils present Cognition (Neuro): normal cognition Extrem: Other: several areas of excoriated skin General: Yes full ROM and Yes capillary refill normal Psych: Appearance: grossly normal Mental Status: mental status grossly normal Affect: normal affect Attitude: cooperative Thought process: N ormal thought process present Thought content: Normal thought content present Insight: Good insight present (Psych) Medications Administered Generic Name Dose Route Start Last Admin Trade Name Freq PRN Reason Stop Dose Admin Heparin Sodium (Porcine) 5,000 unit 05/17/25 13:00 05/17/25 12:35 Heparin Sodium,Porcine 5,000 Unit/Ml Vial SUBCUT Not Given Q12H GREGOR Sodium Chloride 1,000 mls @ 999 mls/hr 05/17/25 12:15 05/17/25 12:13 Ns IV 05/17/25 13:15 999 mls/hr .Q1H1M GREGOR Administration Nicotine 21 mg 05/17/25 12:00 05/17/25 12:13 Nicotine 21 Mg Patch.Td24 TRANSDERMA 21 mg DAILY GREGOR Administration Phenobarbital Sodium 219 mg 05/17/25 13:00 05/17/25 12:33 Phenobarbital Sodium 130 Mg/Ml Im Once IM 05/17/25 13:01 219 mg ONCE ONE Administration Protocol Discontinued Medications Generic Name Dose Route Start Last Admin Trade Name Freq PRN Reason Stop Dose Admin Methadone HCl 40 mg 05/17/25 11:50 05/17/25 12:31 Methadone Hcl 20 Mg/2 Ml Oral.Conc PO 05/17/25 11:51 40 mg ONCE ONE Administration Medical Decision Making Medical Decision Making MDM Narrative: 39 year old female significant history of IVDA (heroin, last use this morning), CHF, COPD, hypothyroidism, atrial fib, alcohol use disorder (last drink this morning), DTs, and alcohol withdrawal seizure presenting to the emergency department today with chest pain, alcohol use / withdrawal and opiate use / withdrawal. Has not been on any of her medications for several weeks - including seizure medication + methadone (150mg) + cardiac meds. Patient's physical examination showed several areas of skin excoriations, bilateral toe nail fungus, lo / rounded face. While in the department the patient had 1 episode of oxygen desaturation to the mid 80s but after coughing - her saturation returned to the mid 90s. Patient's hematology labs showed an elevated ESR of 58 but were otherwise unremarkable. Patient's chemisty labs showed an elevated lactic acid of 2.6, AST of 60, NT-Pro-BNP of 472.9, CRP of 2.06, and TSH >100.00 with free T4 pending. Patient's urine is pending at this time. Patient's chest x-ray showed no acute process. Given the patient has a significant histoy of alcohol wtihdrawal seizures - I initiatd the phenobarbital protocol for alcohol withdrawal. Patient was given IV fluids for her lactic acidosis. Patient was also given 40mg of PO Methadone as she requested to be restarted on it and has not had her dose of 150mg in weeks. Patient's clinical presentation is most consistent with opiate + ETOH withdrawal and NOT Sepsis (@1156). I spoke with the hospitalist team who agreed to admission for contnued phenobarb protocol and IV hydration. Patient verbalized agreement and understanding of this treatment plan and admission. Differential Diagnosis Differential Diagnoses: The differential diagnosis associated with the presentation includes ETOH withdrawal Opiate withdrawal Lactic acidosis Admission/Observation Consideration of admission/observation: Escalation of care including admission/observation considered Patient admitted as noted in the MDM Ratioanle portion of this note. Consult Healthcare Provider Management of the patient was discussed with: Hospitalist (agreed to admission as noted in the MDM Rationale portion of this note. ) Lab Data [facility] Lab Attestation statement: I reviewed the patient's lab results. My interpretation of these results are in the MDM Rationale portion of this note. 05/17/25 10:31 05/17/25 10:31 Labs: Lab Results 05/17/25 05/17/25 05/17/25 Range/Units 10:31 11:28 11:37 WBC 7.3 (4.8-10.8) X10*3/uL RBC 4.47 (4.20-5.50) X10*6/uL Hgb 13.9 (12.0-16.0) g/dl Hct 41.6 (37.0-47.0) % MCV 93.1 (80.0-98.0) fL MCH 31.1 (27.0-33.0) pg MCHC 33.4 (31.0-35.0) g/dl RDW 15.8 (11.0-16.0) % Plt Count 293 (160-400) X10*3/uL MPV 9.5 (9.4-12.3) fL Immature Gran % (Auto) 0.3 (0.0-0.4) % Neut % (Auto) 66.7 (45-73) % Lymph % (Auto) 23.4 (20-40) % Colbert % (Auto) 3.7 (2-11) % Eos % (Auto) 4.4 H (0-4) % Baso % (Auto) 1.5 (0-2) % Lymph # (Auto) 1.7 (1.2-4.9) X10*3/uL Colbert # (Auto) 0.3 (0.1-1.2) X10*3/uL Eos # (Auto) 0.3 (0.0-0.4) X10*3/uL Baso # (Auto) 0.1 (0.0-0.2) X10*3/uL Abs Immat Gran (auto) 0.02 (0.00-0.03) X10*3/uL Absolute Neuts (auto) 4.9 (2.0-8.3) x10*3/uL Absolute Nucleated RBC 0.000 (0.0-0.012) X10*3/uL Nucleated RBC % (auto) 0.0 (0.0-0.2) /100WBC ESR 58 H (0-20) MM/HR PT 11.7 (10.9-12.4) SEC INR 1.0 (0.9-1.1) VBG pH 7.49 H (7.32-7.43) VBG pCO2 36 mmHg VBG pO2 48 mmHg VBG HCO3 28 H (22-26) mmol/L VBG O2 Saturation 75.0 % VBG Base Excess 5.1 mmol/L Sodium 139 (135-145) mmol/L Potassium 3.4 (3.3-5.1) mmol/L Chloride 98 (96-108) mmol/L Carbon Dioxide 27 (22-29) mmol/L Anion Gap 17 (12-20) BUN 12 (9-16) mg/dL Creatinine 1.13 (0.5-1.4) mg/dL Estim Creat Clear Calc 57.7 Estimated GFR 54 Random Glucose 104 (60-115) mg/dL Lactic Acid 2.6 H* (0.5-2.0) mmol/L Calcium 9.3 (8.4-10.2) mg/dL Magnesium 2.0 (1.6-2.6) mg/dL Total Bilirubin 0.3 (0.0-1.0) mg/dL AST 60 H (5-31) U/L ALT 19 (0-31) U/L Alkaline Phosphatase 91 (39-117) U/L Troponin I High Sens < 2.7 D (<3.5-17.0) ng/L C-Reactive Protein 2.06 H (< or = 0.50) mg/dL NT-Pro-B Natriuret Pep 472.9 H (<300) pg/mL Total Protein 8.1 H (6.5-8.0) g/dL Albumin 4.3 (3.5-5.0) g/dL TSH > 100.00 H (0.32-4.0) uIU/mL Beta HCG, Quant < 2 mIU/mL Ethyl Alcohol 13 mg/dL COVID-19 (LINDA) Negative (Negative) COVID-19 Clin Com See Note Influenza Type A (JOVITA) Negative (Negative) Influenza Type B (JOVITA) Negative (Negative) Influenza A & B Note See Note Independent Interpretation I performed an independent interpretation of an: EKG and Plain X-Ray Interpretation: My interpretation is in agreement with the radiologist's impression of this imaging study. L Reason for Exam: SOB EXAMINATION: XR CHEST 1 VIEW HISTORY: SOB COMPARISON: Comparison is made with the prior examination dated 04/04/2025. FINDINGS: A single AP portable view of the chest performed at 10:58 AM is submitted. There are mild increased markings in the lower lung zones which may be due to overlying soft tissue. There are no focal airspace opacities. There is no pleural effusion, pneumothorax, or pulmonary vascular congestion. The heart is normal in size. The bones are intact. XR/XR chest 1V IMPRESSION: No acute cardiopulmonary abnormality. Electronically signed by: Pancho Simon MD 05/17/2025 11:10 AM EDT Dictated By: Pancho Simon MD Signed By: Electronically signed by Pancho Simon MD 05/17/25 1110 I independently interpreted this EKG and am in agreement with the below findings: Vent. Rate: 57 BPM Atrial Rate: 57 BPM P-R Int: 188 ms QRS Dur: 94 ms QT Int: 426 ms P-R-T Axes: 68 19 67 degrees QTcB Int: 414 ms Sinus bradycardia T wave abnormality, consider anterior ischemia When compared with ECG of 04-Apr-2025 18:00, Nonspecific T wave abnormality now evident in Inferior leads T wave inversion now evident in Anterior leads DD/ [id number] Radiology Impression Discussion of test interpretation with radiology: I have reviewed the radiologist's reading. Independent Historian Clinical information obtained from an independent historian. History obtained from or confirmed by: EMS (EMS provided additional history and confirmed the history provided by the patient. ) Critical Care Time Critical Care Time Critical Care Time: Yes Total Critical Care Time: 48 Attestation: I spent 48 minutes of Critical Care Time with this patient. This does not include time spent on separately reported billable procedures. Discharge Plan Discharge Clinical Impression: Opioid use disorder, Alcohol withdrawal, Acidosis, lactic Patient Disposition: Admitted As Inpatient
--- NOTE | 2025-05-17 10:06 | PC.NURSE ---
39 F presents to ED with chest pain, wanting detox from heroine, benzos, and alcohol. Last drink last night, IV drug use a couple of hours. Multiple needles found on patient. Pt checked and changed over by security. A+Ox4 but lethargic, responsive to verbal sitmuli. Pt sts 9/10 chest pain, denies any SOB. Pt sts productive cough as well.
--- NOTE | 2025-05-17 10:18 | PC.NURSE ---
Attempted IV access, veins blown in bilat arms from IV drug use. Working on getting someone to get US IV line
[2025-05-17 10:36] LABS: Hematocrit 41.6 % (37.0-47.0); Hemoglobin 13.9 g/dl (12.0-16.0); Imm Gran Abs Auto 0.02 X10*3/uL (0.00-0.03); Imm Gran Pct Auto 0.3 % (0.0-0.4); Lymphocytes Absolute Auto 1.7 X10*3/uL (1.2-4.9); MANUAL DIFF FLAG NO; Mean Corpuscular HGB Conc 33.4 g/dl (31.0-35.0); Mean Corpuscular Hemoglobin 31.1 pg (27.0-33.0); Mean Corpuscular Volume 93.1 fL (80.0-98.0); NRBC Abs Auto 0.000 X10*3/uL (0.0-0.012); NRBC Pct Auto 0.0 /100WBC (0.0-0.2); Platelet Count 293 X10*3/uL (160-400); Red Blood Count 4.47 X10*6/uL (4.20-5.50); White Blood Count 7.3 X10*3/uL (4.8-10.8)
[2025-05-17 10:44] LABS: INTERNATIONAL NORM RATIO 1.0 (0.9-1.1); Prothrombin Time 11.7 SEC (10.9-12.4)
[2025-05-17 11:00] LABS: Alanine Aminotransferase 19 U/L (0-31); Albumin Level 4.3 g/dL (3.5-5.0); Alkaline Phosphatase 91 U/L (39-117); Anion Gap 17 (12-20); Aspartate Amino Transferase 60 U/L (5-31); Blood Urea Nitrogen 12 mg/dL (9-16); Calcium 9.3 mg/dL (8.4-10.2); Carbon Dioxide 27 mmol/L (22-29); Chloride 98 mmol/L (96-108); Creatinine Clr Calc Pharmacy 57.7; Estimated Glomerular Filt Rate 54; Magnesium 2.0 mg/dL (1.6-2.6); Potassium 3.4 mmol/L (3.3-5.1); Sodium 139 mmol/L (135-145); Total Protein 8.1 g/dL (6.5-8.0)
[2025-05-17 11:09] LABS: NT Pro B Type Natriuretic Pept 472.9 pg/mL (<300)
[2025-05-17 11:11] LABS: Troponin-I High Sensitivity < 2.7 ng/L (<3.5-17.0)
[2025-05-17 11:38] LABS: Venous Blood Gas Refer to POC result
[2025-05-17 11:44] LABS: VBG HCO3 28 mmol/L (22-26); VBG O2 % Saturation 75.0 %
[2025-05-17 12:04] LABS: IDNOW Serial# 58CA691E; Influenza B2 Negative (Negative)
[2025-05-17 12:05] LABS: COVID-19 Test Negative (Negative); IDNOW Serial# 55D5AD1C
[2025-05-17] MEDS: Nicotine 21 MG PATCH.TD24 TRANSDERMA (12:13)
[2025-05-17] MEDS: methADONE HCl 20 MG/2 ML ORAL.CONC 40 MG PO (12:31)
[2025-05-17] MEDS: PHENobarbitaL sodium 130 MG/ML IM ONCE 219 MG IM (12:33)
--- NOTE | 2025-05-17 12:50 | HO.NURTONUR ---
Addendum entered by Anuj Gold, RN 05/18/25 02:50: pt recieved final dose of IM phenobarb @1930, last CIWA pt scored a 4, medicated w/ PRN medication per OCT Original Note: 39 F presents to ED with CP and seeking rehab from alcohol and opiates. Hx: IVDA (heroin, last use this morning), CHF, COPD, hypothyroidism, atrial fib, alcohol use disorder, DTs, and alcohol withdrawal seizurePt uses heroine via injection, last injection this morning. Pt sts she also takes benzos. Pt is also an alcoholic, last drink last night. A+OX4 but tired upon arrival, a bit more awake now. US IV to R upper arm. Labs: ESR 58, Lactic 2.6, AST 60, c-reactive protein 2.06, Nt-Probnp 472.9, TSH >100, blood culture results pending CXR clear Admission for acohol withdrawal and IV drug use withdrawal
[2025-05-17 12:55] LABS: Free T4 (Free Thyroxine) < 0.42 ng/dL (0.71-1.85)
[2025-05-17 13:39] LABS: Reflex Lactate? Lactic Acid Added
--- NOTE | 2025-05-17 13:45 | PC.NURSE ---
Pt desatted to 89% on RA when she was resting with eyes closed, responsive to voice, placed on 2L NC and sat now 92-95%. MD Kandy Lagunas notified.
--- NOTE | 2025-05-17 14:14 | PHA.MEDREC ---
Addendum entered by April Dunham RPh 05/17/25 14:23: Reviewed by [facility] Original Note: Pharmacy Consult ? Medication Reconciliation Pharmacy has completed the medication reconciliation. Patient was able to confirm all of her medications. Patient states she is no longer taking Folic acid 1 mg, Ibuprofen 600 mg, Multivitamin, Simethicone 80 mg, and Vitamin B complex. Patient states she was no Methadone , however she has been off of it for over a month now.
--- NOTE | 2025-05-17 14:15 | PM.IMHP ---
History of Present Illness Date of Service: 05/17/25 Chief Complaint: Alcohol withdrawal 39-year-old woman presenting with call withdrawal symptoms and requesting detox. The patient reports that she has been off of her medication for several weeks and has been on a binge drinking alcohol and doing IV drugs. She reported she uses at least 5 bundles a day and is drinking at least 1-2 L of vodka a day. She is in and out of sleep so not giving much information during the interview but denied any chest pain, shortness of breath, nausea, vomiting, diarrhea. She was started on phenobarbital in the ER, given IV fluid and 1 dose and methadone. Plan will be to admit patient for further management and treatment of alcohol withdrawal and IV drug use concern for withdrawal. Review of Systems Review of Systems: Denies any recent fever chills or decrease in appetite respiratory denies any shortness of breath or cough cardiovascular denies chest pain gastrointestinal denies any dysphagia abdominal pain nausea vomiting or diarrhea genitourinary denies any dysuria frequency or hematuria musculoskeletal denies any joint pain or swelling neuropsych denies any weakness or seizures all other systems reviewed are negative [facility] Medical History CKD (chronic kidney disease), stage III Alcohol use disorder Polysubstance abuse Hypothyroidism Social History Household Members: None Housing: Homeless Do you presently have visiting nurse or other home services: No Alcohol intake: current Alcohol intake frequency: 3 or more drinks per day Alcohol type: beer and hard liquor 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 observer Patient Tobacco Use Status: Current everyday Tobacco user Tobacco use type: Cigarette Cigarette Packs Per Day: 1 Cigarettes Per Day: 30 Years Smoked: 30yrs (since 9yr old) Smoked in Last 30 Days: No e-Cigarette/Vaping Use: Never Used Second Hand Smoke Exposure: No Use of substances other than those prescribed or required for medical reasons: Yes Substance Use Type: Heroin and IV Drugs Substance Use Type Other:: benzos Substance Use Frequency: Daily Advance Directives: No Advance Directives Information Provided: Yes Do you have a plan to hurt others: No Plan Patient : No service: No Sexual orientation: Don't Know Meds Allergies Allergy/AdvReac Type Severity Reaction Status Date / Time fish derived Allergy Hives Verified 05/17/25 09:55 shellfish derived Allergy Anaphylaxis Verified 05/17/25 09:55 sulfamethoxazole (From Allergy Hives Verified 05/17/25 09:55 Bactrim) trimethoprim (From Bactrim) Allergy Hives Verified 05/17/25 09:55 Active Medications: Current Medications Acetaminophen (Acetaminophen 325 Mg Tablet) 650 mg PO Q6H PRN PRN Reason: Pain, Mild 1-3,fever,headache Calcium Carbonate (Calcium Carbonate 750 Mg Tab.Chew) 750 mg PO Q4H PRN PRN Reason: Heartburn Heparin Sodium (Porcine) (Heparin Sodium,Porcine 5,000 Unit/Ml Vial) 5,000 unit SUBCUT Q12H PENDING SALE TO [facility] Last Admin: 05/17/25 12:35 Dose: Not Given Magnesium Hydroxide (Milk Of Magnesia 30 Ml Oral.Susp) 30 ml PO DAILY PRN PRN Reason: Constipation Melatonin (Melatonin 3 Mg Tablet) 6 mg PO BEDTIME PRN PRN Reason: Insomnia Nicotine (Nicotine 21 Mg Patch.Td24) 21 mg TRANSDERMA DAILY PENDING SALE TO [facility] Last Admin: 05/17/25 12:13 Dose: 21 mg Ondansetron HCl (Ondansetron Hcl 4 Mg/2 Ml Vial) 4 mg IVPUSH Q8H PRN PRN Reason: Nausea and Vomiting Pharmacy Consult (Consult Rx Etoh Phenob Im/Po) 1 each MISCELLANE ONCE PRN; Protocol PRN Reason: Consult order Phenobarbital (Phenobarbital 15 Mg Tablet) 45 mg PO BID PENDING SALE TO [facility]; Protocol Stop: 05/19/25 21:01 Phenobarbital (Phenobarbital 15 Mg Tablet) 15 mg PO BID PENDING SALE TO [facility]; Protocol Stop: 05/21/25 21:01 Phenobarbital (Phenobarbital 15 Mg Tablet) 15 mg PO DAILY PENDING SALE TO [facility]; Protocol Stop: 05/23/25 09:01 Phenobarbital Sodium (Phenobarbital Sodium 130 Mg/Ml Vial Im Q3hx2) 164 mg IM Q3H GREGOR; Protocol Stop: 05/17/25 19:01 Sodium Chloride (0.9 % Sodium Chloride Flush 3 Ml Syringe) 3 ml IVFLUSH QSHIFT PENDING SALE TO [facility] Home Medications ?Medication ?Instructions ?Recorded ?Confirmed ?Last Taken ?Type clonazepam 1 mg tablet 1 mg PO TID PRN anxiety attack 03/17/25 05/17/25 03/20/25 08:41 History clonidine HCl 0.2 mg tablet 0.2 mg PO TID PRN panic attack 03/17/25 05/17/25 03/20/25 08:41 History gabapentin 800 mg tablet 800 mg PO QID depressive disorder 03/17/25 05/17/25 05/14/25 History levothyroxine 125 mcg tablet 125 mcg PO DAILY@0600 03/17/25 05/17/25 05/14/25 History methadone 10 mg/mL oral 75 mg PO DAILY@0600 04/05/25 04/05/25 04/03/25 History concentrate (Methadose) Physical Exam Vital Signs and Narrative: Vital Signs: Last Vital Signs Temp 97.5 F 05/17/25 10:02 Pulse 60 05/17/25 13:13 Resp 12 05/17/25 13:42 BP 149/104 H 05/17/25 13:13 Pulse Ox 93 05/17/25 13:42 O2 Del Method Nasal Cannula 05/17/25 13:42 O2 Flow Rate 2 05/17/25 13:42 BMI result Body Mass Index 23.3 Appearing in no acute distress head is normocephalic atraumatic eyes pupils are PERRLA sclera is anicteric mouth throat mucous membranes are intact and moist neck is supple no lymphadenopathy, no JVD noted lung sounds are clear to auscultation heart regular rate rhythm, clear S1, S2 positive bowel sounds, abdomen is soft, nontender neuro patient is alert x3, no focal deficits Multiple areas of skin excoriation, toenail fungus, scabbing Results Labs 05/17/25 10:31 05/17/25 10:31 Labs: Laboratory Results - last 24 hr 05/17/25 05/17/25 05/17/25 10:31 11:28 11:37 MCV 93.1 MCH 31.1 MCHC 33.4 RDW 15.8 Plt Count 293 MPV 9.5 Immature Gran % (Auto) 0.3 Neut % (Auto) 66.7 Lymph % (Auto) 23.4 Clinch % (Auto) 3.7 Eos % (Auto) 4.4 H Baso % (Auto) 1.5 Lymph # (Auto) 1.7 Clinch # (Auto) 0.3 Eos # (Auto) 0.3 Baso # (Auto) 0.1 Abs Immat Gran (auto) 0.02 Absolute Neuts (auto) 4.9 Absolute Nucleated RBC 0.000 Nucleated RBC % (auto) 0.0 ESR 58 H PT 11.7 INR 1.0 VBG pH 7.49 H VBG pCO2 36 VBG pO2 48 VBG HCO3 28 H VBG O2 Saturation 75.0 VBG Base Excess 5.1 Anion Gap 17 Estim Creat Clear Calc 57.7 Estimated GFR 54 Random Glucose 104 Lactic Acid 2.6 H* Calcium 9.3 Magnesium 2.0 Total Bilirubin 0.3 AST 60 H ALT 19 Alkaline Phosphatase 91 Troponin I High Sens < 2.7 D C-Reactive Protein 2.06 H NT-Pro-B Natriuret Pep 472.9 H Total Protein 8.1 H Albumin 4.3 TSH > 100.00 H Free T4 < 0.42 L Beta HCG, Quant < 2 Ethyl Alcohol 13 COVID-19 (LINDA) Negative COVID-19 Clin Com See Note Influenza Type A (JOVITA) Negative Influenza Type B (JOVITA) Negative Influenza A & B Note See Note Imaging Radiologist's Impressions: Impressions Chest X-Ray 05/17/25 10:57 IMPRESSION: No acute cardiopulmonary abnormality. Electronically signed by: Pancho Simon MD 05/17/2025 11:10 AM EDT RP Assessment and Plan (1) Alcohol withdrawal: Qualifiers: Complication of substance-induced condition: with unspecified complication Qualified Code(s): F10.939 - Alcohol use, unspecified with withdrawal, unspecified Status: Acute Plan 39-year-old woman admitted with alcohol withdrawal and IV drug use withdrawal. Reported that she has been on a binge for the last couple of weeks and had not been taking any of her medications Alcohol withdrawal Started on phenobarbital protocol Addiction Medicine team consultation IV fluids Add protein to diet Polysubstance abuse Currently homeless Restarted on methadone at 40 mg, addiction Medicine will adjust We will continue clonidine, clonazepam, hydroxyzine Mental health Continue gabapentin, trazodone Reports being severely depressed but denied suicidal ideation and would like to be seen by the care team prior to discharge Asthma No acute exacerbation Albuterol as needed Hypothyroidism TSH greater than 100 Patient reported that she had not taken any of her medications Continue her levothyroxine Smoker Nicotine replacement therapy DVT prophylaxis with heparin Full code Quality Stroke Does the patient have a stroke diagnosis?: No VTE Prior VTE?: No VTE Risk Level:: Medical - moderate - high VTE Device Contraindication: Treatment Not Indicated VTE Drug Contraindication: N/A - Med Ordered
[2025-05-17 14:27] LABS: ~Lactic Acid-LAB USE ONLY 1.6 mmol/L (0.5-2.0)
[2025-05-17] MEDS: Lactated Ringers 1,000 ML 100 ML IVCONT (14:35)
[2025-05-17] MEDS: PHENobarbitaL sodium 130 MG/ML VIAL IM Q3Hx2 164 MG IM ×2 (16:42→19:30)
[2025-05-17] MEDS: 0.9 % Sodium Chloride Flush 3 ML SYRINGE IVFLUSH (16:43)
--- NOTE | 2025-05-17 16:50 | P.EN_ITS ---
Event Note Date of Service: 05/17/25 Event Note: Addiction consult placed for patient with dx of AUD, OUD Medically admitted with acute alcohol withdrawal T/w attempted to meet with patient in ED room 14. Patient somnolent, opens eyes to voice, but unable to stay awake Chart review shows phenobarbital protocol has been initiated and methadone 40mg administered X1. Patient reported no MOUD for several weeks. Methadone dose at time of d/c from [facility] Time Spent With Patient Time: Total time managing care of this patient today ____ minutes.
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
--- NOTE | 2025-05-17 19:16 | PC.NURSE ---
this RN assumed care @1900, pt noted to be laying supine in hospital stretcher, eyes closed, even chest rise respirations even and unlabored, connected to cardiac and SPO2 monitoring, HR 69, RR 14, SPO2 93% on 2L NC
[2025-05-18] VITALS (7 sets, daily range): BP systolic 100–135; BP diastolic 63–96; PULSE 61–86; RESP 15–20; TEMP 36.6–36.8; O2SAT 91–97; BMI 29.2
[2025-05-18] MEDS: 0.9 % Sodium Chloride Flush 3 ML SYRINGE IVFLUSH
[2025-05-18] MEDS: Lactated Ringers 1,000 ML 100 ML IVCONT ×3 (00:47→23:23)
--- NOTE | 2025-05-18 02:57 | PC.NURSE ---
pt stated she had a headache rated 10/10, pt requesting tylenol at this time for her headache as well as her PRN anxiety medication, pt medicated per MAR
[2025-05-18 06:27] LABS: Glucose, Whole Blood 85 mg/dL (60-115)
[2025-05-18 06:43] LABS: Venous Blood Gas Refer to POC result
[2025-05-18 06:44] LABS: Hematocrit 38.4 % (37.0-47.0); Hemoglobin 12.4 g/dl (12.0-16.0); Mean Corpuscular HGB Conc 32.3 g/dl (31.0-35.0); Mean Corpuscular Hemoglobin 30.8 pg (27.0-33.0); Mean Corpuscular Volume 95.5 fL (80.0-98.0); NRBC Abs Auto 0.000 X10*3/uL (0.0-0.012); NRBC Pct Auto 0.0 /100WBC (0.0-0.2); Platelet Count 276 X10*3/uL (160-400); Red Blood Count 4.02 X10*6/uL (4.20-5.50); White Blood Count 10.9 X10*3/uL (4.8-10.8)
[2025-05-18 06:46] LABS: VBG HCO3 31 mmol/L (22-26); VBG O2 % Saturation 81.0 %
[2025-05-18 06:57] LABS: Anion Gap 12 (12-20); Blood Urea Nitrogen 13 mg/dL (9-16); Carbon Dioxide 29 mmol/L (22-29); Chloride 101 mmol/L (96-108); Creatinine Clr Calc Pharmacy 45.2; Estimated Glomerular Filt Rate 41; Potassium 3.4 mmol/L (3.3-5.1); Sodium 139 mmol/L (135-145)
[2025-05-18 07:05] LABS: Calcium 8.3 mg/dL (8.4-10.2)
--- NOTE | 2025-05-18 13:55 | HO.PM.IMPN ---
Subjective Subjective Date of Service: 05/18/25 Interval History: f/u on alcohol withdrawal, substance use disorder interval history: very somnolent but easily aroused Physical Exam Vital Signs: Vital Signs: Last Vital Signs Temp 98.2 F 05/18/25 04:00 Pulse 73 05/18/25 12:00 Resp 16 05/18/25 12:00 BP 135/96 H 05/18/25 12:00 Pulse Ox 91 L 05/18/25 12:00 O2 Del Method Room Air 05/18/25 12:00 O2 Flow Rate 1 05/18/25 08:00 BMI result Body Mass Index 23.3 General: AO X 3, no acute distress Resp: CTA bilateral CVS: S1,S2,RRR GI: +BS, NT, no distention Skin: No rash Neuro: motor grossly intact Psych: appropriate affect Const: Other: General: very sleepy, but easily Resp: CTA bilateral CVS: S1,S2,RRR GI: +BS, NT, no distention Skin: No rash Neuro: motor grossly intact Psych: appropriate affect Objective Data Active Medications Acetaminophen (Acetaminophen 325 Mg Tablet) 650 mg PO Q6H PRN PRN Reason: Pain, Mild 1-3,fever,headache Last Admin: 05/18/25 02:53 Dose: 650 mg Documented By: MICHELINE Albuterol Sulfate (Albuterol Sulfate 90 Mcg 8 Gm Inhaler) 1 puff INHALE QID PRN PRN Reason: shortness of breath or wheezing Calcium Carbonate (Calcium Carbonate 750 Mg Tab.Chew) 750 mg PO Q4H PRN PRN Reason: Heartburn Clonazepam (Clonazepam 1 Mg Tablet) 1 mg PO TID PRN PRN Reason: anxiety attack Last Admin: 05/17/25 20:45 Dose: 1 mg Documented By: MICHELINE Clonidine HCl (Clonidine Hcl 0.2 Mg Tablet) 0.2 mg PO TID PRN; Protocol PRN Reason: panic attack Gabapentin (Gabapentin 400 Mg Capsule) 800 mg PO QID [facility] Last Admin: 05/18/25 13:28 Dose: Not Given Documented By: LARS Non-Admin Reason: Physician Held Med Heparin Sodium (Porcine) (Heparin Sodium,Porcine 5,000 Unit/Ml Vial) 5,000 unit SUBCUT Q12H [facility] Last Admin: 05/18/25 13:32 Dose: Not Given Documented By: LARS Non-Admin Reason: Patient Refused Hydroxyzine HCl (Hydroxyzine Hcl 25 Mg Tablet) 25 mg PO BID PRN PRN Reason: Anxiety Last Admin: 05/18/25 02:53 Dose: 25 mg Documented By: MICHELINE Lactated Ringer's (Lr) 1,000 mls @ 100 mls/hr IVCONT .Q10H [facility] Last Admin: 05/18/25 13:26 Dose: 100 mls/hr Documented By: LARS Levothyroxine Sodium (Levothyroxine Sodium 125 Mcg Tablet) 125 mcg PO DAILY@0600 [facility] Last Admin: 05/18/25 05:30 Dose: Not Given Documented By: MINH Non-Admin Reason: Too lethargic for PO meds Magnesium Hydroxide (Milk Of Magnesia 30 Ml Oral.Susp) 30 ml PO DAILY PRN PRN Reason: Constipation Melatonin (Melatonin 3 Mg Tablet) 6 mg PO BEDTIME PRN PRN Reason: Insomnia Methadone HCl (Methadone Hcl 20 Mg/2 Ml Oral.Conc) 50 mg PO DAILY@0800 [facility] Last Admin: 05/18/25 09:27 Dose: Not Given Documented By: LARS Non-Admin Reason: Physician Held Med Nicotine (Nicotine 21 Mg Patch.Td24) 21 mg TRANSDERMA DAILY [facility] Last Admin: 05/17/25 12:13 Dose: 21 mg Documented By: JULIANNA Nicotine (Nicotine 21 Mg Patch.Td24) 21 mg TRANSDERMA DAILY [facility] Ondansetron HCl (Ondansetron Hcl 4 Mg/2 Ml Vial) 4 mg IVPUSH Q8H PRN PRN Reason: Nausea and Vomiting Pharmacy Consult (Consult Rx Etoh Phenob Im/Po) 1 each MISCELLANE ONCE PRN; Protocol PRN Reason: Consult order Phenobarbital (Phenobarbital 15 Mg Tablet) 45 mg PO BID [facility]; Protocol Stop: 05/19/25 21:01 Last Admin: 05/18/25 09:27 Dose: Not Given Documented By: LARS Non-Admin Reason: Physician Held Med Phenobarbital (Phenobarbital 15 Mg Tablet) 15 mg PO BID [facility]; Protocol Stop: 05/21/25 21:01 Phenobarbital (Phenobarbital 15 Mg Tablet) 15 mg PO DAILY [facility]; Protocol Stop: 05/23/25 09:01 Sodium Chloride (0.9 % Sodium Chloride Flush 3 Ml Syringe) 3 ml IVFLUSH QSHIFT [facility] Last Admin: 05/18/25 09:22 Dose: Not Given Documented By: LARS Non-Admin Reason: IV Running Trazodone HCl (Trazodone Hcl 50 Mg Tablet) 50 mg PO BEDTIME PRN PRN Reason: Insomnia Labs 05/18/25 06:38 05/18/25 06:38 Labs: Laboratory Results - last 24 hr 05/17/25 05/18/25 05/18/25 14:03 06:23 06:38 MCV 95.5 MCH 30.8 MCHC 32.3 RDW 16.2 H Plt Count 276 MPV 9.2 L Absolute Nucleated RBC 0.000 Nucleated RBC % (auto) 0.0 VBG pH VBG pCO2 VBG pO2 VBG HCO3 VBG O2 Saturation VBG Base Excess Anion Gap 12 Estim Creat Clear Calc 45.2 Estimated GFR 41 POC Glucose 85 Random Glucose 73 Lactic Acid F/U @ 2Hr 1.6 Calcium 8.3 L D 05/18/25 06:42 MCV MCH MCHC RDW Plt Count MPV Absolute Nucleated RBC Nucleated RBC % (auto) VBG pH 7.42 VBG pCO2 47 VBG pO2 53 VBG HCO3 31 H VBG O2 Saturation 81.0 VBG Base Excess 5.8 Anion Gap Estim Creat Clear Calc Estimated GFR POC Glucose Random Glucose Lactic Acid F/U @ 2Hr Calcium Microbiology Microbiology Results: Microbiology 05/17/25 11:28 Blood Culture - Preliminary Blood - Venous No growth after 24 hours. 05/17/25 11:28 Blood Culture - Preliminary Blood - Venous No growth after 24 hours. Assessment and Plan (1) Alcohol withdrawal: Status: Acute (2) Hypoxia: Status: Resolved (3) Bronchitis: Status: Resolved (4) Severe hypothyroidism: Status: Acute Plan 39-year-old woman admitted with alcohol withdrawal and IV drug use withdrawal. Reported that she has been on a binge for the last couple of weeks and had not been taking any of her medications Alcohol withdrawal Started on phenobarbital protocol Addiction Medicine team consultation continue thiamine, folate supplement IV fluids Add protein to diet Polysubstance abuse Currently homeless Methadone per addiction med We will continue clonidine, clonazepam, hydroxyzine Mental health Continue gabapentin, trazodone Reports being severely depressed but denied suicidal ideation and would like to be seen by the care team prior to discharge Asthma No acute exacerbation Albuterol as needed Hypothyroidism TSH greater than 100 Patient reported that she had not taken any of her medications Continue her levothyroxine Smoker Nicotine replacement therapy DVT prophylaxis with heparin Full code Quality Stroke Does the patient have a stroke diagnosis?: No VTE Prior VTE?: No VTE Risk Level:: Medical - moderate - high VTE Device Contraindication: Treatment Not Indicated VTE Drug Contraindication: N/A - Med Ordered
[2025-05-18] MEDS: Nicotine 21 MG PATCH.TD24 TRANSDERMA (14:05)
--- NOTE | 2025-05-18 15:43 | MHC.CM.PN ---
IMM 05/18/25, Pt. said she is staying on the streets, and that she needs a program. She does not have a PCP, HCP or any home health services or DME. DCP to be assisted by Care team and addiction services. CM to follow for DC needs.
[2025-05-18] MEDS: methADONE HCl 20 MG/2 ML ORAL.CONC 50 MG PO (17:16)
[2025-05-19 03:38] VITALS: BP 134/78; PULSE 80; RESP 18; TEMP 36.7; O2SAT 96
[2025-05-19 07:47] VITALS: BP 114/62; PULSE 85; RESP 16; TEMP 36.8
[2025-05-19] MEDS: Nicotine 21 MG PATCH.TD24 TRANSDERMA (09:07)
[2025-05-19] MEDS: methADONE HCl 20 MG/2 ML ORAL.CONC 50 MG PO (09:07)
[2025-05-19 11:24] VITALS: BP 156/82; PULSE 96; RESP 20; TEMP 37; O2SAT 94
[2025-05-19 11:37] LABS: Cannabinoid Screen Urine Not Detected (Not Detect)
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
[2025-05-19 15:52] VITALS: BP 131/68; PULSE 88; RESP 18; TEMP 36.9; O2SAT 92
[2025-05-19] MEDS: 0.9 % Sodium Chloride Flush 3 ML SYRINGE IVFLUSH ×2 (17:20→20:04)
[2025-05-19 19:07] VITALS: BP 134/83; PULSE 76; RESP 20; TEMP 37; O2SAT 90
[2025-05-20] VITALS (7 sets, daily range): BP systolic 105–151; BP diastolic 58–83; PULSE 70–87; RESP 14–20; TEMP 36.6–37.4; O2SAT 90–97
[2025-05-20 00:11] LABS: Appearance Urine Turbid; Glucose Urine UA Negative (Negative); PH 6.5 (5.0-9.0); Specific Gravity - Urine 1.010 (1.005-1.025); UMIC TRIGGER UACC YES
[2025-05-20 00:12] LABS: UACC Culture Trigger YES
[2025-05-20] MEDS: methADONE HCl 20 MG/2 ML ORAL.CONC 65 MG PO (08:28)
[2025-05-20] MEDS: Nicotine 21 MG PATCH.TD24 TRANSDERMA (08:33)
[2025-05-20] MEDS: 0.9 % Sodium Chloride Flush 3 ML SYRINGE IVFLUSH ×2 (08:42→17:34)
--- NOTE | 2025-05-20 13:18 | MHC.CM.PN ---
Pt. requested to see CM, she reported that she wants to go to a program to help her, and not back out into the street at [place]. Addiction and Care team to assist with disposition.
--- NOTE | 2025-05-20 16:03 | HO.ADDICTPRO ---
Subjective Subjective Date of Service: 05/20/25 Reason For Visit: alcohol withdrawal, IV drug use withdrawal Interim History: Patient seen in follow up for JOHN and withdrawal management Patient awake, mostly alert, although appearing overmedicated based on swaying while sitting up and eyes closing during discussion Patient labile, irritable, intolerant of any distress--spilled her soda while pouring it and starting screaming. Using profanities when talking about her displeasure with being here and her clinical team-requiring redirection to answer assessment questions. Reporting she feels terrible , unsure of what her current methadone dose is, but stating that it is not enough. When asked to share withdrawal sx, patient became angry and unable to answer question. VS have been WNL. No objective signs of withdrawal, aside from irritability. Methadone dose 65mg Phenobarb taper in place-CIWA scores 0 Review of Systems Constitutional: Reports as per HPI Mental Status Exam Mental Status Exam Level of Consciousness: Awake and Drowsy Affect Description: Angry Thought Content: positive for [place] and positive for Circumstantial Judgement: Fair Diagnostics Vital Signs (24Hr): Vital Signs - 24 hr 05/19/25 19:07 05/20/25 00:00 05/20/25 03:59 Temperature 98.6 F 98.5 F 98.1 F Pulse Rate 76 80 77 Respiratory Rate 20 20 20 Blood Pressure 134/83 135/80 139/81 Pulse Oximetry 90 L 90 L 90 L Oxygen Delivery Method Room Air Room Air Room Air Oxygen Flow Rate 05/20/25 08:00 05/20/25 12:00 Temperature 97.9 F Pulse Rate 70 81 Respiratory Rate 20 20 Blood Pressure 117/76 105/81 Pulse Oximetry 97 96 Oxygen Delivery Method Nasal Cannula Nasal Cannula Oxygen Flow Rate 2 2 BMI result Body Mass Index 29.2 Labs 05/18/25 06:38 05/18/25 06:38 Labs: Laboratory Results - last 48 hr 05/19/25 05/19/25 11:06 23:26 Urine Color Yellow Urine Appearance Turbid Urine pH 6.5 Ur Specific [place] 1.010 Urine Protein Negative Urine Glucose (UA) Negative Urine Ketones Negative Urine Blood Trace H Urine Nitrite Positive H Ur Leukocyte Esterase Large (3+) H Urine RBC 0-2 Urine WBC >50 H Ur Squamous Epith Cells 3-5 Urine Bacteria 4+ Hyaline Casts 0-2 Urine Opiates Screen POSITIVE H Ur Buprenorphine Scrn Not Detected Ur Oxycodone Screen Not Detected Urine Methadone Screen Positive H Urine Fentanyl Screen POSITIVE H Ur Barbiturates Screen POSITIVE H Ur Phencyclidine Scrn Not Detected Ur Amphetamines Screen Not Detected U Benzodiazepines Scrn Not Detected Urine Cocaine Screen POSITIVE H U Marijuana (THC) Screen Not Detected Imaging Radiology Impressions: ITS Impressions Chest X-Ray 05/17/25 10:57 IMPRESSION: No acute cardiopulmonary abnormality. Electronically signed by: Pancho Simon MD 05/17/2025 11:10 AM EDT Medications Medications Current Medications Acetaminophen (Acetaminophen 325 Mg Tablet) 650 mg PO Q6H PRN PRN Reason: Pain, Mild 1-3,fever,headache Last Admin: 05/18/25 02:53 Dose: 650 mg Albuterol Sulfate (Albuterol Sulfate 90 Mcg 8 Gm Inhaler) 1 puff INHALE QID PRN PRN Reason: shortness of breath or wheezing Calcium Carbonate (Calcium Carbonate 750 Mg Tab.Chew) 750 mg PO Q4H PRN PRN Reason: Heartburn Clonazepam (Clonazepam 1 Mg Tablet) 1 mg PO TID PRN PRN Reason: anxiety attack Last Admin: 05/20/25 13:02 Dose: 1 mg Clonidine HCl (Clonidine Hcl 0.2 Mg Tablet) 0.2 mg PO TID PRN; Protocol PRN Reason: panic attack Gabapentin (Gabapentin 400 Mg Capsule) 800 mg PO QID [facility] Last Admin: 05/20/25 13:02 Dose: 800 mg Heparin Sodium (Porcine) (Heparin Sodium,Porcine 5,000 Unit/Ml Vial) 5,000 unit SUBCUT Q12H [facility] Last Admin: 05/20/25 13:00 Dose: Not Given Hydroxyzine HCl (Hydroxyzine Hcl 25 Mg Tablet) 25 mg PO BID PRN PRN Reason: Anxiety Last Admin: 05/18/25 02:53 Dose: 25 mg Levothyroxine Sodium (Levothyroxine Sodium 125 Mcg Tablet) 125 mcg PO DAILY@0600 [facility] Last Admin: 05/20/25 06:13 Dose: 125 mcg Magnesium Hydroxide (Milk Of Magnesia 30 Ml Oral.Susp) 30 ml PO DAILY PRN PRN Reason: Constipation Melatonin (Melatonin 3 Mg Tablet) 6 mg PO BEDTIME PRN PRN Reason: Insomnia Last Admin: 05/19/25 23:20 Dose: 6 mg Methadone HCl (Methadone Hcl 20 Mg/2 Ml Oral.Conc) 65 mg PO DAILY@0800 [facility] Last Admin: 05/20/25 08:28 Dose: 65 mg Nicotine (Nicotine 21 Mg Patch.Td24) 21 mg TRANSDERMA DAILY [facility] Last Admin: 05/20/25 08:33 Dose: 21 mg Nicotine (Nicotine 21 Mg Patch.Td24) 21 mg TRANSDERMA DAILY [facility] Last Admin: 05/20/25 11:31 Dose: Not Given Ondansetron HCl (Ondansetron Hcl 4 Mg/2 Ml Vial) 4 mg IVPUSH Q8H PRN PRN Reason: Nausea and Vomiting Pharmacy Consult (Consult Rx Etoh Phenob Im/Po) 1 each MISCELLANE ONCE PRN; Protocol PRN Reason: Consult order Phenobarbital (Phenobarbital 15 Mg Tablet) 15 mg PO BID [facility]; Protocol Stop: 05/21/25 21:01 Last Admin: 05/20/25 08:31 Dose: 15 mg Phenobarbital (Phenobarbital 15 Mg Tablet) 15 mg PO DAILY [facility]; Protocol Stop: 05/23/25 09:01 Sodium Chloride (0.9 % Sodium Chloride Flush 3 Ml Syringe) 3 ml IVFLUSH QSHIFT [facility] Last Admin: 05/20/25 08:42 Dose: 3 ml Trazodone HCl (Trazodone Hcl 50 Mg Tablet) 50 mg PO BEDTIME PRN PRN Reason: Insomnia Last Admin: 05/19/25 23:21 Dose: 50 mg Allergies Allergies Allergy/AdvReac Type Severity Reaction Status Date / Time fish derived Allergy Hives Verified 05/17/25 09:55 shellfish derived Allergy Anaphylaxis Verified 05/17/25 09:55 sulfamethoxazole (From Allergy Hives Verified 05/17/25 09:55 Bactrim) trimethoprim (From Bactrim) Allergy Hives Verified 05/17/25 09:55 Assessment & Plan Assessment & Plan (1) Alcohol use disorder: Status: Acute Code(s): F10.90 - Alcohol use, unspecified, uncomplicated Assessment and Plan: phenobarbital taper in place. CIWA scores 0. withdrawal well managed (2) Opioid use disorder: Status: Acute Code(s): F11.90 - Opioid use, unspecified, uncomplicated Assessment and Plan: methadone dose 65mg--further titration, once phenobarbital is discontinued. Drowsy appearance likely related to polypharmacy. underlying mood disorder impacting presentation and level of irritability. customer consulting manager to check in over the weekend PRN Total time managing care of this patient today __25__ minutes.
--- NOTE | 2025-05-20 16:30 | HO.PM.IMPN ---
Subjective Subjective Date of Service: 05/20/25 Interval History: Patient seen examined at bedside this morning, being followed up for alcohol withdrawal and substance use disorder. Patient initially resting comfortably in bed. However after being woken up, patient got angry and stated that she wanted to go to [facility] as she wants to shower there. Subsequently patient proceeded to cry and asked for a blanket and that she wants to place it on herself. Physical Exam Exam: Exam: General: Alert and oriented x 3 Resp: CTA bilateral CVS: S1,S2,RRR GI: +BS, NT, no distention Skin: No rash Neuro: motor grossly intact Psych: agitated and anxious Vital Signs: Vital Signs: Last Vital Signs Temp 97.9 F 05/20/25 12:00 Pulse 78 05/20/25 16:00 Resp 18 05/20/25 16:00 BP 125/58 L 05/20/25 16:00 Pulse Ox 91 L 05/20/25 16:00 O2 Del Method Room Air 05/20/25 16:00 O2 Flow Rate 2 05/20/25 12:00 BMI result Body Mass Index 29.2 Objective Data Active Medications Acetaminophen (Acetaminophen 325 Mg Tablet) 650 mg PO Q6H PRN PRN Reason: Pain, Mild 1-3,fever,headache Last Admin: 05/18/25 02:53 Dose: 650 mg Documented By: MICHELINE Albuterol Sulfate (Albuterol Sulfate 90 Mcg 8 Gm Inhaler) 1 puff INHALE QID PRN PRN Reason: shortness of breath or wheezing Calcium Carbonate (Calcium Carbonate 750 Mg Tab.Chew) 750 mg PO Q4H PRN PRN Reason: Heartburn Clonazepam (Clonazepam 1 Mg Tablet) 1 mg PO TID PRN PRN Reason: anxiety attack Last Admin: 05/20/25 13:02 Dose: 1 mg Documented By: LEANN Clonidine HCl (Clonidine Hcl 0.2 Mg Tablet) 0.2 mg PO TID PRN; Protocol PRN Reason: panic attack Gabapentin (Gabapentin 400 Mg Capsule) 800 mg PO QID [facility] Last Admin: 05/20/25 13:02 Dose: 800 mg Documented By: LEANN Heparin Sodium (Porcine) (Heparin Sodium,Porcine 5,000 Unit/Ml Vial) 5,000 unit SUBCUT Q12H [facility] Last Admin: 05/20/25 13:00 Dose: Not Given Documented By: LEANN Non-Admin Reason: Patient Refused Hydroxyzine HCl (Hydroxyzine Hcl 25 Mg Tablet) 25 mg PO BID PRN PRN Reason: Anxiety Last Admin: 05/18/25 02:53 Dose: 25 mg Documented By: MICHELINE Levothyroxine Sodium (Levothyroxine Sodium 125 Mcg Tablet) 125 mcg PO DAILY@0600 [facility] Last Admin: 05/20/25 06:13 Dose: 125 mcg Documented By: GILDA Magnesium Hydroxide (Milk Of Magnesia 30 Ml Oral.Susp) 30 ml PO DAILY PRN PRN Reason: Constipation Melatonin (Melatonin 3 Mg Tablet) 6 mg PO BEDTIME PRN PRN Reason: Insomnia Last Admin: 05/19/25 23:20 Dose: 6 mg Documented By: GILDA Methadone HCl (Methadone Hcl 20 Mg/2 Ml Oral.Conc) 65 mg PO DAILY@0800 [facility] Last Admin: 05/20/25 08:28 Dose: 65 mg Documented By: LEANN Co-signed By: AGUSTÍN Nicotine (Nicotine 21 Mg Patch.Td24) 21 mg TRANSDERMA DAILY [facility] Last Admin: 05/20/25 08:33 Dose: 21 mg Documented By: LEANN Nicotine (Nicotine 21 Mg Patch.Td24) 21 mg TRANSDERMA DAILY [facility] Last Admin: 05/20/25 11:31 Dose: Not Given Documented By: LEANN Non-Admin Reason: Duplicate Order Ondansetron HCl (Ondansetron Hcl 4 Mg/2 Ml Vial) 4 mg IVPUSH Q8H PRN PRN Reason: Nausea and Vomiting Pharmacy Consult (Consult Rx Etoh Phenob Im/Po) 1 each MISCELLANE ONCE PRN; Protocol PRN Reason: Consult order Phenobarbital (Phenobarbital 15 Mg Tablet) 15 mg PO BID [facility]; Protocol Stop: 05/21/25 21:01 Last Admin: 05/20/25 08:31 Dose: 15 mg Documented By: LEANN Phenobarbital (Phenobarbital 15 Mg Tablet) 15 mg PO DAILY [facility]; Protocol Stop: 05/23/25 09:01 Sodium Chloride (0.9 % Sodium Chloride Flush 3 Ml Syringe) 3 ml IVFLUSH QSHIFT [facility] Last Admin: 05/20/25 08:42 Dose: 3 ml Documented By: HO.SANTOL Trazodone HCl (Trazodone Hcl 50 Mg Tablet) 50 mg PO BEDTIME PRN PRN Reason: Insomnia Last Admin: 05/19/25 23:21 Dose: 50 mg Documented By: GILDA Labs 05/18/25 06:38 05/18/25 06:38 Labs: Laboratory Results - last 24 hr 05/19/25 23:26 Urine Color Yellow Urine Appearance Turbid Urine pH 6.5 Ur Specific [place] 1.010 Urine Protein Negative Urine Glucose (UA) Negative Urine Ketones Negative Urine Blood Trace H Urine Nitrite Positive H Ur Leukocyte Esterase Large (3+) H Urine RBC 0-2 Urine WBC >50 H Ur Squamous Epith Cells 3-5 Urine Bacteria 4+ Hyaline Casts 0-2 Microbiology Microbiology Results: Microbiology 05/17/25 11:28 Blood Culture - Preliminary Blood - Venous No growth after 48 hours. 05/17/25 11:28 Blood Culture - Preliminary Blood - Venous No growth after 48 hours. Assessment and Plan (1) Polysubstance abuse: Status: Acute (2) Severe hypothyroidism: Status: Acute (3) Tobacco use disorder: Status: Acute (4) Alcohol withdrawal: Status: Acute Plan 39-year-old woman admitted with alcohol withdrawal and IV drug use withdrawal. Reported that she has been on a binge for the last couple of weeks and had not been taking any of her medications. Patient seen by addiction Medicine, suggested on continue phenobarbital protocol, clonidine, clonazepam, hydroxyzine. Alcohol withdrawal continue phenobarbital protocol addiction med following continue thiamine, folate supplement IV fluids Polysubstance abuse (positive opioid,fentanyl, barbiturate, cocaine, methadone) Currently homeless Methadone per addiction med continue clonidine, clonazepam, hydroxyzine for anxiety Mental health Continue gabapentin, trazodone Reports being severely depressed but denied suicidal ideation and would like to be seen by the care team prior to discharge Asthma No acute exacerbation Albuterol as needed Hypothyroidism TSH greater than 100, w/ free t4 less than 0.42 Patient reported that she had not taken any of her medications Continue her levothyroxine as patient has been taking PO Smoker Nicotine replacement therapy DVT prophylaxis with heparin Full code Quality Stroke Does the patient have a stroke diagnosis?: No VTE Prior VTE?: No VTE Risk Level:: Medical - moderate - high VTE Device Contraindication: Treatment Not Indicated VTE Drug Contraindication: N/A - Med Ordered
[2025-05-21 03:44] VITALS: BP 108/66; PULSE 98; RESP 16; TEMP 37; O2SAT 95
[2025-05-21] MEDS: methADONE HCl 20 MG/2 ML ORAL.CONC 65 MG PO (07:44)
[2025-05-21 08:00] VITALS: BP 122/82; PULSE 79; RESP 18; TEMP 36.7; O2SAT 95
[2025-05-21] MEDS: Nicotine 21 MG PATCH.TD24 TRANSDERMA (08:53)
[2025-05-21] MEDS: 0.9 % Sodium Chloride Flush 3 ML SYRINGE IVFLUSH (08:55)
--- NOTE | 2025-05-21 11:52 | MHC.RECOVRN ---
Tw met with pt in . Consult was placed for IVDU and AUD. Tw was approached by primary RN who states pt is increasingly irritable, yelling, and demanding to speak with recovery. On approach pt is sitting in bed, raising her voice and stating that no one is listening to her and she wants to go to [facility]. She claims her needs are not being met and just wants to shower . Pt educated about fall risk, which she denies. TW offered to help her obtain a bed bath and help with hygiene to which she declined. She was observed slurring her words, frequently closing her eyes, and slumped over her table while attempting to eat oatmeal.? Pt became increasingly irritated and raising her voice and was instructed that TW would not be verbally abused and was there to offer support and resources to aid in her recovery. Pt also instructed to refrain from verbally abusing staff and educated that all staff in her care are attempting to help her. Pt became slightly less irritable and lowered her voice. She agreed to remain in behavioral control. Pt reports at her last admission, while on M5, she was discharged with the wrong last dose letter and when she presented at [facility], she was unable to receive her dose of methadone. Pt reports she returned to use and has been consuming approximately 5-6 bundles of IV heroin in addition to IV cocaine daily. I use as much as I can get . I hate living this way and just want to get into a program, anywhere [facility] the [facility] .?? Pt states she is currently unhoused, is not connected to a therapist or psychiatrist and reiterates her desire for continued treatment.? When asked further questions about her substance use she refuses and states, ?check my chart!?. Provided written education and resources for harm reduction techniques including utilizing [employer] for sterile supplies and drug testing, harm reduction techniques such as not sharing needles, utilizing a test shot when using a supply from a new supplier, as well as education about the current drug supply and cutting agents used. A Consult to Care Team was placed to determine appropriate LOC.
[2025-05-21 12:00] VITALS: BP 113/65; PULSE 73; RESP 18; TEMP 36.8; O2SAT 95
[2025-05-21 12:33] LABS: Free T4 (Free Thyroxine) 0.43 ng/dL (0.71-1.85)
--- NOTE | 2025-05-21 15:22 | MHC.CM.PN ---
JABARI MET WITH PT AT HER REQUEST PT AGITATED YELLING THAT SHE WANTS TO TAKE A SHOWER AND EVERYONE HERE IS INCOMPETENT SHE SAYS LAST TIME SHE WAS HERE SHE WAS GIVEN THE WRONG LAST DOSE LETTER AND COULD NOT GET METHADONE FOR 3 DAYS CM INFORMED HER SHE WOULD NEED TO CALM DOWN AND ASKED WHAT WOULD HELP NOW HER LAST DC COULD NOT BE CHANGED SHE SAYS SHE WANTS TO GO TO A SUBSTANCE ABUSE PROGRAM AND THINKS THE MD IS GOING TO KICK HER OUT CM AND RN AGREED TO ENSURE RECOVERY SAW HER. JABARI ASKED IF SHE WANTED LONGTERM REFERRALS, SHE DECLINED SHE THEN SAID SHE WANTED TO GO TO [facility]. MD NOTIFIED AND CARE TEAM EVAL ORDERED
--- NOTE | 2025-05-21 15:54 | HO.PM.IMPN ---
Subjective Subjective Date of Service: 05/21/25 Interval History: Patient seen and examined at bedside this morning, patient states that she feels well, however per nursing staff patient has been becoming agitated, mentioning I want to take a shower , also stating that she wishes to be transferred to inpatient psychiatry. Repeat free T4 0.43. UA showing positive leukocyte esterase and nitrites Review of Systems Review of Systems: Yes Unobtainable due to mental status Physical Exam Exam: Exam: General: somnolent and oriented x 2 Resp: CTA bilateral CVS: S1,S2,RRR GI: +BS, NT, no distention Skin: No rash Neuro: motor grossly intact Psych: agitated and anxious Vital Signs: Vital Signs: Last Vital Signs Temp 98.2 F 05/21/25 12:00 Pulse 73 05/21/25 12:00 Resp 18 05/21/25 12:00 BP 113/65 05/21/25 12:00 Pulse Ox 95 05/21/25 12:00 O2 Del Method Nasal Cannula 05/21/25 12:00 O2 Flow Rate 2 05/21/25 12:00 BMI result Body Mass Index 29.2 Objective Data Active Medications Acetaminophen (Acetaminophen 325 Mg Tablet) 650 mg PO Q6H PRN PRN Reason: Pain, Mild 1-3,fever,headache Last Admin: 05/18/25 02:53 Dose: 650 mg Documented By: MICHELINE Albuterol Sulfate (Albuterol Sulfate 90 Mcg 8 Gm Inhaler) 1 puff INHALE QID PRN PRN Reason: shortness of breath or wheezing Amoxicillin/Clavulanate Potassium (Amoxicillin/Potassium Clav 875 Mg Tablet) 875 mg PO Q12H [facility] Stop: 05/26/25 07:59 Last Admin: 05/21/25 08:51 Dose: 875 mg Documented By: GERALD Calcium Carbonate (Calcium Carbonate 750 Mg Tab.Chew) 750 mg PO Q4H PRN PRN Reason: Heartburn Clonazepam (Clonazepam 1 Mg Tablet) 1 mg PO TID PRN PRN Reason: anxiety attack Last Admin: 05/21/25 10:37 Dose: 1 mg Documented By: GERALD Comments: said to give now. Clonidine HCl (Clonidine Hcl 0.2 Mg Tablet) 0.2 mg PO TID PRN; Protocol PRN Reason: panic attack Gabapentin (Gabapentin 400 Mg Capsule) 800 mg PO QID [facility] Last Admin: 05/21/25 14:44 Dose: 800 mg Documented By: GERALD Heparin Sodium (Porcine) (Heparin Sodium,Porcine 5,000 Unit/Ml Vial) 5,000 unit SUBCUT Q12H [facility] Last Admin: 05/21/25 14:43 Dose: Not Given Documented By: GERALD Non-Admin Reason: Patient Refused Hydroxyzine HCl (Hydroxyzine Hcl 25 Mg Tablet) 25 mg PO BID PRN PRN Reason: Anxiety Last Admin: 05/18/25 02:53 Dose: 25 mg Documented By: MICHELINE Levothyroxine Sodium (Levothyroxine Sodium 125 Mcg Tablet) 125 mcg PO DAILY@0600 [facility] Last Admin: 05/21/25 06:28 Dose: 125 mcg Documented By: SEEMA Magnesium Hydroxide (Milk Of Magnesia 30 Ml Oral.Susp) 30 ml PO DAILY PRN PRN Reason: Constipation Melatonin (Melatonin 3 Mg Tablet) 6 mg PO BEDTIME PRN PRN Reason: Insomnia Last Admin: 05/21/25 00:14 Dose: 6 mg Documented By: SEEMA Methadone HCl (Methadone Hcl 20 Mg/2 Ml Oral.Conc) 65 mg PO DAILY@0800 [facility] Last Admin: 05/21/25 07:44 Dose: 65 mg Documented By: GERALD Co-signed By: CANDICE Nicotine (Nicotine 21 Mg Patch.Td24) 21 mg TRANSDERMA DAILY [facility] Last Admin: 05/21/25 08:53 Dose: 21 mg Documented By: GERALD Nicotine (Nicotine 21 Mg Patch.Td24) 21 mg TRANSDERMA DAILY [facility] Last Admin: 05/21/25 09:37 Dose: Not Given Documented By: GERALD Non-Admin Reason: Duplicate Order Ondansetron HCl (Ondansetron Hcl 4 Mg/2 Ml Vial) 4 mg IVPUSH Q8H PRN PRN Reason: Nausea and Vomiting Pharmacy Consult (Consult Rx Etoh Phenob Im/Po) 1 each MISCELLANE ONCE PRN; Protocol PRN Reason: Consult order Phenobarbital (Phenobarbital 15 Mg Tablet) 15 mg PO BID [facility]; Protocol Stop: 05/21/25 21:01 Last Admin: 05/21/25 08:52 Dose: 15 mg Documented By: GERALD Phenobarbital (Phenobarbital 15 Mg Tablet) 15 mg PO DAILY [facility]; Protocol Stop: 05/23/25 09:01 Sodium Chloride (0.9 % Sodium Chloride Flush 3 Ml Syringe) 3 ml IVFLUSH QSHIFT [facility] Last Admin: 05/21/25 08:55 Dose: 3 ml Documented By: GERALD Trazodone HCl (Trazodone Hcl 50 Mg Tablet) 50 mg PO BEDTIME PRN PRN Reason: Insomnia Last Admin: 05/19/25 23:21 Dose: 50 mg Documented By: GILDA Labs 05/18/25 06:38 05/18/25 06:38 Labs: Laboratory Results - last 24 hr 05/21/25 05/21/25 10:34 10:42 Hold Purple Top SEE NOTE TSH > 100.00 H Free T4 0.43 L Microbiology Microbiology Results: Microbiology 05/20/25 Unknown Urine Culture - Preliminary Urine clean catch - Clean Catch Midstream Gram negative kendra Assessment and Plan (1) Cocaine use disorder: Status: Acute (2) Polysubstance abuse: Status: Acute (3) Alcohol withdrawal: Status: Acute (4) Hypothyroidism: Status: Acute Plan 39-year-old woman admitted with alcohol withdrawal and IV drug use withdrawal. Reported that she has been on a binge for the last couple of weeks and had not been taking any of her medications. Patient seen by addiction Medicine, suggested on continue phenobarbital protocol, clonidine, clonazepam, hydroxyzine. Alcohol withdrawal continue phenobarbital protocol addiction med following continue thiamine, folate supplement IV fluids Polysubstance abuse (positive opioid,fentanyl, barbiturate, cocaine, methadone) Currently homeless Methadone per addiction med continue clonidine, clonazepam, hydroxyzine for anxiety Mental health Continue gabapentin, trazodone Reports being severely depressed but denied suicidal ideation and would like to be seen by the care team prior to discharge Asthma No acute exacerbation Albuterol as needed Hypothyroidism Repeat free T4 now able to be measured at 0.43 Patient reported that she had not taken any of her medications Continue her levothyroxine 125 mcg as patient has been taking PO UTI -we will initiate Augmentin b.i.d., as this medication has less interactions with patient's psychiatric medications. Smoker Nicotine replacement therapy DVT prophylaxis with heparin Full code Quality Stroke Does the patient have a stroke diagnosis?: No VTE Prior VTE?: No VTE Risk Level:: Medical - moderate - high VTE Device Contraindication: Treatment Not Indicated VTE Drug Contraindication: N/A - Med Ordered
[2025-05-21 16:00] VITALS: BP 123/75; PULSE 77; RESP 16; O2SAT 91
[2025-05-22] VITALS: BP 146/86; PULSE 96; RESP 18; TEMP 36.9; O2SAT 94
--- NOTE | 2025-05-22 00:12 | PC.NURSE ---
05/21/25 Nursing Note [id number]. Pt cooperative with care and taking medications tonight. PM snack provided. Patient reports she is resting comfortably tonight.
[2025-05-22] MEDS: 0.9 % Sodium Chloride Flush 3 ML SYRINGE IVFLUSH ×4 (00:52→21:16)
[2025-05-22 03:48] VITALS: BP 130/80; PULSE 78; RESP 16; TEMP 36.8; O2SAT 92
[2025-05-22 08:00] VITALS: BP 126/62; PULSE 83; RESP 18; TEMP 37; O2SAT 98
[2025-05-22] MEDS: Nicotine 21 MG PATCH.TD24 TRANSDERMA (08:06)
[2025-05-22] MEDS: methADONE HCl 20 MG/2 ML ORAL.CONC 65 MG PO (08:07)
[2025-05-22 11:39] VITALS: BP 136/87; PULSE 84; RESP 18; TEMP 36.6; O2SAT 96
--- NOTE | 2025-05-22 11:46 | MHC.RECOVRN ---
TW checked in with pt in [id number] to offer continued support. Pt presents as less labile then previously noted however still mildly irritable and demanding. Pt also presents as sedated but less so than previously noted. She reports ongoing frustration with staff, bed availability for pychiatric care, and the inability to shower. Pt educated on the process for [facility] placement and encouraged to remain patient while her plan of care is developed. Pt provided hairbrush and toiletries as requested and educated on risk for falls and reluctance of staff to allow her to shower alone. Pt verbalizes understanding and denies other concerns or complaints at this time. Tw available as needed for continued support
--- NOTE | 2025-05-22 14:45 | P.PNIM_ITS ---
Subjective Subjective Date of Service: 05/22/25 Interval History: Patient seen and examined at bedside this morning, patient more awake, states that she wishes to take a shower, also mentioned that she is having suicidal thoughts as she does not want to live anymore. Patient mentions also that Zyprexa will usually make her have visual and auditory hallucinations. Mentions that she is sorry for being mean to nursing staff at this time. Review of Systems Review of Systems: Yes all other systems are reviewed and are negative Physical Exam 2 Exam: Exam: General: AxO x 3 Resp: CTA bilateral CVS: S1,S2,RRR GI: +BS, NT, no distention Skin: No rash Neuro: motor grossly intact Psych: anxious Vital Signs: Vital Signs: Last Vital Signs Temp 97.9 F 05/22/25 11:39 Pulse 84 05/22/25 11:39 Resp 18 05/22/25 11:39 BP 136/87 05/22/25 11:39 Pulse Ox 96 05/22/25 11:39 O2 Del Method Room Air 05/22/25 11:39 O2 Flow Rate 2 05/21/25 12:00 BMI result Body Mass Index 29.2 Objective Data Active Medications Acetaminophen (Acetaminophen 325 Mg Tablet) 650 mg PO Q6H PRN PRN Reason: Pain, Mild 1-3,fever,headache Last Admin: 05/18/25 02:53 Dose: 650 mg Documented By: MICHELINE Albuterol Sulfate (Albuterol Sulfate 90 Mcg 8 Gm Inhaler) 1 puff INHALE QID PRN PRN Reason: shortness of breath or wheezing Amoxicillin/Clavulanate Potassium (Amoxicillin/Potassium Clav 875 Mg Tablet) 875 mg PO Q12H [facility] Stop: 05/26/25 07:59 Last Admin: 05/22/25 08:05 Dose: 875 mg Documented By: CARMELITA Calcium Carbonate (Calcium Carbonate 750 Mg Tab.Chew) 750 mg PO Q4H PRN PRN Reason: Heartburn Clonazepam (Clonazepam 1 Mg Tablet) 1 mg PO TID PRN PRN Reason: anxiety/restlessness Clonidine HCl (Clonidine Hcl 0.2 Mg Tablet) 0.2 mg PO TID PRN; Protocol PRN Reason: panic attack Gabapentin (Gabapentin 400 Mg Capsule) 800 mg PO QID [facility] Last Admin: 05/22/25 14:32 Dose: 800 mg Documented By: CARMELITA Heparin Sodium (Porcine) (Heparin Sodium,Porcine 5,000 Unit/Ml Vial) 5,000 unit SUBCUT Q12H [facility] Last Admin: 05/22/25 14:32 Dose: Not Given Documented By: CARMELITA Non-Admin Reason: Patient Refused Hydroxyzine HCl (Hydroxyzine Hcl 25 Mg Tablet) 25 mg PO BID PRN PRN Reason: Anxiety Last Admin: 05/18/25 02:53 Dose: 25 mg Documented By: MICHELINE Levothyroxine Sodium (Levothyroxine Sodium 125 Mcg Tablet) 125 mcg PO DAILY@0600 [facility] Last Admin: 05/22/25 08:06 Dose: 125 mcg Documented By: CARMELITA Magnesium Hydroxide (Milk Of Magnesia 30 Ml Oral.Susp) 30 ml PO DAILY PRN PRN Reason: Constipation Melatonin (Melatonin 3 Mg Tablet) 6 mg PO BEDTIME PRN PRN Reason: Insomnia Last Admin: 05/21/25 00:14 Dose: 6 mg Documented By: SEEMA Methadone HCl (Methadone Hcl 20 Mg/2 Ml Oral.Conc) 65 mg PO DAILY@0800 [facility] Last Admin: 05/22/25 08:07 Dose: 65 mg Documented By: CARMELITA Co-signed By: GUILLERMOORRJarad Nicotine (Nicotine 21 Mg Patch.Td24) 21 mg TRANSDERMA DAILY [facility] Last Admin: 05/22/25 08:06 Dose: 21 mg Documented By: CARMELITA Olanzapine (Olanzapine 5 Mg Tablet) 5 mg PO Q4H PRN PRN Reason: anxiety/restlessness Ondansetron HCl (Ondansetron Hcl 4 Mg/2 Ml Vial) 4 mg IVPUSH Q8H PRN PRN Reason: Nausea and Vomiting Pharmacy Consult (Consult Rx Etoh Phenob Im/Po) 1 each MISCELLANE ONCE PRN; Protocol PRN Reason: Consult order Phenobarbital (Phenobarbital 15 Mg Tablet) 15 mg PO DAILY [facility]; Protocol Stop: 05/23/25 09:01 Last Admin: 05/22/25 08:04 Dose: 15 mg Documented By: CARMELITA Sodium Chloride (0.9 % Sodium Chloride Flush 3 Ml Syringe) 3 ml IVFLUSH QSHIFT [facility] Last Admin: 05/22/25 14:33 Dose: 3 ml Documented By: CARMELITA Trazodone HCl (Trazodone Hcl 50 Mg Tablet) 50 mg PO BEDTIME PRN PRN Reason: Insomnia Last Admin: 05/19/25 23:21 Dose: 50 mg Documented By: GILDA Labs 05/18/25 06:38 05/18/25 06:38 Microbiology Microbiology Results: Microbiology 05/17/25 11:28 Blood Culture - Final Blood - Venous No growth after 5 days. 05/17/25 11:28 Blood Culture - Final Blood - Venous No growth after 5 days. 05/20/25 Unknown Urine Culture - Final Urine clean catch - Clean Catch Midstream Escherichia coli Assessment and Plan (1) Polysubstance abuse: Status: Acute (2) Hypothyroidism: Status: Acute (3) Asthma: Status: Acute Plan 39-year-old woman admitted with alcohol withdrawal and IV drug use withdrawal. Reported that she has been on a binge for the last couple of weeks and had not been taking any of her medications. Patient seen by addiction Medicine, suggested on continue phenobarbital protocol, clonidine, clonazepam, hydroxyzine. patient at this time medically cleared, will consult crisis team for possible discharge/transfer to psych unit Alcohol withdrawal continue phenobarbital protocol addiction med following continue thiamine, folate supplement IV fluids Opioid use disorder (positive opioid,fentanyl, barbiturate, cocaine, methadone) Currently homeless Methadone per addiction med continue clonidine, clonazepam, hydroxyzine for anxiety Mental health Continue gabapentin, trazodone Reports being severely depressed, at this time states she doesn't want to live . Asthma No acute exacerbation Albuterol as needed Hypothyroidism Repeat free T4 now able to be measured at 0.43 Patient reported that she had not taken any of her medications Continue her levothyroxine 125 mcg as patient has been taking PO UTI, improving -continue Augmentin b.i.d., as this medication has less interactions with patient's psychiatric medications. Smoker Nicotine replacement therapy DVT prophylaxis with heparin Full code Quality Stroke Does the patient have a stroke diagnosis?: No VTE Prior VTE?: No VTE Risk Level:: Medical - moderate - high VTE Device Contraindication: Treatment Not Indicated VTE Drug Contraindication: N/A - Med Ordered
[2025-05-22 15:47] VITALS: BP 134/90; PULSE 76; RESP 18; TEMP 36.6; O2SAT 94
[2025-05-23] VITALS (8 sets, daily range): BP systolic 118–151; BP diastolic 67–94; PULSE 71–82; RESP 16–18; TEMP 36.2–37; O2SAT 90–98
[2025-05-23] MEDS: Nicotine 21 MG PATCH.TD24 TRANSDERMA (09:23)
[2025-05-23] MEDS: 0.9 % Sodium Chloride Flush 3 ML SYRINGE IVFLUSH ×2 (09:23→17:07)
[2025-05-23] MEDS: methADONE HCl 20 MG/2 ML ORAL.CONC 65 MG PO (09:26)
--- NOTE | 2025-05-23 11:24 | PC.NURSE ---
Patient refusing bed alarm. Patient very agitated yelling shut that thing off . Patient educated on importance of bed alarm and high fall risk interventions, encouraged to use call [facility] to help with her needs. Camera at bedside.
--- NOTE | 2025-05-23 11:51 | MHC.CARE ---
Patient evaluated by the CARE Team on 05/22/2025, disposition inpatient psychiatric treatment.
--- NOTE | 2025-05-23 15:33 | MHC.CM.PN ---
Per CARE team, pt. to go to inpt. dual diagnosis program.
--- NOTE | 2025-05-23 16:42 | P.PNIM_ITS ---
Subjective Subjective Date of Service: 05/23/25 Interval History: Patient seen and examined at bedside this morning, patient states that she wishes to have her methadone increased, also mentions that she wishes to be discharged to psychiatry [facility]. Review of Systems Review of Systems: Yes all other systems are reviewed and are negative Physical Exam 2 Exam: Exam: General: AxO x 3 Resp: CTA bilateral CVS: S1,S2,RRR GI: +BS, NT, no distention Skin: No rash Neuro: motor grossly intact Psych: anxious, depressed Vital Signs: Vital Signs: Last Vital Signs Temp 97.8 F 05/23/25 15:53 Pulse 82 05/23/25 15:53 Resp 18 05/23/25 15:53 BP 130/91 H 05/23/25 15:53 Pulse Ox 95 05/23/25 15:53 O2 Del Method Room Air 05/23/25 15:53 O2 Flow Rate 3 05/23/25 07:38 BMI result Body Mass Index 29.2 Objective Data Active Medications Acetaminophen (Acetaminophen 325 Mg Tablet) 650 mg PO Q6H PRN PRN Reason: Pain, Mild 1-3,fever,headache Last Admin: 05/18/25 02:53 Dose: 650 mg Documented By: MICHELINE Albuterol Sulfate (Albuterol Sulfate 90 Mcg 8 Gm Inhaler) 1 puff INHALE QID PRN PRN Reason: shortness of breath or wheezing Calcium Carbonate (Calcium Carbonate 750 Mg Tab.Chew) 750 mg PO Q4H PRN PRN Reason: Heartburn Ceftriaxone Sodium (Ceftriaxone Sodium 1 Gm Vial) 1 gm IVPUSH Q24H [facility] Stop: 05/24/25 23:16 Last Admin: 05/23/25 00:18 Dose: 1 gm Documented By: MIRIAM Comments: Dr. Chico De Paz approved Clonazepam (Clonazepam 1 Mg Tablet) 1 mg PO TID PRN PRN Reason: anxiety/restlessness Last Admin: 05/23/25 14:20 Dose: 1 mg Documented By: PADDY Clonidine HCl (Clonidine Hcl 0.2 Mg Tablet) 0.2 mg PO TID PRN; Protocol PRN Reason: panic attack Gabapentin (Gabapentin 400 Mg Capsule) 800 mg PO QID [facility] Last Admin: 05/23/25 14:20 Dose: 800 mg Documented By: APDDY Heparin Sodium (Porcine) (Heparin Sodium,Porcine 5,000 Unit/Ml Vial) 5,000 unit SUBCUT Q12H [facility] Last Admin: 05/23/25 14:21 Dose: Not Given Documented By: PADDY Non-Admin Reason: Patient Refused Hydroxyzine HCl (Hydroxyzine Hcl 25 Mg Tablet) 25 mg PO BID PRN PRN Reason: Anxiety Last Admin: 05/18/25 02:53 Dose: 25 mg Documented By: MICHELINE Levothyroxine Sodium (Levothyroxine Sodium 125 Mcg Tablet) 125 mcg PO DAILY@0600 [facility] Last Admin: 05/23/25 06:41 Dose: 125 mcg Documented By: MIRIAM Magnesium Hydroxide (Milk Of Magnesia 30 Ml Oral.Susp) 30 ml PO DAILY PRN PRN Reason: Constipation Melatonin (Melatonin 3 Mg Tablet) 6 mg PO BEDTIME PRN PRN Reason: Insomnia Last Admin: 05/21/25 00:14 Dose: 6 mg Documented By: SEEMA Methadone HCl (Methadone Hcl 20 Mg/2 Ml Oral.Conc) 75 mg PO DAILY@0800 [facility] Nicotine (Nicotine 21 Mg Patch.Td24) 21 mg TRANSDERMA DAILY [facility] Last Admin: 05/23/25 09:23 Dose: 21 mg Documented By: PADDY Olanzapine (Olanzapine 5 Mg Tablet) 5 mg PO Q4H PRN PRN Reason: anxiety/restlessness Last Admin: 05/22/25 21:16 Dose: 5 mg Documented By: MIRIAM Ondansetron HCl (Ondansetron Hcl 4 Mg/2 Ml Vial) 4 mg IVPUSH Q8H PRN PRN Reason: Nausea and Vomiting Pharmacy Consult (Consult Rx Etoh Phenob Im/Po) 1 each MISCELLANE ONCE PRN; Protocol PRN Reason: Consult order Sodium Chloride (0.9 % Sodium Chloride Flush 3 Ml Syringe) 3 ml IVFLUSH QSHIFT [facility] Last Admin: 05/23/25 09:23 Dose: 3 ml Documented By: PADDY Trazodone HCl (Trazodone Hcl 50 Mg Tablet) 50 mg PO BEDTIME PRN PRN Reason: Insomnia Last Admin: 05/19/25 23:21 Dose: 50 mg Documented By: FOXAS Labs 05/18/25 06:38 05/18/25 06:38 Microbiology Microbiology Results: Microbiology 05/17/25 11:28 Blood Culture - Final Blood - Venous No growth after 5 days. 05/17/25 11:28 Blood Culture - Final Blood - Venous No growth after 5 days. Assessment and Plan (1) Polysubstance abuse: Status: Acute (2) Hypothyroidism: Status: Acute (3) Tobacco use disorder: Status: Acute Plan 39-year-old woman admitted with alcohol withdrawal and IV drug use withdrawal. Reported that she has been on a binge for the last couple of weeks and had not been taking any of her medications. Patient seen by addiction Medicine, suggested on continue phenobarbital protocol, clonidine, clonazepam, hydroxyzine. patient at this time continues to be medically cleared, psych and crisis team consulted Alcohol withdrawal s/p phenobarbital protocol addiction med following continue thiamine, folate supplement Opioid use disorder (positive opioid,fentanyl, barbiturate, cocaine, methadone) Currently homeless Methadone per addiction med continue clonidine, clonazepam, hydroxyzine for anxiety Mental health Continue gabapentin, trazodone Reports she continues to be severely depressed, doesn't want to live . psychiatry and crisis team consulted Asthma No acute exacerbation Albuterol as needed Hypothyroidism Repeat free T4 now able to be measured at 0.43 Patient reported that she had not taken any of her medications Continue her levothyroxine 125 mcg as patient has been taking PO UTI, improving -continue w/ abs to complete a total of 5 days Smoker Nicotine replacement therapy DVT prophylaxis with heparin Full code Quality Stroke Does the patient have a stroke diagnosis?: No VTE Prior VTE?: No VTE Risk Level:: Medical - moderate - high VTE Device Contraindication: Treatment Not Indicated VTE Drug Contraindication: N/A - Med Ordered
[2025-05-24] MEDS: 0.9 % Sodium Chloride Flush 3 ML SYRINGE IVFLUSH ×2 (00:19→08:22)
[2025-05-24 03:27] VITALS: BP 131/81; PULSE 67; RESP 18; TEMP 36.3; O2SAT 92
[2025-05-24 07:46] VITALS: BP 112/74; PULSE 67; RESP 16; TEMP 36.8; O2SAT 92
[2025-05-24] MEDS: Nicotine 21 MG PATCH.TD24 TRANSDERMA (08:20)
[2025-05-24] MEDS: methADONE HCl 20 MG/2 ML ORAL.CONC 75 MG PO (08:20)
--- NOTE | 2025-05-24 10:33 | MHC.CARE ---
Pt will be an inpatient bedsearch
--- NOTE | 2025-05-24 12:15 | MHC.CM.PN ---
Pt. transferred to inpatient psych unit today.
--- NOTE | 2025-05-24 13:37 | PM.DS ---
DS: Providers Provider Date of Service: 05/24/25 Date of admission: 05/17/25 12:29 Date of discharge: 05/24/25 Primary care physician: Unknown Physician Consults: 05/17/25 14:15 Addiction Medicine Provider Routine Consulting Provider: Addiction Covering Reason for consultation: etoh, IVDU 05/21/25 10:33 Inpt CARE Team Crisis Consult Routine Comment: Reason for consultation: dc to inpatient psychiatry 05/22/25 10:03 Inpt CARE Team Crisis Consult Routine Comment: Reason for consultation: suicidal ideation 05/23/25 10:44 Inpt CARE Team Crisis Consult Routine Comment: placed 2 consults 05/21 and 05/22 Reason for consultation: 3rd consult/si/dc psych Attending physician on discharge: Tereso Rao Discharging clinician: Tereso Rao DS: Diagnosis Discharge Diagnosis (1) Polysubstance abuse: Status: Acute (2) Hypothyroidism: Status: Acute (3) Tobacco use disorder: Status: Acute DS: Summary Hospital Course Hospital Course: 39-year-old woman admitted with alcohol withdrawal and IV drug use withdrawal. Reported that she has been on a binge for the last couple of weeks and had not been taking any of her medications. Patient seen by addiction Medicine, suggested on continue phenobarbital protocol, clonidine, clonazepam, hydroxyzine. patient at this time medically cleared, completed IV abs for UTI. continues on medications for hypothyroidism. Time Attestation Total time managing care of this patient today: 35 mintues. Discharge Coordination Time (in mins): greater than 30 minutes Quality: Safe Use of Opioids Does Pt have an Active Cancer Diagnosis on the Problem List?: No Quality: Stroke Does the patient have a stroke diagnosis?: No Physical Exam Exam: Exam: General: AxO x 3 Resp: CTA bilateral CVS: S1,S2,RRR GI: +BS, NT, no distention Skin: No rash Neuro: motor grossly intact Psych: cooperative Vital Signs: Vital Signs: Last Vital Signs Temp 98.3 F 05/24/25 07:46 Pulse 67 05/24/25 07:46 Resp 16 05/24/25 07:46 BP 112/74 05/24/25 07:46 Pulse Ox 92 05/24/25 07:46 O2 Del Method Room Air 05/24/25 07:46 O2 Flow Rate 3 05/23/25 07:38 BMI result Body Mass Index 29.2 DS: Data Data Completed and Pending Completed studies during hospitalization [Text1]: Procedures Detoxification Services for Substance Abuse Treatment (03/16/25) Discharge Plan Discharge Patient Disposition: Xfer Psychiatric Hosp Referrals: Physician,Unknown J [Primary Care Provider, Medical] - 1 Week Discharge Medications: Continued clonazepam 1 mg tablet 1 mg PO TID PRN (Reason: anxiety attack) gabapentin 800 mg tablet 800 mg PO QID clonidine HCl 0.2 mg tablet 0.2 mg PO TID PRN (Reason: panic attack) levothyroxine 125 mcg tablet 125 mcg PO DAILY@0600 nicotine 21 mg/24 hr Patch 24 Hour 21 mg transdermal DAILY 28 Days Qty: 28 0RF albuterol sulfate 90 mcg/actuation HFA aerosol inhaler 1 inh inhalation QID PRN (Reason: shortness of breath or wheezing) 30 Days Qty: 6.7 0RF trazodone 50 mg Tablet 50 mg PO BEDTIME PRN (Reason: Insomnia) 30 Days Qty: 30 0RF hydroxyzine HCl 25 mg tablet 25 mg PO BID PRN (Reason: anxiety) 30 Days Qty: 60 0RF methadone [Methadose] 10 mg/mL concentrate 75 mg PO DAILY@0600 Patient Comments: gets [facility] Rx Instructions: Partial Fill upon patient request. Discharge Orders: Discharge Order (Routine); Ordered 05/24/25 Ordered By: Tereso Rao Activity on Discharge: As tolerated Stand Alone Forms: Patient Portal Discharge page Print Language: Bur[place]ian Care Plan Goals: transfer to Psych, continue to assist with behavior and addictions Health Concerns: hypothyroidism, recently completed tx for UTI, mood disorders Plan of Treatment: continue psych medications, levothyroxine Assessment: 39-year-old woman admitted with alcohol withdrawal and IV drug use withdrawal. Reported that she has been on a binge for the last couple of weeks and had not been taking any of her medications. Patient seen by addiction Medicine, suggested on continue phenobarbital protocol, clonidine, clonazepam, hydroxyzine. patient at this time medically cleared, completed IV abs for UTI. continues on medications for hypothyroidism. Alcohol withdrawal, resolved s/p phenobarbital protocol addiction med following continue thiamine, folate supplement Opioid use disorder (positive opioid,fentanyl, barbiturate, cocaine, methadone) Currently homeless Methadone per addiction med continue clonidine, clonazepam, hydroxyzine for anxiety Mental health Continue gabapentin, trazodone Asthma No acute exacerbation Albuterol as needed Hypothyroidism Repeat free T4 0.43 Patient reported that she had not taken any of her medications Continue her levothyroxine 125 mcg as patient has been taking PO will require repeat TSH level in 4-6 weeks as well as free T4 Discharge Date/Time: 05/24/25 13:36
== END 2025-05-24 13:36 | DRG 897 ==
LOC: HO.ED 12:16 → HO.EDOVER 12:41 → HO.IMC 05-18 02:42
PROVIDERS: Hospitalist; Internal Medicine; Physician Assistant Medical; Admitting Provider Nurse Practitioner Acute Care; Emergency Provider Emergency Medicine; Visit Provider Student in an Organized Health Care Education/Training Program
DX: F10.939 Alcohol use, unspecified with withdrawal, unspecified (principal); F11.20 Opioid dependence, uncomplicated; Z59.02 Unsheltered homelessness; N39.0 Urinary tract infection, site not specified; B96.20 Unspecified Escherichia coli [E. coli] as the cause of diseases classified elsewhere; E03.9 Hypothyroidism, unspecified; F17.210 Nicotine dependence, cigarettes, uncomplicated; Z71.6 Tobacco abuse counseling; F19.10 Other psychoactive substance abuse, uncomplicated; J45.909 Unspecified asthma, uncomplicated; Z91.148 Patient's other noncompliance with medication regimen for other reason; Z20.822 Contact with and (suspected) exposure to COVID-19; Z79.890 Hormone replacement therapy; Z79.899 Other long term (current) drug therapy
CPT/HCPCS: 36415; 71045; 71046; 80048; 80053; 80061; 80307; 81001; 81003; 82803; 82947; 83036; 83605; 83690; 83735; 83880; 84439; 84443; 84484; 84702; 85025; 85027; 85610; 85652; 86140; 87040; 87086; 87088; 87186; 87502; 87635; 93005; 97162; 99285; J0651; J0696; J1644; J2560; J7120; S9485

== ENCOUNTER → 2025-05-17 09:46 | Outpatient (BNV) | payer MEDICARE, MEDICAID, SELFPAY | PROVIDERS: Admitting Provider Nurse Practitioner Acute Care; Emergency Provider Emergency Medicine; Visit Provider Internal Medicine Cardiovascular Disease | DX: R00.1 Bradycardia, unspecified (principal) | CPT/HCPCS: 93010 ==

== ENCOUNTER → 2025-05-17 10:09 | Outpatient (BNV) | payer MEDICARE, MEDICAID, SELFPAY | PROVIDERS: Emergency Provider Emergency Medicine; Visit Provider Radiology Diagnostic Radiology | DX: R06.02 Shortness of breath (principal) | CPT/HCPCS: 71045 ==

== ENCOUNTER → 2025-05-17 12:29 | Outpatient (BNV) | payer MEDICARE, MEDICAID, SELFPAY | PROVIDERS: Admitting Provider Nurse Practitioner Acute Care; Emergency Provider Emergency Medicine; Visit Provider Nurse Practitioner Psychiatric/Mental Health | DX: F10.90 Alcohol use, unspecified, uncomplicated (principal); F11.90 Opioid use, unspecified, uncomplicated | CPT/HCPCS: 99232 ==

== ENCOUNTER → 2025-05-17 12:29 | Outpatient (BNV) | payer MEDICARE, MEDICAID, SELFPAY | PROVIDERS: Admitting Provider Nurse Practitioner Acute Care; Emergency Provider Emergency Medicine; Visit Provider Nurse Practitioner Acute Care | DX: F10.939 Alcohol use, unspecified with withdrawal, unspecified (principal); R09.02 Hypoxemia; J40 Bronchitis, not specified as acute or chronic; E03.9 Hypothyroidism, unspecified | CPT/HCPCS: 99223; 99232 ==

== ENCOUNTER 2025-05-24 13:52 | Inpatient (IN) | payer MEDICARE, MEDICAID, SELFPAY ==
--- NOTE | ~2025-05-24 | XR_ITS ---
CLINICAL HISTORY: Shortness of breath 2 view chest x-ray Comparison: CR/SR - XR CHEST 1 VIEW - 05/17/25 10:57 EDT CR - XR CHEST 1V - 04/04/25 15:08 EDT Findings: No consolidation or effusion. Heart size is normal. No acute fracture. IMPRESSION: 1. No acute findings. This document has been electronically signed by: Won Alex MD on 05/31/2025 18:47:20
[2025-05-24 14:01] VITALS: BP 131/80; PULSE 82; RESP 16; TEMP 36.5; O2SAT 96
[2025-05-24 14:44] VITALS: BMI 29.5
--- NOTE | 2025-05-24 14:45 | PC.ADMIT ---
Addendum entered by Dafne Smith RN 05/24/25 15:13: Pt here on a CV. Original Note: Pt arrived on the unit at 1344 and transferred from [facility] [place] Per crisis report, she was BIBA on 05/17/25 reporting medical complaints and wanting to detox . Pt also endorses passive SI secondary to homelessness and JOHN. Pt here on 12a currently as provider has not spoken to pt yet. Pt utilizing walker and placed on 5 minute checks. Skin check revealed several items: R forearm, vertical laceration, well approximated-no s&s of infection, R LE swollen in general, with a dark spot size of nicholas below the knee-pt reports shooting up there , small scab on R knee-no s&s of infection, Toe nail fungal infection in every nail, R 2nd toe swollen and discolored with an irritated area on side no s&s of infection (appears to be from great toe nail rubbing on skin of 2nd toe), a scattering of small darker spots throughout upper and lower extremities-no s&s of infection. Pt unwilling to participate in admission assessment. She was belligerent, loud, accusatory, attempting to staff split, and with a very low frustration threshold. Pt needing much redirection and not taking it well. Several bags in pt belonging closet not inventoried-DO NOT GO THROUGH NEEDLE FOUND ON PT DURING MEDICAL ADMISSION
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
[2025-05-24 20:00] VITALS: BP 136/91; PULSE 94; RESP 20; TEMP 36.6; O2SAT 100
[2025-05-25] MEDS: methADONE HCl 20 MG/2 ML ORAL.CONC 75 MG PO (06:23)
[2025-05-25 07:38] VITALS: BP 123/72; PULSE 81; RESP 14; TEMP 36.4; O2SAT 92
[2025-05-25] MEDS: Nicotine 21 MG PATCH.TD24 TRANSDERMA (07:58)
[2025-05-25 08:31] LABS: Hemoglobin A1C 107.7770 umol/L; Total Hemoglobin (HGBA1C) 2846.6133 umol/L
--- NOTE | 2025-05-25 08:36 | P.CONHOSP_ITS ---
History of Present Illness Data of Consult Service Date: 05/25/25 Primary Care Provider: Unknown Physician HPI Reason for consult: Medical consult 39-year-old female past medical history of PTSD, major depressive disorder alcohol use disorder, hypothyroidism, polysubstance use disorder on methadone, asthma recently admitted to inpatient hospitalization for alcohol withdrawal and IV drug use of withdrawal. He was treated with phenobarbital protocol, she completed IV antibiotics for UTI, and Seen by Addiction Medicine. Patient was treated with amoxicillin for 2 days which was stopped due to rash. Urine culture demonstrates E coli resistant to ampicillin. Patient is also concerned about an area on her right lower leg where she injected drugs. She reports that 2 weeks ago area opened and drained some pus. Reports area is tender to touch. She denies dysuria. Denies chest pain or shortness of breath. Otherwise feels well. Denies fever or chills. Review of Systems 2 Review of Systems: Denies any shortness of breath, chest pain, headaches, dysuria, abdominal pain or discomfort, nausea, vomiting or diarrhea. Denies fever or chills. [facility] Medical History (Updated 05/24/25 @ 15:51 by Lilia Centeno NP) CKD (chronic kidney disease), stage III Alcohol use disorder Polysubstance abuse Hypothyroidism Social History Household Members: Unknown / Unable to assess Housing: Homeless Alcohol intake: current Alcohol intake frequency: 3 or more drinks per day Alcohol type: beer and hard liquor 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 observer Patient Tobacco Use Status: Refuse Tobacco use screen Tobacco use type: Cigarette Cigarette Packs Per Day: 1 Cigarettes Per Day: 30 Years Smoked: 30yrs (since 9yr old) e-Cigarette/Vaping Use: Never Used Second Hand Smoke Exposure: No Substance Use Type: Heroin and IV Drugs service: No Sexual orientation: Straight/Heterosexual Meds Allergies Allergy/AdvReac Type Severity Reaction Status Date / Time amoxicillin Allergy Itching Verified 05/22/25 23:37 fish derived Allergy Hives Verified 05/17/25 09:55 shellfish derived Allergy Anaphylaxis Verified 05/17/25 09:55 sulfamethoxazole (From Allergy Hives Verified 05/17/25 09:55 Bactrim) trimethoprim (From Bactrim) Allergy Hives Verified 05/17/25 09:55 Active Medications: Current Medications Acetaminophen (Acetaminophen 325 Mg Tablet) 650 mg PO Q6H PRN PRN Reason: Headache/Pain, Scale 1-10 Al Hydroxide/Mg Hydroxide (Magnesium Hydrox/Alum Hydrox 30 Ml Oral.Susp) 30 ml PO Q6H PRN PRN Reason: Heartburn/Nausea Albuterol Sulfate (Albuterol Sulfate 90 Mcg 8 Gm Inhaler) 2 puff INHALE QID PRN PRN Reason: shortness of breath or wheezing Clonazepam (Clonazepam 1 Mg Tablet) 1 mg PO TID PRN PRN Reason: anxiety attack Last Admin: 05/25/25 07:57 Dose: 1 mg Clonidine HCl (Clonidine Hcl 0.2 Mg Tablet) 0.2 mg PO TID PRN; Protocol PRN Reason: panic attack Gabapentin (Gabapentin 400 Mg Capsule) 800 mg PO QID [facility] Last Admin: 05/25/25 07:57 Dose: 800 mg Hydroxyzine HCl (Hydroxyzine Hcl 25 Mg Tablet) 25 mg PO BID PRN PRN Reason: Anxiety Levothyroxine Sodium (Levothyroxine Sodium 125 Mcg Tablet) 125 mcg PO DAILY@0600 [facility] Last Admin: 05/25/25 06:18 Dose: 125 mcg Magnesium Hydroxide (Milk Of Magnesia 30 Ml Oral.Susp) 30 ml PO DAILY PRN PRN Reason: Constipation Methadone HCl (Methadone Hcl 20 Mg/2 Ml Oral.Conc) 75 mg PO DAILY@0600 [facility] Last Admin: 05/25/25 06:23 Dose: 75 mg Nicotine (Nicotine 21 Mg Patch.Td24) 21 mg TRANSDERMA DAILY [facility] Last Admin: 05/25/25 07:58 Dose: 21 mg Nicotine Polacrilex (Nicotine Polacrilex 2 Mg Gum) 4 mg BUCCAL Q2H PRN PRN Reason: Nicotine Cravings Trazodone HCl (Trazodone Hcl 50 Mg Tablet) 50 mg PO BEDTIME MRX1 PRN PRN Reason: Insomnia Last Admin: 05/24/25 21:49 Dose: 50 mg Home Medications ?Medication ?Instructions ?Recorded ?Confirmed ?Last Taken ?Type clonazepam 1 mg tablet 1 mg PO TID PRN anxiety corinna ck 03/17/25 05/24/25 03/20/25 08:41 History clonidine HCl 0.2 mg tablet 0.2 mg PO TID PRN panic at tack 03/17/25 05/24/25 03/20/25 08:41 History gabapentin 800 mg tablet 800 mg PO QID depressive dis order 03/17/25 05/24/25 05/14/25 History levothyroxine 125 mcg tablet 125 mcg PO DAILY@0600 05/24/25 05/14/25 History methadone 10 mg/mL oral 75 mg PO DAILY@0600 04/05/25 05/24/25 04/03/25 History concentrate (Methadose) albuterol sulfate 90 mcg/actuation 2 inh inhalation QI D PRN shortness 05/24/25 05/24/25 Unknown History aerosol inhaler of breath or wheezing Physical Exam 2 Vital Signs and Narrative: Vital Signs: Last Vital Signs Temp 97.6 F 05/25/25 07:38 Pulse 81 05/25/25 07:38 Resp 14 05/25/25 07:38 BP 123/72 05/25/25 07:38 Pulse Ox 92 05/25/25 07:38 O2 Del Method Room Air 05/25/25 07:38 BMI result Body Mass Index 29.5 Alert and oriented X3, able to give good history. Anxious Neuro: CN II-X11 intact, no deficits, visual acuity intact EYES: PERRLA, EOM intact ENT: Hearing intact, lips moist Cardiac: S1 S2 RRR, No ectopy Pulmonary: Lungs clear to auscultation, No increased WOB. Abdominal: BS active in all 4 quadrants, no guarding or tenderness MSK: Strength 5/5 upper and lower extremities : Deferred Extremities: No edema in lower extremities Psych: mood stable, Quiet and cooperative. Skin: Warm and dry, Intact. Area on right quintero discolored with slight redness around. Results Labs 05/25/25 07:51 Labs: Laboratory Results - last 24 hr 05/25/25 07:51 Estimat Average Glucose 114 Hemoglobin A1c % 5.6 Assessment and Plan (1) Hypothyroidism: Qualifiers: Hypothyroidism type: unspecified Qualified Code(s): E03.9 - Hypothyroidism, unspecified Status: Acute Plan 39-year-old woman past medical history listed below initially admitted with alcohol withdrawal and IV drug use withdrawal. Reported that she has been on a binge for the last couple of weeks and had not been taking any of her medications. Patient seen by addiction Medicine, SP phenobarbital protocol. She was medically cleared, then expressed suicidal ideation. She is now admitted to inpatient psych for further care and treatment. PTSD/major depressive disorder/alcohol use disorder/cocaine use disorder/opioid use disorder/methadone maintenance patient Alcohol withdrawal, resolved SP phenobarbital protocol Requesting Addiction med consult Continue thiamine, folate supplement Asthma No acute exacerbation Albuterol as needed Hypothyroidism TSH greater than 100, most recent free T4 0.43 which is low Patient reported that she has not been consistently taking her medications Will continue levothyroxine 125 mcg Will require repeat TSH level in 4-6 weeks as well as free T4 and outpatient follow up. Right quintero cellulitis We will treat patient with Ceftin for 10 days Warm soaks to area q.4 hours Notify provider with any changes UTI Patient received 1 dose of ceftriaxone, continued on Augmentin however she had a rash to Augmentin and it was DC. Continue Ceftin Urine culture positive for greater than 100,000 of E coli. Resistant to ampicillin and Bactrim. Thank you for allowing me to participate in the care of this patient. Will follow with you, please notify medical provider with any changes in condition or concerns.
[2025-05-25 08:45] LABS: Alanine Aminotransferase 17 U/L (0-31); Albumin Level 3.6 g/dL (3.5-5.0); Alkaline Phosphatase 74 U/L (39-117); Anion Gap 11 (12-20); Aspartate Amino Transferase 36 U/L (5-31); Blood Urea Nitrogen 28 mg/dL (9-16); Calcium 8.8 mg/dL (8.4-10.2); Carbon Dioxide 27 mmol/L (22-29); Chloride 105 mmol/L (96-108); Cholesterol 179 mg/dL (<200); Creatinine Clr Calc Pharmacy 57.4; Estimated Glomerular Filt Rate 46; HDL Cholesterol 59 mg/dL (>40); Potassium 4.2 mmol/L (3.3-5.1); Sodium 139 mmol/L (135-145); Total Protein 6.7 g/dL (6.5-8.0); Triglycerides 180 mg/dL (<150)
--- NOTE | 2025-05-25 12:57 | P.PNPSI_ITS ---
Subjective Subjective Date of Service: 05/25/25 Reason For Visit: SI Subjective Notes: Conditional Voluntary Interim History: Active on unit. Patient reports feeling depressed ; presents with irritable edge. denies SI/HI/VH/AH. Focused on going to a substance abuse program. Patient stated, I want to get sober and have my son in my life . Continue tx plan. Medication Compliance: Yes Side effects from medications: No Attending Groups: Intermittent Mental Status Exam Mental Status Exam Narrative: Pt is alert and oriented; behavior is cooperative and calm; dressed in casual attire; mood is described as depressed ; eye contact appropriate; Speech is normal rate, loud volume and not pressured; thought process is organized; Thought content is on tx; denies SI/HI/VH/AH. Diagnostics Vital Signs (24Hr): Vital Signs - 24 hr 05/24/25 14:01 05/24/25 20:00 05/25/25 07:38 Temperature 97.7 F 97.9 F 97.6 F Pulse Rate 82 94 81 Respiratory Rate 16 20 14 Blood Pressure 131/80 136/91 H 123/72 Pulse Oximetry 96 100 92 Oxygen Delivery Method Room Air Room Air Room Air BMI result Body Mass Index 29.5 Labs 05/25/25 07:51 Labs: Laboratory Results - last 48 hr 05/25/25 07:51 Sodium 139 Potassium 4.2 D Chloride 105 Carbon Dioxide 27 Anion Gap 11 L BUN 28 H Creatinine 1.28 Estim Creat Clear Calc 57.4 Estimated GFR 46 Random Glucose 108 Estimat Average Glucose 114 Hemoglobin A1c % 5.6 Calcium 8.8 D Total Bilirubin 0.2 AST 36 H ALT 17 Alkaline Phosphatase 74 Total Protein 6.7 Albumin 3.6 Triglycerides 180 H Cholesterol 179 LDL Cholesterol, Calc 84 HDL Cholesterol 59 Medications Medications Current Medications Acetaminophen (Acetaminophen 325 Mg Tablet) 650 mg PO Q6H PRN PRN Reason: Headache/Pain, Scale 1-10 Al Hydroxide/Mg Hydroxide (Magnesium Hydrox/Alum Hydrox 30 Ml Oral.Susp) 30 ml PO Q6H PRN PRN Reason: Heartburn/Nausea Albuterol Sulfate (Albuterol Sulfate 90 Mcg 8 Gm Inhaler) 2 puff INHALE QID PRN PRN Reason: shortness of breath or wheezing Clonazepam (Clonazepam 1 Mg Tablet) 1 mg PO TID PRN PRN Reason: anxiety attack Last Admin: 05/25/25 12:35 Dose: 1 mg Clonidine HCl (Clonidine Hcl 0.2 Mg Tablet) 0.2 mg PO TID PRN; Protocol PRN Reason: panic attack Gabapentin (Gabapentin 400 Mg Capsule) 800 mg PO QID [facility] Last Admin: 05/25/25 12:32 Dose: 800 mg Hydroxyzine HCl (Hydroxyzine Hcl 25 Mg Tablet) 25 mg PO BID PRN PRN Reason: Anxiety Levothyroxine Sodium (Levothyroxine Sodium 125 Mcg Tablet) 125 mcg PO DAILY@0600 [facility] Last Admin: 05/25/25 06:18 Dose: 125 mcg Magnesium Hydroxide (Milk Of Magnesia 30 Ml Oral.Susp) 30 ml PO DAILY PRN PRN Reason: Constipation Methadone HCl (Methadone Hcl 20 Mg/2 Ml Oral.Conc) 75 mg PO DAILY@0600 [facility] Last Admin: 05/25/25 06:23 Dose: 75 mg Nicotine (Nicotine 21 Mg Patch.Td24) 21 mg TRANSDERMA DAILY [facility] Last Admin: 05/25/25 07:58 Dose: 21 mg Nicotine Polacrilex (Nicotine Polacrilex 2 Mg Gum) 4 mg BUCCAL Q2H PRN PRN Reason: Nicotine Cravings Trazodone HCl (Trazodone Hcl 50 Mg Tablet) 50 mg PO BEDTIME MRX1 PRN PRN Reason: Insomnia Last Admin: 05/24/25 21:49 Dose: 50 mg Allergies Allergies Allergy/AdvReac Type Severity Reaction Status Date / Time amoxicillin Allergy Itching Verified 05/22/25 23:37 fish derived Allergy Hives Verified 05/17/25 09:55 shellfish derived Allergy Anaphylaxis Verified 05/17/25 09:55 sulfamethoxazole (From Allergy Hives Verified 05/17/25 09:55 Bactrim) trimethoprim (From Bactrim) Allergy Hives Verified 05/17/25 09:55 Assessment & Plan Assessment & Plan (1) MDD (major depressive disorder), recurrent episode: Status: Acute Code(s): F33.9 - Major depressive disorder, recurrent, unspecified (2) PTSD (post-traumatic stress disorder): Status: Acute Code(s): F43.10 - Post-traumatic stress disorder, unspecified (3) Opioid use disorder: Status: Acute Code(s): F11.90 - Opioid use, unspecified, uncomplicated (4) Cocaine use disorder: Status: Acute Code(s): F14.10 - Cocaine abuse, uncomplicated (5) Alcohol use disorder: Status: Acute Code(s): F10.90 - Alcohol use, unspecified, uncomplicated (6) Homeless single person: Status: Acute Code(s): Z59.00 - Homelessness unspecified Plan Patient is a 39 year old female with hx of MDD, PTSD, Cocaine use d/o, Opioid use d/o and alcohol use d/o who presented to ER d/t passive suicidal ideation secondary to homelessness and substance use. Plan: CV 15 minute safety checks Continue home medications Consult to addiction medicine Obtain collateral Encourage groups Referral to substance abuse program Discharge planning 05/25:Active on unit. Patient reports feeling depressed ; presents with irritable edge. denies SI/HI/VH/AH. Focused on going to a substance abuse program. Patient stated, I want to get sober and have my son in my life . Continue tx plan. Patient educated on: diagnosis and medication risk/benefits Reason for continued inpatient stay Substantial Risk for: med/psych decompensation Time Spent With Patient Time: Total time managing care of this patient today _20___ minutes.
[2025-05-25 14:24] LABS: Lipase 8 U/L (8-78)
[2025-05-25 15:02] LABS: MANUAL DIFF FLAG NO
[2025-05-25 15:07] LABS: Hematocrit 30.4 % (37.0-47.0); Hemoglobin 9.7 g/dl (12.0-16.0); Imm Gran Abs Auto 0.18 X10*3/uL (0.00-0.03); Imm Gran Pct Auto 1.8 % (0.0-0.4); Lymphocytes Absolute Auto 3.2 X10*3/uL (1.2-4.9); Mean Corpuscular HGB Conc 31.9 g/dl (31.0-35.0); Mean Corpuscular Hemoglobin 31.7 pg (27.0-33.0); Mean Corpuscular Volume 99.3 fL (80.0-98.0); NRBC Abs Auto 0.000 X10*3/uL (0.0-0.012); NRBC Pct Auto 0.0 /100WBC (0.0-0.2); Platelet Count 268 X10*3/uL (160-400); Red Blood Count 3.06 X10*6/uL (4.20-5.50); White Blood Count 9.9 X10*3/uL (4.8-10.8)
[2025-05-25] MEDS: Bismuth Subsalicylate 262 MG TABLET PO (18:33)
[2025-05-25 20:00] VITALS: BP 112/61; PULSE 82; RESP 16; TEMP 36.9; O2SAT 93
[2025-05-26] MEDS: methADONE HCl 20 MG/2 ML ORAL.CONC 80 MG PO (06:13)
[2025-05-26 07:00] VITALS: BMI 29.8
[2025-05-26 08:15] VITALS: BP 141/83; PULSE 75; RESP 18; TEMP 36.4; O2SAT 98
--- NOTE | 2025-05-26 08:55 | HO.PSYCHPN ---
Subjective Subjective Date of Service: 05/26/25 Reason For Visit: SI Subjective Notes: Conditional Voluntary Interim History: Patient reports to report feeling depressed ; she is requesting to be started on an SSRI. She reports doing well on Celexa; discussed starting Lexapro; risks/benefits reviewed. pt agreed to trial. Start: Lexapro 10mg PO bedtime. denies SI/HI/VH/AH. Continues focused on going to a substance abuse program; wants to be in intensive treatment to remain sober. Showered. PT consult placed to determine if patient needs walker. Medication Compliance: Yes Side effects from medications: No Attending Groups: Yes Mental Status Exam Mental Status Exam Narrative: Pt is alert and oriented; behavior is cooperative and calm; dressed in casual attire; mood is described as depressed ; eye contact appropriate; Speech is normal rate, loud volume and not pressured; thought process is organized; Thought content is on tx; denies SI/HI/VH/AH. Diagnostics Vital Signs (24Hr): Vital Signs - 24 hr 05/25/25 20:00 Temperature 98.5 F Pulse Rate 82 Respiratory Rate 16 Blood Pressure 112/61 Pulse Oximetry 93 Oxygen Delivery Method Room Air BMI result Body Mass Index 29.5 Labs 05/25/25 14:56 05/25/25 07:51 Labs: Laboratory Results - last 48 hr 05/25/25 05/25/25 07:51 14:56 WBC 9.9 RBC 3.06 L D Hgb 9.7 L D Hct 30.4 L D MCV 99.3 H MCH 31.7 MCHC 31.9 RDW 16.8 H Plt Count 268 MPV 9.2 L Immature Gran % (Auto) 1.8 H Neut % (Auto) 46.3 Lymph % (Auto) 31.9 [place] % (Auto) 7.2 Eos % (Auto) 11.1 H Baso % (Auto) 1.7 Lymph # (Auto) 3.2 [place] # (Auto) 0.7 Eos # (Auto) 1.1 H Baso # (Auto) 0.2 Abs Immat Gran (auto) 0.18 H Absolute Neuts (auto) 4.6 Absolute Nucleated RBC 0.000 Nucleated RBC % (auto) 0.0 Sodium 139 Potassium 4.2 D Chloride 105 Carbon Dioxide 27 Anion Gap 11 L BUN 28 H Creatinine 1.28 Estim Creat Clear Calc 57.4 Estimated GFR 46 Random Glucose 108 Estimat Average Glucose 114 Hemoglobin A1c % 5.6 Calcium 8.8 D Total Bilirubin 0.2 AST 36 H ALT 17 Alkaline Phosphatase 74 Total Protein 6.7 Albumin 3.6 Triglycerides 180 H Cholesterol 179 LDL Cholesterol, Calc 84 HDL Cholesterol 59 Lipase 8 Medications Medications Current Medications Acetaminophen (Acetaminophen 325 Mg Tablet) 650 mg PO Q6H PRN PRN Reason: Headache/Pain, Scale 1-10 Al Hydroxide/Mg Hydroxide (Magnesium Hydrox/Alum Hydrox 30 Ml Oral.Susp) 30 ml PO Q6H PRN PRN Reason: Heartburn/Nausea Albuterol Sulfate (Albuterol Sulfate 90 Mcg 8 Gm Inhaler) 2 puff INHALE QID PRN PRN Reason: shortness of breath or wheezing Bismuth Subsalicylate (Bismuth Subsalicylate 262 Mg Tablet) 262 mg PO QID PRN PRN Reason: Hearburn/Nausea Last Admin: 05/25/25 18:33 Dose: 262 mg Cefuroxime Axetil (Cefuroxime Axetil 500 Mg Tablet) 500 mg PO BID [facility] Last Admin: 05/25/25 20:53 Dose: 500 mg Clonazepam (Clonazepam 1 Mg Tablet) 1 mg PO TID PRN PRN Reason: anxiety attack Last Admin: 05/25/25 20:53 Dose: 1 mg Clonidine HCl (Clonidine Hcl 0.2 Mg Tablet) 0.2 mg PO TID PRN; Protocol PRN Reason: panic attack Folic Acid (Folic Acid 1 Mg Tablet) 1 mg PO DAILY [facility] Gabapentin (Gabapentin 400 Mg Capsule) 800 mg PO QID [facility] Last Admin: 05/25/25 20:53 Dose: 800 mg Hydroxyzine HCl (Hydroxyzine Hcl 25 Mg Tablet) 25 mg PO BID PRN PRN Reason: Anxiety Levothyroxine Sodium (Levothyroxine Sodium 125 Mcg Tablet) 125 mcg PO DAILY@0600 [facility] Last Admin: 05/26/25 05:51 Dose: 125 mcg Magnesium Hydroxide (Milk Of Magnesia 30 Ml Oral.Susp) 30 ml PO DAILY PRN PRN Reason: Constipation Methadone HCl (Methadone Hcl 20 Mg/2 Ml Oral.Conc) 80 mg PO DAILY@0600 [facility] Last Admin: 05/26/25 06:13 Dose: 80 mg Multivitamins/Vitamin C (Multivitamin Tablet) 1 tab PO DAILY [facility] Nicotine (Nicotine 21 Mg Patch.Td24) 21 mg TRANSDERMA DAILY [facility] Last Admin: 05/25/25 07:58 Dose: 21 mg Nicotine Polacrilex (Nicotine Polacrilex 2 Mg Gum) 4 mg BUCCAL Q2H PRN PRN Reason: Nicotine Cravings Thiamine HCl (Thiamine Hcl 100 Mg Tablet) 100 mg PO DAILY [facility] Trazodone HCl (Trazodone Hcl 50 Mg Tablet) 50 mg PO BEDTIME MRX1 PRN PRN Reason: Insomnia Last Admin: 05/24/25 21:49 Dose: 50 mg Allergies Allergies Allergy/AdvReac Type Severity Reaction Status Date / Time amoxicillin Allergy Itching Verified 05/22/25 23:37 fish derived Allergy Hives Verified 05/17/25 09:55 shellfish derived Allergy Anaphylaxis Verified 05/17/25 09:55 sulfamethoxazole (From Allergy Hives Verified 05/17/25 09:55 Bactrim) trimethoprim (From Bactrim) Allergy Hives Verified 05/17/25 09:55 Assessment & Plan Assessment & Plan (1) MDD (major depressive disorder), recurrent episode: Status: Acute Code(s): F33.9 - Major depressive disorder, recurrent, unspecified (2) PTSD (post-traumatic stress disorder): Status: Acute Code(s): F43.10 - Post-traumatic stress disorder, unspecified (3) Opioid use disorder: Status: Acute Code(s): F11.90 - Opioid use, unspecified, uncomplicated (4) Cocaine use disorder: Status: Acute Code(s): F14.10 - Cocaine abuse, uncomplicated (5) Alcohol use disorder: Status: Acute Code(s): F10.90 - Alcohol use, unspecified, uncomplicated Plan Patient is a 39 year old female with hx of MDD, PTSD, Cocaine use d/o, Opioid use d/o and alcohol use d/o who presented to ER d/t passive suicidal ideation secondary to homelessness and substance use. Plan: CV 15 minute safety checks Continue home medications Consult to addiction medicine Obtain collateral Encourage groups Referral to substance abuse program Discharge planning 05/25:Active on unit. Patient reports feeling depressed ; presents with irritable edge. denies SI/HI/VH/AH. Focused on going to a substance abuse program. Patient stated, I want to get sober and have my son in my life . Continue tx plan. 05/26: Patient reports to report feeling depressed ; she is requesting to be started on an SSRI. She reports doing well on Celexa; discussed starting Lexapro; risks/benefits reviewed. pt agreed to trial. Start: Lexapro 10mg PO bedtime. denies SI/HI/VH/AH. Continues focused on going to a substance abuse program; wants to be in intensive treatment to remain sober. Showered. PT consult placed to determine if patient needs walker. Patient educated on: diagnosis, medication risk/benefits and therapeutic strategies Reason for continued inpatient stay Substantial Risk for: med/psych decompensation Time Spent With Patient Time: Total time managing care of this patient today _20___ minutes.
[2025-05-26] MEDS: Nicotine 21 MG PATCH.TD24 TRANSDERMA (09:20)
[2025-05-26 20:06] VITALS: BP 119/70; PULSE 80; RESP 20; TEMP 36.8; O2SAT 93
[2025-05-27 08:00] VITALS: BP 143/93; PULSE 88; RESP 17; TEMP 36.3; O2SAT 98
[2025-05-27] MEDS: methADONE HCl 20 MG/2 ML ORAL.CONC 80 MG PO (08:17)
[2025-05-27] MEDS: Nicotine 21 MG PATCH.TD24 TRANSDERMA (08:19)
--- NOTE | 2025-05-27 09:31 | HO.PSYCHPN ---
Subjective Subjective Date of Service: 05/27/25 Reason For Visit: SI Subjective Notes: Conditional Voluntary Interim History: Patient continues to report feeling depressed ; irritable. Patient stated, I don't want to take Lexapro. I want to talk Wellbutrin ; pt was reminded of conversation yesterday with T/W where pt requested SSRI. Pt stated, I don't want to wait weeks for the medication to work . DC lexapro. Start: Wellbutrin XL 150mg PO daily. denies SI/HI/VH/AH. Continues focused on going to a substance abuse program. Demanding to meet with the hospice social worker daily for therapy; pt was educated that social work on the unit do not provide daily therapy sessions and she should work with her outpatient therapist. pt became angry and left meeting room. Medication Compliance: Yes Side effects from medications: No Attending Groups: Intermittent Mental Status Exam Mental Status Exam Narrative: Pt is alert and oriented; behavior is cooperative, irritable, demanding; dressed in casual attire; mood is described as depressed ; eye contact appropriate; Speech is normal rate, volume and not pressured; thought process is organized; Thought content is on tx; denies SI/HI/VH/AH. Diagnostics Vital Signs (24Hr): Vital Signs - 24 hr 05/26/25 20:06 Temperature 98.2 F Pulse Rate 80 Respiratory Rate 20 Blood Pressure 119/70 Pulse Oximetry 93 BMI result Body Mass Index 29.8 Labs 05/25/25 14:56 05/25/25 07:51 Labs: Laboratory Results - last 48 hr 05/25/25 05/25/25 07:51 14:56 WBC 9.9 RBC 3.06 L D Hgb 9.7 L D Hct 30.4 L D MCV 99.3 H MCH 31.7 MCHC 31.9 RDW 16.8 H Plt Count 268 MPV 9.2 L Immature Gran % (Auto) 1.8 H Neut % (Auto) 46.3 Lymph % (Auto) 31.9 [place] % (Auto) 7.2 Eos % (Auto) 11.1 H Baso % (Auto) 1.7 Lymph # (Auto) 3.2 [place] # (Auto) 0.7 Eos # (Auto) 1.1 H Baso # (Auto) 0.2 Abs Immat Gran (auto) 0.18 H Absolute Neuts (auto) 4.6 Absolute Nucleated RBC 0.000 Nucleated RBC % (auto) 0.0 Lipase 8 Medications Medications Current Medications Acetaminophen (Acetaminophen 325 Mg Tablet) 650 mg PO Q6H PRN PRN Reason: Headache/Pain, Scale 1-10 Last Admin: 05/26/25 16:35 Dose: 650 mg Al Hydroxide/Mg Hydroxide (Magnesium Hydrox/Alum Hydrox 30 Ml Oral.Susp) 30 ml PO Q6H PRN PRN Reason: Heartburn/Nausea Albuterol Sulfate (Albuterol Sulfate 90 Mcg 8 Gm Inhaler) 2 puff INHALE QID PRN PRN Reason: shortness of breath or wheezing Bismuth Subsalicylate (Bismuth Subsalicylate 262 Mg Tablet) 262 mg PO QID PRN PRN Reason: Hearburn/Nausea Last Admin: 05/25/25 18:33 Dose: 262 mg Cefuroxime Axetil (Cefuroxime Axetil 500 Mg Tablet) 500 mg PO BID [facility] Last Admin: 05/27/25 08:19 Dose: 500 mg Clonazepam (Clonazepam 1 Mg Tablet) 1 mg PO TID PRN PRN Reason: anxiety attack Last Admin: 05/27/25 08:21 Dose: 1 mg Clonidine HCl (Clonidine Hcl 0.2 Mg Tablet) 0.2 mg PO TID PRN; Protocol PRN Reason: panic attack Escitalopram Oxalate (Escitalopram Oxalate 10 Mg Tablet) 10 mg PO BEDTIME [facility] Last Admin: 05/26/25 21:58 Dose: 10 mg Folic Acid (Folic Acid 1 Mg Tablet) 1 mg PO DAILY [facility] Last Admin: 05/27/25 08:19 Dose: 1 mg Gabapentin (Gabapentin 400 Mg Capsule) 800 mg PO QID [facility] Last Admin: 05/27/25 08:18 Dose: 800 mg Hydroxyzine HCl (Hydroxyzine Hcl 25 Mg Tablet) 25 mg PO BID PRN PRN Reason: Anxiety Levothyroxine Sodium (Levothyroxine Sodium 125 Mcg Tablet) 125 mcg PO DAILY@0600 [facility] Last Admin: 05/27/25 08:18 Dose: 125 mcg Magnesium Hydroxide (Milk Of Magnesia 30 Ml Oral.Susp) 30 ml PO DAILY PRN PRN Reason: Constipation Methadone HCl (Methadone Hcl 20 Mg/2 Ml Oral.Conc) 80 mg PO DAILY@0600 [facility] Last Admin: 05/27/25 08:17 Dose: 80 mg Multivitamins/Vitamin C (Multivitamin Tablet) 1 tab PO DAILY [facility] Last Admin: 05/27/25 08:19 Dose: 1 tab Nicotine (Nicotine 21 Mg Patch.Td24) 21 mg TRANSDERMA DAILY [facility] Last Admin: 05/27/25 08:19 Dose: 21 mg Nicotine Polacrilex (Nicotine Polacrilex 2 Mg Gum) 4 mg BUCCAL Q2H PRN PRN Reason: Nicotine Cravings Thiamine HCl (Thiamine Hcl 100 Mg Tablet) 100 mg PO DAILY [facility] Last Admin: 05/27/25 08:19 Dose: 100 mg Trazodone HCl (Trazodone Hcl 50 Mg Tablet) 50 mg PO BEDTIME MRX1 PRN PRN Reason: Insomnia Last Admin: 05/26/25 21:58 Dose: 50 mg Allergies Allergies Allergy/AdvReac Type Severity Reaction Status Date / Time amoxicillin Allergy Itching Verified 05/22/25 23:37 fish derived Allergy Hives Verified 05/17/25 09:55 shellfish derived Allergy Anaphylaxis Verified 05/17/25 09:55 sulfamethoxazole (From Allergy Hives Verified 05/17/25 09:55 Bactrim) trimethoprim (From Bactrim) Allergy Hives Verified 05/17/25 09:55 Assessment & Plan Assessment & Plan (1) MDD (major depressive disorder), recurrent episode: Status: Acute Code(s): F33.9 - Major depressive disorder, recurrent, unspecified (2) PTSD (post-traumatic stress disorder): Status: Acute Code(s): F43.10 - Post-traumatic stress disorder, unspecified (3) Opioid use disorder: Status: Acute Code(s): F11.90 - Opioid use, unspecified, uncomplicated (4) Cocaine use disorder: Status: Acute Code(s): F14.10 - Cocaine abuse, uncomplicated (5) Alcohol use disorder: Status: Acute Code(s): F10.90 - Alcohol use, unspecified, uncomplicated Plan Patient is a 39 year old female with hx of MDD, PTSD, Cocaine use d/o, Opioid use d/o and alcohol use d/o who presented to ER d/t passive suicidal ideation secondary to homelessness and substance use. Plan: CV 15 minute safety checks Continue home medications Consult to addiction medicine Obtain collateral Encourage groups Referral to substance abuse program Discharge planning 05/25:Active on unit. Patient reports feeling depressed ; presents with irritable edge. denies SI/HI/VH/AH. Focused on going to a substance abuse program. Patient stated, I want to get sober and have my son in my life . Continue tx plan. 05/26: Patient reports to report feeling depressed ; she is requesting to be started on an SSRI. She reports doing well on Celexa; discussed starting Lexapro; risks/benefits reviewed. pt agreed to trial. Start: Lexapro 10mg PO bedtime. denies SI/HI/VH/AH. Continues focused on going to a substance abuse program; wants to be in intensive treatment to remain sober. Showered. PT consult placed to determine if patient needs walker. 05/27: Patient continues to report feeling depressed ; irritable. Patient stated, I don't want to take Lexapro. I want to talk Wellbutrin ; pt was reminded of conversation yesterday with T/W where pt requested SSRI. Pt stated, I don't want to wait weeks for the medication to work . DC lexapro. Start: Wellbutrin XL 150mg PO daily. denies SI/HI/VH/AH. Continues focused on going to a substance abuse program. Demanding to meet with the hospice social worker daily for therapy; pt was educated that social work on the unit do not provide daily therapy sessions and she should work with her outpatient therapist. pt became angry and left meeting room. Patient educated on: diagnosis, medication risk/benefits and therapeutic strategies Reason for continued inpatient stay Substantial Risk for: med/psych decompensation Time Spent With Patient Time: Total time managing care of this patient today _20___ minutes.
--- NOTE | 2025-05-27 10:18 | P.PNADD_ITS ---
Subjective Subjective Date of Service: 05/27/25 Reason For Visit: SI Interim History: Patient seen in follow up for OUD and methadone dose titration Current methadone dose 80mg QD. Last increase 05/26/25 Patient, awake, alert, pleasant and engaged interview. Sharing complaints about various things, but overall redirectable and goal oriented. Requesting current daytime dose remain as is, and requesting addition of evening dose She states that she finds methadone feels like it is wearing off closer to the evenings, and feels an increase in cravings. She states that outpatient he methadone has been split, and she found it helpful. Denies any withdrawal sx. Is having loose stools, which she attributes to oral antibiotic she started recently. She shares that her goal is to remain abstinent from substances and transition to a longer term [facility] treatment setting. EKG on admission -WNL Review of Systems Constitutional: Reports as per HPI and Reports no additional constitutional complaints Mental Status Exam Mental Status Exam Patient Appearance: Appropriate Level of Consciousness: Awake, Appropriate and Alert Patient Behavior: Appropriate and Talkative Affect Description: Calm, Appropriate and Cheerful Speech Pattern: Clear Thought Content: positive for Intact and positive for Circumstantial Judgement: Fair Diagnostics Vital Signs (24Hr): Vital Signs - 24 hr 05/26/25 20:06 05/27/25 08:00 Temperature 98.2 F 97.4 F Pulse Rate 80 88 Respiratory Rate 20 17 Blood Pressure 119/70 143/93 H Pulse Oximetry 93 98 Oxygen Delivery Method Room Air BMI result Body Mass Index 29.8 Labs 05/25/25 14:56 05/25/25 07:51 Labs: Laboratory Results - last 48 hr 05/25/25 05/25/25 07:51 14:56 WBC 9.9 RBC 3.06 L D Hgb 9.7 L D Hct 30.4 L D MCV 99.3 H MCH 31.7 MCHC 31.9 RDW 16.8 H Plt Count 268 MPV 9.2 L Immature Gran % (Auto) 1.8 H Neut % (Auto) 46.3 Lymph % (Auto) 31.9 [place] % (Auto) 7.2 Eos % (Auto) 11.1 H Baso % (Auto) 1.7 Lymph # (Auto) 3.2 [place] # (Auto) 0.7 Eos # (Auto) 1.1 H Baso # (Auto) 0.2 Abs Immat Gran (auto) 0.18 H Absolute Neuts (auto) 4.6 Absolute Nucleated RBC 0.000 Nucleated RBC % (auto) 0.0 Lipase 8 Medications Medications Current Medications Acetaminophen (Acetaminophen 325 Mg Tablet) 650 mg PO Q6H PRN PRN Reason: Headache/Pain, Scale 1-10 Last Admin: 05/26/25 16:35 Dose: 650 mg Al Hydroxide/Mg Hydroxide (Magnesium Hydrox/Alum Hydrox 30 Ml Oral.Susp) 30 ml PO Q6H PRN PRN Reason: Heartburn/Nausea Albuterol Sulfate (Albuterol Sulfate 90 Mcg 8 Gm Inhaler) 2 puff INHALE QID PRN PRN Reason: shortness of breath or wheezing Bismuth Subsalicylate (Bismuth Subsalicylate 262 Mg Tablet) 262 mg PO QID PRN PRN Reason: Hearburn/Nausea Last Admin: 05/25/25 18:33 Dose: 262 mg Cefuroxime Axetil (Cefuroxime Axetil 500 Mg Tablet) 500 mg PO BID [facility] Last Admin: 05/27/25 08:19 Dose: 500 mg Clonazepam (Clonazepam 1 Mg Tablet) 1 mg PO TID PRN PRN Reason: anxiety attack Last Admin: 05/27/25 08:21 Dose: 1 mg Clonidine HCl (Clonidine Hcl 0.2 Mg Tablet) 0.2 mg PO TID PRN; Protocol PRN Reason: panic attack Escitalopram Oxalate (Escitalopram Oxalate 10 Mg Tablet) 10 mg PO BEDTIME [facility] Last Admin: 05/26/25 21:58 Dose: 10 mg Folic Acid (Folic Acid 1 Mg Tablet) 1 mg PO DAILY [facility] Last Admin: 05/27/25 08:19 Dose: 1 mg Gabapentin (Gabapentin 400 Mg Capsule) 800 mg PO QID [facility] Last Admin: 05/27/25 08:18 Dose: 800 mg Hydroxyzine HCl (Hydroxyzine Hcl 25 Mg Tablet) 25 mg PO BID PRN PRN Reason: Anxiety Levothyroxine Sodium (Levothyroxine Sodium 125 Mcg Tablet) 125 mcg PO DAILY@0600 [facility] Last Admin: 05/27/25 08:18 Dose: 125 mcg Magnesium Hydroxide (Milk Of Magnesia 30 Ml Oral.Susp) 30 ml PO DAILY PRN PRN Reason: Constipation Methadone HCl (Methadone Hcl 20 Mg/2 Ml Oral.Conc) 80 mg PO DAILY@0600 [facility] Last Admin: 05/27/25 08:17 Dose: 80 mg Multivitamins/Vitamin C (Multivitamin Tablet) 1 tab PO DAILY [facility] Last Admin: 05/27/25 08:19 Dose: 1 tab Nicotine (Nicotine 21 Mg Patch.Td24) 21 mg TRANSDERMA DAILY [facility] Last Admin: 05/27/25 08:19 Dose: 21 mg Nicotine Polacrilex (Nicotine Polacrilex 2 Mg Gum) 4 mg BUCCAL Q2H PRN PRN Reason: Nicotine Cravings Thiamine HCl (Thiamine Hcl 100 Mg Tablet) 100 mg PO DAILY [facility] Last Admin: 05/27/25 08:19 Dose: 100 mg Trazodone HCl (Trazodone Hcl 50 Mg Tablet) 50 mg PO BEDTIME MRX1 PRN PRN Reason: Insomnia Last Admin: 05/26/25 21:58 Dose: 50 mg Allergies Allergies Allergy/AdvReac Type Severity Reaction Status Date / Time amoxicillin Allergy Itching Verified 05/22/25 23:37 fish derived Allergy Hives Verified 05/17/25 09:55 shellfish derived Allergy Anaphylaxis Verified 05/17/25 09:55 sulfamethoxazole (From Allergy Hives Verified 05/17/25 09:55 Bactrim) trimethoprim (From Bactrim) Allergy Hives Verified 05/17/25 09:55 Assessment & Plan Assessment & Plan (1) Opioid use disorder: Status: Acute Code(s): F11.90 - Opioid use, unspecified, uncomplicated Assessment and Plan: * methadone 80mg AM will add 10mg evening dose * avoid dosing with gabapentin or clonazepam * hold for any concern of oversedation * unclear dispo at this time, which will determine where OTP referral is sent --previously with [facility] Total time managing care of this patient today __30__ minutes.
[2025-05-27] MEDS: Bismuth Subsalicylate 262 MG TABLET PO (11:05)
[2025-05-27] MEDS: buPROPion HCl XL 150 MG TAB.ER.24H PO (13:23)
[2025-05-27] MEDS: methADONE HCl 20 MG/2 ML ORAL.CONC 10 MG PO (18:12)
[2025-05-27 20:00] VITALS: RESP 16
[2025-05-28] MEDS: methADONE HCl 20 MG/2 ML ORAL.CONC 80 MG PO (07:50)
[2025-05-28 08:00] VITALS: BP 105/57; PULSE 74; RESP 14; TEMP 36.4; O2SAT 94
[2025-05-28] MEDS: Nicotine 21 MG PATCH.TD24 TRANSDERMA (08:56)
[2025-05-28] MEDS: buPROPion HCl XL 150 MG TAB.ER.24H PO (08:56)
--- NOTE | 2025-05-28 15:15 | HO.PSYCHPN ---
Subjective Subjective Date of Service: 05/28/25 Reason For Visit: SI Subjective Notes: Conditional Voluntary Interim History: Active on unit. social with peers. Continues to report feeling anxious and depressed. Patient stated, I'm worried if I'm going to end up on the streets and have no where to go. I feel miserable . Passive SI, no plan. Patient stated, I wouldn't kill myself because of my son . denies HI/VH/AH. continue tx plan. Medication Compliance: Yes Side effects from medications: No Attending Groups: Intermittent Mental Status Exam Mental Status Exam Narrative: Pt is alert and oriented; behavior is cooperative, irritable; dressed in casual attire; mood is described as depressed ; eye contact appropriate; Speech is normal rate, volume and not pressured; thought process is organized; Thought content is on tx; denies HI/VH/AH. Passive SI. Diagnostics Vital Signs (24Hr): Vital Signs - 24 hr 05/27/25 20:00 05/28/25 08:00 Temperature 97.6 F Pulse Rate 74 Respiratory Rate 16 14 Blood Pressure 105/57 L Pulse Oximetry 94 Oxygen Delivery Method Room Air BMI result Body Mass Index 29.8 Labs 05/25/25 14:56 05/25/25 07:51 Medications Medications Current Medications Acetaminophen (Acetaminophen 325 Mg Tablet) 650 mg PO Q6H PRN PRN Reason: Headache/Pain, Scale 1-10 Last Admin: 05/28/25 11:47 Dose: 650 mg Al Hydroxide/Mg Hydroxide (Magnesium Hydrox/Alum Hydrox 30 Ml Oral.Susp) 30 ml PO Q6H PRN PRN Reason: Heartburn/Nausea Albuterol Sulfate (Albuterol Sulfate 90 Mcg 8 Gm Inhaler) 2 puff INHALE QID PRN PRN Reason: shortness of breath or wheezing Bismuth Subsalicylate (Bismuth Subsalicylate 262 Mg Tablet) 262 mg PO QID PRN PRN Reason: Hearburn/Nausea Last Admin: 05/27/25 11:05 Dose: 262 mg Bupropion HCl (Bupropion Hcl Xl 150 Mg Tab.Er.24h) 150 mg PO DAILY [facility] Last Admin: 05/28/25 08:56 Dose: 150 mg Cefuroxime Axetil (Cefuroxime Axetil 500 Mg Tablet) 500 mg PO BID [facility] Last Admin: 05/28/25 08:56 Dose: 500 mg Clonazepam (Clonazepam 1 Mg Tablet) 1 mg PO TID PRN PRN Reason: anxiety attack Last Admin: 05/28/25 12:35 Dose: 1 mg Clonidine HCl (Clonidine Hcl 0.2 Mg Tablet) 0.2 mg PO TID PRN; Protocol PRN Reason: panic attack Folic Acid (Folic Acid 1 Mg Tablet) 1 mg PO DAILY [facility] Last Admin: 05/28/25 08:56 Dose: 1 mg Gabapentin (Gabapentin 400 Mg Capsule) 800 mg PO QID [facility] Last Admin: 05/28/25 12:33 Dose: 800 mg Hydroxyzine HCl (Hydroxyzine Hcl 25 Mg Tablet) 25 mg PO BID PRN PRN Reason: Anxiety Levothyroxine Sodium (Levothyroxine Sodium 125 Mcg Tablet) 125 mcg PO DAILY@0600 [facility] Last Admin: 05/28/25 07:51 Dose: 125 mcg Magnesium Hydroxide (Milk Of Magnesia 30 Ml Oral.Susp) 30 ml PO DAILY PRN PRN Reason: Constipation Methadone HCl (Methadone Hcl 20 Mg/2 Ml Oral.Conc) 80 mg PO DAILY@0600 [facility] Last Admin: 05/28/25 07:50 Dose: 80 mg Methadone HCl (Methadone Hcl 20 Mg/2 Ml Oral.Conc) 10 mg PO DAILY@1800 [facility] Last Admin: 05/27/25 18:12 Dose: 10 mg Multivitamins/Vitamin C (Multivitamin Tablet) 1 tab PO DAILY [facility] Last Admin: 05/28/25 08:56 Dose: 1 tab Nicotine (Nicotine 21 Mg Patch.Td24) 21 mg TRANSDERMA DAILY [facility] Last Admin: 05/28/25 08:56 Dose: 21 mg Nicotine Polacrilex (Nicotine Polacrilex 2 Mg Gum) 4 mg BUCCAL Q2H PRN PRN Reason: Nicotine Cravings Thiamine HCl (Thiamine Hcl 100 Mg Tablet) 100 mg PO DAILY [facility] Last Admin: 05/28/25 08:56 Dose: 100 mg Trazodone HCl (Trazodone Hcl 50 Mg Tablet) 50 mg PO BEDTIME MRX1 PRN PRN Reason: Insomnia Last Admin: 05/27/25 20:20 Dose: 50 mg Allergies Allergies Allergy/AdvReac Type Severity Reaction Status Date / Time amoxicillin Allergy Itching Verified 05/22/25 23:37 fish derived Allergy Hives Verified 05/17/25 09:55 shellfish derived Allergy Anaphylaxis Verified 05/17/25 09:55 sulfamethoxazole (From Allergy Hives Verified 05/17/25 09:55 Bactrim) trimethoprim (From Bactrim) Allergy Hives Verified 05/17/25 09:55 Assessment & Plan Assessment & Plan (1) MDD (major depressive disorder), recurrent episode: Status: Acute Code(s): F33.9 - Major depressive disorder, recurrent, unspecified (2) PTSD (post-traumatic stress disorder): Status: Acute Code(s): F43.10 - Post-traumatic stress disorder, unspecified (3) Borderline personality disorder: Status: Acute Code(s): F60.3 - Borderline personality disorder (4) Opioid use disorder: Status: Acute Code(s): F11.90 - Opioid use, unspecified, uncomplicated Assessment and Plan: methadone 80mg AM will add 10mg evening dose avoid dosing with gabapentin or clonazepam hold for any concern of oversedation unclear dispo at this time, which will determine where OTP referral is sent --previously with [facility] (5) Cocaine use disorder: Status: Acute Code(s): F14.10 - Cocaine abuse, uncomplicated Plan Patient is a 39 year old female with hx of MDD, PTSD, Cocaine use d/o, Opioid use d/o and alcohol use d/o who presented to ER d/t passive suicidal ideation secondary to homelessness and substance use. Plan: CV 15 minute safety checks Continue home medications Consult to addiction medicine Obtain collateral Encourage groups Referral to substance abuse program Discharge planning 05/25:Active on unit. Patient reports feeling depressed ; presents with irritable edge. denies SI/HI/VH/AH. Focused on going to a substance abuse program. Patient stated, I want to get sober and have my son in my life . Continue tx plan. 05/26: Patient reports to report feeling depressed ; she is requesting to be started on an SSRI. She reports doing well on Celexa; discussed starting Lexapro; risks/benefits reviewed. pt agreed to trial. Start: Lexapro 10mg PO bedtime. denies SI/HI/VH/AH. Continues focused on going to a substance abuse program; wants to be in intensive treatment to remain sober. Showered. PT consult placed to determine if patient needs walker. 05/27: Patient continues to report feeling depressed ; irritable. Patient stated, I don't want to take Lexapro. I want to talk Wellbutrin ; pt was reminded of conversation yesterday with T/W where pt requested SSRI. Pt stated, I don't want to wait weeks for the medication to work . DC lexapro. Start: Wellbutrin XL 150mg PO daily. denies SI/HI/VH/AH. Continues focused on going to a substance abuse program. Demanding to meet with the social staff worker daily for therapy; pt was educated that social work on the unit do not provide daily therapy sessions and she should work with her outpatient therapist. pt became angry and left meeting room. 05/28: Active on unit. social with peers. Continues to report feeling anxious and depressed. Patient stated, I'm worried if I'm going to end up on the streets and have no where to go. I feel miserable . Passive SI, no plan. Patient stated, I wouldn't kill myself because of my son . denies HI/VH/AH. continue tx plan. Patient educated on: diagnosis and medication risk/benefits Reason for continued inpatient stay Substantial Risk for: med/psych decompensation Time Spent With Patient Time: Total time managing care of this patient today _20___ minutes.
[2025-05-28] MEDS: methADONE HCl 20 MG/2 ML ORAL.CONC 10 MG PO (17:48)
[2025-05-28 19:29] VITALS: BP 146/84; PULSE 79; RESP 16; TEMP 36.6; O2SAT 97
[2025-05-29 08:00] VITALS: BP 118/72; PULSE 69; RESP 18; TEMP 36.2; O2SAT 93
[2025-05-29] MEDS: methADONE HCl 20 MG/2 ML ORAL.CONC 80 MG PO (08:01)
[2025-05-29] MEDS: buPROPion HCl XL 150 MG TAB.ER.24H PO (08:44)
[2025-05-29] MEDS: Nicotine 21 MG PATCH.TD24 TRANSDERMA (09:56)
--- NOTE | 2025-05-29 13:25 | P.PNPSI_ITS ---
Subjective Subjective Date of Service: 05/29/25 Reason For Visit: SI Subjective Notes: Conditional Voluntary Interim History: Active on unit. social with peers. Continues to report feeling depressed; pt stated, I'm trying to go to all the groups . Passive SI. denies HI/VH/AH. Patient continues focused on if she will be accepted into substance abuse program. continue tx plan. Medication Compliance: Yes Side effects from medications: No Attending Groups: Yes Mental Status Exam Mental Status Exam Narrative: Pt is alert and oriented; behavior is cooperative, irritable; dressed in casual attire; mood is described as depressed ; eye contact appropriate; Speech is normal rate, volume and not pressured; thought process is organized; Thought content is on tx; denies HI/VH/AH. Passive SI. Diagnostics Vital Signs (24Hr): Vital Signs - 24 hr 05/28/25 19:29 05/29/25 08:00 Temperature 97.8 F 97.1 F Pulse Rate 79 69 Respiratory Rate 16 18 Blood Pressure 146/84 H 118/72 Pulse Oximetry 97 93 Oxygen Delivery Method Room Air Room Air BMI result Body Mass Index 29.8 Labs 05/25/25 14:56 05/25/25 07:51 Medications Medications Current Medications Acetaminophen (Acetaminophen 325 Mg Tablet) 650 mg PO Q6H PRN PRN Reason: Headache/Pain, Scale 1-10 Last Admin: 05/28/25 11:47 Dose: 650 mg Al Hydroxide/Mg Hydroxide (Magnesium Hydrox/Alum Hydrox 30 Ml Oral.Susp) 30 ml PO Q6H PRN PRN Reason: Heartburn/Nausea Albuterol Sulfate (Albuterol Sulfate 90 Mcg 8 Gm Inhaler) 2 puff INHALE QID PRN PRN Reason: shortness of breath or wheezing Bismuth Subsalicylate (Bismuth Subsalicylate 262 Mg Tablet) 262 mg PO QID PRN PRN Reason: Hearburn/Nausea Last Admin: 05/27/25 11:05 Dose: 262 mg Bupropion HCl (Bupropion Hcl Xl 150 Mg Tab.Er.24h) 150 mg PO DAILY [facility] Last Admin: 05/29/25 08:44 Dose: 150 mg Cefuroxime Axetil (Cefuroxime Axetil 500 Mg Tablet) 500 mg PO BID [facility] Last Admin: 05/29/25 08:42 Dose: 500 mg Clonazepam (Clonazepam 1 Mg Tablet) 1 mg PO TID PRN PRN Reason: anxiety attack Last Admin: 05/29/25 09:55 Dose: 1 mg Clonidine HCl (Clonidine Hcl 0.2 Mg Tablet) 0.2 mg PO TID PRN; Protocol PRN Reason: panic attack Folic Acid (Folic Acid 1 Mg Tablet) 1 mg PO DAILY [facility] Last Admin: 05/29/25 08:43 Dose: 1 mg Gabapentin (Gabapentin 400 Mg Capsule) 800 mg PO QID [facility] Last Admin: 05/29/25 13:18 Dose: 800 mg Hydroxyzine HCl (Hydroxyzine Hcl 25 Mg Tablet) 25 mg PO BID PRN PRN Reason: Anxiety Ibuprofen (Ibuprofen 600 Mg Tablet) 600 mg PO Q6H PRN PRN Reason: Pain, Moderate(Pain Scale 4-6) Last Admin: 05/28/25 20:15 Dose: 600 mg Levothyroxine Sodium (Levothyroxine Sodium 125 Mcg Tablet) 125 mcg PO DAILY@0600 [facility] Last Admin: 05/29/25 08:42 Dose: 125 mcg Lidocaine (Lidocaine 4 % Patch Adh..Patch) 1 patch TRANSDERMA DAILY PRN; Protocol PRN Reason: back pain Loperamide HCl (Loperamide Hcl 2 Mg Capsule) 4 mg PO Q6H PRN PRN Reason: Diarrhea Last Admin: 05/28/25 20:18 Dose: 4 mg Magnesium Hydroxide (Milk Of Magnesia 30 Ml Oral.Susp) 30 ml PO DAILY PRN PRN Reason: Constipation Methadone HCl (Methadone Hcl 20 Mg/2 Ml Oral.Conc) 80 mg PO DAILY@0600 [facility] Last Admin: 05/29/25 08:01 Dose: 80 mg Methadone HCl (Methadone Hcl 20 Mg/2 Ml Oral.Conc) 10 mg PO DAILY@1800 [facility] Last Admin: 05/28/25 17:48 Dose: 10 mg Multivitamins/Vitamin C (Multivitamin Tablet) 1 tab PO DAILY [facility] Last Admin: 05/29/25 08:43 Dose: 1 tab Nicotine (Nicotine 21 Mg Patch.Td24) 21 mg TRANSDERMA DAILY [facility] Last Admin: 05/29/25 09:56 Dose: 21 mg Nicotine Polacrilex (Nicotine Polacrilex 2 Mg Gum) 4 mg BUCCAL Q2H PRN PRN Reason: Nicotine Cravings Thiamine HCl (Thiamine Hcl 100 Mg Tablet) 100 mg PO DAILY [facility] Last Admin: 05/29/25 08:43 Dose: 100 mg Trazodone HCl (Trazodone Hcl 50 Mg Tablet) 50 mg PO BEDTIME MRX1 PRN PRN Reason: Insomnia Last Admin: 05/28/25 20:15 Dose: 50 mg Allergies Allergies Allergy/AdvReac Type Severity Reaction Status Date / Time amoxicillin Allergy Itching Verified 05/22/25 23:37 fish derived Allergy Hives Verified 05/17/25 09:55 shellfish derived Allergy Anaphylaxis Verified 05/17/25 09:55 sulfamethoxazole (From Allergy Hives Verified 05/17/25 09:55 Bactrim) trimethoprim (From Bactrim) Allergy Hives Verified 05/17/25 09:55 Assessment & Plan Assessment & Plan (1) MDD (major depressive disorder), recurrent episode: Status: Acute Code(s): F33.9 - Major depressive disorder, recurrent, unspecified (2) PTSD (post-traumatic stress disorder): Status: Acute Code(s): F43.10 - Post-traumatic stress disorder, unspecified (3) Borderline personality disorder: Status: Acute Code(s): F60.3 - Borderline personality disorder (4) Opioid use disorder: Status: Acute Code(s): F11.90 - Opioid use, unspecified, uncomplicated Assessment and Plan: * methadone 80mg AM will add 10mg evening dose * avoid dosing with gabapentin or clonazepam * hold for any concern of oversedation * unclear dispo at this time, which will determine where OTP referral is sent --previously with [facility] (5) Cocaine use disorder: Status: Acute Code(s): F14.10 - Cocaine abuse, uncomplicated Plan Patient is a 39 year old female with hx of MDD, PTSD, Cocaine use d/o, Opioid use d/o and alcohol use d/o who presented to ER d/t passive suicidal ideation secondary to homelessness and substance use. Plan: CV 15 minute safety checks Continue home medications Consult to addiction medicine Obtain collateral Encourage groups Referral to substance abuse program Discharge planning 05/25:Active on unit. Patient reports feeling depressed ; presents with irritable edge. denies SI/HI/VH/AH. Focused on going to a substance abuse program. Patient stated, I want to get sober and have my son in my life . Continue tx plan. 05/26: Patient reports to report feeling depressed ; she is requesting to be started on an SSRI. She reports doing well on Celexa; discussed starting Lexapro; risks/benefits reviewed. pt agreed to trial. Start: Lexapro 10mg PO bedtime. denies SI/HI/VH/AH. Continues focused on going to a substance abuse program; wants to be in intensive treatment to remain sober. Showered. PT consult placed to determine if patient needs walker. 05/27: Patient continues to report feeling depressed ; irritable. Patient stated, I don't want to take Lexapro. I want to talk Wellbutrin ; pt was reminded of conversation yesterday with T/W where pt requested SSRI. Pt stated, I don't want to wait weeks for the medication to work . DC lexapro. Start: Wellbutrin XL 150mg PO daily. denies SI/HI/VH/AH. Continues focused on going to a substance abuse program. Demanding to meet with the public health social worker daily for therapy; pt was educated that social work on the unit do not provide daily therapy sessions and she should work with her outpatient therapist. pt became angry and left meeting room. 05/28: Active on unit. social with peers. Continues to report feeling anxious and depressed. Patient stated, I'm worried if I'm going to end up on the streets and have no where to go. I feel miserable . Passive SI, no plan. Patient stated, I wouldn't kill myself because of my son . denies HI/VH/AH. continue tx plan. 05/29: Active on unit. social with peers. Continues to report feeling depressed; pt stated, I'm trying to go to all the groups . Passive SI. denies HI/VH/AH. Patient continues focused on if she will be accepted into substance abuse program. continue tx plan. Patient educated on: diagnosis, medication risk/benefits and therapeutic strategies Reason for continued inpatient stay Substantial Risk for: med/psych decompensation Time Spent With Patient Time: Total time managing care of this patient today _20___ minutes.
[2025-05-29] MEDS: methADONE HCl 20 MG/2 ML ORAL.CONC 10 MG PO (17:51)
[2025-05-29 20:00] VITALS: BP 123/74; PULSE 78; RESP 18; TEMP 36.6; O2SAT 98
[2025-05-30] MEDS: methADONE HCl 20 MG/2 ML ORAL.CONC 80 MG PO (06:39)
[2025-05-30 08:00] VITALS: BP 121/79; PULSE 70; RESP 20; TEMP 36.4; O2SAT 98
[2025-05-30] MEDS: Nicotine 21 MG PATCH.TD24 TRANSDERMA (09:09)
--- NOTE | 2025-05-30 10:04 | P.PNPSI_ITS ---
Subjective Subjective Date of Service: 05/30/25 Reason For Visit: SI Subjective Notes: Conditional Voluntary Interim History: Continues to report feeling depressed; refused Wellbutrin, she reports she doesn't like how it makes me feel . She is requesting to be restarted on Lexapro. denies SI/HI/VH/AH. Patient continues focused on if she will be accepted into substance abuse program. DC Wellbutrin. Start: Lexapro 10mg PO daily. Medication Compliance: Yes Side effects from medications: No Attending Groups: Yes Mental Status Exam Mental Status Exam Narrative: Pt is alert and oriented; behavior is cooperative, irritable; dressed in casual attire; mood is described as depressed ; eye contact appropriate; Speech is normal rate, volume and not pressured; thought process is organized; Thought content is on tx; denies SI/HI/VH/AH. Diagnostics Vital Signs (24Hr): Vital Signs - 24 hr 05/29/25 20:00 05/30/25 08:00 Temperature 97.9 F 97.6 F Pulse Rate 78 70 Respiratory Rate 18 20 Blood Pressure 123/74 121/79 Pulse Oximetry 98 98 Oxygen Delivery Method Room Air Room Air BMI result Body Mass Index 29.8 Labs 05/25/25 14:56 05/25/25 07:51 Medications Medications Current Medications Acetaminophen (Acetaminophen 325 Mg Tablet) 650 mg PO Q6H PRN PRN Reason: Headache/Pain, Scale 1-10 Last Admin: 05/28/25 11:47 Dose: 650 mg Al Hydroxide/Mg Hydroxide (Magnesium Hydrox/Alum Hydrox 30 Ml Oral.Susp) 30 ml PO Q6H PRN PRN Reason: Heartburn/Nausea Albuterol Sulfate (Albuterol Sulfate 90 Mcg 8 Gm Inhaler) 2 puff INHALE QID PRN PRN Reason: shortness of breath or wheezing Bismuth Subsalicylate (Bismuth Subsalicylate 262 Mg Tablet) 262 mg PO QID PRN PRN Reason: Hearburn/Nausea Last Admin: 05/27/25 11:05 Dose: 262 mg Bupropion HCl (Bupropion Hcl Xl 150 Mg Tab.Er.24h) 150 mg PO DAILY [facility] Last Admin: 05/30/25 08:59 Dose: Not Given Cefuroxime Axetil (Cefuroxime Axetil 500 Mg Tablet) 500 mg PO BID [facility] Last Admin: 05/30/25 08:59 Dose: 500 mg Clonazepam (Clonazepam 1 Mg Tablet) 1 mg PO TID PRN PRN Reason: anxiety attack Last Admin: 05/30/25 09:08 Dose: 1 mg Clonidine HCl (Clonidine Hcl 0.2 Mg Tablet) 0.2 mg PO TID PRN; Protocol PRN Reason: panic attack Folic Acid (Folic Acid 1 Mg Tablet) 1 mg PO DAILY [facility] Last Admin: 05/30/25 08:59 Dose: 1 mg Gabapentin (Gabapentin 400 Mg Capsule) 800 mg PO QID [facility] Last Admin: 05/30/25 08:59 Dose: 800 mg Hydroxyzine HCl (Hydroxyzine Hcl 25 Mg Tablet) 25 mg PO BID PRN PRN Reason: Anxiety Ibuprofen (Ibuprofen 600 Mg Tablet) 600 mg PO Q6H PRN PRN Reason: Pain, Moderate(Pain Scale 4-6) Last Admin: 05/30/25 09:07 Dose: 600 mg Levothyroxine Sodium (Levothyroxine Sodium 125 Mcg Tablet) 125 mcg PO DAILY@0600 [facility] Last Admin: 05/30/25 05:27 Dose: 125 mcg Lidocaine (Lidocaine 4 % Patch Adh..Patch) 1 patch TRANSDERMA DAILY PRN; Protocol PRN Reason: back pain Loperamide HCl (Loperamide Hcl 2 Mg Capsule) 4 mg PO Q6H PRN PRN Reason: Diarrhea Last Admin: 05/29/25 20:21 Dose: 4 mg Magnesium Hydroxide (Milk Of Magnesia 30 Ml Oral.Susp) 30 ml PO DAILY PRN PRN Reason: Constipation Methadone HCl (Methadone Hcl 20 Mg/2 Ml Oral.Conc) 80 mg PO DAILY@0600 [facility] Last Admin: 05/30/25 06:39 Dose: 80 mg Methadone HCl (Methadone Hcl 20 Mg/2 Ml Oral.Conc) 10 mg PO DAILY@1800 [facility] Last Admin: 05/29/25 17:51 Dose: 10 mg Multivitamins/Vitamin C (Multivitamin Tablet) 1 tab PO DAILY [facility] Last Admin: 05/30/25 08:59 Dose: 1 tab Nicotine (Nicotine 21 Mg Patch.Td24) 21 mg TRANSDERMA DAILY [facility] Last Admin: 05/30/25 09:09 Dose: 21 mg Nicotine Polacrilex (Nicotine Polacrilex 2 Mg Gum) 4 mg BUCCAL Q2H PRN PRN Reason: Nicotine Cravings Thiamine HCl (Thiamine Hcl 100 Mg Tablet) 100 mg PO DAILY [facility] Last Admin: 05/30/25 09:00 Dose: 100 mg Trazodone HCl (Trazodone Hcl 50 Mg Tablet) 50 mg PO BEDTIME MRX1 PRN PRN Reason: Insomnia Last Admin: 05/28/25 20:15 Dose: 50 mg Allergies Allergies Allergy/AdvReac Type Severity Reaction Status Date / Time amoxicillin Allergy Itching Verified 05/22/25 23:37 fish derived Allergy Hives Verified 05/17/25 09:55 shellfish derived Allergy Anaphylaxis Verified 05/17/25 09:55 sulfamethoxazole (From Allergy Hives Verified 05/17/25 09:55 Bactrim) trimethoprim (From Bactrim) Allergy Hives Verified 05/17/25 09:55 Assessment & Plan Assessment & Plan (1) MDD (major depressive disorder), recurrent episode: Status: Acute Code(s): F33.9 - Major depressive disorder, recurrent, unspecified (2) PTSD (post-traumatic stress disorder): Status: Acute Code(s): F43.10 - Post-traumatic stress disorder, unspecified (3) Borderline personality disorder: Status: Acute Code(s): F60.3 - Borderline personality disorder (4) Opioid use disorder: Status: Acute Code(s): F11.90 - Opioid use, unspecified, uncomplicated Assessment and Plan: * methadone 80mg AM will add 10mg evening dose * avoid dosing with gabapentin or clonazepam * hold for any concern of oversedation * unclear dispo at this time, which will determine where OTP referral is sent --previously with [facility] (5) Cocaine use disorder: Status: Acute Code(s): F14.10 - Cocaine abuse, uncomplicated Plan Patient is a 39 year old female with hx of MDD, PTSD, Cocaine use d/o, Opioid use d/o and alcohol use d/o who presented to ER d/t passive suicidal ideation secondary to homelessness and substance use. Plan: CV 15 minute safety checks Continue home medications Consult to addiction medicine Obtain collateral Encourage groups Referral to substance abuse program Discharge planning 05/25:Active on unit. Patient reports feeling depressed ; presents with irritable edge. denies SI/HI/VH/AH. Focused on going to a substance abuse program. Patient stated, I want to get sober and have my son in my life . Continue tx plan. 05/26: Patient reports to report feeling depressed ; she is requesting to be started on an SSRI. She reports doing well on Celexa; discussed starting Lexapro; risks/benefits reviewed. pt agreed to trial. Start: Lexapro 10mg PO bedtime. denies SI/HI/VH/AH. Continues focused on going to a substance abuse program; wants to be in intensive treatment to remain sober. Showered. PT consult placed to determine if patient needs walker. 05/27: Patient continues to report feeling depressed ; irritable. Patient stated, I don't want to take Lexapro. I want to talk Wellbutrin ; pt was reminded of conversation yesterday with T/W where pt requested SSRI. Pt stated, I don't want to wait weeks for the medication to work . DC lexapro. Start: Wellbutrin XL 150mg PO daily. denies SI/HI/VH/AH. Continues focused on going to a substance abuse program. Demanding to meet with the rn social services daily for therapy; pt was educated that social work on the unit do not provide daily therapy sessions and she should work with her outpatient therapist. pt became angry and left meeting room. 05/28: Active on unit. social with peers. Continues to report feeling anxious and depressed. Patient stated, I'm worried if I'm going to end up on the streets and have no where to go. I feel miserable . Passive SI, no plan. Patient stated, I wouldn't kill myself because of my son . denies HI/VH/AH. continue tx plan. 05/29: Active on unit. social with peers. Continues to report feeling depressed; pt stated, I'm trying to go to all the groups . Passive SI. denies HI/VH/AH. Patient continues focused on if she will be accepted into substance abuse program. continue tx plan. 05/30: Continues to report feeling depressed; refused Wellbutrin, she reports she doesn't like how it makes me feel . She is requesting to be restarted on Lexapro. denies SI/HI/VH/AH. Patient continues focused on if she will be accepted into substance abuse program. DC Wellbutrin. Start: Lexapro 10mg PO daily. Patient educated on: diagnosis and medication risk/benefits Reason for continued inpatient stay Substantial Risk for: med/psych decompensation Time Spent With Patient Time: Total time managing care of this patient today _20___ minutes.
[2025-05-30] MEDS: methADONE HCl 20 MG/2 ML ORAL.CONC 10 MG PO (17:54)
[2025-05-30 20:00] VITALS: BP 121/73; PULSE 82; RESP 16; TEMP 36.7; O2SAT 98
[2025-05-31] MEDS: methADONE HCl 20 MG/2 ML ORAL.CONC 80 MG PO (06:50)
[2025-05-31 07:15] VITALS: BP 157/93; PULSE 64; RESP 16; TEMP 36.9; O2SAT 95
--- NOTE | 2025-05-31 09:27 | HO.PSYCHPN ---
Subjective Subjective Date of Service: 05/31/25 Reason For Visit: SI Subjective Notes: Conditional Voluntary Interim History: Active on unit. social with peers. attending groups. Continues to report feeling depressed; denies any side effects from medications. denies SI/HI/VH/AH. Patient continues focused on if she will be accepted into substance abuse program; pt focused on being accepted somewhere with horses . aircraft workerEunice, notified patient, she has been referred to multiple programs and respites with no response. Patient encouraged to consider another plan for discharge if not accepted to program or respite. Patient reports she would go to a [facility]. Plan to discharge ; pt aware. Medication Compliance: Yes Side effects from medications: No Attending Groups: Yes Mental Status Exam Mental Status Exam Narrative: Pt is alert and oriented; behavior is cooperative,calm, irritable; dressed in casual attire; mood is described as depressed ; eye contact appropriate; Speech is normal rate, volume and not pressured; thought process is organized; Thought content is on tx/discharge; denies SI/HI/VH/AH. Diagnostics Vital Signs (24Hr): Vital Signs - 24 hr 05/30/25 20:00 05/31/25 07:15 Temperature 98.0 F 98.4 F Pulse Rate 82 64 Respiratory Rate 16 16 Blood Pressure 121/73 157/93 H Pulse Oximetry 98 95 Oxygen Delivery Method Room Air Room Air BMI result Body Mass Index 29.8 Labs 05/25/25 14:56 05/25/25 07:51 Medications Medications Current Medications Acetaminophen (Acetaminophen 325 Mg Tablet) 650 mg PO Q6H PRN PRN Reason: Headache/Pain, Scale 1-10 Last Admin: 05/31/25 08:39 Dose: 650 mg Al Hydroxide/Mg Hydroxide (Magnesium Hydrox/Alum Hydrox 30 Ml Oral.Susp) 30 ml PO Q6H PRN PRN Reason: Heartburn/Nausea Albuterol Sulfate (Albuterol Sulfate 90 Mcg 8 Gm Inhaler) 2 puff INHALE QID PRN PRN Reason: shortness of breath or wheezing Bismuth Subsalicylate (Bismuth Subsalicylate 262 Mg Tablet) 262 mg PO QID PRN PRN Reason: Hearburn/Nausea Last Admin: 05/27/25 11:05 Dose: 262 mg Cefuroxime Axetil (Cefuroxime Axetil 500 Mg Tablet) 500 mg PO BID GREGOR Last Admin: 05/31/25 08:35 Dose: 500 mg Clonazepam (Clonazepam 1 Mg Tablet) 1 mg PO TID PRN PRN Reason: anxiety attack Last Admin: 05/31/25 08:35 Dose: 1 mg Clonidine HCl (Clonidine Hcl 0.2 Mg Tablet) 0.2 mg PO TID PRN; Protocol PRN Reason: panic attack Escitalopram Oxalate (Escitalopram Oxalate 10 Mg Tablet) 10 mg PO BEDTIME [facility] Last Admin: 05/30/25 21:00 Dose: 10 mg Folic Acid (Folic Acid 1 Mg Tablet) 1 mg PO DAILY [facility] Last Admin: 05/31/25 08:35 Dose: 1 mg Gabapentin (Gabapentin 400 Mg Capsule) 800 mg PO QID [facility] Last Admin: 05/31/25 08:34 Dose: 800 mg Hydroxyzine HCl (Hydroxyzine Hcl 25 Mg Tablet) 25 mg PO BID PRN PRN Reason: Anxiety Ibuprofen (Ibuprofen 600 Mg Tablet) 600 mg PO Q6H PRN PRN Reason: Pain, Moderate(Pain Scale 4-6) Last Admin: 05/30/25 20:59 Dose: 600 mg Levothyroxine Sodium (Levothyroxine Sodium 125 Mcg Tablet) 125 mcg PO DAILY@0600 [facility] Last Admin: 05/31/25 06:50 Dose: 125 mcg Lidocaine (Lidocaine 4 % Patch Adh..Patch) 1 patch TRANSDERMA DAILY PRN; Protocol PRN Reason: back pain Loperamide HCl (Loperamide Hcl 2 Mg Capsule) 4 mg PO Q6H PRN PRN Reason: Diarrhea Last Admin: 05/29/25 20:21 Dose: 4 mg Magnesium Hydroxide (Milk Of Magnesia 30 Ml Oral.Susp) 30 ml PO DAILY PRN PRN Reason: Constipation Methadone HCl (Methadone Hcl 20 Mg/2 Ml Oral.Conc) 80 mg PO DAILY@0600 [facility] Last Admin: 05/31/25 06:50 Dose: 80 mg Methadone HCl (Methadone Hcl 20 Mg/2 Ml Oral.Conc) 10 mg PO DAILY@1800 [facility] Last Admin: 05/30/25 17:54 Dose: 10 mg Multivitamins/Vitamin C (Multivitamin Tablet) 1 tab PO DAILY [facility] Last Admin: 05/31/25 08:35 Dose: 1 tab Nicotine (Nicotine 21 Mg Patch.Td24) 21 mg TRANSDERMA DAILY [facility] Last Admin: 05/30/25 09:09 Dose: 21 mg Nicotine Polacrilex (Nicotine Polacrilex 2 Mg Gum) 4 mg BUCCAL Q2H PRN PRN Reason: Nicotine Cravings Thiamine HCl (Thiamine Hcl 100 Mg Tablet) 100 mg PO DAILY [facility] Last Admin: 05/31/25 08:35 Dose: 100 mg Trazodone HCl (Trazodone Hcl 50 Mg Tablet) 50 mg PO BEDTIME MRX1 PRN PRN Reason: Insomnia Last Admin: 05/30/25 20:59 Dose: 50 mg Allergies Allergies Allergy/AdvReac Type Severity Reaction Status Date / Time amoxicillin Allergy Itching Verified 05/22/25 23:37 fish derived Allergy Hives Verified 05/17/25 09:55 shellfish derived Allergy Anaphylaxis Verified 05/17/25 09:55 sulfamethoxazole (From Allergy Hives Verified 05/17/25 09:55 Bactrim) trimethoprim (From Bactrim) Allergy Hives Verified 05/17/25 09:55 Assessment & Plan Assessment & Plan (1) MDD (major depressive disorder), recurrent episode: Status: Acute Code(s): F33.9 - Major depressive disorder, recurrent, unspecified (2) PTSD (post-traumatic stress disorder): Status: Acute Code(s): F43.10 - Post-traumatic stress disorder, unspecified (3) Borderline personality disorder: Status: Acute Code(s): F60.3 - Borderline personality disorder (4) Opioid use disorder: Status: Acute Code(s): F11.90 - Opioid use, unspecified, uncomplicated Assessment and Plan: methadone 80mg AM will add 10mg evening dose avoid dosing with gabapentin or clonazepam hold for any concern of oversedation unclear dispo at this time, which will determine where OTP referral is sent --previously with [facility] (5) Cocaine use disorder: Status: Acute Code(s): F14.10 - Cocaine abuse, uncomplicated Plan Patient is a 39 year old female with hx of MDD, PTSD, Cocaine use d/o, Opioid use d/o and alcohol use d/o who presented to ER d/t passive suicidal ideation secondary to homelessness and substance use. Plan: CV 15 minute safety checks Continue home medications Consult to addiction medicine Obtain collateral Encourage groups Referral to substance abuse program Discharge planning 05/25:Active on unit. Patient reports feeling depressed ; presents with irritable edge. denies SI/HI/VH/AH. Focused on going to a substance abuse program. Patient stated, I want to get sober and have my son in my life . Continue tx plan. 05/26: Patient reports to report feeling depressed ; she is requesting to be started on an SSRI. She reports doing well on Celexa; discussed starting Lexapro; risks/benefits reviewed. pt agreed to trial. Start: Lexapro 10mg PO bedtime. denies SI/HI/VH/AH. Continues focused on going to a substance abuse program; wants to be in intensive treatment to remain sober. Showered. PT consult placed to determine if patient needs walker. 05/27: Patient continues to report feeling depressed ; irritable. Patient stated, I don't want to take Lexapro. I want to talk Wellbutrin ; pt was reminded of conversation yesterday with T/W where pt requested SSRI. Pt stated, I don't want to wait weeks for the medication to work . DC lexapro. Start: Wellbutrin XL 150mg PO daily. denies SI/HI/VH/AH. Continues focused on going to a substance abuse program. Demanding to meet with the renal social worker daily for therapy; pt was educated that social work on the unit do not provide daily therapy sessions and she should work with her outpatient therapist. pt became angry and left meeting room. 05/28: Active on unit. social with peers. Continues to report feeling anxious and depressed. Patient stated, I'm worried if I'm going to end up on the streets and have no where to go. I feel miserable . Passive SI, no plan. Patient stated, I wouldn't kill myself because of my son . denies HI/VH/AH. continue tx plan. 05/29: Active on unit. social with peers. Continues to report feeling depressed; pt stated, I'm trying to go to all the groups . Passive SI. denies HI/VH/AH. Patient continues focused on if she will be accepted into substance abuse program. continue tx plan. 05/30: Continues to report feeling depressed; refused Wellbutrin, she reports she doesn't like how it makes me feel . She is requesting to be restarted on Lexapro. denies SI/HI/VH/AH. Patient continues focused on if she will be accepted into substance abuse program. DC Wellbutrin. Start: Lexapro 10mg PO daily. 05/31: Active on unit. social with peers. attending groups. Continues to report feeling depressed; denies any side effects from medications. denies SI/HI/VH/AH. Patient continues focused on if she will be accepted into substance abuse program; pt focused on being accepted somewhere with horses . aircraft workerEunice, notified patient, she has been referred to multiple programs and respites with no response. Patient encouraged to consider another plan for discharge if not accepted to program or respite. Patient reports she would go to a [facility]. Plan to discharge ; pt aware. Patient educated on: diagnosis and medication risk/benefits Reason for continued inpatient stay Substantial Risk for: med/psych decompensation Time Spent With Patient Time: Total time managing care of this patient today _20___ minutes.
[2025-05-31] MEDS: Nicotine 21 MG PATCH.TD24 TRANSDERMA (16:15)
--- NOTE | 2025-05-31 16:19 | P.PNIM_ITS ---
Subjective Subjective Date of Service: 05/31/25 Interval History: Patient is seen for COPD. Patient reports that she has had increased shortness of breath lately difficulty walking this is. Patient is also reporting chronic lower back pain. Multiple vague concerns in addition to these 2 concerns. She denies any chest pain, no fever or chills reported, her vitals have been stable. Patient is taking high doses of gabapentin for her back pain as well as Tylenol as needed. No evidence of gait disturbance, denies any numbness or tingling. Review of Systems Reports shortness of breath with exertion, chest pain, headaches, dysuria, abdominal pain or discomfort, nausea, vomiting or diarrhea. Denies fever or chills. Physical Exam 2 Vital Signs: Vital Signs: Last Vital Signs Temp 98.4 F 05/31/25 07:15 Pulse 64 05/31/25 07:15 Resp 16 05/31/25 07:15 BP 157/93 H 05/31/25 07:15 Pulse Ox 95 05/31/25 07:15 O2 Del Method Room Air 05/31/25 07:15 BMI result Body Mass Index 29.8 Constitutional - Awake and Alert, No apparent distress Eyes - PERRLA, EOMI Cardiovascular - S1S2, RRR, No edema Respiratory - Normal lung expansion, Normal respiratory effort, No respiratory distress, CTA bilaterally Gastrointestinal - NT / ND; +BS; No rebound or guarding Extremities - no calf tenderness bilaterally, no swelling Skin - Warm/Dry Neurological - Alert & oriented x3 Psychological - Appropriate affect Objective Data Active Medications Acetaminophen (Acetaminophen 325 Mg Tablet) 650 mg PO Q6H PRN PRN Reason: Headache/Pain, Scale 1-10 Last Admin: 05/31/25 08:39 Dose: 650 mg Documented By: LOU Al Hydroxide/Mg Hydroxide (Magnesium Hydrox/Alum Hydrox 30 Ml Oral.Susp) 30 ml PO Q6H PRN PRN Reason: Heartburn/Nausea Albuterol Sulfate (Albuterol Sulfate 90 Mcg 8 Gm Inhaler) 2 puff INHALE QID PRN PRN Reason: shortness of breath or wheezing Cefuroxime Axetil (Cefuroxime Axetil 500 Mg Tablet) 500 mg PO BID GREGOR Last Admin: 05/31/25 08:35 Dose: 500 mg Documented By: LOU Clonazepam (Clonazepam 1 Mg Tablet) 1 mg PO TID PRN PRN Reason: anxiety attack Last Admin: 05/31/25 14:58 Dose: 1 mg Documented By: LOU Escitalopram Oxalate (Escitalopram Oxalate 10 Mg Tablet) 10 mg PO BEDTIME [facility] Last Admin: 05/30/25 21:00 Dose: 10 mg Documented By: LOU Gabapentin (Gabapentin 400 Mg Capsule) 800 mg PO QID [facility] Last Admin: 05/31/25 12:08 Dose: 800 mg Documented By: LOU Hydroxyzine HCl (Hydroxyzine Hcl 25 Mg Tablet) 25 mg PO BID PRN PRN Reason: Anxiety Ibuprofen (Ibuprofen 600 Mg Tablet) 600 mg PO Q6H PRN PRN Reason: Pain, Moderate(Pain Scale 4-6) Last Admin: 05/31/25 12:07 Dose: 600 mg Documented By: LOU Levothyroxine Sodium (Levothyroxine Sodium 125 Mcg Tablet) 125 mcg PO DAILY@0600 [facility] Last Admin: 05/31/25 06:50 Dose: 125 mcg Documented By: WESLEY Lidocaine (Lidocaine 4 % Patch Adh..Patch) 1 patch TRANSDERMA DAILY PRN; Protocol PRN Reason: back pain Loperamide HCl (Loperamide Hcl 2 Mg Capsule) 4 mg PO Q6H PRN PRN Reason: Diarrhea Last Admin: 05/29/25 20:21 Dose: 4 mg Documented By: TERRY Magnesium Hydroxide (Milk Of Magnesia 30 Ml Oral.Susp) 30 ml PO DAILY PRN PRN Reason: Constipation Methadone HCl (Methadone Hcl 20 Mg/2 Ml Oral.Conc) 80 mg PO DAILY@0600 [facility] Last Admin: 05/31/25 06:50 Dose: 80 mg Documented By: WESLEY Co-signed By: DAVID Methadone HCl (Methadone Hcl 20 Mg/2 Ml Oral.Conc) 10 mg PO DAILY@1800 [facility] Last Admin: 05/30/25 17:54 Dose: 10 mg Documented By: BLANQUITA Co-signed By: LOU Nicotine (Nicotine 21 Mg Patch.Td24) 21 mg TRANSDERMA DAILY [facility] Last Admin: 05/31/25 16:15 Dose: 21 mg Documented By: LOU Nicotine Polacrilex (Nicotine Polacrilex 2 Mg Gum) 4 mg BUCCAL Q2H PRN PRN Reason: Nicotine Cravings Trazodone HCl (Trazodone Hcl 50 Mg Tablet) 50 mg PO BEDTIME MRX1 PRN PRN Reason: Insomnia Last Admin: 05/30/25 20:59 Dose: 50 mg Documented By: LOU Labs 05/25/25 14:56 05/25/25 07:51 Assessment and Plan (1) Asthma: Status: Acute Plan 39-year-old woman past medical history listed below initially admitted with alcohol withdrawal and IV drug use withdrawal. Reported that she has been on a binge for the last couple of weeks and had not been taking any of her medications. Patient seen by addiction Medicine, SP phenobarbital protocol. She was medically cleared, then expressed suicidal ideation. She is now admitted to inpatient psych for further care and treatment. PTSD/major depressive disorder/alcohol use disorder/cocaine use disorder/opioid use disorder/methadone maintenance patient Alcohol withdrawal, resolved SP phenobarbital protocol Continue thiamine, folate supplement Asthma/COPD Reporting shortness of breath Albuterol as needed Chest x-ray to rule out pneumonia Hypothyroidism TSH greater than 100, most recent free T4 0.43 which is low Patient reported that she has not been consistently taking her medications Will continue levothyroxine 125 mcg Will require repeat TSH level in 4-6 weeks as well as free T4 and outpatient follow up. Right quintero cellulitis-Resolving Continue Ceftin for 10 days Warm soaks to area q.4 hours Notify provider with any changes UTI Patient received 1 dose of ceftriaxone, continued on Augmentin however she had a rash to Augmentin and it was DC. Continue Ceftin Urine culture positive for greater than 100,000 of E coli. Resistant to ampicillin and Bactrim. Thank you for allowing me to participate in the care of this patient. Will follow with you, please notify medical provider with any changes in condition or concerns. Quality Stroke Does the patient have a stroke diagnosis?: No VTE Prior VTE?: No VTE Risk Level:: Medical - low VTE Device Contraindication: Treatment Not Indicated VTE Drug Contraindication: Treatment Not Indicated
--- NOTE | 2025-05-31 18:16 | PC.NURSE ---
1700 Gabapentin dose held due to sedation. Reviewed with Luz Marina FERNANDEZ who authorized hold.
[2025-05-31] MEDS: methADONE HCl 20 MG/2 ML ORAL.CONC 10 MG PO (18:30)
[2025-05-31 20:00] VITALS: BP 115/64; PULSE 70; RESP 14; TEMP 36.5; O2SAT 93
[2025-06-01] MEDS: methADONE HCl 20 MG/2 ML ORAL.CONC 80 MG PO (06:22)
[2025-06-01 08:00] VITALS: BP 144/90; PULSE 65; RESP 18; TEMP 36.5; O2SAT 96
--- NOTE | 2025-06-01 09:48 | HO.PSYCHPN ---
Subjective Subjective Date of Service: 06/01/25 Reason For Visit: SI Subjective Notes: Conditional Voluntary Interim History: T/W met with patient and health social work professor, spenser Dawson. Patient continues to report feeling depressed ; irritable edge. Patient reports feeling upset d/t not being accepted into a program, despite multiple efforts. She continues to deny SI/HI/VH/AH. Per nursing, pt slept 8 hours last night. T/W discussed conversation that was had yesterday of discharging to retirement on . Patient became upset and stated she plans on appealing her discharge d/t not wanting to go to a retirement. Patient has not presented unsafe behaviors while inpatient. She does not exhibit imminent risk at this time and can follow up with ongoing treatment in an outpatient setting. Medication Compliance: Yes Side effects from medications: No Attending Groups: Intermittent Mental Status Exam Mental Status Exam Narrative: Pt is alert and oriented; behavior is cooperative, irritable; dressed in casual attire; mood is described as depressed ; eye contact appropriate; Speech is normal rate, volume and not pressured; thought process is organized; Thought content is on tx/discharge; denies SI/HI/VH/AH. Diagnostics Vital Signs (24Hr): Vital Signs - 24 hr 05/31/25 20:00 06/01/25 08:00 Temperature 97.7 F 97.7 F Pulse Rate 70 65 Respiratory Rate 14 18 Blood Pressure 115/64 144/90 H Pulse Oximetry 93 96 Oxygen Delivery Method Room Air Room Air BMI result Body Mass Index 29.8 Labs 05/25/25 14:56 05/25/25 07:51 Medications Medications Current Medications Acetaminophen (Acetaminophen 325 Mg Tablet) 650 mg PO Q6H PRN PRN Reason: Headache/Pain, Scale 1-10 Last Admin: 05/31/25 08:39 Dose: 650 mg Al Hydroxide/Mg Hydroxide (Magnesium Hydrox/Alum Hydrox 30 Ml Oral.Susp) 30 ml PO Q6H PRN PRN Reason: Heartburn/Nausea Albuterol Sulfate (Albuterol Sulfate 90 Mcg 8 Gm Inhaler) 2 puff INHALE QID PRN PRN Reason: shortness of breath or wheezing Cefuroxime Axetil (Cefuroxime Axetil 500 Mg Tablet) 500 mg PO BID [facility] Last Admin: 06/01/25 08:12 Dose: 500 mg Clonazepam (Clonazepam 1 Mg Tablet) 1 mg PO TID PRN PRN Reason: anxiety attack Last Admin: 06/01/25 08:55 Dose: 1 mg Escitalopram Oxalate (Escitalopram Oxalate 10 Mg Tablet) 10 mg PO BEDTIME [facility] Last Admin: 05/31/25 21:32 Dose: 10 mg Gabapentin (Gabapentin 400 Mg Capsule) 800 mg PO QID [facility] Last Admin: 06/01/25 08:13 Dose: 800 mg Hydroxyzine HCl (Hydroxyzine Hcl 25 Mg Tablet) 25 mg PO BID PRN PRN Reason: Anxiety Ibuprofen (Ibuprofen 600 Mg Tablet) 600 mg PO Q6H PRN PRN Reason: Pain, Moderate(Pain Scale 4-6) Last Admin: 05/31/25 12:07 Dose: 600 mg Levothyroxine Sodium (Levothyroxine Sodium 125 Mcg Tablet) 125 mcg PO DAILY@0600 [facility] Last Admin: 06/01/25 06:22 Dose: 125 mcg Lidocaine (Lidocaine 4 % Patch Adh..Patch) 1 patch TRANSDERMA DAILY PRN; Protocol PRN Reason: back pain Loperamide HCl (Loperamide Hcl 2 Mg Capsule) 4 mg PO Q6H PRN PRN Reason: Diarrhea Last Admin: 05/29/25 20:21 Dose: 4 mg Magnesium Hydroxide (Milk Of Magnesia 30 Ml Oral.Susp) 30 ml PO DAILY PRN PRN Reason: Constipation Methadone HCl (Methadone Hcl 20 Mg/2 Ml Oral.Conc) 80 mg PO DAILY@0600 [facility] Last Admin: 06/01/25 06:22 Dose: 80 mg Methadone HCl (Methadone Hcl 20 Mg/2 Ml Oral.Conc) 10 mg PO DAILY@1800 [facility] Last Admin: 05/31/25 18:30 Dose: 10 mg Nicotine (Nicotine 21 Mg Patch.Td24) 21 mg TRANSDERMA DAILY [facility] Last Admin: 05/31/25 16:15 Dose: 21 mg Nicotine Polacrilex (Nicotine Polacrilex 2 Mg Gum) 4 mg BUCCAL Q2H PRN PRN Reason: Nicotine Cravings Trazodone HCl (Trazodone Hcl 50 Mg Tablet) 50 mg PO BEDTIME MRX1 PRN PRN Reason: Insomnia Last Admin: 05/30/25 20:59 Dose: 50 mg Allergies Allergies Allergy/AdvReac Type Severity Reaction Status Date / Time amoxicillin Allergy Itching Verified 05/22/25 23:37 fish derived Allergy Hives Verified 05/17/25 09:55 shellfish derived Allergy Anaphylaxis Verified 05/17/25 09:55 sulfamethoxazole (From Allergy Hives Verified 05/17/25 09:55 Bactrim) trimethoprim (From Bactrim) Allergy Hives Verified 05/17/25 09:55 Assessment & Plan Assessment & Plan (1) MDD (major depressive disorder), recurrent episode: Status: Acute Code(s): F33.9 - Major depressive disorder, recurrent, unspecified (2) PTSD (post-traumatic stress disorder): Status: Acute Code(s): F43.10 - Post-traumatic stress disorder, unspecified (3) Borderline personality disorder: Status: Acute Code(s): F60.3 - Borderline personality disorder (4) Opioid use disorder: Status: Acute Code(s): F11.90 - Opioid use, unspecified, uncomplicated (5) Cocaine use disorder: Status: Acute Code(s): F14.10 - Cocaine abuse, uncomplicated (6) Alcohol use disorder: Status: Acute Code(s): F10.90 - Alcohol use, unspecified, uncomplicated (7) Homeless single person: Status: Acute Code(s): Z59.00 - Homelessness unspecified Plan Patient is a 39 year old female with hx of MDD, PTSD, Cocaine use d/o, Opioid use d/o and alcohol use d/o who presented to ER d/t passive suicidal ideation secondary to homelessness and substance use. Plan: CV 15 minute safety checks Continue home medications Consult to addiction medicine Obtain collateral Encourage groups Referral to substance abuse program Discharge planning 05/25:Active on unit. Patient reports feeling depressed ; presents with irritable edge. denies SI/HI/VH/AH. Focused on going to a substance abuse program. Patient stated, I want to get sober and have my son in my life . Continue tx plan. 05/26: Patient reports to report feeling depressed ; she is requesting to be started on an SSRI. She reports doing well on Celexa; discussed starting Lexapro; risks/benefits reviewed. pt agreed to trial. Start: Lexapro 10mg PO bedtime. denies SI/HI/VH/AH. Continues focused on going to a substance abuse program; wants to be in intensive treatment to remain sober. Showered. PT consult placed to determine if patient needs walker. 05/27: Patient continues to report feeling depressed ; irritable. Patient stated, I don't want to take Lexapro. I want to talk Wellbutrin ; pt was reminded of conversation yesterday with T/W where pt requested SSRI. Pt stated, I don't want to wait weeks for the medication to work . DC lexapro. Start: Wellbutrin XL 150mg PO daily. denies SI/HI/VH/AH. Continues focused on going to a substance abuse program. Demanding to meet with the health social work professor daily for therapy; pt was educated that social work on the unit do not provide daily therapy sessions and she should work with her outpatient therapist. pt became angry and left meeting room. 05/28: Active on unit. social with peers. Continues to report feeling anxious and depressed. Patient stated, I'm worried if I'm going to end up on the streets and have no where to go. I feel miserable . Passive SI, no plan. Patient stated, I wouldn't kill myself because of my son . denies HI/VH/AH. continue tx plan. 05/29: Active on unit. social with peers. Continues to report feeling depressed; pt stated, I'm trying to go to all the groups . Passive SI. denies HI/VH/AH. Patient continues focused on if she will be accepted into substance abuse program. continue tx plan. 05/30: Continues to report feeling depressed; refused Wellbutrin, she reports she doesn't like how it makes me feel . She is requesting to be restarted on Lexapro. denies SI/HI/VH/AH. Patient continues focused on if she will be accepted into substance abuse program. DC Wellbutrin. Start: Lexapro 10mg PO daily. 05/31: Active on unit. social with peers. attending groups. Continues to report feeling depressed; denies any side effects from medications. denies SI/HI/VH/AH. Patient continues focused on if she will be accepted into substance abuse program; pt focused on being accepted somewhere with horses . [employer] utility workerEunice, notified patient, she has been referred to multiple programs and respites with no response. Patient encouraged to consider another plan for discharge if not accepted to program or respite. Patient reports she would go to a retirement. Plan to discharge ; pt aware. 06/01: T/W met with patient and health social work professor, Eunice, present. Patient continues to report feeling depressed ; irritable edge. Patient reports feeling upset d/t not being accepted into a program, despite multiple efforts. She continues to deny SI/HI/VH/AH. Per nursing, pt slept 8 hours last night. T/W discussed conversation that was had yesterday of discharging to retirement on . Patient became upset and stated she plans on appealing her discharge d/t not wanting to go to a retirement. Patient has not presented unsafe behaviors while inpatient. She does not exhibit imminent risk at this time and can follow up with ongoing treatment in an outpatient setting. Patient educated on: diagnosis and medication risk/benefits Reason for continued inpatient stay Substantial Risk for: stable for discharge Time Spent With Patient Time: Total time managing care of this patient today _20___ minutes.
[2025-06-01] MEDS: Nicotine 21 MG PATCH.TD24 TRANSDERMA (11:03)
[2025-06-01] MEDS: methADONE HCl 20 MG/2 ML ORAL.CONC 10 MG PO (18:53)
[2025-06-01 20:00] VITALS: BP 127/79; PULSE 77; RESP 16; TEMP 36.6; O2SAT 96
[2025-06-02] MEDS: methADONE HCl 20 MG/2 ML ORAL.CONC 80 MG PO (06:57)
[2025-06-02 07:00] VITALS: BMI 29.8
[2025-06-02] MEDS: Nicotine 21 MG PATCH.TD24 TRANSDERMA (09:00)
--- NOTE | 2025-06-02 12:41 | HO.PSYCHPN ---
Subjective Subjective Date of Service: 06/02/25 Reason For Visit: SI Subjective Notes: Conditional Voluntary Interim History: Patient was observed sleeping in her lunch tray when T/W and social and political studies professor, Yara, went to meet with patient. T/W met with patient and social and political studies professor, Yara, present. Patient continues to report feeling depressed ; irritable. Refused Lexapro this morning; when asked for reasoning, pt stated, I don't want to wait weeks for a medication to work . Pt educated regarding benefits of SSRI to treat, MDD, NATALIE and PTSD. Patient focused on receiving therapy while inpatient; pt was re-educated regarding, social workers on the unit not providing therapy; this is something she can focus on with her outpatient team. Patient was observed falling asleep multiple times throughout the day and had to be woken up; pt was informed her medication would be decreased to assist in her being more alert. Klonopin decreased to 0.5mg PO TID PRN. T/W called patient's outpatient prescriber, Son Melara NP; awaiting call back. Patient was notified her appeal of discharge was denied by her insurance company. Patient is sending another appeal. Medication Compliance: Yes Side effects from medications: No Attending Groups: Intermittent Mental Status Exam Mental Status Exam Narrative: Pt is alert and oriented; behavior is cooperative, irritable, falling alseep throughout the day; dressed in casual attire; mood is described as depressed ; eye contact appropriate; Speech is normal rate, volume and not pressured; thought process is organized; Thought content is on tx/discharge; denies SI/HI/VH/AH. Diagnostics Vital Signs (24Hr): Vital Signs - 24 hr 06/01/25 20:00 Temperature 97.9 F Pulse Rate 77 Respiratory Rate 16 Blood Pressure 127/79 Pulse Oximetry 96 Oxygen Delivery Method Room Air BMI result Body Mass Index 29.8 Labs 05/25/25 14:56 05/25/25 07:51 Medications Medications Current Medications Acetaminophen (Acetaminophen 325 Mg Tablet) 650 mg PO Q6H PRN PRN Reason: Headache/Pain, Scale 1-10 Last Admin: 05/31/25 08:39 Dose: 650 mg Al Hydroxide/Mg Hydroxide (Magnesium Hydrox/Alum Hydrox 30 Ml Oral.Susp) 30 ml PO Q6H PRN PRN Reason: Heartburn/Nausea Albuterol Sulfate (Albuterol Sulfate 90 Mcg 8 Gm Inhaler) 2 puff INHALE QID PRN PRN Reason: shortness of breath or wheezing Cefuroxime Axetil (Cefuroxime Axetil 500 Mg Tablet) 500 mg PO BID [facility] Last Admin: 06/02/25 08:59 Dose: 500 mg Clonazepam (Clonazepam 0.5 Mg Tablet) 0.5 mg PO TID PRN PRN Reason: anxiety attack Escitalopram Oxalate (Escitalopram Oxalate 10 Mg Tablet) 10 mg PO BEDTIME [facility] Last Admin: 06/01/25 20:55 Dose: Not Given Gabapentin (Gabapentin 400 Mg Capsule) 800 mg PO QID [facility] Last Admin: 06/02/25 08:59 Dose: 800 mg Hydroxyzine HCl (Hydroxyzine Hcl 25 Mg Tablet) 25 mg PO BID PRN PRN Reason: Anxiety Last Admin: 06/01/25 20:53 Dose: 25 mg Ibuprofen (Ibuprofen 600 Mg Tablet) 600 mg PO Q6H PRN PRN Reason: Pain, Moderate(Pain Scale 4-6) Last Admin: 05/31/25 12:07 Dose: 600 mg Levothyroxine Sodium (Levothyroxine Sodium 125 Mcg Tablet) 125 mcg PO DAILY@0600 [facility] Last Admin: 06/02/25 06:57 Dose: 125 mcg Lidocaine (Lidocaine 4 % Patch Adh..Patch) 1 patch TRANSDERMA DAILY PRN; Protocol PRN Reason: back pain Loperamide HCl (Loperamide Hcl 2 Mg Capsule) 4 mg PO Q6H PRN PRN Reason: Diarrhea Last Admin: 05/29/25 20:21 Dose: 4 mg Magnesium Hydroxide (Milk Of Magnesia 30 Ml Oral.Susp) 30 ml PO DAILY PRN PRN Reason: Constipation Methadone HCl (Methadone Hcl 20 Mg/2 Ml Oral.Conc) 80 mg PO DAILY@0600 [facility] Last Admin: 06/02/25 06:57 Dose: 80 mg Methadone HCl (Methadone Hcl 20 Mg/2 Ml Oral.Conc) 10 mg PO DAILY@1800 [facility] Last Admin: 06/01/25 18:53 Dose: 10 mg Nicotine (Nicotine 21 Mg Patch.Td24) 21 mg TRANSDERMA DAILY [facility] Last Admin: 06/02/25 09:00 Dose: 21 mg Nicotine Polacrilex (Nicotine Polacrilex 2 Mg Gum) 4 mg BUCCAL Q2H PRN PRN Reason: Nicotine Cravings Trazodone HCl (Trazodone Hcl 50 Mg Tablet) 50 mg PO BEDTIME MRX1 PRN PRN Reason: Insomnia Last Admin: 06/01/25 20:53 Dose: 50 mg Allergies Allergies Allergy/AdvReac Type Severity Reaction Status Date / Time amoxicillin Allergy Itching Verified 05/22/25 23:37 fish derived Allergy Hives Verified 05/17/25 09:55 shellfish derived Allergy Anaphylaxis Verified 05/17/25 09:55 sulfamethoxazole (From Allergy Hives Verified 05/17/25 09:55 Bactrim) trimethoprim (From Bactrim) Allergy Hives Verified 05/17/25 09:55 Assessment & Plan Assessment & Plan (1) MDD (major depressive disorder), recurrent episode: Status: Acute Code(s): F33.9 - Major depressive disorder, recurrent, unspecified (2) PTSD (post-traumatic stress disorder): Status: Acute Code(s): F43.10 - Post-traumatic stress disorder, unspecified (3) Borderline personality disorder: Status: Acute Code(s): F60.3 - Borderline personality disorder (4) Opioid use disorder: Status: Acute Code(s): F11.90 - Opioid use, unspecified, uncomplicated (5) Cocaine use disorder: Status: Acute Code(s): F14.10 - Cocaine abuse, uncomplicated (6) Alcohol use disorder: Status: Acute Code(s): F10.90 - Alcohol use, unspecified, uncomplicated (7) Homeless single person: Status: Acute Code(s): Z59.00 - Homelessness unspecified Plan Patient is a 39 year old female with hx of MDD, PTSD, Cocaine use d/o, Opioid use d/o and alcohol use d/o who presented to ER d/t passive suicidal ideation secondary to homelessness and substance use. Plan: CV 15 minute safety checks Continue home medications Consult to addiction medicine Obtain collateral Encourage groups Referral to substance abuse program Discharge planning 05/25:Active on unit. Patient reports feeling depressed ; presents with irritable edge. denies SI/HI/VH/AH. Focused on going to a substance abuse program. Patient stated, I want to get sober and have my son in my life . Continue tx plan. 05/26: Patient reports to report feeling depressed ; she is requesting to be started on an SSRI. She reports doing well on Celexa; discussed starting Lexapro; risks/benefits reviewed. pt agreed to trial. Start: Lexapro 10mg PO bedtime. denies SI/HI/VH/AH. Continues focused on going to a substance abuse program; wants to be in intensive treatment to remain sober. Showered. PT consult placed to determine if patient needs walker. 05/27: Patient continues to report feeling depressed ; irritable. Patient stated, I don't want to take Lexapro. I want to talk Wellbutrin ; pt was reminded of conversation yesterday with T/W where pt requested SSRI. Pt stated, I don't want to wait weeks for the medication to work . DC lexapro. Start: Wellbutrin XL 150mg PO daily. denies SI/HI/VH/AH. Continues focused on going to a substance abuse program. Demanding to meet with the social and political studies professor daily for therapy; pt was educated that social work on the unit do not provide daily therapy sessions and she should work with her outpatient therapist. pt became angry and left meeting room. 05/28: Active on unit. social with peers. Continues to report feeling anxious and depressed. Patient stated, I'm worried if I'm going to end up on the streets and have no where to go. I feel miserable . Passive SI, no plan. Patient stated, I wouldn't kill myself because of my son . denies HI/VH/AH. continue tx plan. 05/29: Active on unit. social with peers. Continues to report feeling depressed; pt stated, I'm trying to go to all the groups . Passive SI. denies HI/VH/AH. Patient continues focused on if she will be accepted into substance abuse program. continue tx plan. 05/30: Continues to report feeling depressed; refused Wellbutrin, she reports she doesn't like how it makes me feel . She is requesting to be restarted on Lexapro. denies SI/HI/VH/AH. Patient continues focused on if she will be accepted into substance abuse program. DC Wellbutrin. Start: Lexapro 10mg PO daily. 05/31: Active on unit. social with peers. attending groups. Continues to report feeling depressed; denies any side effects from medications. denies SI/HI/VH/AH. Patient continues focused on if she will be accepted into substance abuse program; pt focused on being accepted somewhere with horses . scruff workerEunice, notified patient, she has been referred to multiple programs and respites with no response. Patient encouraged to consider another plan for discharge if not accepted to program or respite. Patient reports she would go to a jail. Plan to discharge ; pt aware. 06/01: T/W met with patient and social and political studies professorEunice, present. Patient continues to report feeling depressed ; irritable edge. Patient reports feeling upset d/t not being accepted into a program, despite multiple efforts. She continues to deny SI/HI/VH/AH. Per nursing, pt slept 8 hours last night. T/W discussed conversation that was had yesterday of discharging to jail on . Patient became upset and stated she plans on appealing her discharge d/t not wanting to go to a jail. Patient has not presented unsafe behaviors while inpatient. She does not exhibit imminent risk at this time and can follow up with ongoing treatment in an outpatient setting. 06/02: Patient was observed sleeping in her lunch tray when T/W and social and political studies professorYara, went to meet with patient. T/W met with patient and social and political studies professorYara, present. Patient continues to report feeling depressed ; irritable. Refused Lexapro this morning; when asked for reasoning, pt stated, I don't want to wait weeks for a medication to work . Pt educated regarding benefits of SSRI to treat, MDD, NATALIE and PTSD. Patient focused on receiving therapy while inpatient; pt was re-educated regarding, social workers on the unit not providing therapy; this is something she can focus on with her outpatient team. Patient was observed falling asleep multiple times throughout the day and had to be woken up; pt was informed her medication would be decreased to assist in her being more alert. Klonopin decreased to 0.5mg PO TID PRN. T/W called patient's outpatient prescriber, Son Melara NP; awaiting call back. Patient was notified her appeal of discharge was denied by her insurance company. Patient is sending another appeal. Patient educated on: diagnosis and medication risk/benefits Reason for continued inpatient stay Substantial Risk for: stable for discharge Time Spent With Patient Time: Total time managing care of this patient today _20___ minutes.
[2025-06-02] MEDS: methADONE HCl 20 MG/2 ML ORAL.CONC 10 MG PO (18:26)
[2025-06-02 21:18] VITALS: BP 108/57; PULSE 61; RESP 16; TEMP 37.1; O2SAT 97
[2025-06-03] MEDS: methADONE HCl 20 MG/2 ML ORAL.CONC 80 MG PO (07:27)
[2025-06-03 07:50] VITALS: BP 130/78; PULSE 60; RESP 12; TEMP 36.4; O2SAT 97
[2025-06-03] MEDS: Nicotine 21 MG PATCH.TD24 TRANSDERMA (12:24)
--- NOTE | 2025-06-03 13:05 | HO.PSYCHPN ---
Subjective Subjective Date of Service: 06/03/25 Reason For Visit: SI Interim History: Chart reviewed, case discussed with tx team Met with pt along w/ SW in the common area, where pt was asleep w/ her head down on the table. She was easily rousable to her name being called but appeared sedated. She asked to increase the clonazepam dose back up and t/w declined and informed her that it isn't appropriate, given that she was asleep at the table. She stated that she would lower the methadone if she could increase the clonazepam back up and t/w offered to taper the methadone as well but informed her that I would not increase the clonazepam back up with this level of daytime sedation. Pt reported feeling anxious and depressed as we concluded the meeting. She did not endorse SI or violent ideation Pt's nurse informed me that she is holding pt's midday gabapentin since she's still asleep at the table. T/W consulted w/ Krys Awan CNP from addiction medicine for guidance on methadone taper, given excessive daytime sedation. Will taper the am dose by 5 mg. MSE: Appearance: initially asleep at dining room table with head on the table. disheveled, oversedated. intermittent eye contact Attitude:Cooperative Speech: Somewhat slurred Motor activity: Calm and without any tics, tremors or dyskinesias. Mood: anxious and depressed Affect: blunted Thought process: goal directed Thought content: did not endorse SI or violent ideation Perception: does not appear to respond to internal stimuli Insight: impaired Judgment: impaired Diagnostics Vital Signs (24Hr): Vital Signs - 24 hr 06/02/25 21:18 06/03/25 07:50 Temperature 98.8 F 97.6 F Pulse Rate 61 60 Respiratory Rate 16 12 Blood Pressure 108/57 L 130/78 Pulse Oximetry 97 97 Oxygen Delivery Method Room Air Room Air BMI result Body Mass Index 29.8 Labs 05/25/25 14:56 05/25/25 07:51 Medications Medications Current Medications Acetaminophen (Acetaminophen 325 Mg Tablet) 650 mg PO Q6H PRN PRN Reason: Headache/Pain, Scale 1-10 Last Admin: 05/31/25 08:39 Dose: 650 mg Al Hydroxide/Mg Hydroxide (Magnesium Hydrox/Alum Hydrox 30 Ml Oral.Susp) 30 ml PO Q6H PRN PRN Reason: Heartburn/Nausea Albuterol Sulfate (Albuterol Sulfate 90 Mcg 8 Gm Inhaler) 2 puff INHALE QID PRN PRN Reason: shortness of breath or wheezing Cefuroxime Axetil (Cefuroxime Axetil 500 Mg Tablet) 500 mg PO BID [facility] Last Admin: 06/03/25 08:27 Dose: 500 mg Clonazepam (Clonazepam 0.5 Mg Tablet) 0.5 mg PO TID PRN PRN Reason: anxiety attack Last Admin: 06/03/25 09:02 Dose: 0.5 mg Escitalopram Oxalate (Escitalopram Oxalate 10 Mg Tablet) 10 mg PO BEDTIME [facility] Last Admin: 06/02/25 21:43 Dose: 10 mg Gabapentin (Gabapentin 400 Mg Capsule) 800 mg PO QID [facility] Last Admin: 06/03/25 08:27 Dose: 800 mg Hydroxyzine HCl (Hydroxyzine Hcl 25 Mg Tablet) 25 mg PO BID PRN PRN Reason: Anxiety Last Admin: 06/01/25 20:53 Dose: 25 mg Ibuprofen (Ibuprofen 600 Mg Tablet) 600 mg PO Q6H PRN PRN Reason: Pain, Moderate(Pain Scale 4-6) Last Admin: 06/02/25 21:44 Dose: 600 mg Levothyroxine Sodium (Levothyroxine Sodium 125 Mcg Tablet) 125 mcg PO DAILY@0600 [facility] Last Admin: 06/03/25 06:29 Dose: 125 mcg Lidocaine (Lidocaine 4 % Patch Adh..Patch) 1 patch TRANSDERMA DAILY PRN; Protocol PRN Reason: back pain Loperamide HCl (Loperamide Hcl 2 Mg Capsule) 4 mg PO Q6H PRN PRN Reason: Diarrhea Last Admin: 05/29/25 20:21 Dose: 4 mg Magnesium Hydroxide (Milk Of Magnesia 30 Ml Oral.Susp) 30 ml PO DAILY PRN PRN Reason: Constipation Methadone HCl (Methadone Hcl 20 Mg/2 Ml Oral.Conc) 80 mg PO DAILY@0600 [facility] Last Admin: 06/03/25 07:27 Dose: 80 mg Methadone HCl (Methadone Hcl 20 Mg/2 Ml Oral.Conc) 10 mg PO DAILY@1800 [facility] Last Admin: 06/02/25 18:26 Dose: 10 mg Nicotine (Nicotine 21 Mg Patch.Td24) 21 mg TRANSDERMA DAILY [facility] Last Admin: 06/03/25 12:24 Dose: 21 mg Nicotine Polacrilex (Nicotine Polacrilex 2 Mg Gum) 4 mg BUCCAL Q2H PRN PRN Reason: Nicotine Cravings Trazodone HCl (Trazodone Hcl 50 Mg Tablet) 50 mg PO BEDTIME MRX1 PRN PRN Reason: Insomnia Last Admin: 06/02/25 21:43 Dose: 50 mg Allergies Allergies Allergy/AdvReac Type Severity Reaction Status Date / Time amoxicillin Allergy Itching Verified 05/22/25 23:37 fish derived Allergy Hives Verified 05/17/25 09:55 shellfish derived Allergy Anaphylaxis Verified 05/17/25 09:55 sulfamethoxazole (From Allergy Hives Verified 05/17/25 09:55 Bactrim) trimethoprim (From Bactrim) Allergy Hives Verified 05/17/25 09:55 Assessment & Plan Assessment & Plan (1) MDD (major depressive disorder), recurrent episode: Status: Acute Code(s): F33.9 - Major depressive disorder, recurrent, unspecified (2) PTSD (post-traumatic stress disorder): Status: Acute Code(s): F43.10 - Post-traumatic stress disorder, unspecified (3) Borderline personality disorder: Status: Acute Code(s): F60.3 - Borderline personality disorder (4) Opioid use disorder: Status: Acute Code(s): F11.90 - Opioid use, unspecified, uncomplicated (5) Cocaine use disorder: Status: Acute Code(s): F14.10 - Cocaine abuse, uncomplicated (6) Alcohol use disorder: Status: Acute Code(s): F10.90 - Alcohol use, unspecified, uncomplicated (7) Homeless single person: Status: Acute Code(s): Z59.00 - Homelessness unspecified Plan Patient is a 39 year old female with hx of MDD, PTSD, Cocaine use d/o, Opioid use d/o and alcohol use d/o who presented to ER d/t passive suicidal ideation secondary to homelessness and substance use. Plan: CV 15 minute safety checks Continue home medications Consult to addiction medicine Obtain collateral Encourage groups Referral to substance abuse program Discharge planning 05/25:Active on unit. Patient reports feeling depressed ; presents with irritable edge. denies SI/HI/VH/AH. Focused on going to a substance abuse program. Patient stated, I want to get sober and have my son in my life . Continue tx plan. 05/26: Patient reports to report feeling depressed ; she is requesting to be started on an SSRI. She reports doing well on Celexa; discussed starting Lexapro; risks/benefits reviewed. pt agreed to trial. Start: Lexapro 10mg PO bedtime. denies SI/HI/VH/AH. Continues focused on going to a substance abuse program; wants to be in intensive treatment to remain sober. Showered. PT consult placed to determine if patient needs walker. 05/27: Patient continues to report feeling depressed ; irritable. Patient stated, I don't want to take Lexapro. I want to talk Wellbutrin ; pt was reminded of conversation yesterday with T/W where pt requested SSRI. Pt stated, I don't want to wait weeks for the medication to work . DC lexapro. Start: Wellbutrin XL 150mg PO daily. denies SI/HI/VH/AH. Continues focused on going to a substance abuse program. Demanding to meet with the social director daily for therapy; pt was educated that social work on the unit do not provide daily therapy sessions and she should work with her outpatient therapist. pt became angry and left meeting room. 05/28: Active on unit. social with peers. Continues to report feeling anxious and depressed. Patient stated, I'm worried if I'm going to end up on the streets and have no where to go. I feel miserable . Passive SI, no plan. Patient stated, I wouldn't kill myself because of my son . denies HI/VH/AH. continue tx plan. 05/29: Active on unit. social with peers. Continues to report feeling depressed; pt stated, I'm trying to go to all the groups . Passive SI. denies HI/VH/AH. Patient continues focused on if she will be accepted into substance abuse program. continue tx plan. 05/30: Continues to report feeling depressed; refused Wellbutrin, she reports she doesn't like how it makes me feel . She is requesting to be restarted on Lexapro. denies SI/HI/VH/AH. Patient continues focused on if she will be accepted into substance abuse program. DC Wellbutrin. Start: Lexapro 10mg PO daily. 05/31: Active on unit. social with peers. attending groups. Continues to report feeling depressed; denies any side effects from medications. denies SI/HI/VH/AH. Patient continues focused on if she will be accepted into substance abuse program; pt focused on being accepted somewhere with horses . box storage workerEunice, notified patient, she has been referred to multiple programs and respites with no response. Patient encouraged to consider another plan for discharge if not accepted to program or respite. Patient reports she would go to a retirement. Plan to discharge ; pt aware. 06/01: T/W met with patient and social directorEunice, present. Patient continues to report feeling depressed ; irritable edge. Patient reports feeling upset d/t not being accepted into a program, despite multiple efforts. She continues to deny SI/HI/VH/AH. Per nursing, pt slept 8 hours last night. T/W discussed conversation that was had yesterday of discharging to retirement on . Patient became upset and stated she plans on appealing her discharge d/t not wanting to go to a retirement. Patient has not presented unsafe behaviors while inpatient. She does not exhibit imminent risk at this time and can follow up with ongoing treatment in an outpatient setting. 06/02: Patient was observed sleeping in her lunch tray when T/W and social director, Yara, went to meet with patient. T/W met with patient and social directorYara, present. Patient continues to report feeling depressed ; irritable. Refused Lexapro this morning; when asked for reasoning, pt stated, I don't want to wait weeks for a medication to work . Pt educated regarding benefits of SSRI to treat, MDD, NATALIE and PTSD. Patient focused on receiving therapy while inpatient; pt was re-educated regarding, social workers on the unit not providing therapy; this is something she can focus on with her outpatient team. Patient was observed falling asleep multiple times throughout the day and had to be woken up; pt was informed her medication would be decreased to assist in her being more alert. Klonopin decreased to 0.5mg PO TID PRN. T/W called patient's outpatient prescriber, Son Melara NP; awaiting call back. Patient was notified her appeal of discharge was denied by her insurance company. Patient is sending another appeal. 06/03: Pt remains over sedated, asleep at the table for much of the day. T/W communicated w/ the administrative office specialist and will taper the morning methadone dose by 5 mg. This can be continued on outpatient basis. Awaiting f/u from insurance company re: pt's discharge appeal. Patient educated on: medication risk/benefits Informed Consent: further education needed Reason for continued inpatient stay Substantial Risk for: stable for discharge (awaiting response from insurance re: pt's appeal ) Time Spent With Patient Time: Total time managing care of this patient today ____ minutes.
--- NOTE | 2025-06-03 13:13 | PC.NURSE ---
1300 Gabapentin held for sedation. Provider Radha Verduzco notified and approved of holding medication.
[2025-06-03] MEDS: methADONE HCl 20 MG/2 ML ORAL.CONC 10 MG PO (17:52)
[2025-06-03 20:00] VITALS: BP 123/83; PULSE 100; RESP 18; TEMP 37.1; O2SAT 100
[2025-06-04] MEDS: methADONE HCl 20 MG/2 ML ORAL.CONC 75 MG PO (06:56)
[2025-06-04 08:00] VITALS: BP 127/74; PULSE 62; RESP 16; TEMP 36.4; O2SAT 93
[2025-06-04] MEDS: Nicotine 21 MG PATCH.TD24 TRANSDERMA (08:33)
--- NOTE | 2025-06-04 11:52 | HO.PSYCHPN ---
Subjective Subjective Date of Service: 06/04/25 Reason For Visit: SI Interim History: Chart reviewed, case discussed in morning report Per nursing report- pt received placement at [facility] for Friday Refused Lexapro last night Pt reports that she was accepted to a [facility] program for Friday. She reports that she set it up on her own. Made derogatory comments about her SW here, stated she didn't do anything for her. T/W informed pt that is not the case but reflected that pt seems to be resourceful. Pt is upset that t/w lowered the methadone w/o increasing the clonazepam back up. Reports that now she's alert w/ severe anxiety. She states that she had been sleeping during the day due to poor sleep at night and b/c she sleeps to avoid worrying about things. She states that she's willing to taper the methadone further if needed and advocates for increasing the clonazepam back to the dose that she's' taken for yrs. In regards to SI, she states that she's had passive SI since childhood but denies intent/plan. States that she wouldn't harm herself b/c of her teenaged son, who lives w/ her mom. Denies AH/VH MSE: Appearance: grooming/hygiene- fair. good eye contact Attitude:Cooperative Speech: Fluent and wnl in regard to volume, tone, prosody Motor activity: Calm and without any tics, tremors or dyskinesias. Steady gait Mood: depressed, anxious Affect: mild lability Thought process: generally goal directed Thought content: as noted above. Future oriented Perception: Denies AH/VH and does not appear to respond to internal stimuli Alert/oriented in all spheres Cognition grossly intact Insight: fair Judgment: fair Diagnostics Vital Signs (24Hr): Vital Signs - 24 hr 06/03/25 20:00 06/04/25 08:00 Temperature 98.7 F 97.5 F Pulse Rate 100 62 Respiratory Rate 18 16 Blood Pressure 123/83 127/74 Pulse Oximetry 100 93 Oxygen Delivery Method Room Air BMI result Body Mass Index 29.8 Labs 05/25/25 14:56 05/25/25 07:51 Medications Medications Current Medications Acetaminophen (Acetaminophen 325 Mg Tablet) 650 mg PO Q6H PRN PRN Reason: Headache/Pain, Scale 1-10 Last Admin: 05/31/25 08:39 Dose: 650 mg Al Hydroxide/Mg Hydroxide (Magnesium Hydrox/Alum Hydrox 30 Ml Oral.Susp) 30 ml PO Q6H PRN PRN Reason: Heartburn/Nausea Albuterol Sulfate (Albuterol Sulfate 90 Mcg 8 Gm Inhaler) 2 puff INHALE QID PRN PRN Reason: shortness of breath or wheezing Clonazepam (Clonazepam 0.5 Mg Tablet) 0.5 mg PO TID PRN PRN Reason: anxiety attack Last Admin: 06/04/25 08:38 Dose: 0.5 mg Escitalopram Oxalate (Escitalopram Oxalate 10 Mg Tablet) 10 mg PO BEDTIME [facility] Last Admin: 06/03/25 21:28 Dose: Not Given Gabapentin (Gabapentin 400 Mg Capsule) 800 mg PO QID [facility] Last Admin: 06/04/25 08:33 Dose: 800 mg Hydroxyzine HCl (Hydroxyzine Hcl 25 Mg Tablet) 25 mg PO BID PRN PRN Reason: Anxiety Last Admin: 06/01/25 20:53 Dose: 25 mg Ibuprofen (Ibuprofen 600 Mg Tablet) 600 mg PO Q6H PRN PRN Reason: Pain, Moderate(Pain Scale 4-6) Last Admin: 06/03/25 21:23 Dose: 600 mg Levothyroxine Sodium (Levothyroxine Sodium 125 Mcg Tablet) 125 mcg PO DAILY@0600 [facility] Last Admin: 06/04/25 05:53 Dose: 125 mcg Lidocaine (Lidocaine 4 % Patch Adh..Patch) 1 patch TRANSDERMA DAILY PRN; Protocol PRN Reason: back pain Loperamide HCl (Loperamide Hcl 2 Mg Capsule) 4 mg PO Q6H PRN PRN Reason: Diarrhea Last Admin: 05/29/25 20:21 Dose: 4 mg Magnesium Hydroxide (Milk Of Magnesia 30 Ml Oral.Susp) 30 ml PO DAILY PRN PRN Reason: Constipation Methadone HCl (Methadone Hcl 20 Mg/2 Ml Oral.Conc) 10 mg PO DAILY@1800 [facility] Last Admin: 06/03/25 17:52 Dose: 10 mg Methadone HCl (Methadone Hcl 20 Mg/2 Ml Oral.Conc) 75 mg PO DAILY@0600 [facility] Last Admin: 06/04/25 06:56 Dose: 75 mg Nicotine (Nicotine 21 Mg Patch.Td24) 21 mg TRANSDERMA DAILY [facility] Last Admin: 06/04/25 08:33 Dose: 21 mg Nicotine Polacrilex (Nicotine Polacrilex 2 Mg Gum) 4 mg BUCCAL Q2H PRN PRN Reason: Nicotine Cravings Trazodone HCl (Trazodone Hcl 50 Mg Tablet) 50 mg PO BEDTIME MRX1 PRN PRN Reason: Insomnia Last Admin: 06/03/25 21:23 Dose: 50 mg Allergies Allergies Allergy/AdvReac Type Severity Reaction Status Date / Time amoxicillin Allergy Itching Verified 05/22/25 23:37 fish derived Allergy Hives Verified 05/17/25 09:55 shellfish derived Allergy Anaphylaxis Verified 05/17/25 09:55 sulfamethoxazole (From Allergy Hives Verified 05/17/25 09:55 Bactrim) trimethoprim (From Bactrim) Allergy Hives Verified 05/17/25 09:55 Assessment & Plan Assessment & Plan (1) MDD (major depressive disorder), recurrent episode: Status: Acute Code(s): F33.9 - Major depressive disorder, recurrent, unspecified (2) PTSD (post-traumatic stress disorder): Status: Acute Code(s): F43.10 - Post-traumatic stress disorder, unspecified (3) Borderline personality disorder: Status: Acute Code(s): F60.3 - Borderline personality disorder (4) Opioid use disorder: Status: Acute Code(s): F11.90 - Opioid use, unspecified, uncomplicated (5) Cocaine use disorder: Status: Acute Code(s): F14.10 - Cocaine abuse, uncomplicated (6) Alcohol use disorder: Status: Acute Code(s): F10.90 - Alcohol use, unspecified, uncomplicated (7) Homeless single person: Status: Acute Code(s): Z59.00 - Homelessness unspecified Plan Patient is a 39 year old female with hx of MDD, PTSD, Cocaine use d/o, Opioid use d/o and alcohol use d/o who presented to ER d/t passive suicidal ideation secondary to homelessness and substance use. Plan: CV 15 minute safety checks Continue home medications Consult to addiction medicine Obtain collateral Encourage groups Referral to substance abuse program Discharge planning 05/25:Active on unit. Patient reports feeling depressed ; presents with irritable edge. denies SI/HI/VH/AH. Focused on going to a substance abuse program. Patient stated, I want to get sober and have my son in my life . Continue tx plan. 05/26: Patient reports to report feeling depressed ; she is requesting to be started on an SSRI. She reports doing well on Celexa; discussed starting Lexapro; risks/benefits reviewed. pt agreed to trial. Start: Lexapro 10mg PO bedtime. denies SI/HI/VH/AH. Continues focused on going to a substance abuse program; wants to be in intensive treatment to remain sober. Showered. PT consult placed to determine if patient needs walker. 05/27: Patient continues to report feeling depressed ; irritable. Patient stated, I don't want to take Lexapro. I want to talk Wellbutrin ; pt was reminded of conversation yesterday with T/W where pt requested SSRI. Pt stated, I don't want to wait weeks for the medication to work . DC lexapro. Start: Wellbutrin XL 150mg PO daily. denies SI/HI/VH/AH. Continues focused on going to a substance abuse program. Demanding to meet with the high school social science teacher daily for therapy; pt was educated that social work on the unit do not provide daily therapy sessions and she should work with her outpatient therapist. pt became angry and left meeting room. 05/28: Active on unit. social with peers. Continues to report feeling anxious and depressed. Patient stated, I'm worried if I'm going to end up on the streets and have no where to go. I feel miserable . Passive SI, no plan. Patient stated, I wouldn't kill myself because of my son . denies HI/VH/AH. continue tx plan. 05/29: Active on unit. social with peers. Continues to report feeling depressed; pt stated, I'm trying to go to all the groups . Passive SI. denies HI/VH/AH. Patient continues focused on if she will be accepted into substance abuse program. continue tx plan. 05/30: Continues to report feeling depressed; refused Wellbutrin, she reports she doesn't like how it makes me feel . She is requesting to be restarted on Lexapro. denies SI/HI/VH/AH. Patient continues focused on if she will be accepted into substance abuse program. DC Wellbutrin. Start: Lexapro 10mg PO daily. 05/31: Active on unit. social with peers. attending groups. Continues to report feeling depressed; denies any side effects from medications. denies SI/HI/VH/AH. Patient continues focused on if she will be accepted into substance abuse program; pt focused on being accepted somewhere with horses . [employer] workerEunice, notified patient, she has been referred to multiple programs and respites with no response. Patient encouraged to consider another plan for discharge if not accepted to program or respite. Patient reports she would go to a senior living. Plan to discharge ; pt aware. 06/01: T/W met with patient and high school social science teacherEunice, present. Patient continues to report feeling depressed ; irritable edge. Patient reports feeling upset d/t not being accepted into a program, despite multiple efforts. She continues to deny SI/HI/VH/AH. Per nursing, pt slept 8 hours last night. T/W discussed conversation that was had yesterday of discharging to senior living on . Patient became upset and stated she plans on appealing her discharge d/t not wanting to go to a senior living. Patient has not presented unsafe behaviors while inpatient. She does not exhibit imminent risk at this time and can follow up with ongoing treatment in an outpatient setting. 06/02: Patient was observed sleeping in her lunch tray when T/W and high school social science teacher, Yara, went to meet with patient. T/W met with patient and high school social science teacherYara, present. Patient continues to report feeling depressed ; irritable. Refused Lexapro this morning; when asked for reasoning, pt stated, I don't want to wait weeks for a medication to work . Pt educated regarding benefits of SSRI to treat, MDD, NATALIE and PTSD. Patient focused on receiving therapy while inpatient; pt was re-educated regarding, social workers on the unit not providing therapy; this is something she can focus on with her outpatient team. Patient was observed falling asleep multiple times throughout the day and had to be woken up; pt was informed her medication would be decreased to assist in her being more alert. Klonopin decreased to 0.5mg PO TID PRN. T/W called patient's outpatient prescriber, Son Melara NP; awaiting call back. Patient was notified her appeal of discharge was denied by her insurance company. Patient is sending another appeal. 06/03: Pt remains over sedated, asleep at the table for much of the day. T/W communicated w/ the intake specialist and will taper the morning methadone dose by 5 mg. This can be continued on outpatient basis. Awaiting f/u from insurance company re: pt's discharge appeal. 06/04: Pt is alert today, after lowering am methadone by 5 mg. She advocated to increase clonazepam back up to previous dose and accepted an understanding that I would titrate the total daily dose by 0.5 mg and continue to monitor for excessive daytime sedation. Reportedly accepted to [facility] program for Friday. Stable for d/c Reason for continued inpatient stay Substantial Risk for: stable for discharge Time Spent With Patient Time: Total time managing care of this patient today ____ minutes.
[2025-06-04] MEDS: methADONE HCl 20 MG/2 ML ORAL.CONC 10 MG PO (17:22)
[2025-06-04 20:00] VITALS: BP 115/68; PULSE 67; RESP 16; TEMP 36.2; O2SAT 97
[2025-06-05] MEDS: methADONE HCl 20 MG/2 ML ORAL.CONC 75 MG PO (06:45)
[2025-06-05 08:00] VITALS: BP 133/88; PULSE 63; RESP 18; TEMP 36.6; O2SAT 98
[2025-06-05] MEDS: Nicotine 21 MG PATCH.TD24 TRANSDERMA (08:41)
[2025-06-05] MEDS: Lidocaine 4 % Patch ADH..PATCH 1 PATCH TRANSDERMA (08:46)
--- NOTE | 2025-06-05 09:17 | P.PNPSI_ITS ---
Subjective Subjective Date of Service: 06/05/25 Reason For Visit: SI Interim History: Chart reviewed, case discussed w/ nursing staff Per nursing report- upset about clonazepam dosing antagonized other pt yesterday more alert but occasionally still fell asleep at the table or goes to room to lay down Met w/ pt in [facility], where she was eating lunch. She was upset about the clonazepam dosing, states she's been on the previous dose for most of her life. C/O high anxiety. She was fairly easily redirectable to discussing d/c planning for tomorrow. She is planning to go to [facility] tomorrow. States that she called the methadone clinic multiple times today but couldn't get ahold of anyone. Advised t/w to call since she figured I could get through to them more easily. T/W advised pt to call tomorrow am when they're open. Pt reported that her appeal for her to extend her stay here longer was approved. T/W advised pt to follow through w/ the plan that she had made to transition to [facility], which pt acknowledged is a more appropriate level of care for her needs. She agreed with this but said I wonder how long they'd let me stay here with the appeal . T/W observed pt speaking to another pt in the [facility] later in the day who has been advocating for (but not appropriate for discharge). Pt asked the pt if they're being forced to leave the hospital. She made disparaging comments loudly multiple times about t/w and med changes made, stated that she wants another psychiatrist. MSE: Appearance: Disheveled. good eye contact. asleep at times at the table today but more alert overall Speech: mildly dysarthric, otherwise wnl Motor activity: Calm and without any tics, tremors or dyskinesias. Mood: anxious Affect: appropriate, irritable Thought process: perseverative, redirectable Thought content: as noted above. Denies active SI. Perception: does not appear to respond to internal stimuli Insight: impaired (chronic issue) Judgment: impaired (chronic issue) Diagnostics Vital Signs (24Hr): Vital Signs - 24 hr 06/04/25 20:00 06/05/25 08:00 Temperature 97.2 F 97.8 F Pulse Rate 67 63 Respiratory Rate 16 18 Blood Pressure 115/68 133/88 Pulse Oximetry 97 98 Oxygen Delivery Method Room Air Room Air BMI result Body Mass Index 29.8 Labs 05/25/25 14:56 05/25/25 07:51 Medications Medications Current Medications Acetaminophen (Acetaminophen 325 Mg Tablet) 650 mg PO Q6H PRN PRN Reason: Headache/Pain, Scale 1-10 Last Admin: 05/31/25 08:39 Dose: 650 mg Al Hydroxide/Mg Hydroxide (Magnesium Hydrox/Alum Hydrox 30 Ml Oral.Susp) 30 ml PO Q6H PRN PRN Reason: Heartburn/Nausea Albuterol Sulfate (Albuterol Sulfate 90 Mcg 8 Gm Inhaler) 2 puff INHALE QID PRN PRN Reason: shortness of breath or wheezing Clonazepam (Clonazepam 0.5 Mg Tablet) 0.5 mg PO QID PRN PRN Reason: anxiety attack Last Admin: 06/04/25 21:17 Dose: 0.5 mg Escitalopram Oxalate (Escitalopram Oxalate 10 Mg Tablet) 10 mg PO BEDTIME [facility] Last Admin: 06/04/25 21:17 Dose: Not Given Gabapentin (Gabapentin 400 Mg Capsule) 800 mg PO QID [facility] Last Admin: 06/05/25 08:35 Dose: 800 mg Hydroxyzine HCl (Hydroxyzine Hcl 25 Mg Tablet) 25 mg PO BID PRN PRN Reason: Anxiety Last Admin: 06/01/25 20:53 Dose: 25 mg Ibuprofen (Ibuprofen 600 Mg Tablet) 600 mg PO Q6H PRN PRN Reason: Pain, Moderate(Pain Scale 4-6) Last Admin: 06/05/25 08:47 Dose: 600 mg Levothyroxine Sodium (Levothyroxine Sodium 125 Mcg Tablet) 125 mcg PO DAILY@0600 [facility] Last Admin: 06/05/25 06:05 Dose: 125 mcg Lidocaine (Lidocaine 4 % Patch Adh..Patch) 1 patch TRANSDERMA DAILY PRN; Protocol PRN Reason: back pain Last Admin: 06/05/25 08:46 Dose: 1 patch Loperamide HCl (Loperamide Hcl 2 Mg Capsule) 4 mg PO Q6H PRN PRN Reason: Diarrhea Last Admin: 05/29/25 20:21 Dose: 4 mg Magnesium Hydroxide (Milk Of Magnesia 30 Ml Oral.Susp) 30 ml PO DAILY PRN PRN Reason: Constipation Methadone HCl (Methadone Hcl 20 Mg/2 Ml Oral.Conc) 10 mg PO DAILY@1800 [facility] Last Admin: 06/04/25 17:22 Dose: 10 mg Methadone HCl (Methadone Hcl 20 Mg/2 Ml Oral.Conc) 75 mg PO DAILY@0600 [facility] Last Admin: 06/05/25 06:45 Dose: 75 mg Nicotine (Nicotine 21 Mg Patch.Td24) 21 mg TRANSDERMA DAILY [facility] Last Admin: 06/05/25 08:41 Dose: 21 mg Nicotine Polacrilex (Nicotine Polacrilex 2 Mg Gum) 4 mg BUCCAL Q2H PRN PRN Reason: Nicotine Cravings Trazodone HCl (Trazodone Hcl 50 Mg Tablet) 50 mg PO BEDTIME MRX1 PRN PRN Reason: Insomnia Last Admin: 06/04/25 21:16 Dose: 50 mg Allergies Allergies Allergy/AdvReac Type Severity Reaction Status Date / Time amoxicillin Allergy Itching Verified 05/22/25 23:37 fish derived Allergy Hives Verified 05/17/25 09:55 shellfish derived Allergy Anaphylaxis Verified 05/17/25 09:55 sulfamethoxazole (From Allergy Hives Verified 05/17/25 09:55 Bactrim) trimethoprim (From Bactrim) Allergy Hives Verified 05/17/25 09:55 Assessment & Plan Assessment & Plan (1) MDD (major depressive disorder), recurrent episode: Status: Acute Code(s): F33.9 - Major depressive disorder, recurrent, unspecified (2) PTSD (post-traumatic stress disorder): Status: Acute Code(s): F43.10 - Post-traumatic stress disorder, unspecified (3) Borderline personality disorder: Status: Acute Code(s): F60.3 - Borderline personality disorder (4) Opioid use disorder: Status: Acute Code(s): F11.90 - Opioid use, unspecified, uncomplicated (5) Cocaine use disorder: Status: Acute Code(s): F14.10 - Cocaine abuse, uncomplicated (6) Alcohol use disorder: Status: Acute Code(s): F10.90 - Alcohol use, unspecified, uncomplicated (7) Homeless single person: Status: Acute Code(s): Z59.00 - Homelessness unspecified Plan Patient is a 39 year old female with hx of MDD, PTSD, Cocaine use d/o, Opioid use d/o and alcohol use d/o who presented to ER d/t passive suicidal ideation secondary to homelessness and substance use. Plan: CV 15 minute safety checks Continue home medications Consult to addiction medicine Obtain collateral Encourage groups Referral to substance abuse program Discharge planning 05/25:Active on unit. Patient reports feeling depressed ; presents with irritable edge. denies SI/HI/VH/AH. Focused on going to a substance abuse program. Patient stated, I want to get sober and have my son in my life . Continue tx plan. 05/26: Patient reports to report feeling depressed ; she is requesting to be started on an SSRI. She reports doing well on Celexa; discussed starting Lexapro; risks/benefits reviewed. pt agreed to trial. Start: Lexapro 10mg PO bedtime. denies SI/HI/VH/AH. Continues focused on going to a substance abuse program; wants to be in intensive treatment to remain sober. Showered. PT consult placed to determine if patient needs walker. 05/27: Patient continues to report feeling depressed ; irritable. Patient stated, I don't want to take Lexapro. I want to talk Wellbutrin ; pt was reminded of conversation yesterday with T/W where pt requested SSRI. Pt stated, I don't want to wait weeks for the medication to work . DC lexapro. Start: Wellbutrin XL 150mg PO daily. denies SI/HI/VH/AH. Continues focused on going to a substance abuse program. Demanding to meet with the social studies teacher daily for therapy; pt was educated that social work on the unit do not provide daily therapy sessions and she should work with her outpatient therapist. pt became angry and left meeting room. 05/28: Active on unit. social with peers. Continues to report feeling anxious and depressed. Patient stated, I'm worried if I'm going to end up on the streets and have no where to go. I feel miserable . Passive SI, no plan. Patient stated, I wouldn't kill myself because of my son . denies HI/VH/AH. continue tx plan. 05/29: Active on unit. social with peers. Continues to report feeling depressed; pt stated, I'm trying to go to all the groups . Passive SI. denies HI/VH/AH. Patient continues focused on if she will be accepted into substance abuse program. continue tx plan. 05/30: Continues to report feeling depressed; refused Wellbutrin, she reports she doesn't like how it makes me feel . She is requesting to be restarted on Lexapro. denies SI/HI/VH/AH. Patient continues focused on if she will be accepted into substance abuse program. DC Wellbutrin. Start: Lexapro 10mg PO daily. 05/31: Active on unit. social with peers. attending groups. Continues to report feeling depressed; denies any side effects from medications. denies SI/HI/VH/AH. Patient continues focused on if she will be accepted into substance abuse program; pt focused on being accepted somewhere with horses . cinder workerEunice, notified patient, she has been referred to multiple programs and respites with no response. Patient encouraged to consider another plan for discharge if not accepted to program or respite. Patient reports she would go to a alf. Plan to discharge ; pt aware. 06/01: T/W met with patient and social studies teacherEunice, present. Patient continues to report feeling depressed ; irritable edge. Patient reports feeling upset d/t not being accepted into a program, despite multiple efforts. She continues to deny SI/HI/VH/AH. Per nursing, pt slept 8 hours last night. T/W discussed conversation that was had yesterday of discharging to alf on . Patient became upset and stated she plans on appealing her discharge d/t not wanting to go to a alf. Patient has not presented unsafe behaviors while inpatient. She does not exhibit imminent risk at this time and can follow up with ongoing treatment in an outpatient setting. 06/02: Patient was observed sleeping in her lunch tray when T/W and social studies teacherYara, went to meet with patient. T/W met with patient and social studies teacher, Kim, present. Patient continues to report feeling depressed ; irritable. Refused Lexapro this morning; when asked for reasoning, pt stated, I don't want to wait weeks for a medication to work . Pt educated regarding benefits of SSRI to treat, MDD, NATALIE and PTSD. Patient focused on receiving therapy while inpatient; pt was re- educated regarding, social workers on the unit not providing therapy; this is something she can focus on with her outpatient team. Patient was observed falling asleep multiple times throughout the day and had to be woken up; pt was informed her medication would be decreased to assist in her being more alert. [place]pin decreased to 0.5mg PO TID PRN. T/W called patient's outpatient prescriber, Son Melara NP; awaiting call back. Patient was notified her appeal of discharge was denied by her insurance company. Patient is sending another appeal. 06/03: Pt remains over sedated, asleep at the table for much of the day. T/W communicated w/ the medical claims specialist and will taper the morning methadone dose by 5 mg. This can be continued on outpatient basis. Awaiting f/u from insurance company re: pt's discharge appeal. 06/04: Pt is alert today, after lowering am methadone by 5 mg. She advocated to increase clonazepam back up to previous dose and accepted an understanding that I would titrate the total daily dose by 0.5 mg and continue to monitor for excessive daytime sedation. Reportedly accepted to [facility] program for Friday. Stable for d/c 06/05: Continue current med regimen/tx plan. Stable for d/c. Plans to go to [facility] Patient educated on: medication risk/benefits and substance abuse Informed Consent: further education needed Reason for continued inpatient stay Substantial Risk for: stable for discharge Time Spent With Patient Time: Total time managing care of this patient today ____ minutes.
[2025-06-05] MEDS: methADONE HCl 20 MG/2 ML ORAL.CONC 10 MG PO (17:59)
[2025-06-05 20:00] VITALS: BP 136/85; PULSE 68; RESP 18; TEMP 36.6; O2SAT 97
[2025-06-06] MEDS: methADONE HCl 20 MG/2 ML ORAL.CONC 75 MG PO (06:26)
[2025-06-06 07:56] VITALS: BP 133/92; PULSE 69; RESP 18; TEMP 36.5; O2SAT 97
[2025-06-06] MEDS: Nicotine 21 MG PATCH.TD24 TRANSDERMA (08:37)
[2025-06-06] MEDS: Lidocaine 4 % Patch ADH..PATCH 1 PATCH TRANSDERMA (08:43)
--- NOTE | 2025-06-06 09:52 | PC.NURSE ---
Methadone 10mg held due to sedation per Dr. Verduzco.
--- NOTE | 2025-06-06 10:12 | PC.NURSE ---
Patient more alert, awake, upset about discharge planning and decrease in Benzodiazepine. Methadone dose discussed with Dr. Verduzco, may administer at this time.
[2025-06-06] MEDS: methADONE HCl 20 MG/2 ML ORAL.CONC 10 MG PO (10:19)
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
[2025-06-06] MEDS: Naloxone HCl Nasal TAKE HOME 4 MG SPRAY 8 MG NOSTRILALT (11:42)
--- NOTE | 2025-06-06 11:54 | PC.NURSE ---
Patient engages to review discharge paperwork. Minimally engaged. Focused on discharge medications although low frustration tolerance for review. Mood continues agitated, irritable and anxious. No active SI/HI reported. No reported perceptual disturbances, no A/V hallucinations. Patient discharging to [facility] program. All belongings taken with patient. Narcan provided to patient as take home. Last dose letter provided for Methadone. Crisis numbers provided.
== END 2025-06-06 11:40 | disposition home or self-care (01) | DRG 885 ==
PROVIDERS: Nurse Practitioner Family; Admitting Provider Registered Nurse; Responsible Provider Registered Nurse; Visit Provider Psychiatry & Neurology Psychiatry
DX: F33.9 Major depressive disorder, recurrent, unspecified (principal); R45.851 Suicidal ideations; Z59.02 Unsheltered homelessness; N39.0 Urinary tract infection, site not specified; L03.115 Cellulitis of right lower limb; Z16.11 Resistance to penicillins; Z16.29 Resistance to other single specified antibiotic; E03.9 Hypothyroidism, unspecified; N18.30 Chronic kidney disease, stage 3 unspecified; F43.10 Post-traumatic stress disorder, unspecified; F60.3 Borderline personality disorder; Z91.52 Personal history of nonsuicidal self-harm; F14.10 Cocaine abuse, uncomplicated; F10.90 Alcohol use, unspecified, uncomplicated; F19.10 Other psychoactive substance abuse, uncomplicated; Z79.890 Hormone replacement therapy; Z79.899 Other long term (current) drug therapy; J45.909 Unspecified asthma, uncomplicated; B96.20 Unspecified Escherichia coli [E. coli] as the cause of diseases classified elsewhere
CPT/HCPCS: 36415; 71046; 80053; 80061; 83036; 83690; 85025; 97162

== ENCOUNTER 2025-05-24 13:52 | Outpatient (BNV) | payer MEDICARE, MEDICAID, SELFPAY | END 2025-05-31 18:15 | PROVIDERS: Admitting Provider Registered Nurse; Responsible Provider Registered Nurse; Visit Provider Radiology Diagnostic Radiology | DX: R06.02 Shortness of breath (principal) | CPT/HCPCS: 71046 ==

== ENCOUNTER → 2025-05-24 13:52 | Outpatient (BNV) | payer MEDICARE, MEDICAID, SELFPAY | PROVIDERS: Admitting Provider Registered Nurse; Responsible Provider Registered Nurse; Visit Provider Registered Nurse | DX: F33.9 Major depressive disorder, recurrent, unspecified (principal); F43.10 Post-traumatic stress disorder, unspecified; F60.3 Borderline personality disorder; F11.90 Opioid use, unspecified, uncomplicated; F14.10 Cocaine abuse, uncomplicated | CPT/HCPCS: 90792; 99232 ==

== ENCOUNTER → 2025-05-24 13:52 | Outpatient (BNV) | payer MEDICARE, MEDICAID, SELFPAY | PROVIDERS: Admitting Provider Registered Nurse; Responsible Provider Registered Nurse; Visit Provider Nurse Practitioner Family | DX: E03.9 Hypothyroidism, unspecified (principal) | CPT/HCPCS: 99221 ==